=== PATIENT | female | born 1970 | race Caucasian/White ===

== ENCOUNTER → 2017-10-10 10:48 | Outpatient (CLI) | payer OTHER, SELFPAY ==
[2017-10-10 12:21] LABS: Absolute Lymphocyte Count 1.55 X10^3/ul (0.83-4.51); Absolute Neutrophil Count 3.8 X10^3/uL (2.0-7.7); Basophil# 0.02 X10^3/uL; Basophil% 0.3 % (0-1); Eosinophil# 0.16 X10^3/uL; Eosinophils% 2.7 % (0-5); Hematocrit 41.1 % (37-47); Hemoglobin 13.1 g/dl (12.0-15.0); Lymphocyte # 1.55 X10^3/ul (4.0); Lymphocyte % 26.3 % (19-41); Mean Corp Hgb Conc 31.9 g/gl (32-36); Mean Corpuscular Hgb 29.6 pg (27.0-32.0); Mean Platelet Vol. 10.8 fl (6.2-12.0); Monocyte# 0.37 X10^3/uL; Monocyte% 6.3 % (0-10); Neutrophil # 3.78 X10^3/uL (2.7-7.7); Neutrophil % 64.2 % (47-70); Platelet Count 292 K/mm3 (150-450); RBC Distribution Width CV 13.8 % (11.6-14.6); Red Blood Count 4.42 M/mm3 (4.2-5.4); White Blood Count 5.9 K/mm3 (4.4-11.0)
[2017-10-10 12:29] LABS: POSITIVE COUNT NO; POSITIVE DIFFERENTIAL NO; POSITIVE MORPHOLOGY NO
[2017-10-10 12:37] LABS: Erythrocyte Sedimentation Rate 16 mm/hr (0-20)
[2017-10-10 12:53] LABS: Vitamin B12 635 pg/mL (211-911); Vitamin D,25 Hydroxy 34.9 ng/mL (19.95-100.01)
[2017-10-10 13:13] LABS: AST(SGOT) 18 U/L (15-37); Alanine Aminotransfer ALT/SGPT 21 U/L (13-56); Albumin, Serum 3.5 g/dL (3.2-5.0); Alkaline Phosphatase 106 U/L (45-117); Anion Gap 7 (5-15); BUN 19 mg/dL (7-18); BUN/Creat Ratio 34.2 RATIO (10-20); CRP 3.74 mg/L (0.0-3.0); Calcium,Total 8.4 mg/dL (8.5-10.1); Chloride 106 mmol/L (98-107); Creatinine, Serum 0.56 mg/dL (0.55-1.02); EST Glomerular Filtration Rate 125 mL/min (>60); Est Glom Filt Rate - Afr Amer 151 mL/min (>60); Ferritin 47 ng/mL (8-252); Globulin 3.5 g/dL (2.2-4.2); Glucose 89 mg/dL (74-106); Iron 89 ug/dL (50-170); Potassium 4.2 mmol/L (3.5-5.1); Rheumatoid Factor < 10.0 IU/mL (<15); Sodium Level 139 mmol/L (136-145); Thyroid Stim Hormone (TSH) 1.49 uIU/mL (0.358-3.74); Uric Acid 4.9 mg/dL (2.6-6.0)
[2017-10-11 12:37] LABS: ANTINUCLEAR ANTIBODIES DIRECT Negative (Negative)
== END ==
PROVIDERS: Family Provider Family Medicine; PCP Family Medicine; Visit Provider Family Medicine
DX: M79.1 Myalgia (principal)
CPT/HCPCS: 36415; 80053; 81291; 82306; 82607; 82728; 82746; 83540; 84443; 84550; 85025; 85652; 86038; 86140; 86431

== ENCOUNTER → 2017-10-17 07:39 | Outpatient (CLI) | payer OTHER, SELFPAY ==
[2017-10-17 10:13] LABS: Internal QC Validated? YES +Cl - CLEAR BKGD; Pregnancy, Urine Negative Negative
== END ==
PROVIDERS: Family Provider Family Medicine; PCP Family Medicine; Visit Provider Dermatology
DX: L70.0 Acne vulgaris (principal); L23.3 Allergic contact dermatitis due to drugs in contact with skin; Z79.899 Other long term (current) drug therapy
CPT/HCPCS: 81025

== ENCOUNTER → 2017-10-22 07:11 | Outpatient (CLI) | payer OTHER, SELFPAY | PROVIDERS: Family Provider Family Medicine; PCP Family Medicine; Visit Provider Family Medicine | DX: M79.1 Myalgia (principal) | CPT/HCPCS: 36415; 81291 ==

== ENCOUNTER → 2017-10-29 08:08 | Outpatient (CLI) | payer OTHER, SELFPAY ==
[2017-10-29 11:10] LABS: Homocysteine 6.2 umol/L (3.2-10.7)
== END ==
PROVIDERS: Family Provider Family Medicine; PCP Family Medicine; Visit Provider Family Medicine
DX: M79.1 Myalgia (principal); M60.9 Myositis, unspecified
CPT/HCPCS: 36415; 83090

== ENCOUNTER → 2017-11-02 10:36 | Outpatient (CLI) | payer OTHER, SELFPAY ==
--- NOTE | 2017-11-02 10:40 | RAD_ITS ---
STUDY: X-RAY - LUMBAR SPINE REASON FOR EXAM: Female, 47 years old. Chronic back pain. TECHNIQUE: 5 view(s) of the lumbar spine were obtained including oblique views. COMPARISON: None FINDINGS: Normal lumbar lordosis. There is no substantial scoliosis. There is a normal alignment of the vertebrae. There is mild endplate spondylosis of the lumbar vertebrae. Mild disc space narrowing at the L4-L5 and L5-S1 levels. IUD is seen within the pelvis. Radiopaque tablets are seen scattered throughout the bowel. RAD/L/S Spine Min 4 Views IMPRESSION: Degenerative changes of the spine, as detailed above. Electronically Signed: Franky Desai MD at 14:12 EST Tel [phone], Service support ,
== END ==
PROVIDERS: Family Provider Family Medicine; PCP Family Medicine; Visit Provider Family Medicine
DX: M54.5 Low back pain (principal)
CPT/HCPCS: 72110

== ENCOUNTER → 2017-11-20 08:42 | Outpatient (CLI) | payer OTHER, SELFPAY ==
[2017-11-20 10:33] LABS: Internal QC Validated? YES +Cl - CLEAR BKGD; Pregnancy, Urine Negative Negative
== END ==
PROVIDERS: Family Provider Family Medicine; PCP Family Medicine; Visit Provider Dermatology
DX: L70.0 Acne vulgaris (principal); L72.8 Other follicular cysts of the skin and subcutaneous tissue; L23.3 Allergic contact dermatitis due to drugs in contact with skin; Z79.899 Other long term (current) drug therapy
CPT/HCPCS: 81025

== ENCOUNTER → 2017-11-29 11:53 | Outpatient (CLI) | payer OTHER, SELFPAY ==
[2017-11-29 14:27] LABS: Follicle Stimulating Hormone 18.4 mIU/mL; Luteinizing Hormone 9.6 mIU/mL
[2017-12-03 03:06] LABS: Testosterone Free 3.5 pg/mL (0.0-4.2)
[2017-12-03 08:33] LABS: Estrogen, Total, Serum 218 pg/mL (.)
== END ==
PROVIDERS: Family Provider Family Medicine; PCP Family Medicine; Visit Provider Nurse Practitioner Adult Health
DX: N95.9 Unspecified menopausal and perimenopausal disorder (principal)
CPT/HCPCS: 36415; 82672; 83001; 83002; 84402

== ENCOUNTER → 2017-12-24 09:24 | Outpatient (CLI) | payer OTHER, SELFPAY ==
[2017-12-24 11:56] LABS: Internal QC Validated? YES +Cl - CLEAR BKGD; Pregnancy, Urine Negative Negative
== END ==
PROVIDERS: Family Provider Family Medicine; PCP Family Medicine; Visit Provider Dermatology
DX: L70.0 Acne vulgaris (principal); Z79.899 Other long term (current) drug therapy; L72.8 Other follicular cysts of the skin and subcutaneous tissue; L23.3 Allergic contact dermatitis due to drugs in contact with skin
CPT/HCPCS: 81025

== ENCOUNTER → 2018-01-24 09:50 | Outpatient (CLI) | payer OTHER, SELFPAY ==
[2018-01-24 12:41] LABS: Internal QC Validated? YES +Cl - CLEAR BKGD; Pregnancy, Urine Negative Negative
== END ==
PROVIDERS: Family Provider Family Medicine; PCP Family Medicine; Visit Provider Dermatology
DX: Z79.899 Other long term (current) drug therapy (principal); L70.0 Acne vulgaris; L23.3 Allergic contact dermatitis due to drugs in contact with skin
CPT/HCPCS: 81025

== ENCOUNTER → 2018-02-21 08:51 | Outpatient (CLI) | payer OTHER, SELFPAY ==
[2018-02-21 09:59] LABS: Internal QC Validated? YES +Cl - CLEAR BKGD; Pregnancy, Urine Negative Negative
== END ==
PROVIDERS: Family Provider Family Medicine; PCP Family Medicine; Visit Provider Dermatology
DX: L70.0 Acne vulgaris (principal); L23.3 Allergic contact dermatitis due to drugs in contact with skin; Z79.899 Other long term (current) drug therapy
CPT/HCPCS: 81025

== ENCOUNTER → 2018-03-27 13:41 | Outpatient (CLI) | payer OTHER, SELFPAY ==
[2018-03-27 14:33] LABS: Internal QC Validated? YES +Cl - CLEAR BKGD; Pregnancy, Urine Negative Negative
== END ==
PROVIDERS: Family Provider Family Medicine; PCP Family Medicine; Visit Provider Dermatology
DX: L70.0 Acne vulgaris (principal); Z79.899 Other long term (current) drug therapy; L23.3 Allergic contact dermatitis due to drugs in contact with skin
CPT/HCPCS: 81025

== ENCOUNTER → 2018-12-04 07:02 | Outpatient (CLI) | payer OTHER, SELFPAY ==
--- NOTE | 2018-12-04 07:05 | BI_ITS ---
MAMMOGRAPHY - BILATERAL DIAGNOSTIC REASON FOR EXAM: Female, 48 years old. Palpable lump in the upper inner quadrant of the left breast. History of prior bilateral breast reduction surgery. PERTINENT HISTORY: Non-contributory. TECHNIQUE: Digital bilateral breast kerrie (3D mammographic acquisition) in the CC and MLO projections. 2-D mediolateral oblique (MLO) and craniocaudad (CC) views of both breasts were obtained. CAD: Full Field Digital Mammography with Computer Added Detection was performed. COMPARISON: Comparison is made with prior examination dated July 25, 2016 and July 07, 2015. FINDINGS: Breast Composition: There are scattered areas of fibroglandular density. There are no dominant masses or suspicious calcifications. There is a 7.8 mm well-defined nodule in the anterior lateral aspect of the right breast. This most likely represents either a small cyst or lymph node. This has increased slightly in size as compared to prior study. Correlation with ultrasound is recommended. No other significant abnormalities are identified. BI/DIAG MAMM W/CAD, BILAT IMPRESSION: 6.2 mm x 7.8 mm well-defined nodule in the anterior lateral aspect of the right breast as described. Correlation is recommended. Ultrasound correlation with the palpable abnormality in the upper quadrant of the left breast is recommended as well. ASSESSMENT CATEGORY: BIRADS Category 0: Incomplete. Need additional imaging evaluation. A letter regarding these results will be sent to the patient by the facility within 30 days. Approximately 10% of breast cancers are not detected by mammography. A normal mammogram should not delay biopsy of a clinically suspicious abnormality. Electronically Signed: Franky Desai, at 13:20 EDT , Service support ,
== END ==
PROVIDERS: Family Provider Family Medicine; PCP Family Medicine; Referring Provider Obstetrics & Gynecology; Visit Provider Obstetrics & Gynecology
DX: N63.22 Unspecified lump in the left breast, upper inner quadrant (principal)
CPT/HCPCS: 77062; 77063; 77066; G0279

== ENCOUNTER → 2018-12-06 12:28 | Outpatient (CLI) | payer OTHER, SELFPAY ==
--- NOTE | 2018-12-06 12:30 | US_ITS ---
STUDY: ULTRASOUND BREAST - RIGHT REASON FOR EXAM: Female, 48 years old. Abnormal screening mammogram. TECHNIQUE: Axial and longitudinal images of the RIGHT breast were performed with a high resolution ultrasound transducer. COMPARISON: Comparison is made with prior mammogram dated December 04, 2018. FINDINGS: RIGHT Breast: The mammographic abnormality corresponds to a 6 mm x 4 mm x 3 mm well-defined hypoechoic nodule with echogenic hilum suggestive of a lymph node at the 12:00 position of the breast at 1 cm from the nipple. IMPRESSION: The mammographic abnormality corresponds to a 6 mm x 4 mm x 3 mm benign-appearing lymph node at the 12:00 position of the breast at 1 cm from nipple. ASSESSMENT CATEGORY: BIRADS Category 2: Benign. A letter regarding these results will be sent to the patient by the facility within 30 days. Electronically Signed: Franky Desai, at 14:05 EDT , Service support , STUDY: ULTRASOUND BREAST - LEFT REASON FOR EXAM: Female, 48 years old. Palpable lump left breast. TECHNIQUE: Axial and longitudinal images of the LEFT breast were performed with a high resolution ultrasound transducer. COMPARISON: Comparison is made with prior mammogram dated December 04, 2018. FINDINGS: LEFT Breast: The upper inner quadrant of the left breast was examined by ultrasound. No solid or cystic mass lesion is seen. US/Breast Limited Unilateral IMPRESSION: Unremarkable ultrasound of the left breast. ASSESSMENT CATEGORY: BIRADS Category 1: Negative. A letter regarding these results will be sent to the patient by the facility within 30 days. Electronically Signed: Franky Desai, at 14:05 EDT , Service support ,
== END ==
PROVIDERS: Family Provider Family Medicine; PCP Family Medicine; Referring Provider Obstetrics & Gynecology; Visit Provider Obstetrics & Gynecology
DX: R92.8 Other abnormal and inconclusive findings on diagnostic imaging of breast (principal)
CPT/HCPCS: 76641; 76642

== ENCOUNTER 2019-06-13 18:19 | Emergency (ER) | payer OTHER, SELFPAY ==
[2019-06-13 18:20] VITALS: BP 139/91; PULSE 98; RESP 16; TEMP 36.6; O2SAT 98; BMI 28.3
--- NOTE | 2019-06-13 18:56 | ED.VIS.GEN ---
History of Present Illness Chief Complaint: Headache Informant: Patient Onset: Today - Approximately 12 noon Context: Gradual Onset Timing: Continuous Quality: Pain Location: Unilateral mild bilateral Current Severity: Severe Maximum Severity: Severe Worsened by: Light and sound Relieved by: Nothing Associated Symptoms: Nausea Narrative: She is a 49-year-old woman with history of migraine headaches who presents with significant migraine headache. She took her normal home meds without improvement. She presents with bilateral headache presently with photophobia, sonophobia and nausea. She denies fever or chills. She denies neck pain or neck stiffness. She denies blurred vision, loss of vision or double vision. Denies trouble speech or swallowing. Denies paresthesia, anesthesia motor weakness. She has no other complaints. Prior similar symptoms: No Recent Illness/Hospitalization: No - Past Medical History (1) History of migraine headaches Status: Acute Past Medical History - Allergies and Home Meds Allergies/Adverse Reactions: Allergies codeine Allergy (Verified 01/04/17 22:57) Swelling Sulfa (Sulfonamide Antibiotics) Allergy (Verified 01/04/17 22:57) Rash Primary Care Physician: Adilson Ness MD [Primary Care Provider] - As Needed Prior records reviewed: No Surgical History: noncontributory Lives: Spouse/ Significant Other Smoking Status: Never smoker Alcohol: None Drugs: None Review of Systems General: Denies: Chills, Fever, Sweats Eyes: Reports: - - Photophobia. Denies: Visual changes - bilaterally, Blurred Vision - bilaterally, Diplopia ENT: Reports: - - Sonophobia. Denies: Rhinorrhea, Sore throat Cardiovascular: Denies: Chest pain, Palpitations Respiratory: Denies: Dyspnea, Cough, Dyspnea on exertion Gastrointestinal: Reports: Nausea. Denies: Abdominal pain, Vomiting, Diarrhea, Constipation, Melena, Hematochezia, -, - Musculoskeletal: Denies: Myalgias, Arthralgias, Neck pain, Back pain, Extremity Pain Skin: Denies: Rash Neurological: Reports: Headache. Denies: Weakness, Parasthesia Hematologic: Denies: Easy bruising, Easy bleeding Physical Exam Vital Signs/Narrative: Vital Signs Temp Pulse Resp BP Pulse Ox 06/13/19 18:20 97.9 F 98 16 139/91 H 98 Inital Vital Signs reviewed: Yes General: Well nourished, Well developed Head: Normocephalic, Atraumatic Eyes: Perrl, EOMI. Negative for: Pale conjunctiva, Scleral icterus ENT: Moist mucous membranes, No rhinorrhea, TM's clear Neck: Supple, Nontender, No lymphadenopathy, No JVD Cardiovascular: Regular rate, Regular rhythm, No murmurs, Normal S1, Normal S2, S3 Respiratory: No distress, CTA bilaterally, Chest nontender Rectal: Deferred Back: Nontender, Normal Inspection Extremities: Nontender, No edema Skin: Normal color, No rash Neurological: Alert, Oriented x3, Cranial nerves II-XII grossly intact, Normal Strength, Normal Sensation, Normal DTR - There is no clonus or Babinski sign noted, Normal Gait Psychological: Normal affect Diagnostic/Tx/Re-eval - Medical Decision Making With typical migraine headache. History is not suggestive of subarachnoid hemorrhage. There is no history of trauma. Will treat with IV Benadryl, Reglan and Toradol. Will reassess in 30 to 60 minutes. She was reassessed at 1942. She was markedly better. She was asked if she felt comfortable going home. She states she would like to go home. ED Disposition - Plan for ED Patient: Disposition: Home or Assisted Living Diagnosis: Headache, migraine, intractable Instructions: ED, Migraine (Classical) Referrals: Adilson Ness MD [Primary Care Provider] - As Needed
[2019-06-13] MEDS: Ketorolac 30 MG/ML Syringe IV (19:01)
[2019-06-13] MEDS: DiphenhydrAMINE 50 MG/ML Syringe 25 MG IV (19:02)
[2019-06-13] MEDS: Metoclopramide 10 MG/2 ML Vial IV (19:03)
[2019-06-13 19:51] VITALS: BP 123/80; PULSE 81; RESP 18; O2SAT 98
== END 2019-06-13 19:53 | disposition home or self-care (01) ==
PROVIDERS: Emergency Provider Emergency Medicine; Family Provider Family Medicine; PCP Family Medicine
DX: G43.919 Migraine, unspecified, intractable, without status migrainosus (principal); Z88.2 Allergy status to sulfonamides
CPT/HCPCS: 96374; 96375; 99282; A4216

== ENCOUNTER → 2020-01-07 10:30 | Outpatient (CLI) | payer OTHER, SELFPAY ==
[2020-01-07 12:56] LABS: ALB/GLOB Ratio 0.7 RATIO (0.9-2.4); AST(SGOT) 14 U/L (15-37); Alanine Aminotransfer ALT/SGPT 19 U/L (13-56); Alkaline Phosphatase 66 U/L (45-117); Anion Gap 6 (5-15); BUN 13 mg/dL (7-18); BUN/Creat Ratio 17.8 RATIO (10-20); Calcium,Total 8.9 mg/dL (8.5-10.1); Chloride 107 mmol/L (98-107); Creatinine, Serum 0.73 mg/dL (0.55-1.02); EST Glomerular Filtration Rate 90 mL/min (>60); Est Glom Filt Rate - Afr Amer 109 mL/min (>60); Free T3 2.5 pg/mL (2.18-3.98); Globulin 4.5 g/dL (2.2-4.2); Glucose 86 mg/dL (74-106); Potassium 4.3 mmol/L (3.5-5.1); Protein, Total 7.5 g/dL (6.4-8.2); Sodium Level 138 mmol/L (136-145); T4 Free Direct 0.83 ng/dL (0.76-1.46); Thyroid Stim Hormone (TSH) 1.82 uIU/mL (0.358-3.74)
[2020-01-07 13:27] LABS: Vitamin D,25 Hydroxy 38.8 ng/mL
== END ==
PROVIDERS: PCP Family Medicine; Visit Provider Family Medicine
DX: R63.5 Abnormal weight gain (principal)
CPT/HCPCS: 36415; 80053; 82306; 82533; 84439; 84443; 84481

== ENCOUNTER 2020-10-21 10:11 | Outpatient (RCR) | payer OTHER, SELFPAY | END 2020-10-21 23:59 | LOC: IMMUN 10:11 | PROVIDERS: PCP Family Medicine; Visit Provider Family Medicine | DX: Z23 Encounter for immunization (principal) | CPT/HCPCS: 0011A; 0012A ==

== ENCOUNTER → 2021-02-04 12:30 | Outpatient (CLI) | payer OTHER, SELFPAY ==
--- NOTE | 2021-02-04 12:35 | BI_ITS ---
MAMMOGRAPHY - BILATERAL SCREENING REASON FOR EXAM: Female, 51 years old. Routine annual screening examination. PERTINENT HISTORY: Non-contributory. History of prior bilateral breast reduction surgery. TECHNIQUE: Digital bilateral breast tiera (3D mammographic acquisition) in the CC and MLO projections. 2-D mediolateral oblique (MLO) and craniocaudad (CC) views of both breasts were obtained. CAD: Full Field Digital Mammography with Computer Added Detection was performed. COMPARISON: Comparison is made with prior study dated 12/04/2018 and 07/25/2016. FINDINGS: Breast Composition: There are scattered areas of fibroglandular density. Stable 7.8 mm well-defined nodular density in the anterior lateral aspect of the right breast. Stable bilateral axillary lymph nodes. There are no dominant masses or suspicious calcifications. No other significant abnormalities are identified. There has been no significant change since the prior study. BI/SCRN MAMM (CAD)W/TIERA BILAT IMPRESSION: Stable bilateral screening mammogram. Yearly follow-up mammogram recommended. (A) ASSESSMENT CATEGORY: BIRADS Category 2: Benign. A letter regarding these results will be sent to the patient by the facility within 30 days. Approximately 10% of breast cancers are not detected by mammography. A normal mammogram should not delay biopsy of a clinically suspicious abnormality. [id number] Electronically Signed: Franky Desai MD at 13:48 EDT , Service support ,
== END ==
PROVIDERS: PCP Family Medicine; Referring Provider Obstetrics & Gynecology; Visit Provider Obstetrics & Gynecology
DX: Z12.31 Encounter for screening mammogram for malignant neoplasm of breast (principal)
CPT/HCPCS: 77063; 77067

== ENCOUNTER → 2022-03-21 | Outpatient (CLI) | payer OTHER, SELFPAY ==
--- NOTE | 2022-03-21 08:14 | BI_ITS ---
MAMMOGRAPHY - BILATERAL SCREENING REASON FOR EXAM: Female, 52 years old. Routine annual screening examination. PERTINENT HISTORY: Non-contributory. History of prior bilateral breast reduction surgery. TECHNIQUE: Digital bilateral breast tiera (3D mammographic acquisition) in the CC and MLO projections. 2-D mediolateral oblique (MLO) and craniocaudad (CC) views of both breasts were obtained. CAD: Full Field Digital Mammography with Computer Added Detection was performed. COMPARISON: Comparison is made with prior study dated 02/04/2021 and 12/04/2018. FINDINGS: Breast Composition: The breasts are almost entirely fatty. Stable 7.8 mm nodular density in the central portion of the left breast suggestive of a small lymph node. Stable 7 mm well-defined nodule in the upper lateral aspect of the right breast. No other significant abnormalities are identified. There has been no significant change since the prior study. BI/SCRN MAMM (CAD)W/TIERA BILAT IMPRESSION: Stable bilateral screening mammogram. Yearly follow-up mammogram recommended. (A) ASSESSMENT CATEGORY: BIRADS Category 2: Benign. A letter regarding these results will be sent to the patient by the facility within 30 days. Approximately 10% of breast cancers are not detected by mammography. A normal mammogram should not delay biopsy of a clinically suspicious abnormality. [id number] Electronically Signed: Franky Desai MD at 8:15 EDT ,
== END | disposition home or self-care (01) ==
LOC: OPBI 08:12
PROVIDERS: PCP Family Medicine; Referring Provider Obstetrics & Gynecology; Visit Provider Obstetrics & Gynecology
DX: Z12.31 Encounter for screening mammogram for malignant neoplasm of breast (principal)
CPT/HCPCS: 77063; 77067

== ENCOUNTER → 2022-03-28 | Outpatient (CLI) | payer OTHER, SELFPAY | END | disposition home or self-care (01) | LOC: MFPLAB 11:17 | PROVIDERS: PCP Family Medicine; Referring Provider Family Medicine; Visit Provider Family Medicine | DX: D68.2 Hereditary deficiency of other clotting factors (principal); Z83.2 Family history of diseases of the blood and blood-forming organs and certain disorders involving the immune mechanism | CPT/HCPCS: 36415; 81241 ==

== ENCOUNTER → 2023-03-20 | Outpatient (CLI) | payer OTHER, SELFPAY ==
[2023-03-20 12:30] LABS: Erythrocyte Sedimentation Rate 6 mm/hr (0-30)
[2023-03-20 12:34] LABS: Absolute Lymphocyte Count 1.45 X10^3/uL (0.83-4.51); Absolute Neutrophil Count 4.6 X10^3/uL (2.0-7.7); Basophil# 0.04 X10^3/uL; Basophil% 0.6 % (0-1); Eosinophil# 0.13 X10^3/uL; Eosinophils% 1.9 % (0-5); Hematocrit 42.3 % (37-47); Hemoglobin 13.8 g/dL (12.0-15.0); Lymphocyte # 1.45 X10^3/ul (0.83-4.51); Lymphocyte % 21.3 % (19-41); Mean Corp Hgb Conc 32.6 g/dL (32-36); Mean Corpuscular Hgb 29.9 pg (27.0-32.0); Mean Corpuscular Volume 91.8 fL (81-99); Mean Platelet Vol. 10.6 fl (6.2-12.0); Monocyte# 0.52 X10^3/uL; Monocyte% 7.6 % (0-10); NRBC Flagged by Analyzer 0 % (0-5); Neutrophil # 4.64 X10^3/uL (2.7-7.7); Neutrophil % 68.2 % (47-70); Platelet Count 323 K/mm3 (150-450); RBC Distribution Width CV 13.9 % (11.6-14.6); RBC Distribution Width SD 47.2 fl (35.1-43.9); Red Blood Count 4.61 M/mm3 (4.2-5.4); White Blood Count 6.8 K/mm3 (4.4-11.0)
[2023-03-20 12:58] LABS: ALB/GLOB Ratio 0.9 RATIO (0.9-2.4); AST(SGOT) 19 U/L (15-37); Alanine Aminotransfer ALT/SGPT 33 U/L (13-56); Albumin, Serum 3.2 g/dL (3.2-5.0); Alkaline Phosphatase 136 U/L (45-117); Anion Gap 3 (5-15); BUN 14 mg/dL (7-18); BUN/Creat Ratio 19.3 RATIO (10-20); Calcium,Total 8.9 mg/dL (8.5-10.1); Chloride 109 mmol/L (98-107); Creatinine, Serum 0.72 mg/dL (0.55-1.02); EST Glomerular Filtration Rate 90 mL/min (>60); Est Glom Filt Rate - Afr Amer 109 mL/min (>60); Globulin 3.7 g/dL (2.2-4.2); Glucose 87 mg/dL (74-106); Potassium 4.3 mmol/L (3.5-5.1); Protein, Total 6.9 g/dL (6.4-8.2); Sodium Level 140 mmol/L (136-145)
[2023-03-21 13:13] LABS: ANTINUCLEAR ANTIBODIES DIRECT Negative (Negative)
[2023-03-21 15:13] LABS: Alkaline Phosphatase, Serum 138 IU/L (44-121); Bone Fraction 65 % (14-68); Intestinal Fraction 1 % (0-18); Liver Fraction 34 % (18-85)
== END | disposition home or self-care (01) ==
LOC: MFPLAB 10:14
PROVIDERS: PCP Family Medicine; Visit Provider Family Medicine
DX: M25.50 Pain in unspecified joint (principal); R74.8 Abnormal levels of other serum enzymes
CPT/HCPCS: 36415; 80053; 84075; 84080; 85025; 85652; 86038; 86431

== ENCOUNTER → 2023-04-25 | Outpatient (CLI) | payer OTHER, SELFPAY ==
--- NOTE | 2023-04-25 15:32 | BI_ITS ---
MAMMOGRAPHY - BILATERAL SCREENING REASON FOR EXAM: Female, 53 years old. Routine annual screening examination. PERTINENT HISTORY: Non-contributory. History of remote bilateral breast reduction surgery. TECHNIQUE: Digital bilateral breast tiera (3D mammographic acquisition) in the CC and MLO projections. 2-D mediolateral oblique (MLO) and craniocaudad (CC) views of both breasts were obtained. CAD: Full Field Digital Mammography with Computer Added Detection was performed. COMPARISON: Comparison is made with prior study dated March 21, 2022 and February 04, 2021. FINDINGS: Breast Composition: The breasts are almost entirely fatty. Stable 7 mm nodular density in the central portion of the left breast. Correlation with ultrasound is recommended. Stable 6 mm well-defined nodule in the upper lateral aspect of the right breast. No other significant abnormalities are identified. There has been no significant change since the prior study. BI/SCRN MAMM (CAD)W/TIERA BILAT IMPRESSION: Stable bilateral screening mammogram. Correlation with ultrasound of the nodular density in the left breast is recommended for further evaluation. ASSESSMENT CATEGORY: BIRADS Category 0: Incomplete. Need additional imaging evaluation. A letter regarding these results will be sent to the patient by the facility within 30 days. Approximately 10% of breast cancers are not detected by mammography. A normal mammogram should not delay biopsy of a clinically suspicious abnormality. [id number] Electronically Signed: Franky Desai MD at 8:22 EDT ,
== END | disposition home or self-care (01) ==
PROVIDERS: PCP Family Medicine; Referring Provider Obstetrics & Gynecology; Visit Provider Obstetrics & Gynecology
DX: Z12.31 Encounter for screening mammogram for malignant neoplasm of breast (principal)
CPT/HCPCS: 77063; 77067

== ENCOUNTER → 2023-04-27 | Outpatient (CLI) | payer OTHER, SELFPAY ==
--- NOTE | 2023-04-27 09:23 | US_ITS ---
STUDY: ULTRASOUND BREAST - LEFT REASON FOR EXAM: Female, 53 years old. Abnormal screening mammogram. TECHNIQUE: Axial and longitudinal images of the LEFT breast were performed with a high resolution ultrasound transducer. # OF IMAGES: 32 COMPARISON: Comparison is made with prior mammogram dated April 25, 2023. FINDINGS: LEFT Breast: The mammographic abnormality corresponds to a 1.4 cm x 1.5 cm x 0.6 cm focal glandular tissue at the 5:00 position the breast at 5 cm from the nipple. US/Breast Limited Unilateral IMPRESSION: The mammographic abnormality corresponds to a 1.4 cm by 1.5 cm x 0.6 cm focal glandular tissue. ASSESSMENT CATEGORY: BIRADS Category 2: Benign. A letter regarding these results will be sent to the patient by the facility within 30 days. Electronically Signed: Franky Desai MD at 12:42 EDT ,
== END | disposition home or self-care (01) ==
LOC: OPUS 09:19
PROVIDERS: PCP Family Medicine; Referring Provider Obstetrics & Gynecology; Visit Provider Obstetrics & Gynecology
DX: N63.24 Unspecified lump in the left breast, lower inner quadrant (principal)
CPT/HCPCS: 76642

== ENCOUNTER → 2024-04-01 | Outpatient (CLI) | payer OTHER, SELFPAY ==
[2024-04-01 12:55] LABS: Estradiol 38.8 pg/mL
[2024-04-02 08:13] LABS: PROGESTERONE 0.1 ng/mL (.)
[2024-04-08 11:59] LABS: Testosterone, Free 0.48 ng/dL (0.10-0.85); Testosterone, Total 16 ng/dL (4-50)
== END | disposition home or self-care (01) ==
PROVIDERS: PCP Family Medicine; Referring Provider Obstetrics & Gynecology; Visit Provider Obstetrics & Gynecology
DX: Z51.81 Encounter for therapeutic drug level monitoring (principal); Z79.890 Hormone replacement therapy
CPT/HCPCS: 36415; 82533; 82627; 82670; 84144; 84402; 84403; 82626

== ENCOUNTER → 2024-06-10 | Outpatient (CLI) | payer OTHER, SELFPAY ==
--- NOTE | 2024-06-10 15:02 | BI_ITS ---
MAMMOGRAPHY - BILATERAL SCREENING 3-D TOMOSYNTHESIS REASON FOR EXAM: Female, 54 years old. SCREENING PERTINENT HISTORY: No significant family history. TECHNIQUE: 2-D mammograms and 3-D Tomosynthesis of the breast (s) were performed. CAD was performed. COMPARISON: 04/25/2023 FINDINGS: The breast composition is composed of scattered fibroglandular density. Scattered benign calcifications are seen. No dense spiculated masses or suspicious microcalcifications are identified. No architectural distortion is identified. There is no skin thickening or retraction. There has been no significant change since the prior study. BI/SCRN MAMM (CAD)W/TIERA BILAT IMPRESSION: No mammographic signs of malignancy. Routine yearly mammograms recommended. ASSESSMENT CATEGORY: BIRADS Category 1: Negative. A letter regarding these results will be sent to the patient by the facility within 30 days. FOLLOW UP RECOMMENDATION: Yearly follow up mammogram recommended. (A) Approximately 10% of breast cancers are not detected by mammography. A normal mammogram should not delay biopsy of a clinically suspicious abnormality. Electronically Signed: Jayesh Bowen MD at 8:33 EDT ,
== END | disposition home or self-care (01) ==
LOC: OPBI 15:01
PROVIDERS: PCP Family Medicine; Referring Provider Obstetrics & Gynecology; Visit Provider Obstetrics & Gynecology
DX: Z12.31 Encounter for screening mammogram for malignant neoplasm of breast (principal)
CPT/HCPCS: 77063; 77067

== ENCOUNTER → 2024-07-02 | Outpatient (CLI) | payer OTHER, SELFPAY ==
[2024-07-09 12:10] LABS: HPV APTIMA, High Risk Negative (Negative)
== END | disposition home or self-care (01) ==
LOC: LABSPEC 10:29
PROVIDERS: PCP Family Medicine; Referring Provider Nurse Practitioner Women's Health; Visit Provider Nurse Practitioner Women's Health
DX: Z12.4 Encounter for screening for malignant neoplasm of cervix (principal)
CPT/HCPCS: 87624; 88175; G0145

== ENCOUNTER → 2024-07-17 | Outpatient (CLI) | payer OTHER, SELFPAY ==
--- NOTE | 2024-07-17 15:23 | US_ITS ---
STUDY: ULTRASOUND OF THE FEMALE PELVIS - COMPLETE REASON FOR EXAM: Female, 54 years old. AUB LMP: TECHNIQUE: Transabdominal TECHNICAL QUALITY: Limited. Examination limited by bowel gas. COMPARISON: None. FINDINGS: The uterus is anteverted and is in a midline position. The uterus measures 8.0 x 6.3 x 5.7 cm. Normal uterine cervix. The endometrium measures 7 mm in thickness, and is hyperechoic. There is no demonstrated endometrial mass. There is no demonstrated myometrial mass. I.U.D. - The patient does not have an I.U.D. The right ovary is non-visualized. The left ovary is non-visualized. There is no fluid in the cul-de-sac. Normal bladder contour. US/Pelvic (Non ) IMPRESSION: Limited exam-neither ovary seen because of bowel gas. Normal appearance of the uterus and endometrial echoes. Electronically Signed: Adi Reddy MD at 19:47 EST ,
== END | disposition home or self-care (01) ==
LOC: US 15:22
PROVIDERS: PCP Family Medicine; Referring Provider Nurse Practitioner Women's Health; Visit Provider Nurse Practitioner Women's Health
DX: N93.9 Abnormal uterine and vaginal bleeding, unspecified (principal)
CPT/HCPCS: 76856

== ENCOUNTER → 2024-07-30 | Outpatient (CLI) | payer OTHER, SELFPAY ==
--- NOTE | 2024-07-30 | EMB_PTH ---
PATIENT: JEN BALL FIEBIGERACCT #:[id number] LOC: [facility] U#:[id number] AGE/SX: 54/F ROOM: RE07/30/[address]: ALLEGRA Camp : 1970 BED: DIS: 07/30/2024 SPEC #: [id number] RECD: 07/30/24 12:09 STATUS: TERESA BARCLAYHector #: [id number] ROSEANN: 07/30/24 00:[address]: Gini Gorman NP DEPT: SURGICAL PATHOLOGY RECD BY: Trip Rivera ENTERED: 07/30/24 13:47 SP TYPE: ENDOM BX/C ANGELICA DR: Dr. Frederic Ness MD Tissues: Endometrium, NOS Procedures: Surgery Specimen Level IV HEADER OPERATION: Endometrial biopsy PRE-OP DIAGNOSIS: Postmenopausal bleeding TISSUE SUBMITTED: Endometrial tissue MICROSCOPIC DIAGNOSIS Endometrium, biopsy: Transitioned endometrium with minimal disorder. Recent mucosal hemorrhage. AM.mr 07/31/2024 MICROSCOPIC DESCRIPTION Slides are reviewed. GROSS DESCRIPTION Received is one container labeled with the patient's name and not further designated. The specimen consists of multiple minute fragments of page soft tissue that in aggregate measure 1.5 x 1.0 x <0.1 cm. The specimen is totally submitted in one cassette. AM. 07/30/2024 TC:5 CPT:26778
[2024-07-30 12:50] LABS: Estradiol < 11.0 pg/mL; Follicle Stimulating Hormone 5.1 mIU/mL
== END | disposition home or self-care (01) ==
LOC: BWCLAB 11:50
PROVIDERS: PCP Family Medicine; Referring Provider Nurse Practitioner Women's Health; Visit Provider Nurse Practitioner Women's Health
DX: N95.0 Postmenopausal bleeding (principal)
CPT/HCPCS: 36415; 82670; 83001; 88305

== ENCOUNTER → 2024-09-19 | Outpatient (CLI) | payer OTHER, SELFPAY ==
[2024-09-19 08:58] LABS: Hematocrit 43.5 % (37-47); Mean Corp Hgb Conc 32.2 g/dL (32-36); Mean Corpuscular Hgb 29.9 pg (27.0-32.0); Mean Corpuscular Volume 92.9 fL (81-99); Mean Platelet Vol. 10.1 fl (6.2-12.0); Platelet Count 341 K/mm3 (150-450); RBC Distribution Width CV 13.5 % (11.6-14.6); RBC Distribution Width SD 45.8 fl (35.1-43.9); Red Blood Count 4.68 M/mm3 (4.2-5.4); White Blood Count 6.9 K/mm3 (4.4-11.0)
[2024-09-19 09:13] LABS: Vitamin D,25 Hydroxy 39.4 ng/mL
[2024-09-19 09:24] LABS: ALB/GLOB Ratio 0.8 RATIO (0.9-2.4); AST(SGOT) 13 U/L (15-37); Alanine Aminotransfer ALT/SGPT 28 U/L (13-56); Albumin, Serum 3.3 g/dL (3.2-5.0); Alkaline Phosphatase 86 U/L (45-117); Anion Gap 3 (5-15); BUN 18 mg/dL (7-18); BUN/Creat Ratio 23.8 RATIO (10-20); Calcium,Total 9.3 mg/dL (8.5-10.1); Chloride 106 mmol/L (98-107); Cholesterol 184 mg/dL (200); Creatinine, Serum 0.76 mg/dL (0.55-1.02); EST Glomerular Filtration Rate 85 mL/min (>60); Est Glom Filt Rate - Afr Amer 103 mL/min (>60); Glucose 93 mg/dL (74-106); High Density Lipoprotein 55 mg/dL; Potassium 4.6 mmol/L (3.5-5.1); Protein, Total 7.3 g/dL (6.4-8.2); Sodium Level 138 mmol/L (136-145); T4 Free Direct 0.89 ng/dL (0.76-1.46); Triglycerides 151 mg/dL; Very Low Density Lipoprotein 30 mg/dL (5-40)
[2024-09-19 10:20] LABS: Hemoglobin A1c 5.2 % (3.8-5.6)
== END | disposition home or self-care (01) ==
LOC: BWCLAB 08:09
PROVIDERS: Nurse Practitioner Family; PCP Family Medicine; Referring Provider Family Medicine; Visit Provider Family Medicine
DX: Z13.220 Encounter for screening for lipoid disorders (principal); E66.811 Obesity, class 1; Z13.29 Encounter for screening for other suspected endocrine disorder; Z13.1 Encounter for screening for diabetes mellitus
CPT/HCPCS: 36415; 80053; 80061; 82306; 83036; 84439; 84443; 85027

== ENCOUNTER → 2024-09-25 | Outpatient (CLI) | payer OTHER, SELFPAY ==
--- NOTE | 2024-09-25 07:51 | EKG12_ITS ---
Test Reason : PRE MEDICATION Blood Pressure : */* mmHG Vent. Rate : 76 BPM Atrial Rate : 76 BPM P-R Int : 120 ms QRS Dur : 90 ms QT Int : 376 ms P-R-T Axes : 59 31 12 degrees QTcB Int : 423 ms Normal sinus rhythm Normal ECG Confirmed by SAILAJA LINDSEY, KULDIP ([id number]), technical writer and editor KIM COLEMAN ([id number]) on 09/25/2024 1:13:19 PM Referred By: Samantha Lowe Confirmed By: KULDIP MENARD MD
== END | disposition home or self-care (01) ==
LOC: PSN 07:48
PROVIDERS: PCP Family Medicine; Referring Provider Nurse Practitioner Family; Visit Provider Nurse Practitioner Family
DX: E66.811 Obesity, class 1 (principal)
CPT/HCPCS: 93005

== ENCOUNTER → 2024-11-05 | Outpatient (CLI) | payer OTHER, SELFPAY ==
[2024-11-05 07:49] LABS: Mucous, Urine 0 SEEN /hpf (<or=2+); White Blood Cells 0 SEEN /hpf (0-5)
[2024-11-05 10:25] LABS: Color, Urine Yellow (Yellow); Glucose, Dipstick Normal (Normal); Ketone-Dipstick Negative (Negative); Leukocyte Esterase-Dipstick 25 /ul (Negative); Nitrite-Dipstick Negative (Negative); Occult Blood-Urine Negative /ul (Negative); Protein-Dipstick 15 mg/dl (Negative); Specific Gravity, Urine 1.015 (1.002-1.030); Urine Bilirubin Dipstick Negative (Negative); Urine Clarity Clear (Clear); Urine Urobilinogen Normal (Normal)
[2024-11-05 10:33] LABS: Squamous Epithelial Cells - UA 5-10 SEEN /hpf (5-10)
[2024-11-05 10:34] LABS: Bacteria RARE /hpf (None Seen); Red Blood Cells-Urine 0 SEEN /hpf (0-5)
== END | disposition home or self-care (01) ==
LOC: MTLAB 07:46
PROVIDERS: PCP Family Medicine; Referring Provider Family Medicine; Visit Provider Family Medicine
DX: M54.9 Dorsalgia, unspecified (principal)
CPT/HCPCS: 81001

== ENCOUNTER → 2024-12-18 | Outpatient (CLI) | payer OTHER, SELFPAY ==
--- NOTE | 2024-12-18 15:40 | RAD_ITS ---
PROCEDURE: PA and lateral chest radiographs, two views 12/18/2024 REASON FOR EXAM: COUGH, CHEST HEAVINESS, BACK PAIN TECHNIQUE: PA and lateral views of the chest. FINDINGS: The cardiomediastinal silhouette is within normal limits. Thoracic aorta is tortuous. The bones are osteopenic with degenerative changes in the spine. Mild elevation right hemidiaphragm. RAD/Chest PA and Lateral IMPRESSION: No acute cardiopulmonary process is demonstrated. If there are persistent symp toms or clinical concern, further evaluation with CT may be considered. Reading Location: [facility]
[2024-12-18 17:56] LABS: Absolute Lymphocyte Count 1.53 X10^3/uL (0.83-4.51); Absolute Neutrophil Count 8.1 X10^3/uL (2.0-7.7); Basophil# 0.03 X10^3/uL; Basophil% 0.3 % (0-1); Eosinophil# 0.01 X10^3/uL; Eosinophils% 0.1 % (0-5); Hematocrit 45.1 % (37-47); Hemoglobin 15.1 g/dL (12.0-15.0); Lymphocyte # 1.53 X10^3/ul (0.83-4.51); Lymphocyte % 14.9 % (19-41); Mean Corp Hgb Conc 33.5 g/dL (32-36); Mean Corpuscular Hgb 29.8 pg (27.0-32.0); Mean Corpuscular Volume 89.1 fL (81-99); Mean Platelet Vol. 10.4 fl (6.2-12.0); Monocyte# 0.57 X10^3/uL; Monocyte% 5.5 % (0-10); NRBC Flagged by Analyzer 0 % (0-5); Neutrophil # 8.09 X10^3/uL (2.7-7.7); Neutrophil % 78.7 % (47-70); Platelet Count 355 K/mm3 (150-450); RBC Distribution Width CV 13.2 % (11.6-14.6); RBC Distribution Width SD 43.2 fl (35.1-43.9); Red Blood Count 5.06 M/mm3 (4.2-5.4); White Blood Count 10.3 K/mm3 (4.4-11.0)
[2024-12-18 18:31] LABS: ALB/GLOB Ratio 1.4 RATIO (0.9-2.4); AST(SGOT) 15 U/L (<=31); Alanine Aminotransfer ALT/SGPT 17 U/L (<=34); Albumin, Serum 4.2 g/dL (3.5-5.0); Alkaline Phosphatase 100 U/L (35-104); Anion Gap 11 (5-15); BUN 17 mg/dL (4-19); BUN/Creat Ratio 22.4 RATIO (10-20); Calcium,Total 9.8 mg/dL (7.6-11.0); Carbon Dioxide 24.2 mmol/L (21.0-32.0); Chloride 104 mmol/L (98-108); Creatinine, Serum 0.76 mg/dL (0.70-1.20); EST Glomerular Filtration Rate 94 (>60); Globulin 3.1 g/dL (2.2-4.2); Glucose 102 mg/dL (70-99); Potassium 4.1 mmol/L (3.3-5.1); Protein, Total 7.2 g/dL (5.9-8.4); Sodium Level 139 mmol/L (133-145); Thyroid Stim Hormone (TSH) 0.779 uIU/mL (0.300-4.200); Total Bilirubin 0.28 mg/dL (0.00-1.30); Troponin T High Sensitivity < 6 ng/L (<=14)
[2024-12-18 18:52] LABS: D-Dimer Quantitative (DVT/PE) 2.16 FEU/ug/m (0.27-0.49)
== END | disposition home or self-care (01) ==
LOC: MTLAB 15:39
PROVIDERS: PCP Family Medicine; Referring Provider Family Medicine; Visit Provider Family Medicine
DX: R05.9 Cough, unspecified (principal); R06.00 Dyspnea, unspecified; R07.9 Chest pain, unspecified
CPT/HCPCS: 36415; 71046; 80053; 84443; 84484; 85025; 85379

== ENCOUNTER → 2025-02-04 | Outpatient (CLI) | payer OTHER, SELFPAY ==
[2025-02-04 13:54] LABS: Follicle Stimulating Hormone 39.7 mIU/mL; Luteinizing Hormone 26.7 mIU/mL
--- OUTSIDE RECORDS SUMMARY | 2025-02-04 21:16 | XMS RPT_ITS | CCD ---
Author Organization [facility] Care Team Providers Care Dye Penetrant Testing Technician Name Role Phone Dallas Ness MD Primary Care Provider DALLAS NESS Primary Care Unavailabl e DALLAS NESS Primary Care Unavailabl e DALLAS NESS Primary Care Unavailabl e KAMRON SMITH Attending Unavailable JAMIE JJ Referring Unavailab DALLAS Abbasi Primary Care Unavailabl e DALLAS NESS Primary Care Unavailabl e DALLAS NESS Primary Care Unavailabl e DALLAS NESS Primary Care Unavailabl KAMRON Smith Referring Unavailable DALLAS NESS Primary Care UnavailDr. Dallas Valenzuela MD Primary Care Provider Gini Tadeo Attending Provider Gini Tadeo Referring Provider Dr. Dallas Ness MD Referring Provider Samantha Dickerson Attending Provider Dr. Dallas Ness MD Attending Provider Dr. Nancy Booth MD Attending Provider Samantha Dickerson Referring Provider Cyn LINDSEY, Dr. Alfonso Attending Provider Dallas Ness MD Primary Care Provider DALLAS NESS Primary Care Unavailabl JAVIER Miller Attending Unavailable DALLAS NESS Primary Care Unavailabl KEVIN Gamble Attending Unavail able MARLENE SPARKS Referring Unavailable RANNEY, CHRISTOPHER B Primary Care Unavailabl e KRAUZA, KEVIN RANKIN Referring Unavail able RANNUEVO, CHRISTOPHER B Primary Care Unavailabl e KRAUZA, KEVIN RANKIN Referring Unavail able RANNUEVO, CHRISTOPHER B Primary Care Unavailabl e KRAUZA, KEVIN RANKIN Referring Unavail able RANNEY, CHRISTOPHER B Primary Care Unavailabl e KRAUZA, KEVIN RANKIN Referring Unavail able RANNEY, CHRISTOPHER B Primary Care Unavailabl e KRAUZA, KEVIN RANKIN Referring Unavail able RANNUEVO, CHRISTOPHER B Primary Care Unavailabl e KRAUZA, KEVIN RANKIN Referring Unavail able RANNEY, CHRISTOPHER B Primary Care Unavailabl e KRAUZA, KEVIN RANKIN Referring Unavail able RANNUEVO, CHRISTOPHER B Primary Care Unavailabl e KRAUZA, KEVIN RANKIN Referring Unavail able RANNEY, CHRISTOPHER B Primary Care Unavailabl e Ranney, Christopher Primary Care Unavailable Ranney, Christopher Referring Unavailable Samantha Lowe Attending Unavailable Ranney, Christopher Primary Care Unavailable Ranney, Christopher Referring Unavailable Ranney, Christdeonteer Attending Unavailable Ranney, Christopher Primary Care Unavailable Ranney, Christopher Referring Unavailable Samantha Lowe Attending Unavailable Samantha Lowe Attending Unavailable Ranney, Christopher Primary Care Unavailable Ranney, Christopher Referring Unavailable Samantha Lowe Attending Unavailable Ranney, Christopher Primary Care Unavailable Ranney, Christopher Referring Unavailable Ranney, Christopher Primary Care Unavailable Media STRAIGHT TRUCK DRIVER, Gini Attending Unavailable Ranney, Christopher Referring Unavailable Ranney, Christopher Primary Care Unavailable Ranney, Christopher Referring Unavailable Ranney, Sanjayer Attending Unavailable Ranney, Christopher Primary Care Unavailable Sherif STRAIGHT TRUCK DRIVER, Gini Referring Unavailable Sherif STRAIGHT TRUCK DRIVER, Gini Attending Unavailable Ranney, Christopher Primary Care Unavailable Samantha Lowe Referring Unavailable Naty Addison Attending Unavailabl e Ranney, Christopher Primary Care Unavailable Ranney, Christopher Referring Unavailable Ranney, Christopher Attending Unavailable Samantha Lowe Attending Unavailable Ranney, Christopher Primary Care Unavailable Samantha Lowe Referring Unavailable Ranney, Christopher Primary Care Unavailable Sherif STRAIGHT TRUCK DRIVER, Gini Referring Unavailable Sherif STRAIGHT TRUCK DRIVER, Gini Attending Unavailable Ranney, Christopher Primary Care Unavailable Estephania Finch, Summer Referring Unavailable Estephania Finch, Summer Attending [facility] Unavailable Best Pedro, Summer Referring Unavailable Best Pedro, Summer [facility]ending [facility] Unavailable Sherif STRAIGHT TRUCK DRIVER, Gini Attending Unavailable Sherif STRAIGHT TRUCK DRIVER, Gini Referring Unavailable Samantha Lowe Attending Unavailable [place] Unavailable Ranney, Christopher Referring Unavailable [facility] Unavailable Sherif STRAIGHT TRUCK DRIVER, Gini Attending Unavailable Ranney, Christopher Referring Unavailable Ranney, Christopher Referring Unavailable Samantha Lowe Attending Unavailable [facility] Referring Un[facility] Unavailable Nancy Booth Attending Unavailable Grover LINDSEY, Dr. De La Garza Primary Care Provider Dr. Dallas Ness MD Referring Provider Chrissy RAMOS-CSamantha Attending Provider Grover LINDSEY, Dr. De La Garza Attending Provider Allergies Allergy Classification Reported Allergen(s) Allergy Type Date of Onset Reaction(s) Facility (19 sources) Codeine; Translations: [CODEINE] Drug Allergy 12-16-19 09 Swelling [facility] (20 sources) Sulfonamides (Antibiotic); Translations: [SULFA (SULFONAMIDE ANTIBIOTICS)] Allergy to substance 10-29-19 10 Rash [facility] (11 sources) Benadryl Allergy Decongestant; Translations: [BENADRYL ALLERGY DECONGESTANT] Drug Allergy 05-24-20 20 Intolerance, Mental Status Change [facility] (2 sources) diphenhydrAMINE Drug Allergy 10-31-19 25 Other [facility] Comment on above: Extreme agitation (1 source) Codeine Drug Allergy 01-02-20 [facility] (1 source) diphenhydrAMINE Drug Allergy 01-02-20 [facility] Medications Current Medications Medication Drug Class(es) Dates Sig (Normalized) Sig (Original) albuterol 0.83 mg/ml inhalation solution (7 sources) beta2-Adrenergic Agonist Start: 12-19-2024 End: 01-18-2025 take 2.5 mg by inhalation every six hours as needed albuterol (PROVENTIL) 2.5 mg /3 mL (0.083 %) nebulizer solution Use 3 mL via nebulizer every 6 hours as needed for wheezing/shortnes s of breath. Inhale by nebulizer over 5-15 minutes. 90 mL 12/19/2024 01/18/2025 Active Start: 12-12-2024 take 2 puff(s) by in halation every six hours as needed for wheezing albuterol HFA (PROVENTIL HFA, VENTOLIN HFA) 90 mcg/actuation inhaler Inhale 2 puffs as instructed every 6 hours as needed for wheezing/shortness of breath. 1 each 12/12/2024 Active benzoil peroxide (2 sources) Start: 07-02-2024 benzoil peroxide Active TOPICAL July 02, 2024 1:00am benzonatate 100 mg oral capsule (2 sources) Non-narcotic Antitussive Start: 12-19-2024 End: 12-24-2024 take 1 capsule by mouth every eight hours as needed benzonatate (TESSALON PERLE) 100 mg capsule Take 1 capsule by mouth three times a day as needed for cough for up to 5 days. 15 capsule 12/19/2024 12/24/2024 Active BIO Whole Probiotic supplement - (for rian/yeast) probiotic+saccharomyc es+biofilm disruptor (9 sources) Start: 12-09-2020 take 1 capsule by mouth once daily, then take 2 capsules by mouth every two hours BIOHM Whole Probiotic supplement - (for rian/yeast) probiotic+sacchar omyces+biofilm disruptor Take 1 capsule by mouth once daily. Start with 2 jars. No fridge needed. Take at least 2 hrs away from nystatin/candibac tin/diflucan. 0 12/09/2020 Active Comment on above: Take 1 capsule by [facility] once daily. Start with 2 jars. No fridge needed. Take at least 2 hrs away from nystatin/candibactin/diflucan. cholecalciferol 0.025 mg oral capsule (9 sources) Vitamin D Cholecalciferol, Vitamin D3, (VITAMIN D) 1,000 unit ORAL Cap Take by mouth. Active take 1 tablet by mouth once nusrat y Cholecalciferol, Vitamin D3, (VITAMIN D) 1,000 unit ORAL Cap Take one(1) tablet daily. Active Comment on above: Take one(1) tablet d aily. clotrimazole 10 mg/ml topical cream (2 sources) Azole Antifungal Start: 4 Clotrimazole 1 % cream Active 1 NMA TOPICAL TWICE A DAY July 02, 2024 1:00am doxycycline hyclate 100 mg oral tablet (3 sources) Tetracycline-class Drug Start: 5 End: 5 take 1 tablet by mouth twice daily doxycycline (VIBRA-TABS) 100 mg tablet Take 1 tablet by mouth two times a day for 10 days. 20 tablet 12/12/2024 12/22/2024 Active Start: 07-02-2024 take 1 tablet by elizabeth th twice daily Doxycycline Hyclate 20 mg tablet Active 20 mg PO TWICE A DAY July 02, 2024 1:00am iv contrast (will be provided with radiology test) (2 sources) Start: 04-24-2023 End: 04-25-2023 iv contrast (will be provided with radiology test) MRI PANC/GONZALEZ Inject, intravenously, once for 1 dose. No IV access, insert saline lock prior to the beginning of sedation, infusion, injection of imaging exam. Discontinue saline lock post exam. If Pt. has a central line or IVAD, may access for administration according to line specific nursing protocol. Once exam is complete flush line and de-access according to line specific nursing protocol in the MR contrast administration guidelines link. 1 Each 0 04/24/2023 04/25/2023 Active Comment on above: MRI PANC/GONZALEZ Inject, intravenously, once for 1 dose. No IV access, insert saline lock prior to the beginning of sedation, infusion, injection of imaging exam. Discontinue saline lock post exam. If Pt. has a central line or IVAD, may access for administration according to line specific nursing protocol. Once exam is complete flush line and de-access according to line specific nursing protocol in the MR contrast administration guidelines link. Magnesium (11 sources) Start: 07-02-2024 take 1 tablet by mouth once daily Magnesium 250 mg tablet Active 250 mg PO daily July 02, 2024 1:00am Start: 12-09-2020 Magnesium (Cit rate) 150 mg (Pure Encapsulations) Take 4 capsules daily. 12/09/2020 Active Start: 12-09-2020 Magnesium (Cit rate) 150 mg (Pure Encapsulations) Take 4 capsules daily. 0 12/09/2020 Active Comment on above: Take 4 capsules nusrat y. nitrofurantoin, macrocrystals 25 mg / nitrofurantoin, monohydrate 75 mg oral capsule (1 source) Nitrofuran Antibacterial Start: End: take 1 capsule by mouth twice daily at mealtime nitrofurantoin monohydrate and macrocrystal (MACROBID) 100 mg capsule Take 1 capsule by mouth twice daily with meals for 5 days. 10 capsule 0 03/20/2023 03/25/2023 Active Comment on above: Take 1 capsule by [facility] twice daily with meals for 5 days. phentermine hydrochloride 37.5 mg oral tablet (20 sources) Sympathomimetic Amine Anorectic Start: End: take 1 tablet by mouth once daily Phentermine (Adipex-P) 37.5 mg tablet Active 37.5 mg PO daily January 27, 2025 4:46pm BMI 32 Start: 10-03-2024 End: 12-03-2024 Phentermine (Adipex-P) 37.5 mg tablet Discontinued 18.75 mg PO daily October 30, 2024 5:43pm December 03, 2024 2:35pm BMI 32 Start: 07-02-2024 End: 07-02-2024 take 1 tablet by mouth once daily 30 minutes after breakfast Phentermine (Adipex-P) 37.5 mg tablet Discontinued 37.5 mg PO daily July 02, 2024 1:00am July 02, 2024 10:52am must administer 30 minutes before or 1-2 hours after breakfast Start: 03-01-2023 take 1 capsule by mouth once P hentermine HCl 30 mg capsule Take 1 capsule by mouth every afternoon. 03/01/2023 Active Comment on above: Take 1 capsule by [facility] every afternoon. predniSONE 20 mg oral tablet (1 source) Start: End: take 1 tablet by mouth once daily predniSONE (DELTASONE) 20 mg tablet Take 1 tablet by mouth once daily for 10 doses. 10 tablet 12/12/2024 12/22/2024 Active spironolactone 100 mg oral tablet (2 sources) Aldosterone Antagonist Start: take 1 tablet by mouth once daily Spironolactone 100 mg tablet Active 100 mg PO daily July 02, 2024 1:00am topiramate 25 mg oral tablet (7 sources) Start: End: take 1 tablet by mouth twice daily before breakfast Topiramate (Topamax) 25 mg tablet Active 25 mg PO TWICE A DAY 180 90 January 09, 2025 4:15pm take before breakfast and before dinner Start: 07-02-2024 End: 09-10-2024 take 1 tablet by mouth once daily Topiramate 100 mg tablet Discontinued 100 mg PO daily July 02, 2024 10:52am September 10, 2024 3:12pm traZODone hydrochloride 100 mg oral tablet (3 sources) Serotonin Reuptake Inhibitor Start: 09-23-2024 End: 12-24-2024 Trazodone 100 mg tablet Active 50 mg PO AT BEDTIME December 24, 2024 8:37am Completed/Discontinued Medications Medication Drug Class(es) Dates Sig (Normalized) Sig (Original) Alpha Lipoic Acid 600 mg (Pure Encapsulations) (7 sources) Start: 12-09-2020 End: 12-23-2024 Alpha Lipoic Acid 600 mg (Pure Encapsulations) Take 1 capsule daily with meals. 12/09/2020 12/23/2024 Discontinued Start: 12-09-2020 Alpha Lipoic A angelina 600 mg (Pure Encapsulations) Take 1 capsule daily with meals. 12/09/2020 Active Start: 12-09-2020 Alpha Lipoic A angelina 600 mg (Pure Encapsulations) Take 1 capsule daily with meals. 0 12/09/2020 Active Comment on above: Take 1 capsule daily with meals. Amino Acid Complex Powder (Daxibe) (Hieu) (7 sources) Start: 12-09-2020 End: 12-23-2024 Amino Acid Complex Powder (Daxibe) (Hieu) Mix 1 scoop with 8 ounces of water twice daily. 12/09/2020 12/23/2024 Discontinued Start: 12-09-2020 Amino Acid Com plex Powder (Daxibe) (Hieu) Mix 1 scoop with 8 ounces of water twice daily. 12/09/2020 Active Start: 12-09-2020 Amino Acid Com plex Powder (Daxibe) (Hieu) Mix 1 scoop with 8 ounces of water twice daily. 0 12/09/2020 Active Comment on above: Mix 1 scoop with 8 o unces of water twice daily. amitriptyline hydrochloride 25 mg oral tablet (7 sources) Tricyclic Antidepressant Start: End: take 1 tablet by mouth once daily at bedtime amitriptyline (ELAVIL) 25 mg tablet Take 1 tablet by mouth daily at bedtime. 05/24/2020 12/23/2024 Discontinued Comment on above: Take 1 tablet by elizabeth th daily at bedtime. B-Complex Plus (Pure Encapsulations) (7 sources) Start: End: take 1 capsule by mouth once daily at mealtime B-Complex Plus (Pure Encapsulations) Take 1 capsule by mouth daily with food. 12/09/2020 12/23/2024 Discontinued Start: 12-09-2020 take 1 capsule by mo uth once daily at mealtime B-Complex Plus (Pure Encapsulations) Take 1 capsule by mouth daily with food. 12/09/2020 Active Start: 12-09-2020 take 1 capsule by mo uth once daily at mealtime B-Complex Plus (Pure Encapsulations) Take 1 capsule by mouth daily with food. 0 12/09/2020 Active Comment on above: Take 1 capsule by mo uth daily with food. 84 hr estradiol 0.38523 mg/hr transdermal system (20 sources) Estrogen Start: 07-02-2024 End: 07-09-2024 Estradiol 0.05 mg/24 hr patch semiweekly Discontinued 1 NMA TD TWICE A WEEK July 02, 2024 10:54am July 09, 2024 5:12pm apply 1 patch for 3 days alternating with 1 patch for 4 days each week for 3 wks per 4-wk cycle Start: 07-02-2024 End: 07-30-2024 Estradiol 0.01 % (0.1 mg/gra m) cream Discontinued 1 g VAGINAL 3 TIMES A WEEK July 02, 2024 1:00am July 30, 2024 12:33pm Start: 03-19-2023 estradiol 0.05 mg/24 hr 03/19/2023 Active Start: 03-16-2023 estradiol (EST RACE) 0.01 % (0.1 mg/gram) vaginal cream 03/16/2023 Active Ethinyl Estradiol / Norethindrone (7 sources) Estrogen Start: 05-24-2020 End: 12-23-2024 take 1 tablet by mouth once daily, then take 0.05 tablet by mouth once Norethindrone Acet-Ethinyl Est (,) 1-20 mg-mcg per tablet Take 1 tablet by mouth once daily. 05/24/2020 12/23/2024 Discontinued Start: 05-24-2020 take 1 tablet by elizabeth th once daily, then take 0.05 tablet by mouth once Norethindrone Acet-Ethinyl Est (,) 1-20 mg-mcg per tablet Take 1 tablet by mouth once daily. 05/24/2020 Active Start: 05-24-2020 take 1 tablet by elizabeth th once daily, then take 0.05 tablet by mouth once Norethindrone Acet-Ethinyl Est (,) 1-20 mg-mcg per tablet Take 1 tablet by mouth once daily. 0 05/24/2020 Active Comment on above: Take 1 tablet by elizabeth th once daily. MEDICATION, NON-DATABASE (7 sources) End: 12-23-2024 MEDICATION, NON-DATABASE Amatriptyl 20 mg, 1 scoop daily 12/23/2024 Discontinued MEDICATION, NON- DATABASE Amatriptyl 20 mg, 1 scoop daily Active MEDICATION, NON- DATABASE Amatriptyl 20 mg, 1 scoop daily 0 Active Comment on above: Amatriptyl 20 mg, 1 scoop daily norethindrone acetate 5 mg oral tablet (2 sources) Start: 07-09-20 End: 07-30-20 Norethindrone Acetate 5 mg tablet Discontinued 5 mg PO .COMPLEX 45 July 09, 2024 1:00am July 30, 2024 12:38pm 5 mg PO tid until bleeding stops X 24 hr then bid to finish Rx progesterone 200 mg oral capsule (11 sources) Progesterone Start: 07-02-20 End: 07-09-20 24 take 1 capsule by mouth at bedtime Progesterone Micronized 200 mg capsule Discontinued 200 mg PO AT BEDTIME 90 July 02, 2024 10:54am July 09, 2024 5:12pm Start: 03-12-2023 progesterone m icronized (PROMETRIUM) 100 mg capsule 03/12/2023 Active Problems Active Problems Problem Classification Problem Date Documented Date Episodic/Chronic Chronic obstructive pulmonary disease and bronchiectasis (2 sources) Bronchitis; Translations: [Bronchitis, not specified as acute or chronic] Onset: 5 12-12-2024 Episodic Esophageal disorders (3 sources) Gastroesophageal reflux disease without esophagitis; Translations: [Gastro-esophageal reflux disease without esophagitis] Onset: 5 12-23-2024 Chronic Headache; including migraine (8 sources) Refractory migraine; Translations: [Migraine, unspecified, intractable, without status migrainosus] 06-14-2019 Chronic Menopausal disorders (14 sources) Postmenopausal bleeding; Translations: [Postmenopausal bleeding] Onset: 5 07-30-2024 Chronic Comment on above: start trazodone for sleep abnormalities start trazodone for sleep abnormalities--inc to 100mg Menopausal disorders (10 sources) Hormone replacement therapy; Translations: [Drug therapy finding] Onset: 4 09-23-2024 Episodic Comment on above: patch and oral proge sterone in past, stopped. Menstrual disorders (1 source) Amenorrhea, unspecified; Translations: [Amenorrhea, unspecified] Onset: 4 Chronic Other circulatory disease (4 sources) Raynaud's disease; Translations: [Raynaud's syndrome without gangrene] Onset: 5 12-23-2024 Chronic Other circulatory disease (1 source) Raynaud's syndrome without gangrene; Translations: [Raynaud's disease without gangrene] Onset: 5 Chronic Other endocrine disorders (9 sources) Polycystic ovary syndrome; Translations: [Polycystic ovarian syndrome] Onset: 0 05-24-2020 Chronic Other female genital disorders (1 source) Abnormal uterine and vaginal bleeding, unspecified; Translations: [Abnormal uterine and vaginal bleeding, unspecified] Onset: 4 Chronic Other female genital disorders (10 sources) Vaginal dryness; Translations: [Other specified noninflammatory disorders of vagina] 10-30-2024 Episodic Comment on above: vag estrogen cream-r ecently restarted. Other lower respiratory disease (8 sources) Interstitial lung disease; Translations: [Interstitial pulmonary disease, unspecified] 12-23-2024 Chronic Other lower respiratory disease (2 sources) Interstitial pulmonary disease, unspecified; Translations: [Interstitial lung disease (HCC)] Onset: 5 Chronic Other lower respiratory disease (2 sources) Dyspnea on exertion; Translations: [Other forms of dyspnea] 12-23-2024 Episodic Other lower respiratory disease (1 source) Cough; Translations: [Subacute cough] 12-23-2024 Episodic Other lower respiratory disease (1 source) Other forms of dyspnea; Translations: [Dyspnea on exertion] Onset: 5 Episodic Other lower respiratory disease (1 source) Other disorders of lung; Translations: [Small airways disease] Onset: 5 Episodic Other nervous system disorders (16 sources) H/O: migraine; Translations: [Personal history of other diseases of the nervous system and sense organs] 06-13-2019 Episodic Comment on above: stable as of current . Other nutritional; endocrine; and metabolic disorders (9 sources) Metabolic syndrome X; Translations: [Metabolic syndrome] Onset: 9 03-11-2009 Chronic Other nutritional; endocrine; and metabolic disorders (9 sources) Body mass index 30+ - obesity; Translations: [Obesity, unspecified] Onset: 8 07-22-2018 Chronic Other nutritional; endocrine; and metabolic disorders (1 source) Body mass index (BMI) 32.0-32.9, adult; Translations: [Body mass index 32.0-32.9, adult] Onset: 4 Chronic Other nutritional; endocrine; and metabolic disorders (9 sources) Obesity caused by energy imbalance; Translations: [Other obesity due to excess calories] 10-30-2024 Chronic Comment on above: Nutrition plan: Cruz jordan calorie restricted nutritional [id number] depending on exercise, Nutritional STRAIGHT TRUCK DRIVER 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 [employer]compal tracking. Discussed different nutrition modifications that would be appropriate for her. Not interested in intermittent fasting at this time. Was using Noom--hard to use--will explore other food trackers. Worksheet reprinted with goals today. Medication plan: 1/2 tab phentermine (if still stable in 4 weeks increase) and topamax BI. Educational materials given for review. See below for additional med info. control- post menopausal; was recently taken off hormone replacement therapy. Behavior intervention: Discussed Sleep hygiene--still working on it; portion control using plate method; Being mindful of what you are putting into your body--is this fuel for my body vs satisfaction. Stress management--doing well right now. Exercise plan: resistance training 3 times a week. Has a good foundation already in place--recommend to try to be consistent with this. NEAT activity recommended. Did get a tracker--unable to figure out how to use it. Will bring it to next visit if cannot get this working. 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 [employer] tracking. Continue with this. Not interested in intermittent fasting at this time. Was using Noom--hard to useMedication plan: phentermine full tab and increase topamax BID. See below for additional med info. control- post menopausal; was recently taken off hormone replacement therapy. Behavior intervention: Discussed Sleep hygiene--still working on it--okay to increase trazadone-feels effective at 100mg dosing; portion control using plate method; Being mindful of what you are putting into your body--is this fuel for my body vs satisfaction. Stress management--doing well right now. Exercise plan: resistance training 3 times a week. Has a good foundation already in place--recommend to try to be consistent with this. NEAT activity recommended. Using tracker at home. Other nutritional; endocrine; and metabolic disorders (10 sources) Obese class I; Translations: [Class 1 obesity] 10-30-2024 Chronic Comment on above: SW-09/10/2023; 191lb. 192 lbs today. Initial goal- s/p 5% weight reduction within 3 months of nutritional and medication intervention recommendations. Additional 5% goal within the next 3 months. Initial obesity assessment lab panel reviewed, still needs EKG- DONE. started on generic qsymiameds first per Dr Estephania Finch:adipex 37.5 X 6 mo and dc'd. SW-09/10/2023; 191lb. 192 lbs today. MaintainingInitial goal- s/p 5% weight reduction within 3 months of nutritional and medication intervention recommendations. Additional 5% goal within the next 3 months. Initial obesity assessment lab panel reviewed, still needs EKG- DONE. started on generic qsymiameds first per Dr Estephania Finch:adipex 37.5 X 6 mo and dc'd. Other skin disorders (2 sources) Lichen sclerosus et atrophicus; Translations: [Lichen sclerosus et atrophicus] 07-02-2024 Chronic Comment on above: steroid cream/unsure of name Residual codes; unclassified (3 sources) Obstructive sleep apnea syndrome; Translations: [Obstructive sleep apnea (adult) (pediatric)] 12-23-2024 Chronic Residual codes; unclassified (1 source) Obstructive sleep apnea (adult) (pediatric); Translations: [BUSTER (obstructive sleep apnea)] Onset: 5 Chronic Residual codes; unclassified (4 sources) Family history of malignant neoplasm of pancreas; Translations: [Family history of malignant neoplasm of digestive organs] Episodic Residual codes; unclassified (2 sources) Family history of disorder of pancreas; Translations: [Family history of other diseases of the digestive system] 07-02-2024 Episodic Comment on above: Negative genetic eugenie t Spondylosis; intervertebral disc disorders; other back problems (1 source) Dorsalgia, unspecified; Translations: [Dorsalgia, unspecified] Onset: 5 Episodic Unclassified (1 source) Subacute cough; Translations: [Subacute cough] Onset: 5 Unclassified (1 source) Cough, unspecified type; Translations: [Cough, unspecified type] Onset: 5 Unclassified (1 source) Cough, unspecified; Translations: [Cough, unspecified] Onset: 5 Unclassified (1 source) Obesity, class 1; Translations: [Obesity, class 1] Onset: 5 Past or Other Problems Problem Classification Problem Date Documented Date Episodic/Chronic Contraceptive and procreative management (9 sources) Oral contraception; Translations: [Encounter for surveillance of contraceptive pills] Onset: 05-24-2020 05-24-2020 Episodic Other inflammatory condition of skin (9 sources) Seborrheic dermatitis; Translations: [Seborrheic dermatitis, unspecified] Onset: 02-14-2010 02-14-2010 Episodic Other liver diseases (1 source) Abnormal levels of other serum enzymes; Translations: [Acid phosphatase elevated] Onset: 02-20-2023 Episodic Other nutritional; endocrine; and metabolic disorders (1 source) Abnormal weight gain; Translations: [Abnormal weight gain] Onset: 02-20-2023 Episodic Other screening for suspected conditions (not mental disorders or infectious disease) (3 sources) Encounter for screening for lipoid disorders; Translations: [Encounter for screening for malignant neoplasm of cervix] Onset: 07-02-2024 Episodic Other skin disorders (9 sources) Acne; Translations: [Other acne] Onset: 12-29-2008 12-06-2009 Episodic Other skin disorders (9 sources) Sebaceous cyst of skin; Translations: [Sebaceous cyst] Onset: 12-29-2008 12-06-2009 Episodic Other skin disorders (9 sources) Scar conditions and fibrosis of skin; Translations: [Scar conditions and fibrosis of skin] Onset: 12-29-2008 12-06-2009 Episodic Residual codes; unclassified (1 source) Family history of malignant neoplasm of digestive organs; Translations: [Family history of pancreatic cancer] Onset: 05-25-2023 Episodic Results Test Name Value Interpretation Reference Range Facility LUNG DIFFUSION CAPACITY (GRAHAM O)on 01-13-2025 LUNG DIFFUSION CAPACITY (DLCO) [address] [address] Test Date: 2025-01-13 Pat Name: SABINE BALL Department: Room: Gender: Female 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 Start of test and EOFE criteria met. Medications and Allergies were reviewed for possible drug interactions per policy. No contraindications or sensitivities were noted. Meds taken: none before testing. 2 puffs Albuterol (180 mcg) delivered by MDI via holding chamber. HR pre = /min, HR post = /min. Current ATS/ERS acceptability and repeatability standards for lung volumes met. DLCO is hemoglobin corrected. Hemoglobin obtained from [facility] lab on 12/18/2024. Current ATS/ERS acceptability and repeatability standards for DLCO met with 2 acceptable maneuvers.//MD IMPRESSION: Spirometry is normal. Negative bronchodilator response. Lung volumes reveal a reduction in residual volume and RV/TLC. Total lung capacity is normal The diffusion capacity (corrected for hemoglobin) is normal. Electronically Signed On 01-13-2025 15:11:05 EDT by Shahriar Archer, DO ID: [id number] Name: SABINE BALL Race: White Ht: 64.96 in Wt: 189.38 lbs Age: 55 Gender: Female : 1970 Dx: Idiopathic interstitial pulmonary disease_ Smoking Hx: Non-smoker Doctor: KEVIN HUTCHISON Test Date: 01/13/2025 [facility] Tech: Donita Phillips PRE-BRONCH POST-BRONCH Nitin LLN Pred ULN %Pred ZScore Nitin %Pred %Chg ZScore SPIROMETRY FVC 3.16 2.43 3.28 4.16 96 -0.22 3.32 101 4 0.07 FEV1 2.70 1.94 2.65 3.32 101 0.12 2.87 108 6 0.54 FEV1/FVC 0.85 0.69 0.81 0.90 105 0.81 0.87 107 1 1.04 FEFMax 5.64 5.01 6.77 8.53 83 -1.06 6.26 92 11 -0.48 FEF50 4.50 1.98 3.59 5.20 125 0.93 4.82 134 7 1.26 FIF50 3.27 2.73 -16 FEF50/FIF50 1.37 90-100 1.77 28 FIVC 3.01 2.99 0 XZF15-83 3.42 1.45 2.64 4.19 129 0.87 4.23 159 23 1.68 ExpiredTime 6.07 6.47 6 TimeToFEFMax 0.14 0.11 -21 HADLEY 0.11 0.14 27 VolExtrap% 3 4 21 LUNG VOLUMES FRC(Pleth) 1.85 2.06 2.92 3.78 63 -2.05 ERV 0.61 1.09 55 RV(Pleth) 1.24 1.27 1.90 2.52 65 -1.72 SVC 3.25 2.43 3.28 4.16 99 -0.06 IC 2.59 2.19 118 TLC(Pleth) 4.44 4.32 5.20 6.08 85 -1.41 RV/TLC(Pleth) 28 27 36 45 76 -1.56 LUNG DIFFUSION DLCOunc 28.14 16.62 22.79 28.96 123 1.43 DLCOStdPB 27.64 16.62 22.79 28.96 121 1.29 DLCORefHb 27.64 23.59 117 VA 4.37 4.12 5.22 6.32 83 -1.26 Kco 6.32 3.31 4.24 5.30 148 3.08 Hgb 14.60 12-18 Comments: PRE and POST BD: Current ATS/ERS acceptability and repeatability standards for spirometry met. Start of test and EOFE criteria met. Medications and Allergies were reviewed for possible drug interactions per policy. No contraindications or sensitivities were noted. Meds taken: none before testing. 2 puffs Albuterol (180 mcg) delivered by MDI via holding chamber. HR pre = /min, HR post = /min. Current ATS/ERS acceptability and repeatability standards for lung volumes met. DLCO is hemoglobin corrected. Hemoglobin obtained from [facility] lab on 12/18/2024. 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 Start of test and EOFE criteria met. Medications and Allergies were reviewed for possible drug interactions per policy. No contraindications or sensitivities were noted. Meds taken: none before testing. 2 puffs Albuterol (180 mcg) delivered by MDI via holding chamber. HR pre = /min, HR post = /min. Current ATS/ERS acceptability and repeatability standards for lung volumes met. DLCO is hemoglobin corrected. Hemoglobin obtained from [facility] lab on 12/18/2024. Current ATS/ERS acceptability and repeatability standards for DLCO met with 2 acceptable maneuvers.//MD IMPRESSION: Spirometry is normal. Negative bronchodilator response. Lung volumes reveal a reduction in residual volume and RV/TLC. Total lung capacity is normal The diffusion capacity (corrected for hemoglobin) is normal. Electronically Signed On 01-13-2025 15:11:05 EDT by Shahriar Archer, DO ID: [id number] Name: SABINE BALL Race: White Ht: 64.96 in Wt: 189.38 lbs Age: 55 Gender: Female : 1970 Dx: Idiopathic interstitial pulmonary disease_ Smoking Hx: Non-smoker Doctor: KEVIN HUTCHISON Test Date: 01/13/2025 Site: [facility] Tech: Ry Donita PRE-BRONCH POST-BRONCH Nitin LLN Pred ULN %Pred ZScore Nitin %Pred %Chg ZScore SPIROMETRY FVC 3.16 2.43 3.28 4.16 96 -0.22 3.32 101 4 0.07 FEV1 2.70 1.94 2.65 3.32 101 0.12 2.87 108 6 0.54 FEV1/FVC 0.85 0.69 0.81 0.90 105 0.81 0.87 107 1 1.04 FEFMax 5.64 5.01 6.77 8.53 83 -1.06 6.26 92 11 -0.48 FEF50 4.50 1.98 3.59 5.20 125 0.93 4.82 134 7 1.26 FIF50 3.27 2.73 -16 FEF50/FIF50 1.37 90-100 1.77 28 FIVC 3.01 2.99 0 ERJ16-90 3.42 1.45 2.64 4.19 129 0.87 4.23 159 23 1.68 ExpiredTime 6.07 6.47 6 TimeToFEFMax 0.14 0.11 -21 HADLEY 0.11 0.14 27 VolExtrap% 3 4 21 LUNG VOLUMES FRC(Pleth) 1.85 2.06 2.92 3.78 63 -2.05 ERV 0.61 1.09 55 RV(Pleth) 1.24 1.27 1.90 2.52 65 -1.72 SVC 3.25 2.43 3.28 4.16 99 -0.06 IC 2.59 2.19 118 TLC(Pleth) 4.44 4.32 5.20 6.08 85 -1.41 RV/TLC(Pleth) 28 27 36 45 76 -1.56 LUNG DIFFUSION DLCOunc 28.14 16.62 22.79 28.96 123 1.43 DLCOStdPB 27.64 16.62 22.79 28.96 121 1.29 DLCORefHb 27.64 23.59 117 VA 4.37 4.12 5.22 6.32 83 -1.26 Kco 6.32 3.31 4.24 5.30 148 3.08 Hgb 14.60 12-18 Comments: PRE and POST BD: Current ATS/ERS acceptability and repeatability standards for spirometry met. Start of test and EOFE criteria met. Medications and Allergies were reviewed for possible drug interactions per policy. No contraindications or sensitivities were noted. Meds taken: none before testing. 2 puffs Albuterol (180 mcg) delivered by MDI via holding chamber. HR pre = /min, HR post = /min. Current ATS/ERS acceptability and repeatability standards for lung volumes met. DLCO is hemoglobin corrected. Hemoglobin obtained from [facility] lab on 12/18/2024. 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 Start of test and EOFE criteria met. Medications and Allergies were reviewed for possible drug interactions per policy. No contraindications or sensitivities were noted. Meds taken: none before testing. 2 puffs Albuterol (180 mcg) delivered by MDI via holding chamber. HR pre = /min, HR post = /min. Current ATS/ERS acceptability and repeatability standards for lung volumes met. DLCO is hemoglobin corrected. Hemoglobin obtained from [facility] on 12/18/2024. Current ATS/ERS acceptability and repeatability standards for DLCO met with 2 acceptable maneuvers.//MD IMPRESSION: Spirometry is normal. Negative bronchodilator response. Lung volumes reveal a reduction in residual volume and RV/TLC. Total lung capacity is normal The diffusion capacity (corrected for hemoglobin) is normal. Electronically Signed On 01-13-2025 15:11:05 EDT by Shahriar Archer, DO ID: [id number] Name: SABINE BALL Race: White Ht: 64.96 in Wt: 189.38 lbs Age: 55 Gender: Female : 1970 Dx: Idiopathic interstitial pulmonary disease_ Smoking Hx: Non-smoker Doctor: KEVIN HUTCHISON Test Date: 01/13/2025 Site: [facility] Tech: Donita Phillips PRE-BRONCH POST-BRONCH Nitin LLN Pred ULN %Pred ZScore Nitin %Pred %Chg ZScore SPIROMETRY FVC 3.16 2.43 3.28 4.16 96 -0.22 3.32 101 4 0.07 FEV1 2.70 1.94 2.65 3.32 101 0.12 2.87 108 6 0.54 FEV1/FVC 0.85 0.69 0.81 0.90 105 0.81 0.87 107 1 1.04 FEFMax 5.64 5.01 6.77 8.53 83 -1.06 6.26 92 11 -0.48 FEF50 4.50 1.98 3.59 5.20 125 0.93 4.82 134 7 1.26 FIF50 3.27 2.73 -16 FEF50/FIF50 1.37 90-100 1.77 28 FIVC 3.01 2.99 0 NYE16-09 3.42 1.45 2.64 4.19 129 0.87 4.23 159 23 1.68 ExpiredTime 6.07 6.47 6 TimeToFEFMax 0.14 0.11 -21 HADLEY 0.11 0.14 27 VolExtrap% 3 4 21 LUNG VOLUMES FRC(Pleth) 1.85 2.06 2.92 3.78 63 -2.05 ERV 0.61 1.09 55 RV(Pleth) 1.24 1.27 1.90 2.52 65 -1.72 SVC 3.25 2.43 3.28 4.16 99 -0.06 IC 2.59 2.19 118 TLC(Pleth) 4.44 4.32 5.20 6.08 85 -1.41 RV/TLC(Pleth) 28 27 36 45 76 -1.56 LUNG DIFFUSION DLCOunc 28.14 16.62 22.79 28.96 123 1.43 DLCOStdPB 27.64 16.62 22.79 28.96 121 1.29 DLCORefHb 27.64 23.59 117 VA 4.37 4.12 5.22 6.32 83 -1.26 Kco 6.32 3.31 4.24 5.30 148 3.08 Hgb 14.60 12-18 Comments: PRE and POST BD: Current ATS/ERS acceptability and repeatability standards for spirometry met. Start of test and EOFE criteria met. Medications and Allergies were reviewed for possible drug interactions per policy. No contraindications or sensitivities were noted. Meds taken: none before testing. 2 puffs Albuterol (180 mcg) delivered by MDI via holding chamber. HR pre = /min, HR post = /min. Current ATS/ERS acceptability and repeatability standards for lung volumes met. DLCO is hemoglobin corrected. Hemoglobin obtained from [facility] on 12/18/2024. Current ATS/ERS acceptability and repeatability standards for DLCO met with 2 acceptable maneuvers.//MD FVC_PRE (L) : 3.16 L FVC_POST (L) : 3.32 L FVC_PRED (L) : 3.28 L FVC_LLN (L) : 2.43 L FVC_ULN (L) : 4.16 L FEV1_PRE (L) : 2.70 L FEV1_POST (L) : 2.87 L FEV1_PRED (L) : 2.65 L FEV1_LLN (L) : 1.94 L FEV1_ULN (L) : 3.32 L FEV1/FVC_PRE (%) : 85 % FEV1/FVC_POST (%) : 87 % FEV1/FVC_PRED (%) : 81 % FEV1/FVC_LLN (%) : 69 % DWL65_UXY (L/S) : 5.48 L/S NTG47_ANSH (L/S) : 6.17 L/S TTO89_EEJ (L/S) : 1.40 L/S TUY29_IBGQ (L/S) : 2.09 L/S QDA62_IPOY (L/S) : 0.85 L/S UGV49_NRO (L/S) : 0.36 L/S OWX05_DGG (L/S) : 1.84 L/S OWC98-39%_PRE (L/S) : 3.42 L/S GRX92-39%_POST (L/S) : 4.23 L/S UCT77-62%_PRED (L/S) : 2.64 L/S LFO68-41%_LLN (L/S) : 1.45 L/S PEF_PRE (L/S) : 5.64 L/S PEF_POST (L/S) : 6.26 L/S PEFMAX_LLN (L/S) : 5.01 L/S PEFMAX_ULN (L/S) : 8.53 L/S VC BOX (L) : 3.25 L SVC_PRED (L) : 3.28 L/S SVC_LLN (L) : 2.43 L/S SVC_ULN (L/S) : 4.16 L/S IC BOX (L) : 2.59 L IC_PRED (L) : 2.19 L/S ERV BOX (L) : 0.61 L ERV_PREDICTED (L) : 1.09 L/S DLCO (ML/MIN/MMHG) : 28.14 ml/min/mmHg DLCO_PRED (ML/MIN/MMHG) : 22.79 ml/min/mmHg DLCO_LLN(ML/MIN/MMHG) : 16.62 ml/min/mmHg DLCO_ULN (ML/MIN/MMHG) : 28.96 ml/min/mmHg FET_PRE (S) : 6.07 S FET_POST (S) : 6.47 S FRC BOX (L) : 1.85 L RV BOX (L) : 1.24 L RV_PLETH_PRED (L) : 1.90 L TLC BOX (L) : 4.44 L TLC_PLETH_PRED (L) : 5.20 L RV/TLC BOX (%) : 28 % RV_TLC_PLETH_PRED (%) : 36 % VA (L) : 4.37 L VA_PRD (L) : 5.22 L DLCO/VA (ML/MIN/MMHG/L) : 0.06 ml/min/mmHg/L DLCO_VA_PRED (L) : 0.05 ml/min/mmHg/L DLCOCOR (ML/MIN/MMHG) : 27.64 ml/min/mmHg DLCOCOR_PRED (ML/MIN/MMHG) : 23.59 ml/min/mmHg DLCO/VACOR (ML/MIN/MMHG/L) : 0.06 ml/m (more content not included)... [facility] CNOVon 01-07-2025 CNOV Office Visit (SLLAME ) SABINE BALL ([id number]) 1970 F Date Time Provider Department 01/07/25 7:30 PM T [facility] During your visit today, we recorded the following information about you: Referring Provider: KEVIN HUTCHISON [[id number]] Allergies As of Date: 01/07/2025 Noted Allergy Reaction CODEINE 12/15/2008 7 - Swelling Comments: Swelling of throat and body. BENADRYL ALLERGY DECONGESTANT 05/24/2020 5 - Intolerance 1 - Mental Status Change SULFA (SULFONAMIDE ANTIBIOTICS) 10/28/2009 2 - Rash Date Reviewed: 12/23/2024 Reviewed by: Carolyne Zhu MA - Fully Assessed Reason for Visit: Apnea [1159] Primary Visit Diagnosis:BUSTER (obstructive sleep apnea) [G47.33] Prescriptions as of 01/08/2025 - albuterol (PROVENTIL) 2.5 mg /3 mL (0.083 %) nebulizer solution Use 3 mL via nebulizer every 6 hours as needed for wheezing/shortness of breath. Inhale by nebulizer over 5-15 minutes. - albuterol HFA (PROVENTIL HFA, VENTOLIN HFA) 90 mcg/actuation inhaler Inhale 2 puffs as instructed every 6 hours as needed for wheezing/shortness of breath. - estradiol 0.05 mg/24 hr - estradiol (ESTRACE) 0.01 % (0.1 mg/gram) vaginal cream - Phentermine HCl 30 mg capsule Take 1 capsule by mouth every afternoon. - progesterone micronized (PROMETRIUM) 100 mg capsule - SocialSamba Whole Probiotic supplement - (for rian/yeast) probiotic+saccharomyces+bio film disruptor Take 1 capsule by mouth once daily. Start with 2 jars. No fridge needed. Take at least 2 hrs away from nystatin/candibactin/difluc an. - Magnesium (Citrate) 150 mg (Pure Encapsulations) Take 4 capsules daily. - Cholecalciferol, Vitamin D3, (VITAMIN D) 1,000 unit ORAL Cap Take by mouth. Problem List As Of Date 01/07/2025 Noted Resolved ACNE VULGARIS: Grade III to IV Inflammatory an*12/29/2008 COMEDONAL CYSTS///SEBACEOUS CYST [L72.3] 12/29/2008 SCARS: (Acne-related) [L90.5] 12/29/2008 DYSMETABOLIC SYNDROME X [E88.810] 03/11/2009 Seborrhea [L21.9] 02/14/2010 Obesity (BMI 30-39.9) [E66.9] 07/22/2018 PCOS (polycystic ovarian syndrome) [E28.2] 05/24/2020 Uses oral contraceptives [Z30.41] 05/24/2020 Raynaud's disease without gangrene [I73.00] 12/23/2024 Encounter Status:Closed by SUKHDEEP PRESTON on 01/08/25 [facility] POLYSOMNOGRAM (PSG)/HOME SLE EP APNEA TEST (HSAT)on 01-07-2025 POLYSOMNOGRAM (PSG)/HOME SLEEP APNEA TEST (HSAT) [facility] [address] [address] ; Home Sleep Apnea Test (HSAT) Study Report Name: SABINE BALL Date of Study: 01/07/2025 [facility]#: [id number] Age: 55 (: 1970) ESS: 11/17 Neck Circ.: 15.0 Height: 65.0in Weight: 190.0lb BMI: 31.6 Referring Provider: KEVIN HUTCHISON Sleep History: The patient is a 55 year old Female with a history of daytime sleepiness and fatigue. Past medical history: none stated Medications: Albuterol, Estradiol, Phentermine, progesterone, Magnesium citrate, Vitamin D, probiotic Sleep procedure: PSG unattended Type III, minimum of 4 parameters (37651) Procedure: This study was performed using a Type III ambulatory PSG device and was unattended. The patient was instructed on proper use of the device by a registered veterinary technologist. The monitored parameters included heart rate, oxygen saturation, continuous airflow with thermistor and nasal pressure transducer, snoring via nasal pressure transducer, chest and abdominal effort, and body position. ORA definition: Respiratory event index (ORA), calculated as respiratory events x 60 / TRT (total recording time in minutes). Note: the apnea hypopnea index has been replaced by the respiratory event index for home sleep apnea test. Since the home sleep apnea test does not measure sleep, the ORA is most accurate index of respiratory events. The ORA is a surrogate of the AHI per the AASM Manual for Scoring of Sleep and Associated Events version 2.6. Apnea definition: The peak signal excursions drop by >90% of pre-event baseline using an oronasal thermal sensor (diagnostic study), PAP device flow (titration study) or an alternative apnea sensor (diagnostic study). The duration of the >90% drop in signal excursion is >= 10 seconds. Hypopnea definition: The peak signal excursions drop by >= 30% of pre-event baseline using nasal pressure (diagnostic study), PAP device flow (titration study) or an alternative hypopnea sensor (diagnostic study). The duration of the >= 30% drop in signal excursion is >= 10 seconds. Hypopnea is defined as there is a greater than or equal to 4% oxygen desaturation from pre-event baseline. RESPIRATORY DATA: The study started at 22:28:51 and ended at 05:08:19 and the total recording time was 399 minutes. By convention, sleep is assumed for the whole recording. Snoring was noted. There was a total of 71 respiratory events. Of these events, the total number of apneas was 14 (14 obstructive, 0 mixed, and 0 central) and 57 hypopneas. The respiratory event index (ORA) was 10.7 events per hour of study time. The mean oxygen saturation during the study was 95.0%, with a minimum oxygen saturation of 76.0%. The patient spent 4.2 minutes at oxygen saturation measured less than 90% (1.0% of recording time) and 3.1 minutes at oxygen saturation measured at or less than 88% (0.8% of recording time). Time ORA/AHI Supine 278.0 min 12.3 Off-Supine 121.5 min 6.9 Total 399.5 min 10.7 ECG DATA: The average heart rate was 83 bpm with a range of 67 bpm to 105 bpm. IMPRESSION: Obstructive Sleep Apnea Syndrome [G47.33] This study confirms a diagnosis of at least mild sleep apnea with both central and obstructive events. The diagnosis of central sleep apnea is limited on home sleep apnea testing due to lack of sleep staging and arousal detection. RECOMMENDATION: 1. Untreated sleep apnea is associated with a variety of consequences, including, but not limited to hypertension, heart disease, stroke, obesity, and daytime sleepiness that can affect normal daytime functioning. Because of these consequences, treatment of sleep apnea is recommended. 2. Treatment options for sleep apnea, including positive airway pressure (PAP) therapy, surgery, oral appliance and conservative measures (avoidance of alcohol, sedative medications and sleeping in the back position, management of nasal obstruction and weight loss), should be individualized. In many situations, a PAP titration study is the next step. 3. Follow up with referring provider or sleep specialist. INTERPRETING PHYSICIAN: Anthony Velez MD I attest that I have performed epoch by epoch review of the entire raw data. Report Digitally Signed By: Atnhony Velez MD (01/15/2025 2:55:50 PM) [facility] Core Java Software Engineer Office Visit Reporton 01-01-2025 Core Java Software Engineer Office Visit Report [facility] [address] [place] [address], [address] [place] [address] OFFICE VISIT Date of Service: 01/01/25 MR#: [id number] Acct: [id number] Name: SABINE BALL Rep #: [id number] : 1970 Provider: ALLEGRA Archer Age/Sex: 54/F [place] [facility] [place]: Signed Intake Vital Signs 12/03/24 14:12 01/01/25 13:53 Height 5 ft 5 in 5 ft 5 in Weight: 192 lb 6 oz BMI 32.0 BP 134/88 H Pulse 88 Intake Visit Reasons: 1 M MED CHECK Radiology Teacher Required: No Is patient in pain?: No Allergies diphenhydramine (From Benadryl) Allergy (Mild, Verified 01/01/25 15:38) Other codeine Allergy (Verified 01/01/25 15:38) Swelling Sulfa (Sulfonamide Antibiotics) Allergy (Verified 01/01/25 15:38) Rash Medications ???Medication ???Instructions ???Recorded ???Confirmed ???Type benzoil peroxide topical 07/02/24 01/01/25 History clotrimazole 1 % topical cream 1 applic topical BID 07/02/2404/20 History doxycycline hyclate 20 mg tablet 20 mg PO BID 07/02/24 01/01/25 His tory magnesium 250 mg tablet 250 mg PO QDAY 07/02/24 01/01/25 H istory spironolactone 100 mg tablet 100 mg PO QDAY 07/02/24 01/01/25 H istory topiramate 25 mg tablet (Topamax) 25 mg PO BID #60 tabs 10/03/24 Rx trazodone 100 mg tablet 50 mg (1/2 x 100 mg) PO QHS 01/01/25 Rx insomnia #30 tabs phentermine 37.5 mg tablet 37.5 mg PO QDAY #30 tabs 01/01/25 01/01/25 Rx (Adipex-P) Last Menstrual Period: 08/04/24 (post menopausal) PFSH PFSH Medical History Lichen sclerosus Surgical History S/P cholecystectomy H/O bilateral breast reduction surgery Family History Father Cancer Pancreatic Aunt Cancer Pancreatic- Paternal Grandmother Cancer Maternal-Esophageal Social History current occupational status: employed 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 Date Name GA/Weeks Outcome Route Bth Weight Infant Gen Labor Lgth Anesthesia Del Locatn Provider FOB Unknown [place]- Adopted Unknown Eugenia Unknown Will HPI 1 M MED CHECK Details: SABINE BALL is a 54 year old Female presenting for a weight management follow up. She reports she was ill for 6 weeks; she was feeling fatigue; cough; after spring. Then during she started noticed some shortness of breath. She was seen in urgent care; diagnosed with bronchitis. Started on prednisone and doxycycline. She was then given a chest xray; and D-Dimer elevated; went to [facility] was blood clot was ruled out. She was then seen by a energy operations vice president who continues with further work up pending. Female Reproductive History Last Menstrual Period: 08/04/24 (post menopausal) ROS Const Denies chills, Denies fatigue, Denies fever(s), Denies headache(s), Denies increased appetite, Denies malaise and Reports weight gain Eyes Denies blurry vision ENT Denies headache(s) Card Reports dyspnea on exertion (see HPI), Denies irregular heart rhythm, Denies lightheadedness, Denies orthopnea and Denies palpitations Resp Denies cough and Reports dyspnea on exertion (see HPI) GI Denies abdominal pain, Denies bloating and Denies constipation Musc Denies numbness and Denies tingling Skin/Breast Denies lesions Neuro No headache(s), No numbness, No tingling and Yes other (hx raynauds) Psych Denies anxiety and Denies depression Endo Denies fatigue and Denies palpitations Exam Const General: cooperative, healthy appearing, comfortable, no acute distress and well developed Neck Neck: normal visual inspection Resp Effort Inspection: normal respiratory effort, able to speak in complete sentences and symmetric chest movement Auscultation: clear to auscultation bilaterally Cardio Rate: regular rate Rhythm: regular rhythm Heart Sounds: S1 normal and S2 normal GI Palpation: soft and no hepatosplenomegaly Skin General: no rashes or lesions noted Neuro General: patient alert, patient awake, patient oriented x3 and moves all extremities Extrem General: normal to inspection and no pedal edema Psych Appearance: grossly normal Affect: normal affect Thought Process: normal Thought Content: normal (more content not included)... Normal [facility] 12-23 A. alternata IgE Qn (S) <0.35 Normal <0.35 [facility] Comment on above: Order Comment: Lazaro barney Type: BLOOD SPECIMEN Ordering Facility: [facility] Address: [address] [place] [address] Performed By: #### 5 7021-8 #### [facility] CLIA [id number] [address] [place] [address] [place] A. alternata IgE RAST class (S) Class 0 Normal Class 0 [facility] Comment on above: Order Comment: Lazaro barney Type: BLOOD SPECIMEN Ordering Facility: [facility] Address: [address] [place] [address] Performed By: #### 5 7021-8 #### [facility] CLIA [id number] [address] [place] [address] [place] Guyanese house dust mite IgE Qn (S) <0.35 Normal <0.35 [facility] Comment on above: Order Comment: Lazaro barney Type: BLOOD SPECIMEN Ordering Facility: [facility] Address: [address] [place] [address] Performed By: #### 5 7021-8 #### [facility] CLIA [id number] [address] [place] [address] [place] Guyanese house dust mite IgE RAST class (S) Class 0 Normal Class 0 [facility] Comment on above: Order Comment: Speci men Type: BLOOD SPECIMEN Ordering Facility: [facility] Address: [address] [place] [address] Performed By: #### 5 7021-8 #### [facility] CLIA [id number] [address] [place] [address] C. herbarum IgE Qn (S) <0.35 Normal <0.35 [facility] Comment on above: Order Comment: Speci men Type: BLOOD SPECIMEN Ordering Facility: [facility] Address: [address] [place] [address] Performed By: #### 5 7021-8 #### [facility] CLIA [id number] [address] [place] [address] C. herbarum IgE RAST class (S) Class 0 Normal Class 0 [facility] Comment on above: Order Comment: Speci men Type: BLOOD SPECIMEN Ordering Facility: [facility] Address: [address] [place] [address] Performed By: #### 5 7021-8 #### [facility] CLIA [id number] [address] [place] [address] OF [facility] Cat dander IgE Qn (S) <0.35 Normal <0.35 [facility] Comment on above: Order Comment: Speci men Type: BLOOD SPECIMEN Ordering Facility: [facility] Address: [address] [place] [address] Performed By: #### 5 7021-8 #### [facility] CLIA [id number] [address] [place] [address] Cat dander IgE RAST class (S) Class 0 Normal Class 0 [facility] Comment on above: Order Comment: Speci men Type: BLOOD SPECIMEN Ordering Facility: [facility] Address: [address] [place] [address] Performed By: #### 5 7021-8 #### [facility] CLIA [id number] [address] Common Ragweed IgE Qn (S) <0.35 Normal <0.35 [facility] Comment on above: Order Comment: Speci men Type: BLOOD SPECIMEN Ordering Facility: [facility] Address: [address] [place] [address] Performed By: #### 5 7021-8 #### [facility] CLIA [id number] [address] [place] [address] Common Ragweed IgE RAST class (S) Class 0 Normal Class 0 [facility] Comment on above: Order Comment: Speci men Type: BLOOD SPECIMEN Ordering Facility: [facility] Address: [address] [place] [address] Performed By: #### 5 7021-8 #### [facility] CLIA [id number] [address] [place] [address] OF [facility] Dog dander IgE Qn (S) <0.35 Normal <0.35 [facility] Comment on above: Order Comment: Speci men Type: BLOOD SPECIMEN Ordering Facility: [facility] Address: [address] [place] [address] Performed By: #### 5 7021-8 #### [facility] CLIA [id number] [address] [place] [address] Dog dander IgE RAST class (S) Class 0 Normal Class 0 [facility] Comment on above: Order Comment: Speci men Type: BLOOD SPECIMEN Ordering Facility: [facility] Address: [address] [place] [address] Performed By: #### 5 7021-8 #### [facility] CLIA [id number] [address] [place] [address] OF [place] Goosefoot IgE Qn (S) <0.35 Normal <0.35 [facility] Comment on above: Order Comment: Speci men Type: BLOOD SPECIMEN Ordering Facility: [facility] Address: [address] [place] [address] Performed By: #### 5 7021-8 #### [facility] CLIA [id number] [address] [place] [address] Goosefoot IgE RAST class (S) Class 0 Normal Class 0 [facility] Comment on above: Order Comment: Speci men Type: BLOOD SPECIMEN Ordering Facility: [facility] Address: [address] [place] [address] Performed By: #### 5 7021-8 #### [facility] CLIA [id number] [address] [place] [address] IgE Qn (S) <0.35 Normal <0.35 [facility] Comment on above: Order Comment: Speci men Type: BLOOD SPECIMEN Ordering Facility: [facility] Address: [address] [place] [address] Performed By: #### 5 7021-8 #### [facility] CLIA [id number] [address] [place] [address] IgE RAST class (S) Class 0 Normal Class 0 [facility] Comment on above: Order Comment: Speci men Type: BLOOD SPECIMEN Ordering Facility: [facility] Address: [address] [place] [address] Performed By: #### 5 7021-8 #### [facility] CLIA [id number] [address] [place] [address] Josh IgE Qn (S) <0.35 Normal <0.35 [facility] Comment on above: Order Comment: Speci men Type: BLOOD SPECIMEN Ordering Facility: [facility] Address: [address] [place] [address] Performed By: #### 5 7021-8 #### [facility] CLIA [id number] [address] [place] [address] Josh IgE RAST class (S) Class 0 Normal Class 0 [facility] Comment on above: Order Comment: Speci men Type: BLOOD SPECIMEN Ordering Facility: [facility] Address: [address] [place] [address] Performed By: #### 5 7021-8 #### [facility] CLIA [id number] [address] [place] [address] [place] Mantador IgE Qn (S) <0.35 Normal <0.35 [facility] Comment on above: Order Comment: Speci men Type: BLOOD SPECIMEN Ordering Facility: [facility] Address: [address] [place] [address] Performed By: #### 5 7021-8 #### [facility] CLIA [id number] [address] [place] [address] [place] Mantador IgE RAST class (S) Class 0 Normal Class 0 [facility] Comment on above: Order Comment: Lazaro barney Type: BLOOD SPECIMEN Ordering Facility: [facility] Address: [address] [place] [address] Performed By: #### 5 7021-8 #### [facility] CLIA [id number] [address] [place] [address] [place] TIBURCIO BY IFA SCREENon 12-24-19 Nuclear Ab Ql (S) Negative Normal Negative [facility] Comment on above: Order Comment: Speci ector Type: BLOOD SPECIMENOrdering Facility: [facility] Address: [address] [place] [address] Result Comment: Anti -nuclear antibody test is used as an aid in diagnosis of systemic autoimmune diseases. Where positive and clinically warranted, follow-up using disease-specific testing is recommended. Low positive titers are not uncommon with advanced age, certain chronic infections, and malignancies among others. Test methodology: Indirect fluorescence immunoassay (IFA) using HEp-2 cells. Performed By: #### A NAIFS, ANCA ####[facility] [id number] [place] [address] [place] ANTI NEUTRO CYTO ABon 2024 INTERPRETATION (ANCA) Negative for C-ANC A and P-ANCA by indirect immunofluorescence. A negative result cannot reliably rule out ANCA-associated vaculitides especially when in remission. Clinical correlation is required. Normal [facility] Comment on above: Order Comment: Speci men Type: BLOOD SPECIMEN Ordering Facility: [facility] Address: [address] [place] [address] Performed By: #### 5 7021-8 #### [facility] CLIA [id number] [address] [place] [address] Neutrophil cytoplasmic Ab.classic IF Ql (S) Negative Normal Negative [facility] Comment on above: Order Comment: Speci men Type: BLOOD SPECIMEN Ordering Facility: [facility] Address: [address] [place] [address] Performed By: #### 5 7021-8 #### [facility] CLIA [id number] [address] [place] [address] Neutrophil cytoplasmic Ab.perinuclear IF Ql (S) Negative Normal Negative [facility] Comment on above: Order Comment: Speci men Type: BLOOD SPECIMEN Ordering Facility: [facility] Address: [address] [place] [address] Performed By: #### 5 7021-8 #### [facility] CLIA [id number] [address] [place] [address] STAFF REVIEW (ANCA) No review performed. Normal [facility] Comment on above: Order Comment: Speci men Type: BLOOD SPECIMEN Ordering Facility: [facility] Address: [address] [place] [address] Performed By: #### 5 7021-8 #### [facility] CLIA [id number] [address] [place] [address] OF [place] Aldolase SerPl-cCncon 2024 Aldolase [Catalytic activity/Vol] 5.6 mU/mL Normal 1.5-8.1 [facility] Comment on above: Order Comment: Speci men Type: BLOOD SPECIMENOrdering Facility: [facility] Address: [address] [place] [address] Result Comment: This test was developed, and its performance characteristics determined by the [facility] Department of Pathology and Laboratory Medicine. It has not been cleared or approved by the FDA. The [facility] Department of Pathology and Laboratory Medicine is regulated under CLIA as qualified to perform high-complexity testing. This test is used for clinical purposes. It should not be regarded as investigational or for research. Performed By: #### 1 761-6 ####[facility] [id number] [facility][NOTE 3][place] [address] [place] CK SerPl-cCncon 12-23-2024 CK [Catalytic activity/Vol] 69 U/L Normal 28-152 [facility] Comment on above: Order Comment: Speci men Type: BLOOD SPECIMENOrdering Facility: [facility] Address: [address] [place] [address] Performed By: #### 2 157-6 ####[facility] [id number] [address] [place] CNOVon 12-23-2024 CNOV Office Visit ([facility] ) LIZZYSABINE ([id number]) 1970 F Date Time Provider Department 12/23/24 1:00 PM KEVIN HUTCHISON [facility] During your visit today, we recorded the following information about you: Pulse Blood pressure Weight Height 99/minute 122/88 86.2 kg 1.651 m Kevin Hutchison MD 12/23/2024 2:28 PM Signed [facility] Date: December 23, 2024 Patient Name: Sabine Ball Sabine Ball is a 54 year old yr old female, presents to the [facility] for evaluation of abnormal chest imaging identified during ER visit 12/18/2024. Patient was referred by PCP to ER due to elevated D-Dimer and a recent travel history. The patient had been having some lower back aches/pain that was concerning for a possible kidney stone, but this was ruled out. The patient's symptoms did persist, for some time, and are still present. She describes it mostly as a dull ache in her lower back. The patient then traveled to [place], and upon return had dry/non-productive cough and progressive dyspnea symptoms. She was seen by urgent care and diagnosed with a bronchitis, and started on a course of Doxycycline and a course of prednisone. Her symptoms did not improve. Her PCP ordered a D-dimer, which was positive, and prompted a referral to the ER to be evaluated for a pulmonary embolism. In the ER the patient had a CTA done, which showed some abnormalities in her lungs for which she was referred. Patient is a life-long non-smoker. 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 The patient's son is a structural welder, and she will occasionally go to his shop, and has had environmental exposures to welding fumes. Patient will feel an occasional retrosternal tightness with occasional sharpness on deep inspiraitons. It is mild in nature, and not there all the time. She has not had any wheezing. She denies purulent sputum or hemoptysis. The patient is able to walk 100 yd, and 1 flight of stairs without stopping. The patient does feel that she walks slower than others her same age due to her dyspena. Patient denies symptoms of lower extremity edema currently, but will have this occur on rare occasion. Patient denies snoring, Patient does have morning headaches on occasion and suffer from daytine sleepiness. The patient does suffer from GERD. The patient noted that albuterol and prednisone makes her symptoms worse. She is not currently taking any medicaitons for this. Patient has had flushing and shills over the last few weeks, but her temperature has been normal when taken. Patient denies any unplanned weight loss. Patient denies syncope/seizures. Patient is using phentermine for weight loss for roughly the last 6 months, and is using Estradiol due to menopause. Over the last 2 weeks, the patient has been using albuterol inhaler roughly 3 times per day over the last 3 - 4 days, and the patient feels that this has been helpful for her. She has not had any significant side effects from this. PRIMARY CARE PHYSICIAN: Dallas Ness MD REASON FOR CONSULT: No chief complaint on file. REQUESTING PHYSICIAN: aMrlene Sparks PA-C My final recommendations will be communicated to the requesting health care provider by way of the shared medical record for internal providers or letter via the [employer] for external providers. Patient Entered Questionnaires: 04/20/2023 03/03/2021 12/07/2020 PROMIS Global Health - (T-Scores - the mean of general population = 50. Five points is a clinically meaningful difference.) Physical T-Score 44.9 50.8 47.7 Mental T-Score 50.8 53.3 53.3 03/03/2021 11/11/2019 PHQ-9 Score 0 2 5 to 9: mild depression 10 to 14: moderate depression 15 to 19: moderately severe depression >=20: severe depression Combined sensitivity and specificity are maximized at a cut-off score of 10 or above (29 studies, 6725 participants; sensitivity 0.88, 95% confidence interval 0.83 to 0.92; specificity 0.85, 0.82 to 0.88). BMJ 2019;365:l1476. Modified Medical Research [place] Dyspnea Scale (MMRC) On level ground I walk slower than people of the same age because of breathlessness, or have to stop for breath when walking at my own pace 2 Daily cough: No Daily Sputum: No IMMUNIZATIONS: Immunization History Administered Date(s) Administered COVID-19 original vaccine, full dose, monovalent (MODERNA) 10/21/2020 11/18/2020 08/24/2021 REVIEW OF SYSTEMS: GEN: Weight loss no, Night sweats no, Fever no. NEURO: Syncope no, Seizure no. EYES: [place], Cataracts no. NOSE: Nasal congestionno, epistaxis no. (more content not included)... Normal [facility] CREATINE KINASE/CKon 025 CK [Catalytic activity/Vol] 69 U/L 28 - 152 U/L [facility] Centromere Ab IF Ql (S)on Centromere Ab Qn (S) <0.2 Normal <1.0 [facility] Comment on above: Order Comment: Speci men Type: BLOOD SPECIMENOrdering Facility: [facility] Address: [address] [place] [address] Result Comment: Anti -centromere antibody is used as in aid in diagnosis of systemic sclerosis. Clinical correlation is required. Test Methodology: Multiplex flow immunoassay. Performed By: #### 5 1775-5, 42639-0, 83184-2, 04485-9, 50060-9, 40645-5, 13128-6, 19906-2 ####[facility] [id number] [address] STATES OF [facility] CENTROMERE AB QUAL Negative Normal Negative [facility] Comment on above: Order Comment: Speci men Type: BLOOD SPECIMENOrdering Facility: [facility] Address: [address] [place] [address] Performed By: #### 5 1775-5, 40929-1, 70578-4, 44636-5, 21959-5, 94553-4, 21356-7, 39969-5 ####[facility] [id number] [address] [place] Chromatin Ab Qnon 12-23-2024 CHROMATIN AB QUAL Negative Normal Negative [facility] Comment on above: Order Comment: Speci men Type: BLOOD SPECIMENOrdering Facility: [facility] Address: [address] [place] [address] Performed By: #### 5 1775-5, 94970-1, 83790-4, 62339-4, 43294-2, 71273-7, 89654-0, 73094-0 ####[facility] [id number] [address] [place] Chromatin Ab SerPl-aCncon Chromatin Ab Qn <0.2 Normal <1.0 [facility] Comment on above: Order Comment: Speci men Type: BLOOD SPECIMENOrdering Facility: [facility] Address: [address] [place] [address] Result Comment: Test Methodology: Multiplex flow immunoassay. Performed By: #### 5 1775-5, 54505-5, 91101-7, 61162-4, 26858-9, 65209-9, 97643-4, 68735-2 ####[facility] [id number] [place] [address] [place] Cyclic citrullinated peptide IgG Qnon 12-23-2024 CCP ANTIBODY IGG QUALITATIVE Negative Normal Negative [facility] Comment on above: Order Comment: Speci men Type: BLOOD SPECIMENOrdering Facility: [facility] Address: [address] [place] [address] Performed By: #### 3 3935-8 ####[facility] [id number] [place] [address] [place] DNA ANTIBODY DS BLDon 2024 DNA ANTIBODY 16 IU/mL Normal <=200 [facility] Comment on above: Order Comment: Speci men Type: BLOOD SPECIMEN Ordering Facility: [facility] Address: [address] [place] [address] Result Comment: Nega tive: <200 IU/mL Equivocal: 201-300 IU/mL Moderate Positive: 301-800 IU/mL Strong Positive: >801 IU/mL Performed By: #### 5 7021-8 #### [facility] CLIA [id number] [address] [place] [address] [place] DNA ANTIBODY QUALITATIVE INTERPRETATION Negative Normal Negative [facility] Comment on above: Order Comment: Speci men Type: BLOOD SPECIMEN Ordering Facility: [facility] Address: [address] [place] [address] Performed By: #### 5 7021-8 #### [facility] CLIA [id number] [address] [place] [address] [place] FORREST Jo1 Ab Ser-aCncon 2024 Lani-1 extractable nuclear Ab Qn (S) <0.2 Normal <1.0 [facility] Comment on above: Order Comment: Speci men Type: BLOOD SPECIMENOrdering Facility: [facility] Address: [address] [place] [address] Performed By: #### 5 1775-5, 76168-9, 92950-5, 36639-0, 14959-9, 57438-9, 77414-9, 54647-1 ####[facility] [id number] [address] STATES [place] FORREST WAFER LINE WORKER Ab Ser-aCncon 2024 Ribonucleoprotein extractable nuclear Ab Qn (S) <0.2 Normal <1.0 [facility] Comment on above: Order Comment: Speci men Type: BLOOD SPECIMENOrdering Facility: [facility] Address: [address] [place] [address] Performed By: #### 5 5-5, 13341-1, 02754-9, 84999-7, 44148-3, 31303-3, 86284-4, 76676-4 ####[facility]IA [id number] [place] [address] [place] FORREST SM IgG Ser-aCncon 2024 Cali extractable nuclear IgG Qn (S) <0.2 Normal <1.0 [facility] Comment on above: Order Comment: Speci men Type: BLOOD SPECIMENOrdering Facility: [facility] Address: [address] [place] [address] Performed By: #### 5 5-5, 67142-7, 76884-5, 38021-0, 20024-4, 63457-9, 22112-6, 11572-9 ####[facility]IA [id number] [place] [address] [place] FORREST SS-A Ab Ser-aCncon 12-23 Sjogrens syndrome-A extractable nuclear Ab Qn (S) <0.2 Normal <1.0 [facility] Comment on above: Order Comment: Speci men Type: BLOOD SPECIMENOrdering Facility: [facility] Address: [address] [place] [address] Result Comment: Test Methodology: Multiplex flow immunoassay. Performed By: #### 5 1775-5, 39736-8, 29998-1, 25289-2, 14138-4, 15523-8, 94815-6, 94349-5 ####[facility] [id number] [place] [address] [place] FORREST SS-B Ab Ser-aCncon 12-23 Sjogrens syndrome-B extractable nuclear Ab Qn (S) <0.2 Normal <1.0 [facility] Comment on above: Order Comment: Speci men Type: BLOOD SPECIMENOrdering Facility: [facility] Address: [address] [place] [address] Result Comment: Anti -SSB (anti-La) antibody is used as an aid in diagnosis of a variety of systemic autoimmune diseases, especially for Sjogren's syndrome and systemic lupus erythematosus. Clinical correlation is required. Test Methodology: Multiplex flow immunoassay. Performed By: #### 5 1775-5, 37722-4, 91923-5, 65499-4, 54308-7, 01771-7, 31429-1, 94475-5 ####[facility] [id number] [address] STATES [place] HYPERSENSITIVITY PNEUMONITIS EVALUATIONon 12-23-2024 A. FLAVUS AB, PRECIPITIN Not detected Normal None Detected [facility] Comment on above: Order Comment: Parkeri men Type: BLOOD SPECIMEN Ordering Facility: [facility] Address: [address] [place] [address] Performed By: #### 5 7021-8 #### [facility] CLIA [id number] [address] [place] [address] [place] A. FUMIGATUS #6 AB, PRECIPITIN Not detected Normal None Detected [facility] Comment on above: Order Comment: Speci men Type: BLOOD SPECIMEN Ordering Facility: [facility] Address: [address] [place] [address] Performed By: #### 5 7021-8 #### [facility] CLIA [id number] [address] [place] [address] [place] A. FUMIGATUS 2 AB, PRECIPITIN Not detected Normal None Detected [facility] Comment on above: Order Comment: Speci men Type: BLOOD SPECIMEN Ordering Facility: [facility] Address: [address] [place] [address] Performed By: #### 5 7021-8 #### [facility] CLIA [id number] [address] [place] [address] [place] A. FUMIGATUS 3 AB, PRECIPITIN Not detected Normal None Detected [facility] Comment on above: Order Comment: Speci men Type: BLOOD SPECIMEN Ordering Facility: [facility] Address: [address] [place] [address] Performed By: #### 5 7021-8 #### [facility] CLIA [id number] [address] [place] [address] [place] A. PULLULANS, AB PRECIPITIN Not detected Normal None Detected [facility] Comment on above: Order Comment: Speci men Type: BLOOD SPECIMEN Ordering Facility: [facility] Address: [address] [place] [address] Performed By: #### 5 7021-8 #### [facility] CLIA [id number] [address] [place] [address] [place] ALLERGEN, ANIMAL, FEATHER MIX IGE Negative Normal Negative [facility] Comment on above: Order Comment: Speci men Type: BLOOD SPECIMEN Ordering Facility: [facility] Address: [address] [place] [address] Performed By: #### 5 7021-8 #### [facility] CLIA [id number] [address] [place] [address] [place] ALLERGEN, FUNGI/MOLD, PHOMA BETAE IGE <0.10 Normal <=0.34 [facility] Comment on above: Order Comment: Speci men Type: BLOOD SPECIMEN Ordering Facility: [facility] Address: [address] [place] [address] Performed By: #### 5 7021-8 #### [facility] CLIA [id number] [address] [place] [address] [place] ALLERGEN, INTERP, IMMUNOCAP SCORE IGE See Note Normal [facility] Comment on above: Order Comment: Speci men Type: BLOOD SPECIMEN Ordering Facility: [facility] Address: [address] [place] [address] Result Comment: REFE RENCE INTERVAL: Allergen, Interpretation Less than 0.10 kU/L......Class 0.....No significant level detected 0.10-0.34 kU/L...........Class 0/1...Clinical relevance undetermined 0.35-0.70 kU/L...........Class 1.....Low 0.71-3.50 kU/L...........Class 2.....Moderate 3.51-17.50 kU/L..........Class 3.....High 17.51-50.00 kU/L.........Class 4.....Very High 50.01-100.00 kU/L........Class 5.....Very High Greater than 100.00kU/L..Class 6.....Very High Allergen results of 0.10-0.34 kU/L are intended for specialist use as the clinical relevance is undetermined. Even though increasing ranges are reflective of increasing concentrations of allergen-specific IgE, these concentrations may not correlate with the degree of clinical response or skin testing results when challenged with a specific allergen. The correlation of allergy laboratory results with clinical history and in vivo reactivity to specific allergens is essential. A negative test may not rule out clinical allergy or even anaphylaxis. Performed By: [facility] [address] [place] [address] Operations Recruiter: Tiago Gaytan MD, PhD CLIA Number: [id number] Performed By: #### 5 7021-8 #### [facility] CLIA [id number] [address] [place], [place] [address] [place] FUMIGATUS #1 AB, PRECIPITIN Not detected Normal None Detected [facility] Comment on above: Order Comment: Specphu barney Type: BLOOD SPECIMEN Ordering Facility: [facility] Address: [address] [place] [address] Performed By: #### 5 7021-8 #### [facility] CLIA [id number] [address] [place] [address] [place] M. FAENI AB, PRECIPITIN Not detected Normal None Detected [facility] Comment on above: Order Comment: Speci men Type: BLOOD SPECIMEN Ordering Facility: [facility] Address: [address] [place] [address] Performed By: #### 5 7021-8 #### [facility] CLIA [id number] [address] [place] [address] [place] PIGEON SERUM AB Not detected Normal None Detected [facility] Comment on above: Order Comment: Speci men Type: BLOOD SPECIMEN Ordering Facility: [facility] Address: [address] [place] [address] Performed By: #### 5 7021-8 #### [facility] CLIA [id number] [address] [place] [address] [place] S. VIRIDIS AB, PRECIPITIN Not detected Normal None Detected [facility] Comment on above: Order Comment: Speci men Type: BLOOD SPECIMEN Ordering Facility: [facility] Address: [address] [place] [address] Performed By: #### 5 7021-8 #### [facility] CLIA [id number] [address] [place] [address] [place] T. CANDIDUS AB, PRECIPITIN Not detected Normal None Detected [facility] Comment on above: Order Comment: Speci men Type: BLOOD SPECIMEN Ordering Facility: [facility] Address: [address] [place] [address] Result Comment: Test ing includes antibodies directed at Aureobasidium pullulans, Aspergillus flavus, Aspergillus fumigatus #1, Aspergillus fumigatus #2, Aspergillus fumigatus #3, Aspergillus fumigatus #6, Micropolyspora faeni, [place] Serum, Saccharomonospora viridis, and Thermoactinomyces candidus. Performed By: #### 5 7021-8 #### [facility] CLIA [id number] [address] [place] [address] [place] IgE SerPl-aCncon 12-23-2024 IgE Qn 5.5 kU/l Normal <114.0 [facility] Comment on above: Order Comment: Lazaro barney Type: BLOOD SPECIMENOrdering Facility: [facility] Address: [address] [place] [address] Performed By: #### 1 9113-0 ####[facility] [id number] [place] [address] [place] Lani-1 extractable nuclear Ab Qn (S)on 12-23-2024 LANI 1 ANTIBODY QUAL Negative Normal Negative [facility] Comment on above: Order Comment: Lazaro barney Type: BLOOD SPECIMENOrdering Facility: [facility] Address: [address] [place] [address] Result Comment: Anti -LANI-1 antibody is used as an aid in diagnosis of polymyositis and dermatomyositis especially with pulmonary involvement. A negative result cannot rule out polymyositis or dermatomyositis. Clinical correlation is required. Test Methodology: Multiplex flow immunoassay. Performed By: #### 5 1775-5, 77704-4, 66448-8, 71235-3, 82243-6, 73636-1, 02421-6, 98732-0 ####[facility] LAB[facility] [id number] [place] [address] [place] No Panel Informationon 12-23 Interpretation and review of laboratory results Normal [facility] POLYMYOSITIS AND DERMATOMYOS ITIS PANELon 12-23-2024 TIBURCIO INTERP COMMENT See Note Normal [facility] Comment on above: Order Comment: Lazaro barney Type: BLOOD SPECIMEN Ordering Facility: [facility] Address: [address] [place] [address] Result Comment: Anti nuclear antibodies by IFA negative for homogeneous, speckled, nucleolar, centromere, and nuclear dots patterns. Cytoplasmic antibodies by IFA negative for reticular/AMA, discrete/GW body-like, polar/golgi-like, rods and rings, and cytoplasmic speckled patterns. INTERPRETIVE INFORMATION: TIBURCIO Interpretive Comment Presence of antinuclear antibodies (TIBURCIO) is a hallmark feature of systemic autoimmune rheumatic diseases (SARD). However, TIBURCIO lacks diagnostic specificity and is associated with a variety of diseases (cancers, autoimmune, infectious, and inflammatory conditions) and may also occur in healthy individuals in varying prevalence. The lack of diagnostic specificity requires confirmation of positive TIBURCIO by more specific serologic tests. TIBURCIO (nuclear reactivity) positive patterns reported include centromere, homogeneous, nuclear dots, nucleolar, or speckled. TIBURCIO (cytoplasmic reactivity) positive patterns reported include reticular/AMA, discrete/GW body-like, polar/golgi-like, cytoplasmic speckled or rods and rings. All positive patterns are reported to endpoint titers (1:2560). Reported patterns may help guide differential diagnosis, although they may not be specific for individual antibodies or diseases. Mitotic staining patterns not reported. Negative results do not necessarily rule out SARD. Performed By: #### 5 7021-8 #### [facility] CLIA [id number] [address] [place] [address] [place] ANTINUCLEAR ANTIBODY (TIBURCIO) HEP-2, IGG <1:80 Normal <1:80 [facility] Comment on above: Order Comment: Speci ector Type: BLOOD SPECIMEN Ordering Facility: [facility] Address: [address] [place] [address] Performed By: #### 5 7021-8 #### [facility] CLIA [id number] [address] [place] [address] [place] EJ (GLYCYL-TRNA SYNTHETASE) ANTIBODY Negative Normal Negative [facility] Comment on above: Order Comment: Lazaro barney Type: BLOOD SPECIMEN Ordering Facility: [facility] Address: [address] [place] [address] Performed By: #### 5 7021-8 #### [facility] CLIA [id number] [address] [place] [address] [place] BURNETT (TYROSYL-TRNA SYNTHETASE) AB Negative Normal Negative [facility] Comment on above: Order Comment: Parkeri ector Type: BLOOD SPECIMEN Ordering Facility: [facility] Address: [address] [place] [address] Result Comment: Burnett a ntibody negative by line immunoassay. No band corresponding to 65 kDa observed by immunoprecipitation. Performed By: #### 5 7021-8 #### [facility] CLIA [id number] [address] [place] [address] [place] LANI-1 (HISTIDYL-TRNA SYNTHETASE) AB, IGG 1 AU/mL Normal 0-40 [facility] Comment on above: Order Comment: Lazaro barney Type: BLOOD SPECIMEN Ordering Facility: [facility] Address: [address] [place] [address] Result Comment: INTE RPRETIVE INFORMATION: Lani-1 Antibody, IgG 29 AU/mL or less.........Negative 30-40 AU/mL..............Equivocal 41 AU/mL or greater......Positive Presence of Lani-1 (antihistidyl transfer RNA [t-RNA] synthetase) antibody is associated with polymyositis and may also be seen in patients with dermatomyositis. Lani-1 antibody is associated with pulmonary involvement (interstitial lung disease), Raynaud phenomenon, arthritis, and auto motor mechanic's hands (implicated in antisynthetase syndrome). Performed By: #### 5 7021-8 #### [facility] CLIA [id number] [address] [place] [address] [place] KS (ASPARAGINYL-TRNA SYNTHETASE) AB Negative Normal Negative [facility] Comment on above: Order Comment: Lazaro barney Type: BLOOD SPECIMEN Ordering Facility: [facility] Address: [address] [place] [address] Result Comment: Ks a ntibody negative by line immunoassay. No band corresponding to 65 kDa observed by immunoprecipitation. Performed By: #### 5 7021-8 #### [facility] CLIA [id number] [address] [place] [address] [place] MDA5 (CADM-140) AB Negative Normal Negative [facility] Comment on above: Order Comment: Lazaro barney Type: BLOOD SPECIMEN Ordering Facility: [facility] Address: [address] [place] [address] Performed By: #### 5 7021-8 #### [facility] CLIA [id number] [address] [place] [address] [place] CO-2 (NUCLEAR HELICASE PROTEIN) ANTIBODY Negative Normal Negative [facility] Comment on above: Order Comment: Speci ector Type: BLOOD SPECIMEN Ordering Facility: [facility] Address: [address] [place] [address] Performed By: #### 5 7021-8 #### [facility] CLIA [id number] [address] [place] [address] [place] MYOSITIS INTERPRETIVE INFORMATION See Note Normal [facility] Comment on above: Order Comment: Speci men Type: BLOOD SPECIMEN Ordering Facility: [facility] Address: [address] [place] [address] Result Comment: INTE RPRETIVE INFORMATION: Dermatomyositis and Polymyositis Panel 2 If present, myositis-specific antibodies (MSAs) are specific for myositis, and may be useful in establishing diagnosis as well as prognosis. MSAs are generally regarded as mutually exclusive with rare exceptions; the occurrence of two or more MSAs should be carefully evaluated in the context of patient's clinical presentation. Myositis-associated antibodies (Ben) may be found in patients with CTD, including overlap syndromes, and are generally not specific for myositis. The following table will help in identifying the association of any antibodies found as either MSAs or Ben. Antibody Specificity . . . . . . . . . . . . MSAs . . . . Ben Lani-1 (histidyl-tRNA synthetase) Ab, IgG . . X PL-12 (alanyl-tRNA synthetase) Antibody . . X PL-7 (threonyl-tRNA synthetase) Antibody . . X EJ (glycyl-tRNA synthetase) Antibody . . . . X OJ (isoleucyl-tRNA synthetase) Antibody . . X SRP (Signal Recognition Particle) Ab . . . . X Mi-2 (nuclear helicase protein) Antibody . . X P155/140 Antibody . . . . . . . . . . . . . X TIF-1 gamma (155 kDA) Ab . . . . . . . . . X SAE1 (SUMO activating enzyme) Ab . . . . . . X MDA5 (CADM-140) Ab . . . . . . . . . . . . . X NXP2 (Nuclear matrix protein-2) Ab . . . . . X Burnett (tyrosyl-tRNA synthetase) Ab. . . . . . . X Ks (asparaginyl-tRNA synthetase) Ab . . . . X Zo (phenylalanyl-tRNA synthetase) Ab . . . . X This test was developed and its performance characteristics determined by [facility]. It has not been cleared or approved by the [place] Food and Drug Administration. This test was performed in a CLIA certified laboratory and is intended for clinical purposes. Performed By: #### 5 7021-8 #### [facility] CLIA [id number] [address] [place] [address] [place] NXP2 (NUCLEAR MATRIX PROTEIN-2) AB Negative Normal Negative [facility] Comment on above: Order Comment: Speci men Type: BLOOD SPECIMEN Ordering Facility: [facility] Address: [address] [place] [address] Performed By: #### 5 7021-8 #### [facility] CLIA [id number] [address] [place] [address] [place] OJ (ISOLEUCYL-TRNA SYNTHETASE) ANTIBODY Negative Normal Negative [facility] Comment on above: Order Comment: Speci men Type: BLOOD SPECIMEN Ordering Facility: [facility] Address: [address] [place] [address] Performed By: #### 5 7021-8 #### [facility] CLIA [id number] [address] [place] [address] [place] P155/140 ANTIBODY Negative Normal Negative [facility] Comment on above: Order Comment: Speci men Type: BLOOD SPECIMEN Ordering Facility: [facility] Address: [address] [place] [address] Performed By: #### 5 7021-8 #### [facility] CLIA [id number] [address] [place] [address] [place] PL-12 (ALANYL-TRNA SYNTHETASE) ANTIBODY Negative Normal Negative [facility] Comment on above: Order Comment: Speci men Type: BLOOD SPECIMEN Ordering Facility: [facility] Address: [address] [place] [address] Performed By: #### 5 7021-8 #### [facility] CLIA [id number] [address] [place] [address] [place] [address]-7 (THREONYL-TRNA SYNTHETASE) ANTIBODY Negative Normal Negative [facility] Comment on above: Order Comment: Speci men Type: BLOOD SPECIMEN Ordering Facility: [facility] Address: [address] [place] [address] Performed By: #### 5 7021-8 #### [facility] CLIA [id number] [address] [place] [address] [place] SAE1 (SUMO ACTIVATING ENZYME) AB Negative Normal Negative [facility] Comment on above: Order Comment: Speci men Type: BLOOD SPECIMEN Ordering Facility: [facility] Address: [address] [place] [address] Performed By: #### 5 7021-8 #### [facility] IA [id number] [address] [place] [address] [place] SRP (SIGNAL RECOGNITION PARTICLE) AB Negative Normal Negative [facility] Comment on above: Order Comment: Speci men Type: BLOOD SPECIMEN Ordering Facility: [facility] Address: [address] [place] [address] Performed By: #### 5 7021-8 #### [facility] IA [id number] [address] [place] [address] [place] TIF-1 GAMMA (155 KDA) AB Negative Normal Negative [facility] Comment on above: Order Comment: Speci men Type: BLOOD SPECIMEN Ordering Facility: [facility] Address: [address] [place] [address] Performed By: #### 5 7021-8 #### [facility] IA [id number] [address] [place] [address] [place] ZO (PHENYLALANYL-TRNA SYNTHETASE) AB Negative Normal Negative [facility] Comment on above: Order Comment: Speci men Type: BLOOD SPECIMEN Ordering Facility: [facility] Address: [address] [place] [address] Result Comment: Zo a ntibody negative by line immunoassay. No bands corresponding to 68 and 58 kDa observed by immunoprecipitation. Performed By: [facility] [address] [place] [address] Operations Recruiter: Tiago Gaytan MD, PhD CLIA Number: [id number] Performed By: #### 5 7021-8 #### [facility] CLIA [id number] [address] [place] [address] [place] RHEUMATOID FACTORon 12-24-19 25 Rheumatoid factor Qn 15 [IU]/mL [facility] RNA POLYMERASE III ABon 11-26 RNA POLYMERASE III AB 5 Units Normal 0-19 [facility] Comment on above: Order Comment: Speci men Type: BLOOD SPECIMEN Ordering Facility: [facility] Address: [facility] [place] [address] Result Comment: INTE RPRETIVE INFORMATION: RNA Polymerase III Antibody, IgG 19 Units or less ......Negative 20 - 39 Units .........Weak Positive 40 - 80 Units .........Moderate Positive 81 Units or greater ...Strong Positive The presence of RNA polymerase III IgG antibody, when considered in conjunction with other laboratory and clinical findings, is an aid in the diagnosis of systemic sclerosis (SSc) with increased incidence of skin involvement and renal crisis with the diffuse cutaneous form of SSc. RNA polymerase III IgG antibody occur in about 11-23 percent of SSc patients, and typically in the absence of anti-centromere and anti-Scl-70 antibodies. A negative result indicates no detectable IgG antibodies to the dominant antigen of RNA polymerase III and does not rule out the possibility of SSc. False-positive results may also occur due to non-specific binding of immune complexes. Strong clinical correlation is recommended. If clinical suspicion remains, consider additional testing for other antibodies associated with SSc, including centromere, Scl-70, U3-WAFER LINE WORKER, PM/Scl, or Th/To. Performed By: [facility] [address] [place] [address] Operations Recruiter: Tiago Gaytan MD, PhD CLIA Number: [id number] Performed By: #### 5 7021-8 #### [facility] CLIA [id number] [address] [place], [place] [address] [place] Rheumatoid fact SerPl-aCncon 12-23-2024 Rheumatoid factor Qn 15 [IU]/mL Normal 0-15 [facility] Comment on above: Order Comment: Speci men Type: BLOOD SPECIMENOrdering Facility: [facility] Address: [address] [place] [address] Performed By: #### 1 1572-5 ####[facility] [id number] [place] [address] [place] Ribonucleoprotein extractabl e nuclear Ab Qn (S)on 12-23-2024 ANTI-WAFER LINE WORKER QUAL Negative Normal Negative [facility] Comment on above: Order Comment: Speci men Type: BLOOD SPECIMENOrdering Facility: [facility] Address: [address] [place] [address] Performed By: #### 5 1775-5, 08518-1, 66512-9, 27156-9, 60520-5, 40490-7, 37022-2, 64520-4 ####[facility] [id number] [place] [address] [place] RIBOSOMAL WAFER LINE WORKER QUAL Negative Normal Negative [facility] Comment on above: Order Comment: Speci men Type: BLOOD SPECIMENOrdering Facility: [facility] Address: [address] [place] [address] Result Comment: Anti -Ribosomal RNA (Ribosomal P) antibody is used as an aid in diagnosis of systemic autoimmune diseases especially systemic lupus erythematosus and mixed connective tissue disease. Cross-reactivity with Anti-cali antibody is not uncommon. Clinical correlation is required. Test Methodology: Multiplex flow immunoassay. Performed By: #### 5 1775-5, 96065-3, 38130-3, 47845-8, 87808-8, 51176-4, 29245-3, 94506-9 ####[facility] [id number] [place] [id number] [place] SCL-70 extractable nuclear I gG IA Qn (S)on 12-23-2024 SCLERODERMA AB QUAL Negative Normal Negative [facility] Comment on above: Order Comment: Speci men Type: BLOOD SPECIMENOrdering Facility: [facility] Address: [address] [place] [address] Performed By: #### 5 1775-5, 93265-7, 67042-0, 82828-8, 51039-3, 39812-6, 75644-2, 97657-4 ####[facility] [id number] [place] [address] [place] SCLERODERMA IGG AB <0.2 Normal <1.0 [facility] Comment on above: Order Comment: Speci men Type: BLOOD SPECIMENOrdering Facility: [facility] Address: [address] [place] [address] Result Comment: Scl- 70/Scleroderma antibody test is used as an aid in diagnosis of systemic sclerosis especially the diffuse cutaneous form. A negative result cannot rule out systemic sclerosis. The final interpretation should consider clinical picture and other test results such as anti-centromere antibody. Test Methodology: Multiplex flow immunoassay. Performed By: #### 5 1775-5, 70093-1, 06136-2, 16562-7, 23160-0, 42038-7, 25514-4, 75576-0 ####[facility] [id number] [place] [id number] [place] Sjogrens syndrome-A extracta ble nuclear Ab Qn (S)on 12-23-2024 SSA ANTIBODY QUAL Negative Normal Negative [facility] Comment on above: Order Comment: Speci men Type: BLOOD SPECIMENOrdering Facility: [facility] Address: [address] [place] [address] Performed By: #### 5 1775-5, 45245-6, 81034-5, 77501-9, 71789-2, 99705-9, 05359-0, 29373-3 ####[facility] [id number] [place] [address] [place] Sjogrens syndrome-B extracta ble nuclear Ab Qn (S)on 12-23-2024 SSB ANTIBODY QUAL Negative Normal Negative [facility] Comment on above: Order Comment: Speci men Type: BLOOD SPECIMENOrdering Facility: [facility] Address: [address] [place] [address] Performed By: #### 5 1775-5, 72301-3, 21183-2, 21954-2, 41195-4, 13401-6, 43765-7, 83191-5 ####[facility] [id number] [address] [address] [place] Cali extractable nuclear Ig G Qn (S)on 12-23-2024 SM ANTIBODY QUAL Negative Normal Negative [facility] Comment on above: Order Comment: Speci men Type: BLOOD SPECIMENOrdering Facility: [facility] Address: [address] [place] [address] Result Comment: Anti -Sm (Cali) antibody is used as an aid in diagnosis of systemic lupus erythematosus and its presence is associated with renal disease. A negative result cannot rule out systemic lupus erythematosus. Clinical correlation is required. Test Methodology: Multiplex flow immunoassay. Performed By: #### 5 1775-5, 01327-8, 49085-4, 49748-8, 10176-2, 18364-8, 88383-2, 38138-5 ####[facility] [id number] [place] [id number] [place] TH/TO ANTIBODYon 12-23-2024 Th-To Ab Line blot Ql (S) Negative Normal Negative [facility] Comment on above: Order Comment: Lazaro barney Type: BLOOD SPECIMEN Ordering Facility: [facility] Address: [address] [place] [address] Performed By: #### 5 7021-8 #### [facility] CLIA [id number] [address] [place] [address] [place] cCP IgG SerPl-aCncon 025 Cyclic citrullinated peptide IgG Qn <15 Normal <20 [facility] Comment on above: Order Comment: Lazaro barney Type: BLOOD SPECIMENOrdering Facility: [facility] Address: [address] [place] [address] Performed By: #### 3 3935-8 ####[facility]ERT [id number] [address] [place] [id number] [place] ED NOTEon 12-19-2024 ED NOTE HNO ID: [id number] Author: MAKI HARMON, RN Service: ? Author Type: Registered Nurse Type: ED Notes Filed: 12/19/2024 04:07 Note Text: Pt verbalizes understanding of dc paperwork, scripts and f/u. All questions/issues addressed. Pt ambulatory to lobby with SO; steady gait noted. Normal [facility] ED PROV NOTEon 12-19-2024 ED PROV NOTE HNO ID: [id number] Author: MARLENE SPARKS PA-C Service: Emergency Medicine Author Type: Physician Tankage Grinder Operator Type: ED Provider Notes Filed: 12/19/2024 03:11 Note Text: ED Provider Note Patient Name: Sabine Ball : 1970 SERVICE DATE: 12/18/24 History Patient presents with: Shortness of Breath: Pt reports SOB x4 weeks, back pain. Went to urgent care on Sunday and diagnosed with bronchitis. States PCP believes she has a pulmonary embolism after having bloodwork done. HPI Sabine Ball is a 54 year old female with past medical history significant for PCOS who presents to the ED for lingering dry cough over the past month, shortness of breath. Was seen at urgent care on Sunday and was diagnosed with bronchitis. She was seen by her PCP and was concerned she may have a PE as she had traveled from [place] and had an elevated D-dimer. She reports a deep cough within her chest. Occasionally has some chest pain with coughing. Was placed on prednisone and doxycycline but did not feel much better after that. Patient sent for further evaluation with concern for PE. She denies any prior cardiac history. No prior lung disease. Denies smoking history or tobacco use. See further HPI in ED course or MDM if applicable. ROS Review of Systems Positive findings noted in HPI, MDM or ED course. PAST MEDICAL HISTORY Diagnosis Date Essential tremor Other acne PMH - PAST MEDICAL HISTORY OF Polycystic Ovarian Syndrome PAST SURGICAL HISTORY Procedure Laterality Date CHOLECYSTECTOMY PAST SURGICAL HISTORY OF Breast reduction FAMILY HISTORY Problem Relation Age of Onset other (Other) Father blood clots Pancreatic Cancer Father Cancer Maternal Grandmother esophageal cancer Diabetes Maternal Grandmother Heart Maternal Grandfather massive heart attack Stroke Paternal Grandmother aneurysm Social History Tobacco Use Smoking status: Never Passive exposure: Never Smokeless tobacco: Never Substance and Sexual Activity Alcohol use: Yes Comment: rare Drug use: No Sexual activity: Not on file ALLERGIES Allergen Reactions Codeine Swelling Swelling of throat and body. Benadryl Allergy De* Intolerance, Mental Status Change Sulfa (Sulfonamide * Rash Records on file/review of medical records: Nursing/triage notes and assessments as well as vitals were reviewed and incorporated. Physical Exam Vitals [12/18/242014] BP Pulse Temp Temp src Resp SpO2 Weight Height 139/88 (!) 95 36.9 ?C (98.5 ?F) Oral 24 (!) 94 % 85.3 kg (188 lb) 1.651 m (5' 5) Physical Exam GENERAL APPEARANCE: AxOx4, generally well-appearing 54-year-old female, no acute distress. HEAD: NC, AT EYES: EOMi, clear conjunctiva ENT: MMM, oropharynx clear. NECK: Supple without lymphadenopathy. No stiffness or restricted ROM. HEART: Normal rate and regular rhythm LUNGS: CTAB. No wheezing, crackles, or rhonchi BACK: No CVAT, no obvious deformity. EXTREMITIES: Without cyanosis, clubbing or edema. NEUROLOGICAL: Grossly nonfocal. Alert and oriented, moving all 4 extremities. CN not formally tested but appear grossly intact. Skin: Exposed skin warm and dry without any rash. Diagnostic Testing ED Labs Ordered and Reviewed COMPLETE BLOOD COUNT AND DIFFERENTIAL - Abnormal; Notable for the following components: Result Value Ref Range WBC 13.04 (*) 3.70 - 11.00 k/uL Abs Neut 8.40 (*) 1.45 - 7.50 k/uL Abs [place] 1.10 (*) <0.87 k/uL All other components within normal limits COMPREHENSIVE METABOLIC PANEL - Abnormal; Notable for the following components: Anion Gap 3 (*) 5 - 16 mmol/L All other components within normal limits HIGH SENSITIVITY TROPONIN I - Normal COVID AND INFLUENZA A/B AND RSV PCR, EXPEDITED - Normal Narrative: Reference Range (the expected result in uninfected individuals): Not detected Radiology/images: CTA CHEST (NONGATED) W IVCON PE Final Result IMPRESSION: 1. No CT evidence of pulmonary embolism. 2. Mild mosaic attenuation in the lower lobes could be related to air trapping, small vessel or small airways disease. 3. No focal consolidation or pneumothorax. 4. Details above. Phlebotomy Services Technician: PSCB Transcribe Date/Time: Dec 19 2024 2:08A Dictated by : LARISSA WALKER MD This examination was interpreted and the report reviewed and electronically signed by: LARISSA WALKER MD on Dec 19 2024 2:15AM EST I reviewed images as well as radiologist interpretation(s) Procedures: Procedures ED Course / Clinical Impression Clinical Impressions as of 12/19/24 0248 Small airways disease Cough, unspecified type COVID-19 test performed per [facility] [place] policy for suspected COVID community exposure. Medications received in ED Medications iv contrast (radiology procedure) (has no administration in time range) benzonatate 100 mg cap(s) (TESSALON PERLE) (has no administration in time range) (more content not included)... [facility] HEALTHon 12-18-2024 [place] HNO ID: [id number] Author: ROLANDO ALONSO Tech Service: Radiology Author Type: Last Remodeler Repairer Type: [email or web address] Filed: 12/18/2024 23:14 Note Text: Summary: ct Radiology Service Progress Note DATE OF SERVICE: December 18, 2024 TIME: 11:13 PM PATIENT IDENTITY VERIFICATION COMPLETED USING TWO (2) STANDARD IDENTIFIERS: Name and Date of confirmed by patient verbally and Name and Date of confirmed by identification band. FALL SCREENING: Has the patient had 2 falls in the last year or 1 fall with injury or currently using an Ambulatory Assistive Device (Walker, Cane, Wheelchair, Crutches, etc.)? Emergency Room Patient: Screened in ED PATIENT GENDER DATA: Assigned female at . status: : No status: N/A PATIENT RELEVANT IMPLANT DATA REVIEWED: Not Applicable PATIENT PRESENTS WITH AN IMPLANTABLE OR ATTACHED TECHNICIAN SUPPORT ASSOCIATION: No ALLERGIES: Reviewed and unchanged CONTRAST ALLERGY: NO. EXAM: CT -CONTRAST INDUCED NEPHROPATHY RISK FACTORS: Not applicable CREATININE: Creatinine Date Value Ref Range Status 12/18/2024 0.80 0.51 - 0.95 mg/dL Final Comment: Patients receiving either N-Acetylcysteine (NAC) or Metamizole prior to venipuncture, may have falsely depressed results. 11/24/2022 0.66 0.58 - 0.96 mg/dL Final 05/24/2020 0.71 0.58 - 0.96 mg/dL Final Estimated Glomerular Filtration Rate Date Value Ref Range Status 12/18/2024 89 >=60 mL/min/1.73m? Final Comment: Estimated Glomerular Filtration Rate (eGFR) is calculated using the 2020 CKD-EPI creatinine equation. This equation utilizes serum creatinine, sex, and age as parameters. The creatinine assay has traceable calibration to isotope dilution-mass spectrometry. Refer to KDIGO guidelines for clinical interpretation. In patients with unstable renal function, e.g. those with acute kidney injury, the eGFR may not accurately reflect actual GFR. eGFR- Date Value Ref Range Status 05/24/2020 >60 Final P.O.C.T. RESULTS: POC done: Yes, See Lab Tab December 18, 2024 TREATMENT: N/A PERIPHERAL IV DATA: Inpatient - refer to LDA documentation RADIOLOGY DEPARTMENT: CT; Exam(s) Completed: PE Study SIGNATURE: Addy Whittaker PATIENT NAME: Sabine Ball DATE: December 18, 2024 TIME: 11:13 PM [facility] Absolute lymphocyte countOrd ered By: Dallas Ness on 12-18-2024 Lymphocytes Auto (Unsp spec) [#/Vol] 1.53 10*3/uL 0.83-4.51 [facility] Absolute neutrophil countOrd ered By: Dallas Ness on 12-18-2024 Neutrophils (Bld) [#/Vol] 8.1 10*3/uL High 2.0-7.7 [facility] Anion gap in Serum or Plasma Ordered By: Dallas Ness on 12-18-2024 Anion gap [Moles/Vol] 11 mmol/L 5-15 [facility] Automated lymphocyte count a s percentage of total leukocytesOrdered By: Dalals Ness on 12-18-2024 Lymphocytes/100 WBC Auto (Unsp spec) 14.9 % Low 19-41 [facility] BUN/creatinine ratioOrdered By: Dallas Ness on 12-18-2024 Urea nitrogen/Creatinine [Mass ratio] 22.4 mg/mg High 10-20 [facility] Basophil percentageOrdered B y: Dallas Ness on 12-18-2024 Basophils/100 WBC (Bld) 0.3 % 0-1 [facility] Bilirubin, totalOrdered By: Dallas Ness on 12-18-2024 Bilirubin [Mass/Vol] 0.28 mg/dL 0.00-1.30 [facility] CBC W Auto Differential pane l (Bld)on 12-18-2024 Basophils (Bld) [#/Vol] 0.04 10*3/uL Normal <0.11 [facility] Comment on above: Order Comment: Speci men Type: BLOOD SPECIMEN Ordering Facility: [facility] Address: [address] [place] [address] Performed By: #### 5 7021-8 #### [facility] CLIA [id number] [address] [place] [address] [place] Basophils/100 WBC (Bld) 0.3 % Normal [facility] Comment on above: Order Comment: Speci men Type: BLOOD SPECIMEN Ordering Facility: [facility] Address: [address] [place] [address] Performed By: #### 5 7021-8 #### [facility] CLIA [id number] [address] [place] [address] [place] Differential cell count method Nom (Bld) Auto Normal [facility] Comment on above: Order Comment: Speci men Type: BLOOD SPECIMEN Ordering Facility: [facility] Address: [address] [place] [address] Performed By: #### 5 7021-8 #### [facility] CLIA [id number] [address] [place] [address] [place] Eosinophils (Bld) [#/Vol] 0.06 10*3/uL Normal <0.46 [facility] Comment on above: Order Comment: Speci men Type: BLOOD SPECIMEN Ordering Facility: [facility] Address: [address] [place] [address] Performed By: #### 5 7021-8 #### [facility] CLIA [id number] [address] [place] [address] [place] Eosinophils/100 WBC (Bld) 0.5 % Normal [facility] Comment on above: Order Comment: Speci men Type: BLOOD SPECIMEN Ordering Facility: [facility] Address: [address] [place] [address] Performed By: #### 5 7021-8 #### [facility] CLIA [id number] [address] [place] [address] [place] Erythrocyte distribution width (RBC) [Ratio] 13.2 % Normal 11.5-15.0 [facility] Comment on above: Order Comment: Speci men Type: BLOOD SPECIMEN Ordering Facility: [facility] Address: [address] [place] [address] Performed By: #### 5 7021-8 #### [facility] CLIA [id number] [address] [place] [address] [place] Hematocrit (Bld) [Volume fraction] 43.6 % Normal 36.0-46.0 [facility] Comment on above: Order Comment: Speci men Type: BLOOD SPECIMEN Ordering Facility: [facility] Address: [address] [place] [address] Performed By: #### 5 7021-8 #### [facility] CLIA [id number] [address] [place] [address] [place] Hemoglobin (Bld) [Mass/Vol] 14.6 g/dL Normal 11.5-15.5 [facility] Comment on above: Order Comment: Speci men Type: BLOOD SPECIMEN Ordering Facility: [facility] Address: [address] [place] [address] Performed By: #### 5 7021-8 #### [facility] CLIA [id number] [address] [place] [address] [place] Immature granulocytes (Bld) [#/Vol] 0.07 10*3/uL Normal <0.10 [facility] Comment on above: Order Comment: Speci men Type: BLOOD SPECIMEN Ordering Facility: [facility] Address: [address] [place] [address] Performed By: #### 5 7021-8 #### [facility] CLIA [id number] [address] [place] [address] [place] Immature granulocytes/100 WBC (Bld) 0.5 % Normal [facility] Comment on above: Order Comment: Speci men Type: BLOOD SPECIMEN Ordering Facility: [facility] Address: [address] [place] [address] Performed By: #### 5 7021-8 #### [facility] CLIA [id number] [address] [place] [address] [place] Lymphocytes (Bld) [#/Vol] 3.37 10*3/uL Normal 1.00-4.00 [facility] Comment on above: Order Comment: Speci men Type: BLOOD SPECIMEN Ordering Facility: [facility] Address: [address] [place] [address] Performed By: #### 5 7021-8 #### [facility] CLIA [id number] [address] [place] [address] [place] Lymphocytes/100 WBC (Bld) 25.8 % Normal [facility] Comment on above: Order Comment: Speci men Type: BLOOD SPECIMEN Ordering Facility: [facility] Address: [address] [place] [address] Performed By: #### 5 7021-8 #### [facility] CLIA [id number] [address] [place] [address] [place] MCH (RBC) [Entitic mass] 30.3 pg Normal 26.0-34.0 [facility] Comment on above: Order Comment: Speci men Type: BLOOD SPECIMEN Ordering Facility: [facility] Address: [address] [place] [address] Performed By: #### 5 7021-8 #### [facility] CLIA [id number] [address] [place] [address] [place] MCHC (RBC) [Mass/Vol] 33.5 g/dL Normal 30.5-36.0 [facility] Comment on above: Order Comment: Speci men Type: BLOOD SPECIMEN Ordering Facility: [facility] Address: [address] [place] [address] Performed By: #### 5 7021-8 #### [facility] CLIA [id number] [address] [place] [address] [place] MCV (RBC) [Entitic vol] 90.5 fL Normal 80.0-100.0 [facility] Comment on above: Order Comment: Speci men Type: BLOOD SPECIMEN Ordering Facility: [facility] Address: [address] [place] [address] Performed By: #### 5 7021-8 #### [facility] CLIA [id number] [address] [place] [address] [place] Monocytes (Bld) [#/Vol] 1.10 10*3/uL High <0.87 [facility] Comment on above: Order Comment: Speci men Type: BLOOD SPECIMEN Ordering Facility: [facility] Address: [address] [place] [address] Performed By: #### 5 7021-8 #### [facility] CLIA [id number] [address] [place] [address] [place] [facility] [place] Monocytes/100 WBC (Bld) 8.4 % Normal [facility] Comment on above: Order Comment: Speci men Type: BLOOD SPECIMEN Ordering Facility: [facility] Address: [address] [place] [address] Performed By: #### 5 7021-8 #### [facility] CLIA [id number] [address] [place] [address] [place] Neutrophils (Bld) [#/Vol] 8.40 10*3/uL High 1.45-7.50 [facility] Comment on above: Order Comment: Speci men Type: BLOOD SPECIMEN Ordering Facility: [facility] Address: [address] [place] [address] Performed By: #### 5 7021-8 #### [facility] CLIA [id number] [address] [place] [address] [place] Neutrophils/100 WBC (Bld) 64.5 % Normal [facility] Comment on above: Order Comment: Speci men Type: BLOOD SPECIMEN Ordering Facility: [facility] Address: [address] [place] [address] Performed By: #### 5 7021-8 #### [facility] CLIA [id number] [address] [place] [address] [place] Nucleated RBC (Bld) [#/Vol] 10*3/uL Normal <0.01 [facility] Comment on above: Order Comment: Speci men Type: BLOOD SPECIMEN Ordering Facility: [facility] Address: [address] [place] [address] Performed By: #### 5 7021-8 #### [facility] CLIA [id number] [address] [place] [address] [place] Nucleated RBC/100 WBC (Bld) [Ratio] 0.0 /100 WBC Normal [facility] Comment on above: Order Comment: Speci men Type: BLOOD SPECIMEN Ordering Facility: [facility] Address: [address] [place] [address] Performed By: #### 5 7021-8 #### [facility] CLIA [id number] [address] [place] [address] [place] Platelet mean volume (Bld) [Entitic vol] 9.7 fL Normal 9.0-12.7 [facility] Comment on above: Order Comment: Speci men Type: BLOOD SPECIMEN Ordering Facility: [facility] Address: [address] [place] [address] Performed By: #### 5 7021-8 #### [facility] CLIA [id number] [address] [place], [place] [address] [facility] [place] Platelets (Bld) [#/Vol] 337 10*3/uL Normal 150-400 [facility] Comment on above: Order Comment: Speci men Type: BLOOD SPECIMEN Ordering Facility: [facility] Address: [address] [place], [place] [address] Performed By: #### 5 7021-8 #### [facility] CLIA [id number] [address] [place], [place] [address] [place] RBC (Bld) [#/Vol] 4.82 10*6/uL Normal 3.90-5.20 [facility] Comment on above: Order Comment: Speci men Type: BLOOD SPECIMEN Ordering Facility: [facility] Address: [address] [place] [address] Performed By: #### 5 7021-8 #### [facility] CLIA [id number] [address] [place], [place] [address] [place] WBC (Bld) [#/Vol] 13.04 10*3/uL High 3.70-11.00 [facility] Comment on above: Order Comment: Speci men Type: BLOOD SPECIMEN Ordering Facility: [facility] Address: [address] [place], [place] [address] Performed By: #### 5 7021-8 #### [facility] CLIA [id number] [address] [place], [place] [address] [facility] [place] CBC W/Diff, Automatedon 11-26 Absolute Lymph 1.53 X10 3/uL Normal 0.83-4.51 [facility] Comment on above: Order Comment: Order Date: 12/18/24 Order Info: 0184-1 - CBCD Comments: stat Performed By: #### L 100.0100, L501.9520, L500.4050, L300.8000 #### [facility] [address] [place], [address] Absolute Neut 8.1 X10 3/uL High 2.0-7.7 [facility] Comment on above: Order Comment: Order Date: 12/18/24 Order Info: 0184-1 - CBCD Comments: stat Performed By: #### L 100.0100, L501.9520, L500.4050, L300.8000 #### [facility] [address] [place], [address] Basophils/100 WBC (Bld) 0.3 % Normal 0-1 [facility] Comment on above: Order Comment: Order Date: 12/18/24 Order Info: 0184-1 - CBCD Comments: stat Performed By: #### L 100.0100, L501.9520, L500.4050, L300.8000 #### [facility] [address] [place], [address] Eosinophils/100 WBC (Bld) 0.1 % Normal 0-5 [facility] Comment on above: Order Comment: Order Date: 12/18/24 Order Info: 0184-1 - CBCD Comments: stat Performed By: #### L 100.0100, L501.9520, L500.4050, L300.8000 #### [facility] [address] [place], [address] Erythrocyte distribution width (RBC) [Ratio] 13.2 % Normal 11.6-14.6 [facility] Comment on above: Order Comment: Order Date: 12/18/24 Order Info: 0184-1 - CBCD Comments: stat Performed By: #### L 100.0100, L501.9520, L500.4050, L300.8000 #### [facility] [address] [place], [address] Hematocrit (Bld) [Volume fraction] 45.1 % Normal 37-47 [facility] Comment on above: Order Comment: Order Date: 12/18/24 Order Info: 0184-1 - CBCD Comments: stat Performed By: #### L 100.0100, L501.9520, L500.4050, L300.8000 #### [facility] [address] [place], [address] Hemoglobin (Bld) [Mass/Vol] 15.1 g/dL High 12.0-15.0 [facility] Comment on above: Order Comment: Order Date: 12/18/24 Order Info: 0184-1 - CBCD Comments: stat Performed By: #### L 100.0100, L501.9520, L500.4050, L300.8000 #### [facility] [address] [place], [address] IG% 0.500 Normal 0.0-0.9 [facility] Comment on above: Order Comment: Order Date: 12/18/24 Order Info: 0184- - CBCD Comments: stat Result Comment: IG% - Immature Granulocytes (promyelocytes, myelocytes and metamyelocytes) > 1% indicates that a LEFT SHIFT is Present. Performed By: #### L 100.0100, L501.9520, L500.4050, L300.8000 #### [facility] [address] [place], [address] Lymphocytes/100 WBC (Bld) 14.9 % Low 19-41 [facility] Comment on above: Order Comment: Order Date: 12/18/24 Order Info: 0184-1 - CBCD Comments: stat Performed By: #### L 100.0100, L501.9520, L500.4050, L300.8000 #### [facility] [address] [place], [address] MCH (RBC) [Entitic mass] 29.8 pg Normal 27.0-32.0 [facility] Comment on above: Order Comment: Order Date: 12/18/24 Order Info: 0184-1 - CBCD Comments: stat Performed By: #### L 100.0100, L501.9520, L500.4050, L300.8000 #### [facility] [address] [place], [address] MCHC (RBC) [Mass/Vol] 33.5 g/dL Normal 32-36 [facility] Comment on above: Order Comment: Order Date: 12/18/24 Order Info: 0184-1 - CBCD Comments: stat Performed By: #### L 100.0100, L501.9520, L500.4050, L300.8000 #### [facility] [address] [place], [address] MCV (RBC) [Entitic vol] 89.1 fL Normal 81-99 [facility] Comment on above: Order Comment: Order Date: 12/18/24 Order Info: 0184-1 - CBCD Comments: stat Performed By: #### L 100.0100, L501.9520, L500.4050, L300.8000 #### [facility] [address] [place], [address] Monocytes/100 WBC (Bld) 5.5 % Normal 0-10 [facility] Comment on above: Order Comment: Order Date: 12/18/24 Order Info: 0184-1 - CBCD Comments: stat Performed By: #### L 100.0100, L501.9520, L500.4050, L300.8000 #### [facility] [address] [place], [address] Neutrophils/100 WBC (Bld) 78.7 % High 47-70 [facility] Comment on above: Order Comment: Order Date: 12/18/24 Order Info: 0184-1 - CBCD Comments: stat Performed By: #### L 100.0100, L501.9520, L500.4050, L300.8000 #### [facility] [address] [place], [address] Nucleated RBC (Bld) [#/Vol] 0 10*3/uL Normal 0-5 [facility] Comment on above: Order Comment: Order Date: 12/18/24 Order Info: 0184-1 - CBCD Comments: stat Performed By: #### L 100.0100, L501.9520, L500.4050, L300.8000 #### [facility] [address] [place], [address] Platelet mean volume (Bld) [Entitic vol] 10.4 fL Normal 6.2-12.0 [facility] Comment on above: Order Comment: Order Date: 12/18/24 Order Info: 0184-1 - CBCD Comments: stat Performed By: #### L 100.0100, L501.9520, L500.4050, L300.8000 #### [facility] [address] [place], [address] Platelets (Bld) [#/Vol] 355 10*3/uL Normal 150-450 [facility] Comment on above: Order Comment: Order Date: 12/18/24 Order Info: 0184-1 - CBCD Comments: stat Performed By: #### L 100.0100, L501.9520, L500.4050, L300.8000 #### [facility] [address] [place], [address] RBC (Bld) [#/Vol] 5.06 10*6/uL Normal 4.2-5.4 [facility] Comment on above: Order Comment: Order Date: 12/18/24 Order Info: 0184-1 - CBCD Comments: stat Performed By: #### L 100.0100, L501.9520, L500.4050, L300.8000 #### [facility] [address] [place], [address] RDW SD 43.2 fl Normal 35.1-43.9 [facility] Comment on above: Order Comment: Order Date: 12/18/24 Order Info: 0184-1 - CBCD Comments: stat Performed By: #### L 100.0100, L501.9520, L500.4050, L300.8000 #### [facility] [address] [place], [address] WBC (Bld) [#/Vol] 10.3 10*3/uL Normal 4.4-11.0 [facility] Comment on above: Order Comment: Order Date: 12/18/24 Order Info: 0184-1 - CBCD Comments: stat Performed By: #### L 100.0100, L501.9520, L500.4050, L300.8000 #### [facility] [address] [place], [address] CTA CHEST (NON GATED) W IVCO N PEon 12-18-2024 CTA CHEST (NON GATED) W IVCON PE * * *Final Report* * * DATE OF EXAM: Dec 18 2024 11:16PM [facility] 0564 - CTA CHEST (NON GATED) W IVCON PE / PROCEDURE REASON: Pulmonary embolism (PE) suspected, high prob * * * * Physician Interpretation * * * * EXAMINATION: CHEST CTA (NON GATED) WITH CONTRAST (PULMONARY EMBOLISM PROTOCOL) Clinical History: PATIENT/TECHNOLOGIST PROVIDED HISTORY: sob, chest pain, pt was diagnosed with bronchitis CLINICAL INFORMATION ( PROVIDED BY ORDERING CLINICIAN) : Pulmonary embolism (PE) suspected, high prob Technique: Spiral CT acquisition of the chest from the thoracic inlet to the upper abdomen following IV contrast. Axial 1.25 and 3 mm thick slices plus coronal and sagittal reformatted images. MQ: CTCP_5 Contrast: 65 mL Omnipaque [address] Radiation dose: Integrated Dose-length product (DLP) for this visit = 356.01 mGy*cm CT Dose Reduction Employed: Automated exposure control(AEC) and iterative recon CTA: Post-processed images (Maximum intensity Projection (MIP), Volume-rendered (VR), or Surface shaded display images (SSD) were created, reviewed and archived. Comparison: No relevant prior studies available. RESULT: Limitations: None. Evaluation for thromboembolic disease: - Right heart chambers: No thromboembolic disease. - Main pulmonary arteries: No thromboembolic disease. - Lobar pulmonary arteries: No thromboembolic disease. - Segmental pulmonary arteries: No thromboembolic disease. - Subsegmental pulmonary arteries: No thromboembolic disease identified. - Additional pulmonary artery findings: The main pulmonary artery is normal in caliber. Lines, tubes, and devices: None. Lung parenchyma and airways: Mild mosaic attenuation in the lower lobes could be related to air trapping, small vessel or small airways disease. No focal consolidation. No suspicious pulmonary nodule identified. The central airways are patent. Pleural space: No pleural effusion. No pneumothorax. Lower neck, lymph nodes, and mediastinum: The imaged thyroid gland is unremarkable. No lymphadenopathy in the axillary, mediastinal, or hilar regions. Small hiatal hernia. Heart, pericardium, and thoracic vessels: The thoracic aorta is normal in caliber. The cardiac chambers are normal in size. No coronary artery atherosclerotic calcifications are noted, although the study is not optimized for coronary assessment. No pericardial effusion or thickening. Bones: Mild degenerative changes in the spine. No destructive bone lesion identified. Upper abdomen: No acute abnormality identified in the imaged upper abdomen. Localizer images: No additional findings. IMPRESSION: 1. No CT evidence of pulmonary embolism. 2. Mild mosaic attenuation in the lower lobes could be related to air trapping, small vessel or small airways disease. 3. No focal consolidation or pneumothorax. 4. Details above. Phlebotomy Services Technician: PSCTeresita Transcribe Date/Time: Dec 19 2024 2:08A Dictated by : LARISSA WALKER MD This examination was interpreted and the report reviewed and electronically signed by: LARISSA WALKER MD on Dec 19 2024 2:15AM EST [id number] Normal [facility] Carbon dioxide, total [Moles /volume] in Central venous bloodOrdered By: Dallas Ness on 12-18-2024 CO2 [Moles/Vol] 24.2 mmol/L 21.0-32.0 [facility] Chest PA and Lateralon 12-18 Chest PA and Lateral [facility] Imaging Services [address] [place] [address] Chest PA and Lateral MR#: [id number] Acct: [id number] Name: SABINE BALL Rep #: [id number] : 1970 F 54 From: Dwaine Schmid i DO PCP: Dr. Dallas Ness MD Status: REG CLI Study: Chest PA and Lateral Date of Exam: 12/18/24 Exam# [id number] Ordering Dr: Dallas Ness PROCEDURE: PA and lateral chest radiographs, two views 12/18/2024 REASON FOR EXAM: COUGH, CHEST HEAVINESS, BACK PAIN TECHNIQUE: PA and lateral views of the chest. FINDINGS: The cardiomediastinal silhouette is within normal limits. Thoracic aorta is tortuous. The bones are osteopenic with degenerative changes in the spine. Mild elevation right hemidiaphragm. RAD/Chest PA and Lateral IMPRESSION: No acute cardiopulmonary process is demonstrated. If there are persistent symptoms or clinical concern, further evaluation with CT may be considered. Reading [facility]: Dr. Dallas Ness MD Phlebotomy Services Technician: Signed Normal [facility] Chloride assayOrdered By: Michael Ness on 12-18-2024 Chloride [Moles/Vol] 104 mmol/L 98-108 [facility] Comprehensive Metabolic Prof ilon 12-18-2024 Albumin [Mass/Vol] 4.2 g/dL Normal 3.5-5.0 [facility] Comment on above: Order Comment: Order Date: 12/18/24Order Info: [id number] - CMPOrder Info: 3016-3 - TSHstat Performed By: #### L 100.0100, L501.9520, L500.4050, L300.8000 ####[facility] [address] [place], [address] Albumin/Globulin [Mass ratio] 1.4 {ratio} Normal 0.9-2.4 [facility] Comment on above: Order Comment: Order Date: 12/18/24Order Info: [id number] - CMPOrder Info: 3016-3 - TSHstat Performed By: #### L 100.0100, L501.9520, L500.4050, L300.8000 ####[facility] [address] [place], [address] ALK PHOS 100 U/L Normal 35-104 [facility] Comment on above: Order Comment: Order Date: 12/18/24Order Info: [id number] - CMPOrder Info: 301-3 - TSHstat Performed By: #### L 100.0100, L501.9520, L500.4050, L300.8000 ####[facility] [address] [place], [address] ALT [Catalytic activity/Vol] 17 U/L Normal <=34 [facility] Comment on above: Order Comment: Order Date: 12/18/24Order Info: [id number] - CMPOrder Info: 3015-3 - TSHstat Performed By: #### L 100.0100, L501.9520, L500.4050, L300.8000 ####[facility] [address] [place], [address] AST [Catalytic activity/Vol] 15 U/L Normal <=31 [facility] Comment on above: Order Comment: Order Date: 12/18/24Order Info: 0786- - CMPOrder Info: 3 - TSHstat Performed By: #### L 100.0100, L501.9520, L500.4050, L300.8000 ####[facility] [address] [place], [address] Bilirubin [Mass/Vol] 0.28 mg/dL Normal 0.00-1.30 [facility] Comment on above: Order Comment: Order Date: 12/18/24Order Info: 0786- - CMPOrder Info: 3 - TSHstat Performed By: #### L 100.0100, L501.9520, L500.4050, L300.8000 ####[facility] [address] [place], [address] BUN/CRE 22.4 RATIO High 10-20 [facility] Comment on above: Order Comment: Order Date: 12/18/24Order Info: 0786-1 - CMPOrder Info: 3015-3 - TSHstat Performed By: #### L 100.0100, L501.9520, L500.4050, L300.8000 ####[facility] [address] [place], [address] Calcium [Mass/Vol] 9.8 mg/dL Normal 7.6-11.0 [facility] Comment on above: Order Comment: Order Date: 12/18/24Order Info: [id number] - CMPOrder Info: 3 - TSHstat Performed By: #### L 100.0100, L501.9520, L500.4050, L300.8000 ####[facility] [address] [place], [address] Chloride [Moles/Vol] 104 mmol/L Normal 98-108 [facility] Comment on above: Order Comment: Order Date: 12/18/24Order Info: [id number] - CMPOrder Info: 3 - TSHstat Performed By: #### L 100.0100, L501.9520, L500.4050, L300.8000 ####[facility] [address] [place], [address] CO2 [Moles/Vol] 24.2 mmol/L Normal 21.0-32.0 [facility] Comment on above: Order Comment: Order Date: 12/18/24Order Info: 07 - CMPOrder Info: 3 - TSHstat Performed By: #### L 100.0100, L501.9520, L500.4050, L300.8000 ####[facility] [address] [place], [address] Creatinine [Mass/Vol] 0.76 mg/dL Normal 0.70-1.20 [facility] Comment on above: Order Comment: Order Date: 12/18/24Order Info: 07 - CMPOrder Info: 3 - TSHstat Performed By: #### L 100.0100, L501.9520, L500.4050, L300.8000 ####[facility] [address] [place], [address] GAP 11 Normal 5-15 [facility] Comment on above: Order Comment: Order Date: 12/18/24Order Info: 0786-1 - CMPOrder Info: 3 - TSHstat Performed By: #### L 100.0100, L501.9520, L500.4050, L300.8000 ####[facility] [address] [place], [address] GFR/1.73 sq M.predicted among non-blacks MDRD (S/P/Bld) [Vol rate/Area] 94 mL/min/{1.73_m2} Normal >60 [facility] Comment on above: Order Comment: Order Date: 12/18/24Order Info: 0786- - CMPOrder Info: 3 - TSHstat Result Comment: mL/m in/1.73m2 CKD-EPI Creatinine Equation (2020) Performed By: #### L 100.0100, L501.9520, L500.4050, L300.8000 ####[facility] [address] [place], [address] Globulin (S) [Mass/Vol] 3.1 g/dL Normal 2.2-4.2 [facility] Comment on above: Order Comment: Order Date: 12/18/24Order Info: 0786-1 - CMPOrder Info: 3 - TSHstat Performed By: #### L 100.0100, L501.9520, L500.4050, L300.8000 ####[facility] [address] [place], [address] Glucose [Mass/Vol] 102 mg/dL High 70-99 [facility] Comment on above: Order Comment: Order Date: 12/18/24Order Info: 0786-1 - CMPOrder Info: 6-3 - TSHstat Performed By: #### L 100.0100, L501.9520, L500.4050, L300.8000 ####[facility] [address] [place], [address] Potassium [Moles/Vol] 4.1 mmol/L Normal 3.3-5.1 [facility] Comment on above: Order Comment: Order Date: 12/18/24Order Info: 0786-1 - CMPOrder Info: 3016-3 - TSHstat Performed By: #### L 100.0100, L501.9520, L500.4050, L300.8000 ####[facility] [address] [place], [address] Sodium [Moles/Vol] 139 mmol/L Normal 133-145 [facility] Comment on above: Order Comment: Order Date: 12/18/24Order Info: 0786- - CMPOrder Info: 3015-3 - TSHstat Performed By: #### L 100.0100, L501.9520, L500.4050, L300.8000 ####[facility] [address] [place], [address] T PROT 7.2 g/dL Normal 5.9-8.4 [facility] Comment on above: Order Comment: Order Date: 12/18/24Order Info: 0786- - CMPOrder Info: 3015-3 - TSHstat Performed By: #### L 100.0100, L501.9520, L500.4050, L300.8000 ####[facility] [address] [place], [address] Urea nitrogen [Mass/Vol] 17 mg/dL Normal 4-19 [facility] Comment on above: Order Comment: Order Date: 12/18/24Order Info: 0786-1 - CMPOrder Info: 3015-3 - TSHstat Performed By: #### L 100.0100, L501.9520, L500.4050, L300.8000 ####[facility] [address] [place], [address] Comprehensive metabolic 2000 panelon 12-18-2024 Albumin [Mass/Vol] 3.6 g/dL Normal 3.2-5.0 [facility] Comment on above: Order Comment: Speci men Type: BLOOD SPECIMEN Ordering Facility: [facility] Address: [address] [place] [address] Performed By: #### 2 4323-8, HSTROP #### [facility] CLIA [id number] [address] [place] [address] [place] ALP [Catalytic activity/Vol] 100 U/L Normal 45-117 [facility] Comment on above: Order Comment: Speci men Type: BLOOD SPECIMEN Ordering Facility: [facility] Address: [address] [place] [address] Performed By: #### 2 4323-8, HSTROP #### [facility] CLIA [id number] [address] [place] [address] [place] ALT [Catalytic activity/Vol] 17 U/L Normal 13-61 [facility] Comment on above: Order Comment: Speci men Type: BLOOD SPECIMEN Ordering Facility: [facility] Address: [address] [place] [address] Result Comment: Resu lts may be falsely depressed after the administration of Sulfasalazine and/or Sulfapyridine. Performed By: #### 2 4323-8, HSTROP #### [facility] CLIA [id number] [address] [place] [address] STATES OF [facility] Anion gap [Moles/Vol] 3 mmol/L Low 5-16 [facility] Comment on above: Order Comment: Speci men Type: BLOOD SPECIMEN Ordering Facility: [facility] Address: [address] [place] [address] Performed By: #### 2 4323-8, HSTROP #### [facility] CLIA [id number] [address] [place] [address] [place] AST [Catalytic activity/Vol] 14 U/L Normal 8-34 [facility] Comment on above: Order Comment: Speci men Type: BLOOD SPECIMEN Ordering Facility: [facility] Address: [address] [place] [address] Result Comment: Resu lts may be falsely depressed after the administration of Sulfasalazine and/or Sulfapyridine. Performed By: #### 2 4323-8, HSTROP #### [facility] CLIA [id number] [address] [place] [address] [place] Bilirubin [Mass/Vol] 0.3 mg/dL Normal 0.2-1.0 [facility] Comment on above: Order Comment: Speci men Type: BLOOD SPECIMEN Ordering Facility: [facility] Address: [address] [place] [address] Performed By: #### 2 4323-8, HSTROP #### [facility] CLIA [id number] [address] [place] [address] [place] Calcium [Mass/Vol] 10.2 mg/dL Normal 8.5-10.5 [facility] Comment on above: Order Comment: Speci men Type: BLOOD SPECIMEN Ordering Facility: [facility] Address: [address] [place] [address] Performed By: #### 2 4323-8, HSTROP #### [facility] CLIA [id number] [address] [place] [address] [place] Chloride [Moles/Vol] 104 mmol/L Normal 98-107 [facility] Comment on above: Order Comment: Speci men Type: BLOOD SPECIMEN Ordering Facility: [facility] Address: [address] [place] [address] Performed By: #### 2 4323-8, HSTROP #### [facility] CLIA [id number] [address] [place] [address] [place] CO2 [Moles/Vol] 31 mmol/L Normal 21-32 [facility] Comment on above: Order Comment: Speci men Type: BLOOD SPECIMEN Ordering Facility: [facility] Address: [address] [place] [address] Performed By: #### 2 4323-8, HSTROP #### [facility] CLIA [id number] [address] [place] [address] [place] Creatinine [Mass/Vol] 0.80 mg/dL Normal 0.51-0.95 [facility] Comment on above: Order Comment: Lazaro barney Type: BLOOD SPECIMEN Ordering Facility: [facility] Address: [address] [id number] Result Comment: Mellissa ents receiving either N-Acetylcysteine (NAC) or Metamizole prior to venipuncture, may have falsely depressed results. Performed By: #### 2 4323-8, HSTROP #### [facility] CLIA [id number] [address] [place] [address] [place] Creatinine and Glomerular filtration rate.predicted panel (S/P/Bld) 89 mL/min/1.73m??? Normal >=60 [facility] Comment on above: Order Comment: Lazaro barney Type: BLOOD SPECIMEN Ordering Facility: [facility] Address: [address] [place] [address] Result Comment: Ria mated Glomerular Filtration Rate (eGFR) is calculated using the 2020 CKD-EPI creatinine equation. This equation utilizes serum creatinine, sex, and age as parameters. The creatinine assay has traceable calibration to isotope dilution-mass spectrometry. Refer to KDIGO guidelines for clinical interpretation. In patients with unstable renal function, e.g. those with acute kidney injury, the eGFR may not accurately reflect actual GFR. Performed By: #### 2 4323-8, HSTROP #### [facility] CLIA [id number] [address] [place] [address] [place] Glucose [Mass/Vol] 88 mg/dL Normal 70-100 [facility] Comment on above: Order Comment: Lazaro barney Type: BLOOD SPECIMEN Ordering Facility: [facility] Address: [address] [id number] Result Comment: The [place] [employer] (ADA) provides guidance for cutoff values for fasting glucose and random glucose. The ADA defines fasting as no caloric intake for at least 8 hours. Fasting plasma glucose results between 100 to 125 mg/dL indicate increased risk for diabetes (prediabetes). Fasting plasma glucose results greater than or equal to 126 mg/dL meet the criteria for diagnosis of diabetes. In the absence of unequivocal hyperglycemia, results should be confirmed by repeat testing. In a patient with classic symptoms of hyperglycemia or hyperglycemic crisis, random plasma glucose results greater than or equal to 200 mg/dL meet the criteria for diagnosis of diabetes. Reference: Standards of Medical Care in Diabetes 2016, [place] [employer]. Diabetes Care. 2016.39(Suppl 1). Results may be falsely elevated after the administration of Sulfapyridine. Results may be falsely depressed after the administration of Sulfasalazine. Performed By: #### 2 4323-8, HSTROP #### [facility] CLIA [id number] [address] [place] [address] [place] Potassium [Moles/Vol] 3.5 mmol/L Normal 3.5-5.1 [facility] Comment on above: Order Comment: Lazaro barney Type: BLOOD SPECIMEN Ordering Facility: [facility] Address: [address] [place] [address] Performed By: #### 2 4323-8, HSTROP #### [facility] CLIA [id number] [address] [place] [address] [place] Protein [Mass/Vol] 6.9 g/dL Normal 6.0-8.5 [facility] Comment on above: Order Comment: Parkeri ector Type: BLOOD SPECIMEN Ordering Facility: [facility] Address: [address] [place] [address] Performed By: #### 2 4323-8, HSTROP #### [facility] CLIA [id number] [address] [place] [address] [place] Sodium [Moles/Vol] 138 mmol/L Normal 136-145 [facility] Comment on above: Order Comment: Parkeri ector Type: BLOOD SPECIMEN Ordering Facility: [facility] Address: [address] [place] [address] Performed By: #### 2 4323-8, HSTROP #### [facility] CLIA [id number] [address] [place] [address] [place] Urea nitrogen [Mass/Vol] 16 mg/dL Normal 7-26 [facility] Comment on above: Order Comment: Parkeri men Type: BLOOD SPECIMEN Ordering Facility: [facility] Address: [address], [place] [address] Performed By: #### 2 4323-8, HSTROP #### [facility] CLIA [id number] [address] [place] [address] [place] D-Dimer Quantitative (DVT/PE )on 12-18-2024 D-DIMER QUANT 2.16 FEU/ug/m Invalid Interpretation Code 0.27-0.49 [facility] Comment on above: Order Comment: Order Date: 12/18/24Order Info: [id number] - DDIMQ Result Comment: CRIT ICAL VALUE CALLED TO DR. DALLAS NESS 12/18/24 1844 Gris Laura. RESULTS READ BACK BY SAME. D-Dimer ELEVATED (>0.49): Additional studies and clinical assessments are indicated to conclude diagnosis of: Deep Vein Thrombosis (DVT) or Pulmonary Embolism (PE) Performed By: #### L 100.0100, L501.9520, L500.4050, L300.8000 ####[facility] [address] [place], [address] ECG COMPLETEon 12-18-2024 ECG COMPLETE Ventricular Rate : 8 3 BPM Atrial Rate : 83 BPM P-R Interval : 128 ms QRS Duration : 98 ms Q-T Interval : 358 ms QTC Calculation(Bazett) : 420 ms Calculated P [place] : 50 degrees Calculated R [place] : 5 degrees Calculated T [place] : 1 degrees Normal sinus rhythm Non-specific ST and T wave changes Abnormal ECG No previous ECGs available Confirmed by SABINE PEDROZA MD ([id number]) on 12/20/2024 9:32:01 AM NAME : SABINE BALL PID : [id number] : 1970 Gender : Female Race : ORD : [id number] Procedure Date : Dec 18 2024 20:25:56 Edit Date : Dec 20 2024 09:32:02 Diagnosis: Normal sinus rhythm Non-specific ST and T wave changes Abnormal ECG No previous ECGs available Confirmed by SABINE PEDROZA MD ([id number]) on 12/20/2024 9:32:01 AM Test Reason : HCS Location : 0 : ED EDFTA Overread By : SABINE PEDROZA MD Edited By : SABINE PEDROZA MD Referred By : , Acquired by : System,System [facility] ED Triage Noteon 12-18-2024 ED Triage Note HNO ID: [id number] Author: DELORIS CAPONE PA-C Service: ? Author Type: Physician Tankage Grinder Operator Type: ED Triage Notes Filed: 12/18/2024 20:20 Note Text: ED TRIAGE PROVIDER NOTE Patient Name: Sabine Ball Service Date: 12/18/24 BRIEF HPI: This is a 54 year old female who presents to the ED with: shortness of breath. Over the last month has had cough congestion shortness of breath. Was seen at [facility] several days ago and diagnosed with bronchitis. Was started on prednisone and doxycycline. Did not feel any better so went to PCP today. Had blood work done including D-dimer which was elevated. Sent here for further evaluation for concern for PE. States she has been having some intermittent pain to her right upper back. Traveled by car to [facility] about 1 month ago BRIEF EXAM: NAD Awake and Alert Non labored breathing INITIAL WORKUP AND DECISION MAKING: Orders Placed This Encounter CTA CHEST (NONGATED) W IVCON PE CBC + AUTO DIFF COMPREHENSIVE METABOLIC PANEL (BMP+LFT) SINGLE HIGH SENSITIVITY TROPONIN I COVID AND Influenza A/B AND RSV PCR, Expedited DISCONTD: iv contrast (radiology procedure) iv contrast (radiology procedure) ECG COMPLETE SIGNATURE: Deloris Capone PA-C [facility] Eosinophil percentageOrdered By: Dallas Ness on 12-18-2024 Eosinophils/100 WBC (Bld) 0.1 % 0-5 [facility] Erythrocyte distribution wid th ratioOrdered By: Dallas Ness on 12-18-2024 Erythrocyte distribution width (RBC) [Ratio] 13.2 % 11.6-14.6 [facility] Erythrocyte distribution wid th standard deviationOrdered By: Dallas Ness on 12-18-2024 Erythrocyte distribution width (RBC) [Ratio] 43.2 fl 35.1-43.9 [facility] Glomerular filtration rate ( GFR) estimation/1.73 sq m using serum, plasma, or whole bOrdered By: Dallas Ness on 12-18-2024 GFR/1.73 sq M.predicted among non-blacks MDRD (S/P/Bld) [Vol rate/Area] 94 mL/min/{1.73_m2} >60 [facility] Comment on above: mL/min/1.73m2 CKD-EP I Creatinine Equation (2020) HIGH SENSITIVITY TROPONIN Io n 12-18-2024 Tropinin I.cardiac panel High sensitivity method <2.5 Normal 0.0-34.0 [facility] Comment on above: Order Comment: Speci men Type: BLOOD SPECIMEN Ordering Facility: [facility] Address: [address] [place] [address] Performed By: #### 2 4323-8, HSTROP #### [facility] CLIA [id number] [address] [place] [address] [place] Hematocrit Auto (Bld) [Volum e fraction]Ordered By: Dallas Ness on 12-18-2024 Hematocrit (Bld) [Volume fraction] 45.1 % 37-47 [facility] Hemoglobin measurementOrdere d By: Dallas Ness on 12-18-2024 Hemoglobin (Bld) [Mass/Vol] 15.1 g/dL High 12.0-15.0 [facility] Immature granulocytes/100 WB C Auto (Bld)Ordered By: Dallas Ness on 12-18-2024 Immature granulocytes/100 WBC (Bld) 0.500 % 0.0-0.9 [facility] Comment on above: IG% - Immature Granu locytes (promyelocytes, myelocytes and metamyelocytes) > 1% indicates that a LEFT SHIFT is Present. L501.4021on 12-18-2024 Trop T High Sen < 6 Normal <=14 [facility] Comment on above: Order Comment: Order Date: 12/18/24 Order Info: 0786-1 - CMP Order Info: 3016-3 - TSH Performed By: #### L 501.4021 #### [facility] [address] [place], [address] Laboratory - Chemistry and C hemistry - challengeOrdered By: Dallas Ness on 12-18-2024 AST [Catalytic activity/Vol] 15 U/L <32 [facility] MCV (mean corpuscular volume ) determinationOrdered By: Dallas Ness on 12-18-2024 MCV (RBC) [Entitic vol] 89.1 fL 81-99 [facility] Mean corpuscular hemoglobin (MCH) determinationOrdered By: Dallas Ness on 12-18-2024 MCH (RBC) [Entitic mass] 29.8 pg 27.0-32.0 [facility] Mean corpuscular hemoglobin concentration (MCHC) determinationOrdered By: Dallas Ness on 12-18-2024 MCHC (RBC) [Mass/Vol] 33.5 g/dL 32-36 [facility] Mean platelet volume determi nationOrdered By: Dallas Ness on 12-18-2024 Platelet mean volume (Bld) [Entitic vol] 10.4 fL 6.2-12.0 [facility] Monocyte percentageOrdered B y: Dallas Ness on 12-18-2024 Monocytes/100 WBC (Bld) 5.5 % 0-10 [facility] Neutrophil percentageOrdered By: Dallas Ness on 12-18-2024 Neutrophils/100 WBC (Bld) 78.7 % High 47-70 [facility] Nucleated red blood cell per centageOrdered By: Dallas Ness on 12-18-2024 Nucleated RBC/100 WBC (Bld) [Ratio] 0 % 0-5 [facility] Platelet countOrdered By: Michael Ness on 12-18-2024 Platelets (Bld) [#/Vol] 355 10*3/uL 150-450 [facility] Potassium measurement (mass/ volume)Ordered By: Dallas Ness on 12-18-2024 Potassium (Unsp spec) [Mass/Vol] 4.1 mmol/L 3.3-5.1 [facility] RBC Auto (Bld) [#/Vol]Ordere d By: Dallas Ness on 12-18-2024 RBC (Bld) [#/Vol] 5.06 10*6/uL 4.2-5.4 [facility] Serum creatinine measurement (mass/volume)Ordered By: Dallas Ness on 12-18-2024 Creatinine [Mass/Vol] 0.76 mg/dL 0.70-1.20 [facility] Serum globulin measurementOr dered By: Dallas Ness on 12-18-2024 Globulin (S) [Mass/Vol] 3.1 g/dL 2.2-4.2 [facility] Serum glucose measurement (m ass/volume)Ordered By: Dallas Ness on 12-18-2024 Glucose [Mass/Vol] 102 mg/dL High 70-99 [facility] Serum or plasma alanine payton otransferase (ALT) measurementOrdered By: Dallas Ness on 12-18-2024 ALT [Catalytic activity/Vol] 17 U/L <35 [facility] Serum or plasma albumin nitin urement (mass/volume)Ordered By: Dallas Ness on 12-18-2024 Albumin [Mass/Vol] 4.2 g/dL 3.5-5.0 [facility] Serum or plasma albumin/glob ulin mass ratioOrdered By: Dallas Ness on 12-18-2024 Albumin/Globulin [Mass ratio] 1.4 {ratio} 0.9-2.4 [facility] Serum or plasma alkaline carmen sphatase measurementOrdered By: Dallas Ness on 12-18-2024 ALP [Catalytic activity/Vol] 100 U/L 35-104 [facility] Serum or plasma calcium nitin urement (mass/volume)Ordered By: Dallas Ness on 12-18-2024 Calcium [Mass/Vol] 9.8 mg/dL 7.6-11.0 [facility] Serum or plasma urea nitroge n measurement (mass/volume)Ordered By: Dallas Ness on 12-18-2024 Urea nitrogen [Mass/Vol] 17 mg/dL 4-19 [facility] Sodium levelOrdered By: Malachi Ness on 12-18-2024 Sodium [Moles/Vol] 139 mmol/L 133-145 [facility] TSH DL <= 0.005 mIU/L QnOrde red By: Dallas Ness on 12-18-2024 TSH Qn 0.779 uIU/mL 0.300-4.20 0 [facility] Thyroid Stim Hormone (TSH)on 12-18-2024 TSH 0.779 uIU/mL Normal 0.300-4.20 0 [facility] Comment on above: Order Comment: Order Date: 12/18/24Order Info: [id number] - CMPOrder Info: [id number] - TSH Performed By: #### L 100.0100, L501.9520, L500.4050, L300.8000 ####[facility] [id number] [place], [address] Total proteinOrdered By: Frannie Ness on 12-18-2024 Protein [Mass/Vol] 7.2 g/dL 5.9-8.4 [facility] Troponin T.cardiac [Mass/vol ume] in Serum or Plasma by High sensitivity methodOrdered By: Dallas Ness on 12-18-2024 Troponin T.cardiac High sensitivity method [Mass/Vol] < 6 ng/L <14 [facility] White blood cell (WBC) count Ordered By: Dallas Ness on 12-18-2024 WBC (Bld) [#/Vol] 10.3 10*3/uL 4.4-11.0 [facility] CNOVon 12-12-2024 [facility] SABINE BALL ([id number]) 1970 F Date Time Provider Department 12/12/24 5:05 PM JAVIER DIAZ [facility] During your visit today, we recorded the following information about you: Temperature Pulse Respiration Blood pressure 98.9 degrees 90/minute 18/minute 117/77 Weight 85.3 kg Javier Diaz PA-C 12/12/2024 5:45 PM Signed HPI: Sabine Ball is a 54 year old female who presents with Cough (X3 weeks pt states she feels she has pneumonia as the cough is so deep and now has sob and fatigue x5days). 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 progesterone micronized (PROMETRIUM) 100 mg capsule Magnesium (Citrate) 150 mg (Pure Encapsulations) Take 4 capsules daily. predniSONE (DELTASONE) 20 mg tablet Take 1 tablet by mouth once daily for 10 doses. 10 tablet 0 doxycycline (VIBRA-TABS) 100 mg tablet Take 1 tablet by mouth two times a day for 10 days. 20 tablet 0 albuterol HFA (PROVENTIL HFA, VENTOLIN HFA) 90 mcg/actuation inhaler Inhale 2 puffs as instructed every 6 hours as needed for wheezing/shortness of breath. 1 each 0 estradiol 0.05 mg/24 hr (Patient not taking: Reported on 12/12/2024) MEDICATION, NON-DATABASE Amatriptyl 20 mg, 1 scoop daily Amino Acid Complex Powder (Daxibe) (Hieu) Mix 1 scoop with 8 ounces of water twice daily. (Patient not taking: Reported on 12/12/2024) B-Complex Plus (Pure Encapsulations) Take 1 capsule by mouth daily with food. (Patient not taking: Reported on 12/12/2024) Alpha Lipoic Acid 600 mg (Pure Encapsulations) Take 1 capsule daily with meals. (Patient not taking: Reported on 12/12/2024) SocialSamba Whole Probiotic supplement - (for rian/yeast) probiotic+saccharomyces+bio film disruptor Take 1 capsule by mouth once daily. Start with 2 jars. No fridge needed. Take at least 2 hrs away from nystatin/candibactin/difluc an. (Patient not taking: Reported on 12/12/2024) 0 Norethindrone Acet-Ethinyl Est (JUNE,) 1-20 mg-mcg per tablet Take 1 tablet by mouth once daily. amitriptyline (ELAVIL) 25 mg tablet Take 1 tablet by mouth daily at bedtime. Cholecalciferol, Vitamin D3, (VITAMIN D) 1,000 unit ORAL Cap Take one(1) tablet daily. (Patient not taking: Reported on 12/12/2024) No current facility-administered medications for this visit. Social History Tobacco Use Smoking status: Never Passive exposure: Never Smokeless tobacco: Never Substance Use Topics Alcohol use: Yes Comment: rare Drug use: No Alcohol Use: Yes (rare) Tobacco Use: Never FAMILY HISTORY Problem Relation Age of Onset other (Other) Father blood clots Pancreatic Cancer Father Cancer Maternal Grandmother esophageal cancer Diabetes Maternal Grandmother Heart Maternal Grandfather massive heart attack Stroke Paternal Grandmother aneurysm Review of Systems HENT: Positive for congestion. Negative for sore throat. Eyes: Negative. Respiratory: Positive for cough. Negative for shortness of breath and wheezing. Cardiovascular: Negative for chest pain. Gastrointestinal: Negative for diarrhea, nausea and vomiting. Genitourinary: Negative. Musculoskeletal: Negative. Skin: Negative. Neurological: Negative. Endo/Heme/Allergies: Negative. Psychiatric/Behavioral: Negative. All other systems reviewed and are negative. BP 117/77 Pulse 90 Temp 98.9 Resp 18 Wt 188 lb (85.3kg) SpO2 97% Physical Exam Vitals and nursing note reviewed. Constitutional: General: She is not in acute distress. Appearance: Normal appearance. She is normal weight. She is not ill-appearing or toxic-appearing. HENT: Head: Normocephalic and atraumatic. Right Ear: Tympanic membrane, ear canal and external ear normal. Left Ear: Tympanic membrane, ear canal and external ear normal. Nose: Nose normal. No congestion or rhinorrhea. Mouth/Throat: Mouth: Mucous membranes are moist. Pharynx: Oropharynx is clear. No oropharyngeal exudate or posterior oropharyngeal erythema. Eyes: Extraocular Movements: Extraocular movements intact. Conjunctiva/sclera: Conjunctivae normal. Pupils: Pupils are equal, round, and reactive to light. Cardiovascular: Rate and Rhythm: Normal rate and regular rhythm. Pulses: Normal pulses. Heart sounds: Normal heart sounds. Pulmonary: Effort: Pulmonary effort is normal. Breat (more content not included)... Normal [facility] Core Java Software Engineer Office Visit Reporton 12-03-2024 Core Java Software Engineer Office Visit Report [facility] [address] [place] [address], [address] [place] [address] OFFICE VISIT Date of Service: 12/03/24 MR#: [id number] Acct: [id number] Name: SABINE BALL Rep #: [id number] : 1970 Provider: ALLEGRA Archer Age/Sex: 54/F [place] [facility] [place] Status: Signed Intake Vital Signs 10/30/24 14:22 12/03/24 14:10 12/03/24 14:12 Height 5 ft 5 in 5 ft 5 in 5 ft 5 in Weight: 192 lb 6 oz 192 lb 8 oz BMI 32.0 32.0 BP 120/82 H 122/85 H Pulse 96 99 Intake Visit Reasons: 1 M FU Radiology Teacher Required: No Is patient in pain?: No Allergies diphenhydramine (From Benadryl) Allergy (Mild, Verified 12/03/24 14:07) Other codeine Allergy (Verified 12/03/24 14:07) Swelling Sulfa (Sulfonamide Antibiotics) Allergy (Verified 12/03/24 14:07) Rash Medications ???Medication ???Instructions ???Recorded ???Confirmed ???Type benzoil peroxide topical 07/02/24 12/03/24 History clotrimazole 1 % topical cream 1 applic topical BID 07/02/2405/21 History doxycycline hyclate 20 mg tablet 20 mg PO BID 07/02/24 12/03/24 His tory magnesium 250 mg tablet 250 mg PO QDAY 07/02/24 12/03/24 H istory spironolactone 100 mg tablet 100 mg PO QDAY 07/02/24 12/03/24 H istory trazodone 100 mg tablet 50 mg (1/2 x 100 mg) PO QHS 12/03/24 Rx insomnia #30 tabs topiramate 25 mg tablet (Topamax) 25 mg PO BID #60 tabs 10/03/24 Rx phentermine 37.5 mg tablet 37.5 mg PO QDAY #30 tabs 12/03/24 12/03/24 Rx (Adipex-P) Last Menstrual Period: 08/04/24 (post menopausal) PFSH PFSH Medical History Lichen sclerosus Surgical History S/P cholecystectomy H/O bilateral breast reduction surgery Family History Father Cancer Pancreatic Aunt Cancer Pancreatic- Paternal Grandmother Cancer Maternal-Esophageal Social History current occupational status: employed 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 Date Name GA/Weeks Outcome Route Bth Weight Infant Gen Labor Lgth Anesthesia Del Locatn Provider FOB Unknown [place]- Adopted Unknown Eugenia Unknown Will HPI 1 M FU Details: SABINE BALL is a 54 year old Female presenting for a weight management consultation. She is doing well overall with medications; taking compliantly with no side effects however not seeing the scale move and interested in increasing to full tab phentermine. This was beneficial in the past for her. She is also starting to notice hot flashes returning. So far tolerable but bothersome. Female Reproductive History Last Menstrual Period: 08/04/24 (post menopausal) ROS Const Denies chills, Denies fatigue, Denies fever(s), Denies headache(s), Denies increased appetite, Denies malaise and Reports weight gain Eyes Denies blurry vision ENT Denies headache(s) Card Denies dyspnea on exertion, Denies irregular heart rhythm, Denies lightheadedness, Denies orthopnea and Denies palpitations Resp Denies cough and Denies dyspnea on exertion GI Denies abdominal pain, Denies bloating and Denies constipation Musc Denies numbness and Denies tingling Skin/Breast Denies lesions Neuro No headache(s), No numbness, No tingling and Yes other (hx raynauds) Psych Denies anxiety and Denies depression Endo Denies fatigue and Denies palpitations Exam Const General: cooperative, healthy appearing, comfortable, no acute distress and well developed Neck Neck: normal visual inspection Resp Effort Inspection: normal respiratory effort, able to speak in complete sentences and symmetric chest movement Auscultation: clear to auscultation bilaterally Cardio Rate: regular rate Rhythm: regular rhythm Heart Sounds: S1 normal and S2 normal GI Palpation: soft and no hepatosplenomegaly Skin General: no rashes or lesions noted Neuro General: patient alert, patient awake, patient oriented x3 and moves all extremities Extrem General: normal to inspection and no pedal edema Psych Appearance: grossly normal Affect: normal affect Thought Process: normal Thought Content: normal Assessment and Plan Assessment and Plan (1) Climacteric: Status: Acute Comment: start trazodone for (more content not included)... Normal [facility] Bacteria LM.HPF (Urine sed) [#/Area]Ordered By: Dallas Ness on 11-05-2024 Urine Bacteria RARE /hpf None Seen [facility] Bilirubin Test strip Ql (U)O rdered By: Dallas Ness on 11-05-2024 Bilirubin Ql (U) Negative Negative [facility] Epithelial cells.squamous LM Ql (Urine sed)Ordered By: Dallas Ness on 11-05-2024 Epithelial cells.squamous LM.HPF (Urine sed) [#/Area] 5 /[HPF] 5-10 [facility] Glucose Ql (U)Ordered By: Michael Ness on 11-05-2024 Urine Glucose (UA) Normal mg/dl Normal [facility] Ketones Test strip Ql (U)Ord ered By: Dallas Ness on 11-05-2024 Ketones Ql (U) Negative Negative [facility] Microscopic analysis of urin e for red blood cells (RBC)Ordered By: Dallas Ness on 11-05-2024 Microscopic analysis of urine for red blood cells (RBC) 0 SEEN /hpf 0-5 [facility] Urine RBC 0 SEEN /hpf 0-5 [facility] Mucus LM Ql (Urine sed)Order ed By: Dallas Ness on 11-05-2024 Mucus Ql (Urine sed) 0 SEEN /hpf [facility] Nitrite Test strip Ql (U)Ord ered By: Dallas Ness on 11-05-2024 Nitrite Ql (U) Negative Negative [facility] Protein Test strip Ql (U)Ord ered By: Dallas Ness on 11-05-2024 Protein Ql (U) 15 mg/dl High Negative [facility] Squamous epithelial cells de tection in urine sediment by light microscopyOrdered By: Dallas Ness on 11-05-2024 Epithelial cells.squamous LM Ql (Urine sed) 5-10 SEEN /hpf 5-10 [facility] Urinalysis, Completeon 11-05 BACTERIA RARE Normal None Seen [facility] Comment on above: Order Comment: Order Date: 11/04/24Order Info: [id number] - UACCOLLECTOR TO SPECIFY Performed By: #### L 400.0001 ####[facility] [address] [place], [address] RBC 0 SEEN Normal 0-5 [facility] Comment on above: Order Comment: Order Date: 11/04/24Order Info: [id number] - UACCOLLECTOR TO SPECIFY Performed By: #### L 400.0001 ####[facility] [address] [place], [address] EPI,SQUAMOUS 5-10 SEEN Normal 5-10 [facility] Comment on above: Order Comment: Order Date: 11/04/24Order Info: [id number] - UACCOLLECTOR TO SPECIFY Performed By: #### L 400.0001 ####[facility] [address] [place], [address] Mucus Ql (Urine sed) 0 SEEN Normal [facility] Comment on above: Order Comment: Order Date: 11/04/24Order Info: [id number] - UACCOLLECTOR TO SPECIFY Performed By: #### L 400.0001 ####[facility] [address] [place], [address] WBC 0 SEEN Normal 0-5 [facility] Comment on above: Order Comment: Order Date: 11/04/24Order Info: [id number] - UACCOLLECTOR TO SPECIFY Performed By: #### L 400.0001 ####[facility] [address] [place], [address] Urine blood detectionOrdered By: Dallas Ness on 11-05-2024 Urine Occult Blood Negative Negative [facility] Urine clarityOrdered By: Frannie Ness on 11-05-2024 Clarity (U) Clear Clear [facility] Urine color determinationOrd ered By: Dallas Ness on 11-05-2024 Color (U) Yellow Yellow [facility] Urine glucose detectionOrder ed By: Dallas Ness on 11-05-2024 Glucose Ql (U) Normal mg/dl Normal [facility] Urine leukocyte esterase det ection by dipstickOrdered By: Dallas Ness on 11-05-2024 Leukocyte esterase Test strip Ql (U) 25 /ul High Negative [facility] Urine pHOrdered By: Nino Ness on 11-05-2024 pH (U) 7.0 [pH] 5.0 - 8.0 [facility] Urine sediment bacteria coun t by microscopy (number/high power field)Ordered By: Dallas Ness on 11-05-2024 Bacteria LM.HPF (Urine sed) [#/Area] RARE /hpf None Seen [facility] Urine specific gravity measu rementOrdered By: Dallas Ness on 11-05-2024 Specific gravity (U) [Rel density] 1.015 1.002-1.03 0 [facility] Urine urobilinogen measureme ntOrdered By: Dallas Ness on 11-05-2024 Urobilinogen Ql (U) Normal mg/dl Normal [facility] Urobilinogen Ql (U)Ordered B y: Dallas Ness on 11-05-2024 Urine Urobilinogen Normal mg/dl Normal [facility] White blood cell countOrdere d By: Dallas Ness on 11-05-2024 Urine WBC 0 SEEN /hpf 0-5 [facility] White blood cell count 0 SEEN /hpf 0-5 [facility] Core Java Software Engineer Office Visit Reporton 10-30-2024 Core Java Software Engineer Office Visit Report [facility], [address] [place] [address] OFFICE VISIT Date of Service: 10/30/24 MR#: [id number] Acct: [id number] Name: SABINE BALL Rep #: [id number] : 1970 Provider: ALLEGRA Archer Age/Sex: 54/F [place] [facility] [place] Status: Signed Intake Vital Signs 09/23/24 11:05 10/30/24 14:22 Height 5 ft 5 in 5 ft 5 in Weight: 192 lb 6 oz BMI 32.0 BP 120/82 H Pulse 96 Intake Visit Reasons: 1 month f/u Radiology Teacher Required: No Is patient in pain?: No Allergies diphenhydramine (From Benadryl) Allergy (Mild, Verified 10/30/24 14:19) Other codeine Allergy (Verified 10/30/24 14:19) Swelling Sulfa (Sulfonamide Antibiotics) Allergy (Verified 10/30/24 14:19) Rash Medications ???Medication ???Instructions ???Recorded ???Confirmed ???Type benzoil peroxide topical 07/02/24 10/30/24 History clotrimazole 1 % topical cream 1 applic topical BID 07/02/2402/18 History doxycycline hyclate 20 mg tablet 20 mg PO BID 07/02/24 10/30/24 His tory magnesium 250 mg tablet 250 mg PO QDAY 07/02/24 10/30/24 H istory spironolactone 100 mg tablet 100 mg PO QDAY 07/02/24 10/30/24 H istory trazodone 100 mg tablet 50 mg (1/2 x 100 mg) PO QHS 10/30/24 Rx insomnia #30 tabs topiramate 25 mg tablet (Topamax) 25 mg PO BID #60 tabs 10/03/24 Rx phentermine 37.5 mg tablet 18.75 mg (1/2 x 37.5 mg) PO QDAY 0 10/30/24 10/30/24 Rx (Adipex-P) #15 tabs Last Menstrual Period: 08/04/24 (post menopausal) PFSH PFSH Medical History Lichen sclerosus Surgical History S/P cholecystectomy H/O bilateral breast reduction surgery Family History Father Cancer Pancreatic Aunt Cancer Pancreatic- Paternal Grandmother Cancer Maternal-Esophageal Social History current occupational status: employed 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 Date Name GA/Weeks Outcome Route Bth Weight Infant Gen Labor Lgth Anesthesia Del Locatn Provider FOB Unknown [place]- Adopted Unknown Eugenia Unknown Will HPI 1 month f/u Details: SABINE BALL is a 54 year old Female presenting for a weight management follow up. She has started generic phentermine and topiramate. Is feeling well on these. Taking compliantly. Notes no side effects. She would like to continue. Has tried using [employer] tracking. Not familiar and having a hard time with this. Did get a fit bit- unsure how to set this up. Female Reproductive History Last Menstrual Period: 08/04/24 (post menopausal) ROS Const Denies chills, Denies fatigue, Denies fever(s), Denies headache(s), Denies increased appetite, Denies malaise and Reports weight gain Eyes Denies blurry vision ENT Denies headache(s) Card Denies dyspnea on exertion, Denies irregular heart rhythm, Denies lightheadedness, Denies orthopnea and Denies palpitations Resp Denies cough and Denies dyspnea on exertion GI Denies abdominal pain, Denies bloating and Denies constipation Musc Denies numbness and Denies tingling Skin/Breast Denies lesions Neuro No headache(s), No numbness, No tingling and Yes other (hx raynauds) Psych Denies anxiety and Denies depression Endo Denies fatigue and Denies palpitations Exam Const General: cooperative, healthy appearing, comfortable, no acute distress and well developed Neck Neck: normal visual inspection Resp Effort Inspection: normal respiratory effort, able to speak in complete sentences and symmetric chest movement Auscultation: clear to auscultation bilaterally Cardio Rate: regular rate Rhythm: regular rhythm Heart Sounds: S1 normal and S2 normal GI Palpation: soft and no hepatosplenomegaly Skin General: no rashes or lesions noted Neuro General: patient alert, patient awake, patient oriented x3 and moves all extremities Extrem General: normal to inspection and no pedal edema Psych Appearance: grossly normal Affect: normal affect Thought Process: normal Thought Content: normal Assessment and Plan Assessment and Plan (1) Climacteric: Status: Acute Comment: start trazodone for sleep abnormalities Plan: Stable for now; interested in (more content not included)... Normal [facility] 12 Lead EKGon 09-25-2024 12 Lead EKG [facility] [address] [place] [address] 12 Lead EKG 09/25/24 0753 MR#: [id number] Acct: [id number] Name: SABINE BALL Rep #: [id number] : 1970 54 From: Naty Addison MD Attending Dr: Samantha Lowe, RICHARD-C Status: REG CLI Ordering Dr: Samantha Lowe Date: 09/25/24 Location: [facility] Sex: F C Admitted: Test Reason : PRE MEDICATION Blood Pressure : */* mmHG Vent. Rate : 76 BPM Atrial Rate : 76 BPM P-R Int : 120 ms QRS Dur : 90 ms QT Int : 376 ms P-R-T Axes : 59 31 12 degrees QTcB Int : 423 ms Normal sinus rhythm Normal ECG Confirmed by CYN LINDSEY, KULDIP ([id number]), avid editor KIM COLEMAN ([id number]) on 09/25/2024 1:13:19 PM Referred By: Samantha Lowe Confirmed By: KULDIP ADDISON MD 09/25/24 1313 Date Naty Addison MD CC: ALLEGRA Lowe; Dr. Dallas Ness MD Signed Normal [facility] Core Java Software Engineer Office Visit Reporton 09-23-2024 Core Java Software Engineer Office Visit Report [facility] [address], [address] [place] [address] OFFICE VISIT Date of Service: 09/23/24 MR#: [id number] Acct: [id number] Name: SABINE BALL Rep #: [id number] : 1970 Provider: Dr. Nancy danielle MD Age/Sex: 54/F [place] [facility] [place] Status: Signed Intake Vital Signs 07/31/24 14:05 09/10/24 12:23 09/23/24 11:04 09/23/24 11:05 Height 5 ft 5 in 5 ft 5 in 5 ft 5 in 5 ft 5 in Weight: 192 lb 8 oz BMI 32.0 BP 125/80 H Pulse 93 Intake Visit Reasons: 2 WK F/U FROM [facility] Radiology Teacher Required: No Is patient in pain?: No Allergies diphenhydramine (From Benadryl) Allergy (Mild, Verified 09/10/24 14:04) Other codeine Allergy (Verified 09/10/24 14:04) Swelling Sulfa (Sulfonamide Antibiotics) Allergy (Verified 09/10/24 14:04) Rash Medications ???Medication ???Instructions ???Recorded ???Confirmed ???Type benzoil peroxide topical 07/02/24 09/23/24 History clotrimazole 1 % topical cream 1 applic topical BID 07/02/2408/28 History doxycycline hyclate 20 mg tablet 20 mg PO BID 07/02/24 09/23/24 His tory magnesium 250 mg tablet 250 mg PO QDAY 07/02/24 09/23/24 H istory spironolactone 100 mg tablet 100 mg PO QDAY 07/02/24 09/23/24 H istory trazodone 100 mg tablet 50 mg (1/2 x 100 mg) PO QHS 09/23/24 Rx insomnia #30 tabs Last Menstrual Period: 08/04/24 (post menopausal) Zika: Zika virus screening: Negative : No Have you fallen in the past year?: No PFSH PFSH Medical History Lichen sclerosus Surgical History S/P cholecystectomy H/O bilateral breast reduction surgery Family History Father Cancer Pancreatic Aunt Cancer Pancreatic- Paternal Grandmother Cancer Maternal-Esophageal Social History current occupational status: employed 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 Date Name GA/Weeks Outcome Route Bth Weight Gen Labor Lgth Anesthesia Del Locatn Provider FOB Unknown [place]- Adopted Unknown Eug[place] Unknown Will HPI 2 WK F/U FROM [facility] Details: SABINE BALL is a 54 year old Female presenting for a weight management and climacteric follow up. she is being more mindful of eating but hasn't started tracking yet, interested in activity tracking and calorie counting balanced nutirtional plan. she is open to any meidciation, goal to get BMIto 27 or 25, depneding on how she feels. see questionnaire info for additional hpi details Female Reproductive History Last Menstrual Period: 08/04/24 (post menopausal) ROS Const Denies chills, Denies fatigue, Denies fever(s), Denies headache(s), Denies increased appetite, Denies malaise and Reports weight gain Eyes Denies blurry vision ENT Denies headache(s) Card Denies dyspnea on exertion, Denies irregular heart rhythm, Denies lightheadedness, Denies orthopnea and Denies palpitations Resp Denies cough and Denies dyspnea on exertion GI Denies abdominal pain, Denies bloating and Denies constipation Musc Denies numbness and Denies tingling Skin/Breast Denies lesions Neuro No headache(s), No numbness, No tingling and Yes other (hx raynauds) Psych Denies anxiety and Denies depression Endo Denies fatigue and Denies palpitations Exam Const General: cooperative, healthy appearing, comfortable, no acute distress and well developed GI Palpation: soft and no hepatosplenomegaly Skin General: no rashes or lesions noted Neuro General: patient alert, patient awake, patient oriented x3 and moves all extremities Extrem General: normal to inspection and no pedal edema Psych Appearance: grossly normal Affect: normal affect Thought Process: normal Thought Content: normal Assessment and Plan Assessment and Plan (1) Climacteric: Status: Acute Comment: start trazodone for sleep abnormalities Plan: Stable for now; interested in treatment if appropriate--recently worked up for PMB--will address in upcoming visits. (2) Hormone replacement therapy: Status: Acute Comment: patch and oral progesterone in past, stopped. (3) Vaginal dryness: Status: Acute Comment: vag estrogen cream-recently discontinu (more content not included)... Normal [facility] 37-JV-Wigfdxc DOrdered By: Mariely Lowe on 09-19-2024 Vitamin D 25-Hydroxy 39.4 ng/mL [facility] Comment on above: Vitamin D 25(OH) Sta tus Range Deficiency <20 ng/mL (50nmol/L) Insufficiency 20 - 30 ng/mL (50 - 75 nmol/L) Sufficiency 30 - 100 ng/mL (75 - 250 nmol/L) Toxicity >100 ng/mL (>250 nmol/L) Albumin to globulin ratioOrd ered By: Dallas Ness on 09-19-2024 Albumin/Globulin [Mass ratio] 0.8 {ratio} Low 0.9-2.4 [facility] Bilirubin, totalOrdered By: Dallas Ness on 09-19-2024 Bilirubin [Mass/Vol] 0.50 mg/dL 0.20-1.00 [facility] Comment on above: For patients on eltr ombopag therapy, use of Dimension [place] TBIL is not recommended. Blood urea nitrogen (BUN)/cr eatinine ratioOrdered By: Dallas Ness on 09-19-2024 Urea nitrogen/Creatinine [Mass ratio] 23.8 mg/mg High 10-20 [facility] CBC-Complete Blood Cnt No Di ffon 09-19-2024 Erythrocyte distribution width (RBC) [Ratio] 13.5 % Normal 11.6-14.6 [facility] Comment on above: Order Comment: Order Date: 09/02/24Order Info: [id number] - CBC Performed By: #### L 100.0500 ####[facility] [address] [place], [address] Hematocrit (Bld) [Volume fraction] 43.5 % Normal 37-47 [facility] Comment on above: Order Comment: Order Date: 09/02/24Order Info: [id number] - CBC Performed By: #### L 100.0500 ####[facility] [address] [place], [address] Hemoglobin (Bld) [Mass/Vol] 14.0 g/dL Normal 12.0-15.0 [facility] Comment on above: Order Comment: Order Date: 09/02/24Order Info: [id number] - CBC Performed By: #### L 100.0500 ####[facility] [address] [place], [address] MCH (RBC) [Entitic mass] 29.9 pg Normal 27.0-32.0 [facility] Comment on above: Order Comment: Order Date: 09/02/24Order Info: [id number] - CBC Performed By: #### L 100.0500 ####[facility] [address] [place], [address] MCHC (RBC) [Mass/Vol] 32.2 g/dL Normal 32-36 [facility] Comment on above: Order Comment: Order Date: 09/02/24Order Info: [id number] - CBC Performed By: #### L 100.0500 ####[facility] [address] [place], [address] MCV (RBC) [Entitic vol] 92.9 fL Normal 81-99 [facility] Comment on above: Order Comment: Order Date: 09/02/24Order Info: [id number] - CBC Performed By: #### L 100.0500 ####[facility] [address] [place], [address] Platelet mean volume (Bld) [Entitic vol] 10.1 fL Normal 6.2-12.0 [facility] Comment on above: Order Comment: Order Date: 09/02/24Order Info: [id number] - CBC Performed By: #### L 100.0500 ####[facility] [address] [place], [address] Platelets (Bld) [#/Vol] 341 10*3/uL Normal 150-450 [facility] Comment on above: Order Comment: Order Date: 09/02/24Order Info: [id number] - CBC Performed By: #### L 100.0500 ####[facility] [address] [place], [address] RBC (Bld) [#/Vol] 4.68 10*6/uL Normal 4.2-5.4 [facility] Comment on above: Order Comment: Order Date: 09/02/24Order Info: [id number] - CBC Performed By: #### L 100.0500 ####[facility] [address] [place], [address] RDW SD 45.8 fl High 35.1-43.9 [facility] Comment on above: Order Comment: Order Date: 09/02/24Order Info: [id number] - CBC Performed By: #### L 100.0500 ####[facility] [address] [place], [address] WBC (Bld) [#/Vol] 6.9 10*3/uL Normal 4.4-11.0 [facility] Comment on above: Order Comment: Order Date: 09/02/24Order Info: [id number] - CBC Performed By: #### L 100.0500 ####[facility] [address] [place], [address] Carbon dioxide measurementOr dered By: Dallas Ness on 09-19-2024 CO2 [Moles/Vol] 30.0 mmol/L 21.0-32.0 [facility] Chloride measurementOrdered By: Dallas Ness on 09-19-2024 Chloride [Moles/Vol] 106 mmol/L 98-107 [facility] Comprehensive Metabolic Prof ilon 09-19-2024 Albumin [Mass/Vol] 3.3 g/dL Normal 3.2-5.0 [facility] Comment on above: Order Comment: Order Date: 09/02/24Order Info: [id number] - CMPOrder Info: [id number] - LIPIDOrder Info: [id number] - TSH Performed By: #### L 500.4100, L500.4050, L501.9520 ####[facility] [address] [place], [address] Albumin/Globulin [Mass ratio] 0.8 {ratio} Low 0.9-2.4 [facility] Comment on above: Order Comment: Order Date: 09/02/24Order Info: [id number] - CMPOrder Info: [id number] - LIPIDOrder Info: [id number] - TSH Performed By: #### L 500.4100, L500.4050, [id number] ####[facility] [address] [place], [address] ALK P 86 U/L Normal 45-117 [facility] Comment on above: Order Comment: Order Date: 09/02/24Order Info: [id number] - CMPOrder Info: [id number] - LIPIDOrder Info: [id number] - TSH Performed By: #### L 500.4100, L500.4050, [id number] ####[facility] [address] [place], [address] ALT [Catalytic activity/Vol] 28 U/L Normal 13-56 [facility] Comment on above: Order Comment: Order Date: 09/02/24Order Info: [id number] - CMPOrder Info: [id number] - LIPIDOrder Info: 6-3 - TSH Performed By: #### L 500.4100, L500.4050, L501.9520 ####[facility] [address] [place], [address] AST [Catalytic activity/Vol] 13 U/L Low 15-37 [facility] Comment on above: Order Comment: Order Date: 09/02/24Order Info: [id number] - CMPOrder Info: [id number] - LIPIDOrder Info: 6-3 - TSH Performed By: #### L 500.4100, L500.4050, L501.9520 ####[facility] [address] [place], [address] Bilirubin [Mass/Vol] 0.50 mg/dL Normal 0.20-1.00 [facility] Comment on above: Order Comment: Order Date: 09/02/24Order Info: [id number] - CMPOrder Info: [id number] - LIPIDOrder Info: [id number] - TSH Result Comment: For patients on eltrombopag therapy, use of Dimension [place] TBIL is not recommended. Performed By: #### L 500.4100, L500.4050, L501.9520 ####[facility] [address] [place], [address] BUN/CRE 23.8 RATIO High 10-20 [facility] Comment on above: Order Comment: Order Date: 09/02/24Order Info: [id number] - CMPOrder Info: [id number] - LIPIDOrder Info: 6-3 - TSH Performed By: #### L 500.4100, L500.4050, [id number] ####[facility] [address] [place], [address] CA,Total 9.3 mg/dL Normal 8.5-10.1 [facility] Comment on above: Order Comment: Order Date: 09/02/24Order Info: [id number] - CMPOrder Info: [id number] - LIPIDOrder Info: 3 - TSH Performed By: #### L 500.4100, L500.4050, [id number] ####[facility] [address] [place], [address] Chloride [Moles/Vol] 106 mmol/L Normal 98-107 [facility] Comment on above: Order Comment: Order Date: 09/02/24Order Info: [id number] - CMPOrder Info: [id number] - LIPIDOrder Info: 3 - TSH Performed By: #### L 500.4100, L500.4050, [id number] ####[facility] [address] [place], [address] CO2 [Moles/Vol] 30.0 mmol/L Normal 21.0-32.0 [facility] Comment on above: Order Comment: Order Date: 09/02/24Order Info: [id number] - CMPOrder Info: [id number] - LIPIDOrder Info: [id number] - TSH Performed By: #### L 500.4100, L500.4050, [id number] ####[facility] [address] [place], [address] Creatinine [Mass/Vol] 0.76 mg/dL Normal 0.55-1.02 [facility] Comment on above: Order Comment: Order Date: 09/02/24Order Info: [id number] - CMPOrder Info: [id number] - LIPIDOrder Info: [id number] - TSH Result Comment: The validity of the calculated GFR GFRAA in patients over 70 years has not been determined. Clinical correlation is essential. Performed By: #### L 500.4100, L500.4050, L501.9520 ####[facility] [address] [place], [address] EST GFR - AA 103 mL/min Normal >60 [facility] Comment on above: Order Comment: Order Date: 09/02/24Order Info: [id number] - CMPOrder Info: [id number] - LIPIDOrder Info: [id number] - TSH Result Comment: Afri can Guyanese GFR Calc Performed By: #### L 500.4100, L500.4050, L501.9520 ####[facility] [address] [place], [address] GAP 3 Low 5-15 [facility] Comment on above: Order Comment: Order Date: 09/02/24Order Info: [id number] - CMPOrder Info: [id number] - LIPIDOrder Info: [id number] - TSH Performed By: #### L 500.4100, L500.4050, L501.9520 ####[facility] [address] [place], [address] GFR/1.73 sq M.predicted among non-blacks MDRD (S/P/Bld) [Vol rate/Area] 85 mL/min/{1.73_m2} Normal >60 [facility] Comment on above: Order Comment: Order Date: 09/02/24Order Info: [id number] - CMPOrder Info: [id number] - LIPIDOrder Info: 3 - TSH Result Comment: Non- GFR Calc Performed By: #### L 500.4100, L500.4050, L501.9520 ####[facility] [address] [place], [address] Globulin (S) [Mass/Vol] 4.0 g/dL Normal 2.2-4.2 [facility] Comment on above: Order Comment: Order Date: 09/02/24Order Info: [id number] - CMPOrder Info: [id number] - LIPIDOrder Info: 3 - TSH Performed By: #### L 500.4100, L500.4050, [id number] ####[facility] [address] [place], [address] Glucose [Mass/Vol] 93 mg/dL Normal 74-106 [facility] Comment on above: Order Comment: Order Date: 09/02/24Order Info: [id number] - CMPOrder Info: [id number] - LIPIDOrder Info: [id number] - TSH Performed By: #### L 500.4100, L500.4050, [id number] ####[facility] [address] [place], [address] Potassium [Moles/Vol] 4.6 mmol/L Normal 3.5-5.1 [facility] Comment on above: Order Comment: Order Date: 09/02/24Order Info: [id number] - CMPOrder Info: [id number] - LIPIDOrder Info: 3 - TSH Performed By: #### L 500.4100, L500.4050, [id number] ####[facility] [address] [place], [address] Sodium [Moles/Vol] 138 mmol/L Normal 136-145 [facility] Comment on above: Order Comment: Order Date: 09/02/24Order Info: [id number] - CMPOrder Info: - LIPIDOrder Info: [id number] - TSH Performed By: #### L 500.4100, L500.4050, [id number] ####[facility] [address] [place], [address] T PROT 7.3 g/dL Normal 6.4-8.2 [facility] Comment on above: Order Comment: Order Date: 09/02/24Order Info: [id number] - CMPOrder Info: - LIPIDOrder Info: 3 - TSH Performed By: #### L 500.4100, L500.4050, [id number] ####[facility] [address] [place], [address] Urea nitrogen [Mass/Vol] 18 mg/dL Normal 7-18 [facility] Comment on above: Order Comment: Order Date: 09/02/24Order Info: [id number] - CMPOrder Info: - LIPIDOrder Info: 3 - TSH Performed By: #### L 500.4100, L500.4050, [id number] ####[facility] [address] [place], [address] Direct serum free thyroxine (FT4) measurementOrdered By: Samantha Lowe on 09-19-2024 Free T4 [Mass/Vol] 0.89 ng/dL 0.76-1.46 [facility] Erythrocyte distribution wid th ratioOrdered By: Dallas Ness on 09-19-2024 Erythrocyte distribution width (RBC) [Ratio] 13.5 % 11.6-14.6 [facility] Erythrocyte distribution wid th standard deviationOrdered By: Dallas Ness on 09-19-2024 Erythrocyte distribution width (RBC) [Entitic vol] 45.8 fL High 35.1-43.9 [facility] Estimated glomerular filtrat ion rate (GFR) AmericanOrdered By: Dallas Ness on 09-19-2024 Estimated GFR (MDRD) Amer 103 mL/min >60 [facility] Comment on above: GFR Calc Glomerular filtration rate ( GFR) estimationOrdered By: Dallas Ness on 09-19-2024 Estimated GFR (MDRD) Non-Af Amer 85 mL/min >60 [facility] Comment on above: Non- GFR Calc Glucose measurementOrdered B y: Dallas Ness on 09-19-2024 Glucose [Mass/Vol] 93 mg/dL 74-106 [facility] Hematocrit Auto (Bld) [Volum e fraction]Ordered By: Dallas Ness on 09-19-2024 Hematocrit (Bld) [Volume fraction] 43.5 % 37-47 [facility] Hemoglobin A1con 09-19-2024 HbA1c (Bld) [Mass fraction] 5.2 % Normal 3.8-5.6 [facility] Comment on above: Result Comment: Norm al < 5.7 % Prediabetic 5.7 - 6.4 % Diabetic >or= 6.5 % Please note range changes. Performed By: #### L 7400.0280 #### [facility] [address] [place], [place], [address] Hemoglobin A1c percentageOrd ered By: Samantha Lowe on 09-19-2024 HbA1c (Bld) [Mass fraction] 5.2 % 3.8-5.6 [facility] Comment on above: Normal < 5.7 % Predi abetic 5.7 - 6.4 % Diabetic >or= 6.5 % Please note range changes. Hemoglobin measurementOrdere d By: Dallas Ness on 09-19-2024 Hemoglobin (Bld) [Mass/Vol] 14.0 g/dL 12.0-15.0 [facility] High density lipoprotein (HD L) measurementOrdered By: Dallas Ness on 09-19-2024 Cholesterol in HDL [Mass/Vol] 55 mg/dL >40 [facility] Comment on above: The drugs N-Acetylcy steine and Metamizole may falsely depress this assay. Reference Range HDL <40 mg/dL Low HDL Cholesterol HDL >or= 60 mg/dL High HDL Cholesterol Laboratory - Chemistry and C hemistry - challengeOrdered By: Dallas Ness on 09-19-2024 AST [Catalytic activity/Vol] 13 U/L Low 15-37 [facility] Lipid Profileon 09-19-2024 Cholesterol [Mass/Vol] 184 mg/dL Normal 200 [facility] Comment on above: Order Comment: Order Date: 09/02/24Order Info: [id number] - CMPOrder Info: [id number] - LIPIDOrder Info: [id number] - TSH Result Comment: <200 mg/dL Desirable 200-240 mg/dL Borderline >240 mg/dL High Risk Performed By: #### L 500.4100, L500.4050, L501.9520 ####[facility] [address] [place], [address] Cholesterol in HDL [Mass/Vol] 55 mg/dL Normal [facility] Comment on above: Order Comment: Order Date: 09/02/24Order Info: [id number] - CMPOrder Info: [id number] - LIPIDOrder Info: [id number] - TSH Result Comment: The drugs N-Acetylcysteine and Metamizole may falsely depress this assay. Reference Range HDL <40 mg/dL Low HDL Cholesterol HDL >or= 60 mg/dL High HDL Cholesterol Performed By: #### L 500.4100, L500.4050, L501.9520 ####[facility] [address] [place], [address] Cholesterol in LDL [Mass/Vol] 99 mg/dL Normal 0-130 [facility] Comment on above: Order Comment: Order Date: 09/02/24Order Info: [id number] - CMPOrder Info: [id number] - LIPIDOrder Info: [id number] - TSH Performed By: #### L 500.4100, L500.4050, L501.9520 ####[facility] [address] [place], [address] Cholesterol in VLDL [Mass/Vol] 30 mg/dL Normal 5-40 [facility] Comment on above: Order Comment: Order Date: 09/02/24Order Info: [id number] - CMPOrder Info: [id number] - LIPIDOrder Info: [id number] - TSH Performed By: #### L 500.4100, L500.4050, L501.9520 ####[facility] [address] [place], [address] Triglyceride [Mass/Vol] 151 mg/dL Normal [facility] Comment on above: Order Comment: Order Date: 09/02/24Order Info: [id number] - CMPOrder Info: [id number] - LIPIDOrder Info: [id number] - TSH Result Comment: The drugs N-Acetylcysteine and Metamizole may falsely depress this assay. Serum Triglycerides Reference Interval Normal <150 mg/dL Borderline high 150 - 199 mg/dL High 200 - 499 mg/dL Very High > or = 500 mg/dL Performed By: #### L 500.4100, L500.4050, L501.9520 ####[facility] [address] [place], [address] Low density lipoprotein (LDL ) cholesterol measurementOrdered By: Dallas Ness on 09-19-2024 Cholesterol in LDL [Mass/Vol] 99 mg/dL 0-130 [facility] MCV (mean corpuscular volume ) determinationOrdered By: Dallas Ness on 09-19-2024 MCV (RBC) [Entitic vol] 92.9 fL 81-99 [facility] Mean corpuscular hemoglobin (MCH) determinationOrdered By: Dallas Ness on 09-19-2024 MCH (RBC) [Entitic mass] 29.9 pg 27.0-32.0 [facility] Mean corpuscular hemoglobin concentration (MCHC) determinationOrdered By: Dallas Ness on 09-19-2024 MCHC (RBC) [Mass/Vol] 32.2 g/dL 32-36 [facility] Mean platelet volume determi nationOrdered By: Dallas Ness on 09-19-2024 Platelet mean volume (Bld) [Entitic vol] 10.1 fL 6.2-12.0 [facility] Platelet countOrdered By: Michael Ness on 09-19-2024 Platelets (Bld) [#/Vol] 341 10*3/uL 150-450 [facility] Potassium measurementOrdered By: Dallas Ness on 09-19-2024 Potassium [Moles/Vol] 4.6 mmol/L 3.5-5.1 [facility] RBC Auto (Bld) [#/Vol]Ordere d By: Dallas Ness on 09-19-2024 RBC (Bld) [#/Vol] 4.68 10*6/uL 4.2-5.4 [facility] Serum anion gap measurementO rdered By: Dallas Ness on 09-19-2024 Anion gap [Moles/Vol] 3 mmol/L Low 5-15 [facility] Serum globulin measurementOr dered By: Dallas Ness on 09-19-2024 Globulin (S) [Mass/Vol] 4.0 g/dL 2.2-4.2 [facility] Serum or plasma alanine payton otransferase (ALT) measurementOrdered By: Dallas eNss on 09-19-2024 ALT [Catalytic activity/Vol] 28 U/L 13-56 [facility] Serum or plasma albumin nitin urement (mass/volume)Ordered By: Dallas Ness on 09-19-2024 Albumin [Mass/Vol] 3.3 g/dL 3.2-5.0 [facility] Serum or plasma alkaline carmen sphatase measurementOrdered By: Dallas Ness on 09-19-2024 ALP [Catalytic activity/Vol] 86 U/L 45-117 [facility] Serum or plasma calcium nitin urement (mass/volume)Ordered By: Dallas Ness on 09-19-2024 Calcium [Mass/Vol] 9.3 mg/dL 8.5-10.1 [facility] Serum or plasma cholesterol measurement (mass/volume)Ordered By: Dallas Ness on 09-19-2024 Cholesterol [Mass/Vol] 184 mg/dL <200 [facility] Comment on above: <200 mg/dL Desirable 200-240 mg/dL Borderline >240 mg/dL High Risk Serum or plasma creatinine m easurement (mass/volume)Ordered By: Dallas Ness on 09-19-2024 Creatinine [Mass/Vol] 0.76 mg/dL 0.55-1.02 [facility] Comment on above: The validity of the calculated GFR & GFRAA in patients over 70 years has not been determined. Clinical correlation is essential. Serum or plasma urea nitroge n measurement (mass/volume)Ordered By: Dallas Ness on 09-19-2024 Urea nitrogen [Mass/Vol] 18 mg/dL 7-18 [facility] Sodium levelOrdered By: Malachi Ness on 09-19-2024 Sodium [Moles/Vol] 138 mmol/L 136-145 [facility] T4 Free Directon 09-19-2024 T4 FREE DIRECT 0.89 ng/dL Normal 0.76-1.46 [facility] Comment on above: Performed By: #### L 7400.0280 #### [facility] [place], [address] TSH QnOrdered By: Adilson Ness on 09-19-2024 Thyroid Stimulating Hormone (TSH) 1.940 uIU/mL 0.358-3.74 0 [facility] Thyroid Stim Hormone (TSH)on 09-19-2024 TSH 1.940 uIU/mL Normal 0.358-3.74 0 [facility] Comment on above: Order Comment: Order Date: 09/02/24Order Info: [id number] - CMPOrder Info: [id number] - LIPIDOrder Info: [id number] - TSH Performed By: #### L 500.4100, L500.4050, L501.9520 ####[facility] [address] [place], [place], [address] Total proteinOrdered By: Frannie Ness on 09-19-2024 Protein [Mass/Vol] 7.3 g/dL 6.4-8.2 [facility] Triglycerides measurementOrd ered By: Dallas Ness on 09-19-2024 Triglyceride [Mass/Vol] 151 mg/dL <199 [facility] Comment on above: The drugs N-Acetylcy steine and Metamizole may falsely depress this assay.Serum Triglycerides Reference Interval Normal <150 mg/dL Borderline high 150 - 199 mg/dL High 200 - 499 mg/dL Very High > or = 500 mg/dL Very low density lipoprotein (VLDL) cholesterol measurementOrdered By: Dallas Ness on 09-19-2024 VLDL Cholesterol 30 mg/dL 5-40 [facility] Vitamin D,25 Hydroxyon 09-19 Vitamin D 25-OH 39.4 ng/mL Normal [facility] Comment on above: Result Comment: Anali min D 25(OH) Status Range Deficiency <20 ng/mL (50nmol/L) Insufficiency 20 - 30 ng/mL (50 - 75 nmol/L) Sufficiency 30 - 100 ng/mL (75 - 250 nmol/L) Toxicity >100 ng/mL (>250 nmol/L) Performed By: #### L 7400.0280 #### [facility] [address] [place], [place], [id number] White blood cell (WBC) count Ordered By: Dallas Ness on 09-19-2024 WBC (Bld) [#/Vol] 6.9 10*3/uL 4.4-11.0 [facility] Core Java Software Engineer Office Visit Reporton 09-10-2024 Core Java Software Engineer Office Visit Report [facility] [address] [place] [address], [address] [place] [address] OFFICE VISIT Date of Service: 09/10/24 MR#: [id number] Acct: [id number] Name: SABINE BALL Rep #: [id number] : 1970 Provider: ALLEGRA Archer Age/Sex: 54/F [place] [facility] [place]: Signed with Addenda ADDENDUM by ALLEGRA Lowe on 09/15/24 at 1346 Assessment and Plan Assessment and Plan (1) Other obesity due to excess calories: Status: Acute (2) Obesity (BMI 30.0-34.9): Status: Acute Comment: meds first per Dr Estephania Finch:adipex 37.5 X 6 mo and dc'd. (3) Vaginal dryness: Status: Acute Comment: vag estrogen cream-recently discontinued. (4) History of migraine headaches: Status: Acute Comment: stable as of current. (5) Climacteric: Status: Acute Orders: Orders Hemoglobin A1c 09/10/24 E66.811 - Obesity, class 1 Vitamin D,25 Hydroxy 09/10/24 E66.811 - Obesity, class 1 T4 Free Direct 09/10/24 E66.811 - Obesity, class 1 12 Lead EKG 09/10/24 E66.811 - Obesity, class 1 09/15/24 1346 Date Samantha Lowe cc: Dr. Nancy Booth MD * Signed Intake Vital Signs 07/31/24 14:05 09/10/24 12:23 Height 5 ft 5 in 5 ft 5 in Weight: 188 lb 191 lb 2 oz BMI 31.2 31.8 BP 132/85 H 114/75 Pulse 82 89 Intake Visit Reasons: NEW WEIGHT MANAGEMENT Radiology Teacher Required: No Is patient in pain?: No Allergies diphenhydramine (From Benadryl) Allergy (Mild, Verified 09/10/24 14:04) Other codeine Allergy (Verified 09/10/24 14:04) Swelling Sulfa (Sulfonamide Antibiotics) Allergy (Verified 09/10/24 14:04) Rash Medications ???Medication ???Instructions ???Recorded ???Confirmed ???Type benzoil peroxide topical 07/02/24 09/10/24 History clotrimazole 1 % topical cream 1 applic topical BID 07/02/24 09/10/24 History doxycycline hyclate 20 mg tablet 20 mg PO BID 07/02/24 09/10/24 History magnesium 250 mg tablet 250 mg PO QDAY 07/02/24 09/10/24 History spironolactone 100 mg tablet 100 mg PO QDAY 07/02/24 09/10/24 History Last Menstrual Period: 08/04/24 (post menopausal) PFSH PFSH Medical History Lichen sclerosus Surgical History S/P cholecystectomy H/O bilateral breast reduction surgery Family History Father Cancer Pancreatic Aunt Cancer Pancreatic- Paternal Grandmother Cancer Maternal-Esophageal Social History current occupational status: employed 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 Date Name GA/Weeks Outcome Route Bth Weight Gen Labor Lgth Anesthesia Del Locatn Provider FOB Unknown [place]- Adopted Unknown Eugenia Unknown Will HPI NEW WEIGHT MANAGEMENT Details: SABINE BALL is a 54 year old Female presenting for a weight management consultation. She is here to reduce her weight because the diet and exercise she is currently doing does not seem to be working on their own. She would like to take control of her health now in order to prevent future health issues. Her journey started about a year ago when she discussed starting obesity medications with Dr. Jamie Finch; at this point she was around 200lbs. She was started on Phentermine (full tab) at that time and took this for about a year. She lost 20 pounds on this and then plateaued. She was seen here in this office and was told by provider to stop phentermine. She has since stopped phent and topiramate. She has taken contrave in the past as well but did not feel well on this. She has not tried Ozempic or Wegovy. She is ready to develop a plan that fits her current health state as well as committed to becoming the healthiest version of herself at this stage of life. Female Reproductive History Last Menstrual Period: 08/04/24 (post menopausal) ROS Const Denies chills, Denies fatigue, Denies fever(s), Denies headache(s), Denies increased appetite, Denies malaise and Reports weight gain Eyes Denies blurry vision ENT Denies headache(s) Card Denies dyspnea on exertion, Denies irregular heart rhythm, Denies lightheadedness, Denies orthopnea and Denies palpitations Resp Denies cough and Denies dyspnea on (more content not included)... Normal [facility] Core Java Software Engineer Office Visit Reporton 07-31-2024 Core Java Software Engineer Office Visit Report [facility] [address], [address] [place] [address] OFFICE VISIT Date of Service: 07/31/24 MR#: [id number] Acct: [id number] Name: SABINE BALL Rep #: [id number] : 1970 Provider: ALLEGRA Archer Age/Sex: 54/F [place] [facility] [place] Status: Signed Intake Vital Signs 07/02/24 10:02 07/30/24 11:24 07/31/24 14:05 Height 5 ft 5 in 5 ft 5 in 5 ft 5 in Weight: 188 lb BMI 31.2 BP 132/85 H Pulse 82 Intake Visit Reasons: 4 WK WM Chief Complaint: wm visit Radiology Teacher Required: No Is patient in pain?: No Allergies diphenhydramine (From Benadryl) Allergy (Mild, Verified 07/31/24 14:05) Other codeine Allergy (Verified 07/31/24 14:05) Swelling Sulfa (Sulfonamide Antibiotics) Allergy (Verified 07/31/24 14:05) Rash Medications ???Medication ???Instructions ???Recorded ???Confirmed ???Type benzoil peroxide topical 07/02/24 07/31/24 History clotrimazole 1 % topical cream 1 applic topical BID 07/02/24 07/31/24 History doxycycline hyclate 20 mg tablet 20 mg PO BID 07/02/24 07/31/24 History magnesium 250 mg tablet 250 mg PO QDAY 07/02/24 07/31/24 History spironolactone 100 mg tablet 100 mg PO QDAY 07/02/24 07/31/24 History topiramate 100 mg tablet 100 mg PO QDAY #30 tabs 07/02/24 07/31/24 Rx Last Menstrual Period: 08/04/24 (post menopausal) : No Have you fallen in the past year?: No PFSH PFSH Medical History Lichen sclerosus Surgical History S/P cholecystectomy H/O bilateral breast reduction surgery Family History Father Cancer Pancreatic Aunt Cancer Pancreatic- Paternal Grandmother Cancer Maternal-Esophageal Social History current occupational status: employed 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 Date Name GA/Weeks Outcome Route Bth Weight Gen Labor Lgth Anesthesia Del Locatn Provider FOB Unknown [place]- Adopted Unknown Eugenia Unknown Will HPI 4 WK WM Details: SABINE BALL is a 54 year old Female presenting for a weight management consultation discussion. She is new to this program; was previously on Phentermine 37.5mg and Topiramate 100mg tab once a day. She has been on this for greater than 6 months. She was a concern from for being on this for so long and advised to stop. She then stopped her topiramate as well at that time (about 1 month ago). She is interested in weight management program. Has had a tough time with postmenopause symptoms. Female Reproductive History Last Menstrual Period: 08/04/24 (post menopausal) Questions: metorrhagia: No, sexually active: Yes, dyspareunia: No and PCB: No ROS Const Denies chills, Denies fatigue, Denies fever(s), Denies headache(s), Denies increased appetite, Denies malaise and Reports weight gain Eyes Denies blurry vision ENT Denies headache(s) Card Denies dyspnea on exertion, Denies irregular heart rhythm, Denies lightheadedness, Denies orthopnea and Denies palpitations Resp Denies cough and Denies dyspnea on exertion GI Denies abdominal pain, Denies bloating and Denies constipation Musc Denies numbness and Denies tingling Skin/Breast Denies lesions Neuro No headache(s), No numbness and No tingling Psych Denies anxiety and Denies depression Endo Denies fatigue and Denies palpitations Exam Const General: cooperative, healthy appearing, comfortable, no acute distress and well developed Neck Neck: normal visual inspection and no lymphadenopathy Thyroid: thyroid normal Resp Effort Inspection: normal respiratory effort, able to speak in complete sentences and symmetric chest movement Auscultation: clear to auscultation bilaterally Cardio Rate: regular rate Rhythm: regular rhythm Heart Sounds: S1 normal and S2 normal GI Palpation: soft and no hepatosplenomegaly Skin General: no rashes or lesions noted Neuro General: patient alert, patient awake, patient oriented x3 and moves all extremities Extrem General: normal to inspection and no pedal edema Psych Appearance: grossly normal Affect: normal affect Thought Process: normal Thought Content: normal Assessment and Plan Assessment and Plan (1) Obesity (more content not included)... Normal [facility] Estradiolon 07-30-2024 ESTRADIOL < 11.0 Normal [facility] Comment on above: Result Comment: NORM AL REFERENCE RANGES FEMALE FOLLICULAR 21.4 - 164.8 pg/mL MID-CYCLE PEAK 49.9 - 367.2 pg/mL LUTEAL 40.2 - 259.0 pg/mL POST-MENOPAUSAL ON MHT <11.0 - 462.1 pg/mL NOT ON MHT <11.0 - 58.3 pg/mL MALE <11.0 - 52.5 pg/mL NOTE: [facility] HAS CONFIRMED THE DRUG FULVETRANT (FASLODEX) MAY CAUSE FALSELY ELEVATED ESTRADIOL RESULTS WHEN USING THIS TEST METHOD. IF PATIENT IS TAKING FULVESTRANT AN ALTERNATIVE METHOD SHOULD BE USED TO DETERMINE ESTRADIOL CONCENTRATION. Performed By: #### L 3300.1750, L3100.5125 ####[facility] [address] [place], [place], [id number] Estradiol measurementOrdered By: Gini Gorman on 07-30-2024 Estradiol (E2) Level < 11.0 pg/mL [facility] Comment on above: NORMAL REFERENCE RAN GES FEMALE FOLLICULAR 21.4 - 164.8 pg/mL MID-CYCLE PEAK 49.9 - 367.2 pg/mL LUTEAL 40.2 - 259.0 pg/mL POST-MENOPAUSAL ON MHT <11.0 - 462.1 pg/mL NOT ON MHT <11.0 - 58.3 pg/mL MALE <11.0 - 52.5 pg/mL NOTE:[employer] HAS CONFIRMED THE DRUG FULVETRANT (FASLODEX) MAY CAUSE FALSELY ELEVATED ESTRADIOL RESULTS WHEN USING THIS TEST METHOD. IF PATIENT IS TAKING FULVESTRANT AN ALTERNATIVE METHOD SHOULD BE USED TO DETERMINE ESTRADIOL CONCENTRATION. Follicle Stimulating Hormone on 07-30-2024 FSH 5.1 mIU/mL Normal [facility] Comment on above: Result Comment: NORMAL REFERENCE RANGES FEMALE FOLLICULAR 2.3 - 12.6 mIU/mL MID-CYCLE PEAK 5.2 - 17.5 mIU/mL LUTEAL 1.7 - 12.9 mIU/mL POST-MENOPAUSAL ON MHT 5.9 - 72.8 mIU/mL NOT ON MHT 12.7 - 132.2 mlU/mL MALE 0.7 - 10.8 mIU/mL Performed By: #### L 3300.1750, L3100.5125 ####[facility] [address] [place], [place], [id number] Follicle stimulating hormone (FSH) levelOrdered By: Gini Gorman on 07-30-2024 Follicle Stimulating Hormone 5.1 mIU/mL [facility] Comment on above: NORMAL REFERENCE RAN GES FEMALE FOLLICULAR 2.3 - 12.6 mIU/mL MID-CYCLE PEAK 5.2 - 17.5 mIU/mL LUTEAL 1.7 - 12.9 mIU/mL POST-MENOPAUSAL ON MHT 5.9 - 72.8 mIU/mL NOT ON MHT 12.7 - 132.2 mlU/mL MALE 0.7 - 10.8 mIU/mL Laboratory - Chemistry and C hemistry - challengeon 07-30-2024 HCG ( test) Ql (U) Negative [facility] Core Java Software Engineer Office Visit Reporton 07-30-2024 Core Java Software Engineer Office Visit Report [facility]'s [address], [address] [place] [address] OFFICE VISIT Date of Service: 07/30/24 MR#: [id number] Acct: [id number] Name: SABINE BALL Rep #: [id number] : 1970 Provider: ALLEGRA vazquez Age/Sex: 54/F [place] [facility] [place]: Signed Intake Vital Signs 07/02/24 10:02 07/30/24 11:13 07/30/24 11:24 Height 5 ft 5 in 5 ft 5 in 5 ft 5 in Weight: 184 lb 187 lb 4 oz BMI 30.6 31.1 BP 118/76 130/72 H Intake Visit Reasons: EMB Chief Complaint: EMB Radiology Teacher Required: No Is patient in pain?: No Allergies diphenhydramine (From Benadryl) Allergy (Mild, Verified 07/30/24 11:13) Other codeine Allergy (Verified 07/30/24 11:13) Swelling Sulfa (Sulfonamide Antibiotics) Allergy (Verified 07/30/24 11:13) Rash Medications ???Medication ???Instructions ???Recorded ???Confirmed ???Type benzoil peroxide topical 07/02/24 07/30/24 History clotrimazole 1 % topical cream 1 applic topical BID 07/02/24 07/30/24 History doxycycline hyclate 20 mg tablet 20 mg PO BID 07/02/24 07/30/24 History magnesium 250 mg tablet 250 mg PO QDAY 07/02/24 07/30/24 History spironolactone 100 mg tablet 100 mg PO QDAY 07/02/24 07/30/24 History topiramate 100 mg tablet 100 mg PO QDAY #30 tabs 07/02/24 07/30/24 Rx Is last menstrual period known: No Post menopausal: Yes Patient : No : No PFSH PFSH Medical History Lichen sclerosus Surgical History S/P cholecystectomy H/O bilateral breast reduction surgery Family History Father Cancer Pancreatic Aunt Cancer Pancreatic- Paternal Grandmother Cancer Maternal-Esophageal Social History current occupational status: employed 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 Date Name GA/Weeks Outcome Route Bth Weight Gen Labor Lgth Anesthesia Del Locatn Provider FOB Unknown [place]- Adopted Unknown Eugenia Unknown Will HPI EMB Details: SABINE BALL is a 54 year old who presents for EMB. She has had irregular bleeding over the last 2 months with HRT. She stopped that HRT, has been taking aygestin over the last 3 weeks. Has had a couple of days of spotting but very minimal. She has ultrasound that indicates 7mm lining but otherwise normal pelvic US ROS Const Constitutional: Reports system reviewed and no additional complaints, except as documented Eyes Eyes: Reports system reviewed and no additional complaints, except as documented GI GI: Denies abdominal pain or change in bowel habits : Reports as per HPI Exam Const General: cooperative and no acute distress Orientation: oriented x3 General: bladder normal to palpation External Female Exam: normal external appearance and normal appearance of the urethra Urethra: normal appearance of the urethra Speculum Exam - Vagina: normal appearance of the vagina, normal vaginal discharge, no lesions and nontender Speculum Exam - Cervix: normal appearance of the cervix Bimanual Exam- Vagina Uterus: normal bimanual exam, uterine size normal, bladder normal to palpation, uterine shape normal, uterine mobility normal and non-tender Bimanual Exam- Adnexa, other: normal adnexae, no masses and non-tender Office Procedures Endometrial Biopsy Endometrial Biopsy Test: Yes Negative Consent Signed: Yes Time out checklist: patient, procedure, site marked/identified, positioning of patient, supplies available, allergies confirmed and team agrees on procedure Time out time: 11:35 tenaculum used: No dilator used: No Details: Cervix prepped with betadine and syringe pipelle inserted 8cm into uterus without complication. Specimen obtained and sent to lab for analysis. All instruments removed from vagina without complications. Excellent hemostasis noted. Results POC Urine Office , Urine Negative Last Edit by Cheryl Salvador on 07/30/24 11:30 Coding Level of Care Code Attention Marlon Diagnoses Postmenopausal bleeding N95.0 CPT Codes Endometrial Biopsy (86762) Assessment and Plan Assessment and Plan (1) Postmenopausal bleeding: Status: Acute Or (more content not included)... Normal [facility] Surgery Specimen Level Elver 07-30-2024 Surgery Specimen Level IV Patient Age/Sex Location Account Attending Physician SABINE BALL 54/F [facility] [id number] ALLEGRA Camp Specimen: [id number] Received: 07/30/24 Status: TERESA Peterson Num: [id number] Spec Type: ENDOM BX/C Subm Dr: Gini Gorman, ALLEGRA HEADER OPERATION: Endometrial biopsy PRE-OP DIAGNOSIS: Postmenopausal bleeding TISSUE SUBMITTED: Endometrial tissue MICROSCOPIC DIAGNOSIS Endometrium, biopsy: Transitioned endometrium with minimal disorder. Recent mucosal hemorrhage. AM. 07/31/2024 MICROSCOPIC DESCRIPTION Slides are reviewed. GROSS DESCRIPTION Received is one container labeled with the patient's name and not further designated. The specimen consists of multiple minute fragments of page soft tissue that in aggregate measure 1.5 x 1.0 x <0.1 cm. The specimen is totally submitted in one cassette. AM. 07/30/2024 TC:5 CPT:48348 Patient Age/Sex Location Account Attending Physician SABINE BALL[facility] [id number] ALLEGRA Camp Signed (signature on file) Dr. Porfirio Lawson, 07/31/24 1450 Normal [facility] Comment on above: Performed By: #### L 7400.0280 #### [facility] [address] [place] [address]. [place], [address] Pelvic (Non )on 06-28 Pelvic (Non ) [facility] [address] [place], [place] [id number] Pelvic (Non ) MR#: [id number] Acct: [id number] Name: SABINE BALL Rep #: [id number] : 1970 F 54 From: Adi carrasco MD PCP: Dr. Dallas Ness MD Status: REG CLI Study: Pelvic (Non ) Date of Exam: 07/17/24 Exam# [id number] Ordering Dr: Gini Gorman NP, NPC [id number] STUDY: ULTRASOUND OF THE FEMALE PELVIS - COMPLETE REASON FOR EXAM: Female, 54 years old. AUB LMP: TECHNIQUE: Transabdominal TECHNICAL QUALITY: Limited. Examination limited by bowel gas. COMPARISON: None. FINDINGS: The uterus is anteverted and is in a midline position. The uterus measures 8.0 x 6.3 x 5.7 cm. Normal uterine cervix. The endometrium measures 7 mm in thickness, and is hyperechoic. There is no demonstrated endometrial mass. There is no demonstrated myometrial mass. I.U.D. - The patient does not have an I.U.D. The right ovary is non-visualized. The left ovary is non-visualized. There is no fluid in the cul-de-sac. Normal bladder contour. US/Pelvic (Non ) IMPRESSION: Limited exam-neither ovary seen because of bowel gas. Normal appearance of the uterus and endometrial echoes. Electronically Signed: Adi Reddy MD at 19:47 EST , CC: ALLEGRA Gorman; Dr. Dallas Ness MD Phlebotomy Services Technician: Signed Normal [facility] PAP IG HPV APTIMA 16/18,45on 07-09-2024 ADEQ Comment Normal . [facility] Comment on above: Order Comment: Speci men Comment: [id number] Specimen Comment: Source.............Cervix Specimen Comment: Other..............Post Menopausal Specimen Comment: No. of containers..01 ThinPrep Vial Result Comment: Sati sfactory for evaluation. Endocervical and/or squamous metaplastic cells (endocervical component) are present. Performed By: #### L 7400.0280 #### [facility] [address] [place], [place], [id number] COMM . Normal . [facility] Comment on above: Order Comment: Speci men Comment: [id number] Specimen Comment: Source.............Cervix Specimen Comment: Other..............Post Menopausal Specimen Comment: No. of containers..01 ThinPrep Vial Performed By: #### L 7400.0280 #### [facility] [address] [place], [place], [id number] COMMENT Comment Normal . [facility] Comment on above: Order Comment: Speci men Comment: [id number] Specimen Comment: Source.............Cervix Specimen Comment: Other..............Post Menopausal Specimen Comment: No. of containers..01 ThinPrep Vial Result Comment: This liquid based ThinPrep(R) pap test was screened with the use of an image guided system. Performed By: #### L 7400.0280 #### [facility] [address] [place], [place], [id number] DIAG Comment Normal . [facility] Comment on above: Order Comment: Speci men Comment: [id number] Specimen Comment: Source.............Cervix Specimen Comment: Other..............Post Menopausal Specimen Comment: No. of containers..01 ThinPrep Vial Result Comment: NEGA TIVE FOR INTRAEPITHELIAL LESION OR MALIGNANCY. Performed By: #### L 7400.0280 #### [facility] [address] [place], [place], [id number] HPV APTIMA, HR Negative Normal Negative [facility] Comment on above: Order Comment: Speci men Comment: [id number] Specimen Comment: Source.............Cervix Specimen Comment: Other..............Post Menopausal Specimen Comment: No. of containers..01 ThinPrep Vial Result Comment: This nucleic acid amplification test detects fourteen high- risk HPV types (16,18,31,33,35,39,45,51,52,56,58,59,66,68) without differentiation. Performed By: #### L 7400.0280 #### [facility] [address] [place], [place], [id number] HPV Shirin Rfx Comment Normal . [facility] Comment on above: Order Comment: Speci men Comment: [id number] Specimen Comment: Source.............Cervix Specimen Comment: Other..............Post Menopausal Specimen Comment: No. of containers..01 ThinPrep Vial Result Comment: Crit eria not met, HPV Genotype not performed. Performed at: - [address] [id number] Coating Engineer: Laury Dawkins MD, Phone: [phone] Performed at: = - [facility] [id number] Coating Engineer: Laury Dawkins MD, Phone: [phone] Performed By: #### L 7400.0280 #### [facility] [address] [place], [place], [id number] PAPSMR Comment Normal . [facility] Comment on above: Order Comment: Speci men Comment: [id number] Specimen Comment: Source.............Cervix Specimen Comment: Other..............Post Menopausal Specimen Comment: No. of containers..01 ThinPrep Vial Result Comment: The Pap smear is a screening test designed to aid in the detection of premalignant and malignant conditions of the uterine cervix. It is not a diagnostic procedure and should not be used as the sole means of detecting cervical cancer. Both false-positive and false-negative reports do occur. Performed By: #### L 7400.0280 #### [facility] [address] [place], [place], [address] PERFORM Comment Normal . [facility] Comment on above: Order Comment: Speci men Comment: [id number] Specimen Comment: Source.............Cervix Specimen Comment: Other..............Post Menopausal Specimen Comment: No. of containers..01 ThinPrep Vial Result Comment: Esperanza Isbell, Branding Machine Operator (ASCP) Performed By: #### L 7400.0280 #### [facility] [address] [place], [place], [address] Core Java Software Engineer Office Visit Reporton 07-02-2024 Core Java Software Engineer Office Visit Report [facility]'s [address], [address] [place] [address] OFFICE VISIT Date of Service: 07/02/24 MR#: [id number] Acct: [id number] Name: SABINE BALL Rep #: [id number] : 1970 Provider: ALLEGRA vazquez Age/Sex: 54/F [place] [facility] [place]: Signed Intake Vital Signs 06/13/19 18:20 07/02/24 10:02 Height 5 ft 5 in 5 ft 5 in Weight: 184 lb BMI 30.6 BP 118/76 Intake Visit Reasons: HRT (DOXOLOGY) Allergies diphenhydramine (From Benadryl) Allergy (Mild, Verified 07/02/24 09:29) Other codeine Allergy (Verified 01/04/17 22:57) Swelling Sulfa (Sulfonamide Antibiotics) Allergy (Verified 01/04/17 22:57) Rash Medications ???Medication ???Instructions ???Recorded ???Confirmed ???Type benzoil peroxide topical 07/02/24 History clotrimazole 1 % topical cream 1 applic topical BID 07/02/24 07/02/24 History doxycycline hyclate 20 mg tablet 20 mg PO BID 07/02/24 07/02/24 History estradiol 0.01% (0.1 mg/gram) 1 g vaginal 3XW 07/02/24 07/02/24 History vaginal cream estradiol 0.05 mg/24 hr semiweekly 1 patch transdermal 2XW #24 ea 07/02/24 07/02/24 Rx transdermal patch magnesium 250 mg tablet 250 mg PO QDAY 07/02/24 07/02/24 History progesterone micronized 200 mg 200 mg PO QHS #90 caps 07/02/24 07/02/24 Rx capsule spironolactone 100 mg tablet 100 mg PO QDAY 07/02/24 07/02/24 History topiramate 100 mg tablet 100 mg PO QDAY #30 tabs 07/02/24 07/02/24 Rx PFSH Medical History (Updated 07/02/24 @ 10:35 by Gini Gorman STRAIGHT TRUCK DRIVER, STRAIGHT TRUCK DRIVER-C) Lichen sclerosus Surgical History (Updated 07/02/24 @ 09:38 by Cheryl Salvador) S/P cholecystectomy H/O bilateral breast reduction surgery Family History (Updated 07/02/24 @ 09:39 by Cheryl Salvador) Father Cancer Pancreatic Aunt Cancer Pancreatic- Paternal Grandmother Cancer Maternal-Esophageal Social History (Updated 07/02/24 @ 09:40 by Cheryl Salvador) current occupational status: employed 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 Date Name GA/Weeks Outcome Route Bth Weight Gen Labor Lgth Anesthesia Del Locatn Provider FOB Unknown [place]- Adopted Unknown [place] Unknown Will HPI HRT (DOXOLOGY) Details: SABINE BALL is a 54 year old who presents for new patient annual exam. Previous exams Dr Estephania Finch. She is using estrogen patch, oral prometrium, vaginal estrogen cream, adipex and topomax per Dr Estephania Finch. She is needing refills on all but the cream. She states that the adipex seems to no longer working. She has been off prometrium about 1 month as she has had no RX. She did have spotting a couple of weeks ago and that was first occurrence. She has a steroid cream, unsure of name, that she uses prn for lichen sclerosis with symptoms. Denies history of HTN, DVT. Nonsmoker Last PAP: 2014(?) History of abnormal PAP: no Last mammogram: 05/2024 History of abnormal mammogram: no Colon cancer screenin and does Q5yr Other preventative health care screenings: [place] Female Reproductive History Questions: metorrhagia: No, sexually active: Yes, dyspareunia: No and PCB: No Menopausal Treatment: Yes HRT and Yes Vaginal Estrogen ROS Const Constitutional: Denies fatigue, weight gain or weight loss Cardio Card: Denies chest pain Resp Resp: Denies cough or dyspnea on exertion GI GI: Denies abdominal pain, bloating, change in stool character, constipation or vomiting : Reports as per HPI; Denies difficulty voiding, pelvic pain, urinary frequency, urinary incontinence, urinary urgency, vaginal discharge or vaginal pruritus Exam Const General: cooperative, healthy appearing, no acute distress and well developed Orientation: alert, oriented to person and oriented to place HENMT Head: normal to inspection Neck Neck: normal visual inspection Thyroid: thyroid normal Lymphatic: no lymphadenopathy noted Chest Breast inspection: normal inspection of the breasts and normal inspection of the axillae Breast palpation: normal palpation of the breasts, normal palpation of the axillae and no axillary lymphadenopathy Resp Effort Inspection: normal respiratory effort GI Palpation: soft, no masses and nontender Rectal Exam: deferred External Female Exam: normal external appearance and normal appearance of the urethra Urethra: normal appear (more content not included)... Normal [facility] SCRN MAMM (CAD)W/TIERA BILATo n 06-10-2024 SCRN MAMM (CAD)W/TIERA BILAT [facility] Services [address] [place], [place] [address] SCRN MAMM (CAD)W/TIERA BILAT MR#: [id number] Acct: [id number] Name: SABINE BALL Rep #: [id number] : 1970 F 54 From: Jayesh Bowen MD PCP: Dr. Dallas Ness MD Status: REG CLI Study: SCRN MAMM (CAD)W/TIERA BILAT Date of Exam: 05/27 01/17 Exam# [id number] Ordering Dr: Jamie Jj MD [id number] MAMMOGRAPHY - BILATERAL SCREENING 3-D TOMOSYNTHESIS REASON FOR EXAM: Female, 54 years old. SCREENING PERTINENT HISTORY: No significant family history. TECHNIQUE: 2-D mammograms and 3-D Tomosynthesis of the breast (s) were performed. CAD was performed. COMPARISON: 04/25/2023 FINDINGS: The breast composition is composed of scattered fibroglandular density. Scattered benign calcifications are seen. No dense spiculated masses or suspicious microcalcifications are identified. No architectural distortion is identified. There is no skin thickening or retraction. There has been no significant change since the prior study. BI/SCRN MAMM (CAD)W/TIERA BILAT IMPRESSION: No mammographic signs of malignancy. Routine yearly mammograms recommended. ASSESSMENT CATEGORY: BIRADS Category 1: Negative. A letter regarding these results will be sent to the patient by the facility within 30 days. FOLLOW UP RECOMMENDATION: Yearly follow up mammogram recommended. (A) Approximately 10% of breast cancers are not detected by mammography. A normal mammogram should not delay biopsy of a clinically suspicious abnormality. Electronically Signed: Jayesh Bowen MD at 8:33 EDT , CC: Dr. Dallas Ness MD; Dr. Jamie Finch MD Phlebotomy Services Technician: Signed Normal [facility] DHEA Sulfateon 04-08-2024 DHEA SULFATE 195.0 ug/dL Normal 41.2-243.7 [facility] Comment on above: Order Comment: N N Result Comment: Perf ormed at: [facility] Lab[address] [id number] Coating Engineer: Bony Chirinos PhD, Phone: [phone] Performed at: [facility] Lab[address] [id number] Coating Engineer: Kevan Connors MD, Phone: [phone] Performed By: #### L 3300.0660, L3100.5310, L3300.1750, L509.6000, L801.2600 #### [facility] Laboratory [address] [place], [address] Testosterone, Total / Freeon 04-08-2024 TESTOSTER,FREE 0.48 ng/dL Normal 0.10-0.85 [facility] Comment on above: Order Comment: N N Performed By: #### L 3300.1500, L3100.5310, L3300.1750, L509.6000, L801.2600 #### [facility] [address] [place], [address] TESTOSTERONE, T 16 ng/dL Normal 4-50 [facility] Comment on above: Order Comment: N N Performed By: #### L 3300.1500, L3100.5310, L3300.1750, L509.6000, L801.2600 #### [facility] [address] [place], [address] TESTOSTERONE,%F 3.00 High 0.50-2.80 [facility] Comment on above: Order Comment: N N Performed By: #### L 3300.1500, L3100.5310, L3300.1750, L509.6000, L801.2600 #### [facility] [address] [place], [address] PROGESTERONE 4317on 04-02-20 24 PROGESTERONE 0.1 ng/mL Normal . [facility] Comment on above: Order Comment: N Result Comment: Foll icular phase 0.1 - 0.9 Luteal phase 1.8 - 23.9 Ovulation phase 0.1 - 12.0 First trimester 11.0 - 44.3 Second trimester 25.4 - 83.3 Third trimester 58.7 - 214.0 Postmenopausal 0.0 - 0.1 Performed at: [address] [id number] Coating Engineer: Bony Chirinos PhD, Phone: [phone] Performed By: #### L 3300.1500, L3100.5310, L3300.1750, L509.6000, L801.2600 #### [facility] [address] [place], [address] CORTISOL SERUMon 04-01-2024 CORTISOL 15.60 ug/dL Normal 3.44-22.45 [facility] Comment on above: Result Comment: Adul t (AM) 5.27 - 22.45 ug/dL Adult (PM) 3.44 - 16.76 ug/dL Please note revised CORTISOL reference range effective 2019. Performed By: #### L 3300.1500, L3100.5310, L3300.1750, L509.6000, L801.2600 #### [facility] [address] [place], [address] Estradiolon 04-01-2024 ESTRADIOL 38.8 pg/mL Normal [facility] Comment on above: Result Comment: NORM AL REFERENCE RANGES FEMALE FOLLICULAR 21.4 - 164.8 pg/mL MID-CYCLE PEAK 49.9 - 367.2 pg/mL LUTEAL 40.2 - 259.0 pg/mL POST-MENOPAUSAL ON MHT <11.0 - 462.1 pg/mL NOT ON MHT <11.0 - 58.3 pg/mL MALE <11.0 - 52.5 pg/mL NOTE: [facility] HAS CONFIRMED THE DRUG FULVETRANT (FASLODEX) MAY CAUSE FALSELY ELEVATED ESTRADIOL RESULTS WHEN USING THIS TEST METHOD. IF PATIENT IS TAKING FULVESTRANT AN ALTERNATIVE METHOD SHOULD BE USED TO DETERMINE ESTRADIOL CONCENTRATION. Performed By: #### L 3300.1500, L3100.5310, L3300.1750, L509.6000, L801.2600 #### [facility] [address] [place], [place], [address] BD DXA - AXIAL SKELETONon BD DXA - AXIAL SKELETON * * *Final Report* * * DATE OF EXAM: Feb 01 2024 9:19AM WRB 0804 - BD DXA - AXIAL SKELETON - LEFT / PROCEDURE REASON: Z79.890 M89.8X9 N95.1 * * * * Physician Interpretation * * * * EXAMINATION: DXA BONE DENSITOMETRY BD DXA - AXIAL SKELETON PATIENT DEMOGRAPHICS: Age: 54 years, Gender: Female SCANNER INFORMATION: DXA Model: BloomThat - Xanga C [id number] Date Scanned: 02/01/2024 9:19 AM CLINICAL HISTORY: SCREENING Z79.890 M89.8X9 N95.1. RISK FACTORS FOR OSTEOPOROSIS AND ASSOCIATED FRACTURES REPORTED BY THIS PATIENT: Please refer to Bone Health Questionnaire in the EMR CURRENT THERAPY: Please refer to Bone Health Questionnaire in the EMR TECHNICAL LIMITATIONS: RESULTS: Lumbar spine (L1, L2, L3, L4): 1.075 g/cm2, T-score 0.3 , Z-score 1.1 Left Femoral Neck: 0.763 g/cm2, T-score -0.8 , Z-score 0.1 Left Total Hip: 1.025 g/cm2, T-score 0.7 , Z-score 1.2 No comparison data - the patient has not had a previous bone density in the [facility] or the previous bone density was performed on a different DXA machine (new, updated model or different location) within the [facility]. VERTEBRAL FRACTURE ASSESSMENT Not performed. TRABECULAR BONE ASSESSMENT TBS not performed: IMPRESSION: THE LOWEST T-SCORE IS -0.8 IN THE LEFT HIP 1) DIAGNOSIS (based on BMD alone): NORMAL BONE DENSITY Caution: Medical conditions other than osteoporosis may cause low bone density, such as osteomalacia or renal osteodystrophy. Clinical correlation is necessary. 2) FRACTURE RISK (based on FRAX): 10-year absolute fracture risk: - major osteoporotic fracture = 4.3 % - hip fracture = 0.2 % - A diagnosis of Osteoporosis, a 10 year probability of hip fracture greater than or equal to 3% or a 10 year probability of any major osteoporosis-related fracture greater than or equal to 20% should be considered for treatment. - DXA scanner generated FRAX calculations may slightly differ from online FRAX calculations due to differences in software versions. - All recommendations and calculations are to be considered as guidelines and should not replace sound clinical judgement - Caution: Fracture risk may be increased independent of BMD in patients with corticosteroid use, age greater than 65 years, or a history of prior fragility fracture. RECOMMENDATIONS: Follow-up in 2 years or as clinically indicated. Patients that are taking corticosteroids, are transplant recipients or have hyperparathyroidism should have annual follow-up. Follow-up scans should always be done on the same machine for accurate comparison. FOR MORE INFORMATION ABOUT DIAGNOSIS AND TREATMENT: [facility] Center for Osteoporosis and Metabolic Bone Disease:? www.ccf.org/arthritis/osteo National Osteoporosis Foundation:? www.nof.org International Society of Clinical Densitometry www.iscd.org Phlebotomy Services Technician: WAI Transcribe Date/Time: Feb 01 2024 2:48P Dictated by : NICK BLOOM MD This examination was interpreted and the report reviewed and electronically signed by: NICK BLOOM MD on Feb 01 2024 2:49PM EST [id number] -0.8 Normal [facility] DHEA BLOODon 11-07-2023 DHEA 2.779 ng/mL Normal 0.630-4.70 0 [facility] Comment on above: Order Comment: Speci men Type: BLOOD SPECIMEN Ordering Facility: [facility] Address: [address] [place] [address] Result Comment: INTERPRETIVE INFORMATION: Dehydroepiandrosterone, Females 18 years and older: Postmenopausal: 0.60-5.73 ng/mL REFERENCE INTERVAL: Dehydroepiandrosterone by TMS Access complete set of age- and/or gender-specific reference intervals for this test in the [facility] Test Directory ([employer]aaj). This test was developed and its performance characteristics determined by [facility]. It has not been cleared or approved by the US Food and Drug Administration. This test was performed in a CLIA certified laboratory and is intended for clinical purposes. Performed By: [facility] [address] [place] [address] Operations Recruiter: Tiago Gaytan MD, PhD CLIA Number: [id number] Performed By: #### E ST, DHEA #### [facility] CLIA [id number] [address] [place] [address] ESTRONE BLDon 11-07-2023 ESTRONE 26.2 pg/mL Normal [facility] Comment on above: Order Comment: Speci men Type: BLOOD SPECIMEN Ordering Facility: [facility] Address: [address] [place] [address] Result Comment: REFE RENCE INTERVAL: Estrone by Panel Raiser Operator Pre-menopausal: Early follicular <150.0 pg/mL Pre-menopausal: Late follicular 100.0-250.0 pg/mL Pre-menopausal: Luteal <200.0 pg/mL Post-menopausal 3.0-32.0 pg/mL INTERPRETIVE INFORMATION: Estrone by Panel Raiser Operator For a complete set of all established reference intervals, refer to [employer]Collaaj/Tests/Pub/[id number]. This test was developed and its performance characteristics determined by [facility]. It has not been cleared or approved by the US Food and Drug Administration. This test was performed in a CLIA certified laboratory and is intended for clinical purposes. Performed By: [facility] [address] [place] [address] Operations Recruiter: Tiago Gaytan MD, PhD CLIA Number: [id number] Performed By: #### E ST, DHEA #### [facility] CLIA [id number] [address] [place] [address] Estradiol [facility]-ncon 11-06 E2 [Mass/Vol] pg/mL Normal [facility] Comment on above: Order Comment: Speci men Type: BLOOD SPECIMEN Ordering Facility: External Submitter Address: , , Result Comment: This test is not suitable for patients receiving treatment with the drug Fulvestrant (Faslodex). The drug causes an interference leading to falsely elevated estradiol results. Menstrual cycle Estradiol reference ranges: Follicular : < 234 pg/mL Ovulation : 41 to 398 pg/mL Luteal : < 342 pg/mL Estradiol reference ranges vary by gestational period: First trimester : 154 to 3243 pg/mL Second trimester : 1561 to 63876 pg/mL Third trimester : 8285 to >95349 pg/mL Post-menopausal Estradiol reference range: < 41 pg/mL Reference: 1. Estradiol - E2 (Estradiol III) [package insert V 3.0 Peruvian]. [facility], [place], [place], January 2016. Performed By: #### 6 768-6, 2324-2 #### [facility] CLIA [id number] [address] [place] [address] [place] Glucose p fast SerPl-mCncon 11-07-2023 Glucose post fast [Mass/Vol] 92 mg/dL Normal 74-99 [facility] Comment on above: Order Comment: Parkeri ector Type: BLOOD SPECIMEN Ordering Facility: [facility] Address: [address] [place] [address] Result Comment: Amer ican Diabetes Association guidelines state that a diabetes mellitus diagnosis is preliminarily made when the fasting plasma glucose meets or exceeds 126 mg/dL. In the absence of unequivocal hyperglycemia, results should be confirmed with repeat testing. Patients are at increased risk for diabetes mellitus (prediabetes) when the fasting glucose is 100 to 125 mg/dL. Performed By: #### 1 558-6 #### [facility] CLIA [id number] [address] [place] [address] [place] INSULIN ANTIBODY BLDon 11-06 Insulin Ab Qn (S) <0.4 Normal <0.4 [facility] Comment on above: Order Comment: Lazaro etcor Type: BLOOD SPECIMEN Ordering Facility: [facility] Address: [address] [place] [address] Result Comment: Anti -insulin antibody test is used as an aid in diagnosis and prognosis of autoimmune diabetes mellitus in combination with other tests such as anti-GAD65 and anti-IA-2 antibody. A single negative result cannot rule out autoimmune diabetes mellitus. The test is not reliable in patients who had previously received exogenous insulin. Clinical correlation is required. Performed By: #### I NSLAB #### [facility] CLIA [id number] [address] [place] [address] [place] INSULIN ANTIBODY, QUALITATIVE Negative Normal Negative [facility] Comment on above: Order Comment: Parkeri ector Type: BLOOD SPECIMEN Ordering Facility: [facility] Address: [address] [place] [address] Performed By: #### I NSLAB #### [facility] CLIA [id number] [address] [place] [address] [place] Progest SerPl-mCncon 024 Progesterone [Mass/Vol] 1.8 ng/mL Normal See comment [facility] Comment on above: Order Comment: Speci men Type: BLOOD SPECIMEN Ordering Facility: External Submitter Address: , , Result Comment: Mens trual Cycle Progesterone Reference Ranges: Follicular: <1.0 ng/mL Ovulation: <12.1 ng/mL Luteal: 1.8 to 23.9 ng/mL. Progesterone Reference Ranges vary by gestational period: First Trimester: 11.0 to 44.3 ng/mL Second Trimester: 25.4 to 83.3 ng/mL Third Trimester: 58.7 to 214 ng/mL Post menopausal Progesterone: <0.5 ng/mL Reference: 1. Progesterone (Progesterone III) [package insert V 1.0 Peruvian]. [employer], [place], [place]. May 2015. Performed By: #### 6 768-6, 2324-2 #### [facility] CLIA [id number] [address] [place] [address] [place] SHBG SerPl-sCncon 11-07-2023 Sex hormone binding globulin [Moles/Vol] 24 nmol/L Normal 17-125 [facility] Comment on above: Order Comment: Speci men Type: BLOOD SPECIMEN Ordering Facility: External Submitter Address: , , Performed By: #### 6 768-6, 2324-2 #### [facility] IA [id number] [address] [place] [address] [place] Testost SerPl-mCncon 024 Testosterone [Mass/Vol] 21 ng/dL Normal <40 [facility] Comment on above: Order Comment: Speci men Type: BLOOD SPECIMEN Ordering Facility: External Submitter Address: , , Performed By: #### 6 768-6, 2324-2 #### [facility] CLIA [id number] [address] [place] [address] [place] MRI 3D POST PROCESSINGon MRI 3D POST PROCESSING * * *Final Report * * * DATE OF EXAM: May 25 2023 11:17AM GERRY 0280 - MRI 3D POST PROCESSING / PROCEDURE REASON: Family history of pancreatic cancer * * * * Physician Interpretation * * * * MRI ABDOMEN / PANCREAS-BILIARY WITHOUT AND WITH IV CONTRAST HISTORY: Increased genetic risk for pancreatic cancer based on first-degree relative with pancreatic cancer. Screening examination. TECHNIQUE: Magnet: 1.5T scanner. Multiplanar MRI with multiple sequences before and after contrast. 3-D images were generated on the scanner. Contrast: IV: 17 ml of Dotarem COMPARISON: None. RESULT: Liver: Normal morphology. No hepatic steatosis. No mass. Biliary: No bile duct dilation. Gallbladder is absent. Spleen: No mass. No splenomegaly. Pancreas: No mass or duct dilation. Adrenals: No mass. Kidneys: No solid or cystic mass. Left-sided renal sinus cysts. No hydronephrosis. GI tract: No dilation or wall thickening. Lymph nodes: No abdominal lymphadenopathy. Mesentery / Peritoneum: No ascites or mass. Vasculature: - Abdominal aorta: No aneurysm. - Celiac and SMA: Patent without stenosis. - Portal venous system (SMV, splenic vein, portal vein and branches): Patent. - Hepatic veins: Patent. Bones/Soft Tissues: Degenerative changes. Localizer images: No additional findings. IMPRESSION: Normal MR appearance of the pancreas with no mass or duct dilation. Phlebotomy Services Technician: WAI Transcribe Date/Time: May 25 2023 12:03P Dictated by : VALERIE TEAGUE MD This examination was interpreted and the report reviewed and electronically signed by: KENNY LORENZANA MD on May 25 2023 1:07PM EST [id number] Normal [facility] MRI PANC/GONZALEZ WO/W IVCONon MRI PANC/GONZALEZ WO/W IVCON * * *Final Report* * * DATE OF EXAM: May 25 2023 11:17AM [facility] 0730 - MRI PANC/GONZALEZ WO/W IVCON / PROCEDURE REASON: Family history of pancreatic cancer * * * * Physician Interpretation * * * * MRI ABDOMEN / PANCREAS-BILIARY WITHOUT AND WITH IV CONTRAST HISTORY: Increased genetic risk for pancreatic cancer based on first-degree relative with pancreatic cancer. Screening examination. TECHNIQUE: Magnet: 1.5T scanner. Multiplanar MRI with multiple sequences before and after contrast. 3-D images were generated on the scanner. Contrast: IV: 17 ml of Dotarem COMPARISON: None. RESULT: Liver: Normal morphology. No hepatic steatosis. No mass. Biliary: No bile duct dilation. Gallbladder is absent. Spleen: No mass. No splenomegaly. Pancreas: No mass or duct dilation. Adrenals: No mass. Kidneys: No solid or cystic mass. Left-sided renal sinus cysts. No hydronephrosis. GI tract: No dilation or wall thickening. Lymph nodes: No abdominal lymphadenopathy. Mesentery / Peritoneum: No ascites or mass. Vasculature: - Abdominal aorta: No aneurysm. - Celiac and SMA: Patent without stenosis. - Portal venous system (SMV, splenic vein, portal vein and branches): Patent. - Hepatic veins: Patent. Bones/Soft Tissues: Degenerative changes. Localizer images: No additional findings. IMPRESSION: Normal MR appearance of the pancreas with no mass or duct dilation. Phlebotomy Services Technician: PSCB Transcribe Date/Time: May 25 2023 12:03P Dictated by : VALERIE TEAGUE MD This examination was interpreted and the report reviewed and electronically signed by: KENNY LORENZANA MD on May 25 2023 1:07PM EST [id number] Normal [facility] 03-22-2023 [facility] ([facility]) SABINE BALL ([id number]) 1970 F Date Time Provider Department 03/22/23 TANJA ROMERO [facility] During your visit today, we recorded the following information about you: Tanja Romero APRN.[facility] 03/22/2023 7:11 AM Signed Patient's urine culture did not grow significant amount of bacteria. Patient should continue antibiotics and if symptoms are getting worse not better she needs to follow-up with primary care. Brisa Zuñiga LPN 03/22/2023 8:08 AM Signed Phone call placed patient advised (see prior provider encounter) Patient verbalized understanding, agreed with plan of care. Brisa Zuñiga LPN Allergies As of Date: 03/22/2023 Noted Allergy Reaction CODEINE 12/15/2008 7 - Swelling Comments: Swelling of throat and body. BENADRYL ALLERGY DECONGESTANT 05/24/2020 5 - Intolerance 1 - Mental Status Change SULFA (SULFONAMIDE ANTIBIOTICS) 10/28/2009 2 - Rash Date Reviewed: 03/20/2023 Reviewed by: Diandra Bello - Fully Assessed Reason for Visit: Results [95] Prescriptions as of 03/22/2023 - estradiol 0.05 mg/24 hr - estradiol (ESTRACE) 0.01 % (0.1 mg/gram) vaginal cream - Phentermine HCl 30 mg capsule Take 1 capsule by mouth every afternoon. - progesterone micronized (PROMETRIUM) 100 mg capsule - nitrofurantoin monohydrate and macrocrystal (MACROBID) 100 mg capsule Take 1 capsule by mouth twice daily with meals for 5 days. - MEDICATION, NON-DATABASE Amatriptyl 20 mg, 1 scoop daily - Amino Acid Complex Powder (Daxibe) (Hieu) Mix 1 scoop with 8 ounces of water twice daily. - B-Complex Plus (Pure Encapsulations) Take 1 capsule by mouth daily with food. - Alpha Lipoic Acid 600 mg (Pure Encapsulations) Take 1 capsule daily with meals. - SocialSamba Whole Probiotic supplement - (for rian/yeast) probiotic+saccharomyces+bio film disruptor Take 1 capsule by mouth once daily. Start with 2 jars. No fridge needed. Take at least 2 hrs away from nystatin/candibactin/difluc an. - Magnesium (Citrate) 150 mg (Pure Encapsulations) Take 4 capsules daily. - Norethindrone Acet-Ethinyl Est (JUNE,) 1-20 mg-mcg per tablet Take 1 tablet by mouth once daily. - amitriptyline (ELAVIL) 25 mg tablet Take 1 tablet by mouth daily at bedtime. - Cholecalciferol, Vitamin D3, (VITAMIN D) 1,000 unit ORAL Cap Take one(1) tablet daily. Problem List As Of Date 03/22/2023 Noted Resolved ACNE VULGARIS: Grade III to IV Inflammatory an*12/29/2008 COMEDONAL CYSTS///SEBACEOUS CYST [L72.3] 12/29/2008 SCARS: (Acne-related) [L90.5] 12/29/2008 DYSMETABOLIC SYNDROME X [E88.81] 03/11/2009 Seborrhea [L21.9] 02/14/2010 Obesity (BMI 30-39.9) [E66.9] 07/22/2018 PCOS (polycystic ovarian syndrome) [E28.2] 05/24/2020 Uses oral contraceptives [Z30.41] 05/24/2020 Encounter Status:Closed by BRISA ZUÑIGA LPN on 03/22/23 Normal [facility] Absolute lymphocyte countOrd ered By: Adilson Marsbety on 03-20-2023 Lymphocytes Auto (Unsp spec) [#/Vol] 1.45 10*3/uL 0.83-4.51 [facility] Bacteria Ur Culton 3 Bacteria identified Cx Nom (U) ORGANISM ID: 1 10,000 -<50,000 CFU/ml Mixed microbiota No further workup. Mixed microbiota can be due to???urine???contamination with skin bacteria at time of collection or presence of a long-term urinary catheter. If a new culture is needed, please consider re-education of the patient on proper midstream co llection technique or straight catheterization for???urine???collection. Normal [facility] Comment on above: Performed By: #### 6 768-6, 2324-2 #### [facility] CLIA [id number] [address] [place] [address] [place] Basophil percentageOrdered B y: Adilson Ness on 03-20-2023 Basophils/100 WBC (Bld) 0.6 % 0-1 [facility] Bilirubin [Mass/Vol] 0.20 mg/dL 0.20-1.00 [facility] Comment on above: For patients on eltr ombopag therapy, use of Dimension [place] TBIL is not recommended. Chloride [Moles/Vol] 109 mmol/L 98-107 [facility] Eosinophils/100 WBC (Bld) 1.9 % 0-5 [facility] Glucose [Mass/Vol] 87 mg/dL 74-106 [facility] Neutrophils (Bld) [#/Vol] 4.6 10*3/uL 2.0-7.7 [facility] Neutrophils/100 WBC (Bld) 68.2 % 47-70 [facility] Potassium [Moles/Vol] 4.3 mmol/L 3.5-5.1 [facility] Protein [Mass/Vol] 6.9 g/dL 6.4-8.2 [facility] Sodium [Moles/Vol] 140 mmol/L 136-145 [facility] WBC (Bld) [#/Vol] 6.8 10*3/uL 4.4-11.0 [facility] Blood erythrocytes count (nu mber/volume)Ordered By: Adilson Ness on 03-20-2023 RBC (Bld) [#/Vol] 4.61 10*6/uL 4.2-5.4 [facility] Blood hemoglobin measurement (mass/volume)Ordered By: Adilson Ness on 03-20-2023 Hemoglobin (Bld) [Mass/Vol] 13.8 g/dL 12.0-15.0 [facility] Blood lymphocytes/100 leukoc ytesOrdered By: Adilson Ness on 03-20-2023 Lymphocytes/100 WBC (Bld) 21.3 % 19-41 [facility] Blood monocytes/100 leukocyt esOrdered By: Adilson Ness on 03-20-2023 Monocytes/100 WBC (Bld) 7.6 % 0-10 [facility] Blood platelet mean volumeOr dered By: Adilson Ness on 03-20-2023 Platelet mean volume (Bld) [Entitic vol] 10.6 fL 6.2-12.0 [facility] CNOVon 03-20-2023 CNOV Office Visit (UCWSTR ) SABINE BALL ([id number]) 1970 F Date Time Provider Department 03/20/23 7:45 PM AARON CONCEPCION [facility] During your visit today, we recorded the following information about you: Temperature Pulse Respiration Blood pressure 98.3 degrees 78/minute 16/minute 110/72 Weight 87.5 kg Aaron Concepcion PA-C 03/20/2023 8:20 PM Signed This note was created using Glowblriter. Subjective Sabine Ball is a 53 year old female. HPI Patient presents with urinary frequency and urgency over the past 2 days. No blood in urine. No back pain or abdominal pain. Some discomfort with urination. Does not have menstrual cycle. She denies vaginal itching or discharge. Review of Systems Constitutional: Negative. HENT: Negative. Respiratory: Negative. Cardiovascular: Negative. Gastrointestinal: Negative. Genitourinary: Positive for dysuria, frequency and urgency. Negative for hematuria and pelvic pain. Musculoskeletal: Negative for back pain. All other systems reviewed and are negative. PAST MEDICAL HISTORY Diagnosis Date Essential tremor Other acne PMH - PAST MEDICAL HISTORY OF Polycystic Ovarian Syndrome Current Outpatient Medications Medication Sig Dispense Refill Amino Acid Complex Powder (Daxibe) (Medical Simulation) Mix 1 scoop with 8 ounces of water twice daily. B-Complex Plus (Pure Encapsulations) Take 1 capsule by mouth daily with food. Alpha Lipoic Acid 600 mg (Pure Encapsulations) Take 1 capsule daily with meals. BIOHM Whole Probiotic supplement - (for rian/yeast) probiotic+saccharomyces+bio film disruptor Take 1 capsule by mouth once daily. Start with 2 jars. No fridge needed. Take at least 2 hrs away from nystatin/candibactin/difluc an. 0 Magnesium (Citrate) 150 mg (Pure Encapsulations) Take 4 capsules daily. Norethindrone Acet-Ethinyl Est (JUNE,) 1-20 mg-mcg per tablet Take 1 tablet by mouth once daily. amitriptyline (ELAVIL) 25 mg tablet Take 1 tablet by mouth daily at bedtime. Cholecalciferol, Vitamin D3, (VITAMIN D) 1,000 unit ORAL Cap Take one(1) tablet daily. estradiol 0.05 mg/24 hr estradiol (ESTRACE) 0.01 % (0.1 mg/gram) vaginal cream Phentermine HCl 30 mg capsule Take 1 capsule by mouth every afternoon. progesterone micronized (PROMETRIUM) 100 mg capsule nitrofurantoin monohydrate and macrocrystal (MACROBID) 100 mg capsule Take 1 capsule by mouth twice daily with meals for 5 days. 10 capsule 0 MEDICATION, NON-DATABASE Amatriptyl 20 mg, 1 scoop daily No current facility-administered medications for this visit. PAST SURGICAL HISTORY Procedure Laterality Date CHOLECYSTECTOMY PAST SURGICAL HISTORY OF Breast reduction FAMILY HISTORY Problem Relation Age of Onset other (Other) Father blood clots Pancreatic Cancer Father Cancer Maternal Grandmother esophageal cancer Diabetes Maternal Grandmother Heart Maternal Grandfather massive heart attack Stroke Paternal Grandmother aneurysm Social History Tobacco Use Smoking status: Never Smokeless tobacco: Never Substance Use Topics Alcohol use: Yes Comment: rare Drug use: No Objective BP 110/72 Pulse 78 Temp 36.8 ?C (98.3 ?F) Resp 16 Wt 87.5 kg (193 lb) LMP (LMP Unknown) SpO2 98% BMI 32.32 kg/m? Physical Exam Vitals reviewed. Constitutional: Appearance: Normal appearance. HENT: Head: Normocephalic and atraumatic. Cardiovascular: Rate and Rhythm: Normal rate and regular rhythm. Heart sounds: Normal heart sounds. Pulmonary: Effort: Pulmonary effort is normal. Breath sounds: Normal breath sounds. Abdominal: General: Abdomen is flat. Palpations: Abdomen is soft. Tenderness: There is no abdominal tenderness. There is no right CVA tenderness, left CVA tenderness or guarding. Skin: General: Skin is warm and dry. Findings: No rash. Neurological: General: No focal deficit present. Mental Status: She is alert. Assessment and Plan ASSESSMENT/PLAN: 1. Urinary frequency - ICD9: 788.41, ICD10: R35.0 acute - UA positive for pascual esterase, hematuria, and proteinuria - Send urine for culture - Begin treatment with Macrobid 100 mg BID for 5 days - UA DIP, URINE (POC) - URINE CULTURE Aaron Concepcion PA-C Allergies As of Date: 03/20/2023 Noted Allergy Reaction CODEINE 12/15/2008 7 - Swelling Comments: Swelling of throat and body. BENADRYL ALLERGY DECONGESTANT 05/24/2020 5 - Intolerance 1 - Mental Status Change SULFA (SULFONAMIDE ANTIBIOTICS) 10/28/2009 2 - Rash Date Reviewed: 03/20/2023 Reviewed by: Diandra Bello - Fully Assessed Reason for Visit: Urinary Frequency [1086] Cmt: urgency x 2 days Primary Visit Diagnosis:Urinary frequency [R35.0] Order(s):UA DIP, URINE (POC) [5402140] Order #: [id number]. #:[id number] -LAB URINE CULTURE [SQURCUL] Order #: [id number]. #:[id number] (more content not included)... Normal [facility] Determination of erythrocyte mean corpuscular volume (MCV)Ordered By: Adilson Ness on 03-20-2023 MCV (RBC) [Entitic vol] 91.8 fL 81-99 [facility] Erythrocyte sedimentation ra teOrdered By: Adilson Ness on 03-20-2023 ESR (Bld) [Velocity] 6 mm/h 0-30 [facility] Hematocrit Auto (Bld) [Volum e fraction]Ordered By: Adilson Ness on 03-20-2023 Hematocrit (Bld) [Volume fraction] 42.3 % 37-47 [facility] Laboratory - Chemistry and C hemistry - challengeOrdered By: Adilson Ness on 03-20-2023 ALP [Catalytic activity/Vol] 136 U/L 45-117 [facility] ALT [Catalytic activity/Vol] 33 U/L 13-56 [facility] CO2 [Moles/Vol] 28.0 mmol/L 21.0-32.0 [facility] Globulin (S) [Mass/Vol] 3.7 g/dL 2.2-4.2 [facility] Urea nitrogen/Creatinine [Mass ratio] 19.3 mg/mg 10-20 [facility] Laboratory - Hematology and Cell countsOrdered By: Adilson Ness on 03-20-2023 Erythrocyte distribution width (RBC) [Entitic vol] 47.2 fL 35.1-43.9 [facility] Erythrocyte distribution width (RBC) [Ratio] 13.9 % 11.6-14.6 [facility] Immature granulocytes/100 WBC (Bld) 0.400 % 0.0-0.9 [facility] Comment on above: IG% - Immature Granu locytes (promyelocytes, myelocytes and metamyelocytes) > 1% indicates that a LEFT SHIFT is Present. MCH (RBC) [Entitic mass] 29.9 pg 27.0-32.0 [facility] Nucleated RBC/100 WBC (Bld) [Ratio] 0 % 0-5 [facility] Auto (RBC) [Mass/Vol]Or dered By: Adilson Ness on 03-20-2023 MCHC (RBC) [Mass/Vol] 32.6 g/dL 32-36 [facility] No Panel InformationOrdered By: Adilson Ness on 03-20-2023 Anti-Nuclear Antibody Screen Negative Negative [facility] Comment on above: Performed at: [employer] [address] [id number] Director: Bony Chirinos PhD, Phone: [phone] Estimated GFR (MDRD) Amer 109 mL/min >60 [facility] Comment on above: GFR Calc Estimated GFR (MDRD) Non-Af Amer 90 mL/min >60 [facility] Comment on above: Non- GFR Calc Platelets bldOrdered By: Frannie Ness on 03-20-2023 Platelets (Bld) [#/Vol] 323 10*3/uL 150-450 [facility] Serum or plasma albumin nitin urement (mass/volume)Ordered By: Adilson Ness on 03-20-2023 Albumin [Mass/Vol] 3.2 g/dL 3.2-5.0 [facility] Serum or plasma albumin/glob ulin mass ratioOrdered By: Adilson Ness on 03-20-2023 Albumin/Globulin [Mass ratio] 0.9 {ratio} 0.9-2.4 [facility] Serum or plasma bone alkalin e phosphatase/total alkaline phosphatase ratio (catalyticOrdered By: Adilson Ness on 03-20-2023 ALP Bone [Catalytic fraction] 65 % 14-68 [facility] Serum or plasma calcium nitin urement (mass/volume)Ordered By: Adilson Ness on 03-20-2023 Calcium [Mass/Vol] 8.9 mg/dL 8.5-10.1 [facility] Serum or plasma creatinine m easurement (mass/volume)Ordered By: Adilson Ness on 03-20-2023 Creatinine [Mass/Vol] 0.72 mg/dL 0.55-1.02 [facility] Comment on above: The validity of the calculated GFR & GFRAA in patients over 70 years has not been determined. Clinical correlation is essential. Serum or plasma intestinal a lkaline phosphatase/total alkaline phosphatase ratio (catOrdered By: Adilson Ness on 03-20-2023 ALP Intest [Catalytic fraction] 1 % 0-18 [facility] Comment on above: Performed at: [address] [id number] Director: Bony Chirinos PhD, Phone: [phone] Serum or plasma liver alkali ne phosphatase/total alkaline phosphatase ratio (catalytiOrdered By: Adilson Ness on 03-20-2023 ALP Liver [Catalytic fraction] 34 % 18-85 [facility] Serum or plasma urea nitroge n measurement (mass/volume)Ordered By: Adilson Ness on 03-20-2023 Urea nitrogen [Mass/Vol] 14 mg/dL 7-18 [facility] Serum rheumatoid factor dete ctionOrdered By: Adilson Ness on 03-20-2023 Rheumatoid factor Ql (S) 10.0 IU/mL <15 [facility] Thin prep Papanicolaou smear with manual screeningOrdered By: Adilson Ness on 03-20-2023 Thin prep Papanicolaou smear with manual screening 19 U/L 15-37 [facility] Thin prep Papanicolaou smear with manual screening 3 5-15 [facility] Thin prep Papanicolaou smear with manual screening 138 IU/L 44-121 [facility] ALKALINE PHOSPHATASE ISOENZY MES (P)on 03-19-2023 ALK PHOS BONE % 64.5 % Normal 10.7-68.3 [facility] Comment on above: Order Comment: Specphu barney Type: BLOOD SPECIMEN Ordering Facility: External Submitter Address: , , Performed By: #### A LKISOP #### [facility] CLIA [id number] [address] [place] [address] [place] ALK PHOS LIVER % 35.5 % Normal 26.0-86.2 [facility] Comment on above: Order Comment: Specphu barney Type: BLOOD SPECIMEN Ordering Facility: External Submitter Address: , , Performed By: #### A JUNEP #### [facility] [place] [id number] [address] [place] [address] [place] BONE FRACTION 90.3 U/L High 12.9-52.6 [facility] Comment on above: Order Comment: Speci men Type: BLOOD SPECIMEN Ordering Facility: External Submitter Address: , , Performed By: #### A JUNEP #### [facility] [place] [id number] [address] [place] [address] [place] INTESTINE FRACTION 0.0 U/L Normal 0.0-16.3 [facility] Comment on above: Order Comment: Speci men Type: BLOOD SPECIMEN Ordering Facility: External Submitter Address: , , Performed By: #### A JUNEP #### [facility] [place] [id number] [address] [place] [address] [place] LIVER FRACTION 49.7 U/L Normal 16.0-69.3 [facility] Comment on above: Order Comment: Speci men Type: BLOOD SPECIMEN Ordering Facility: External Submitter Address: , , Performed By: #### A JUNEP #### [facility] [place] [id number] [address] [place] [address] [place] Neutrophils/100 WBC (Bld) 0.0 % Normal 0.0-24.2 [facility] Comment on above: Order Comment: Speci men Type: BLOOD SPECIMEN Ordering Facility: External Submitter Address: , , Performed By: #### A LKISOP #### [facility] [place] [id number] [address] [place] [address] [place] ALP SerPl-cCncon 03-19-2023 ALP [Catalytic activity/Vol] 140 U/L High 34-123 [facility] Comment on above: Order Comment: Speci men Type: BLOOD SPECIMEN Ordering Facility: External Submitter Address: , , Performed By: #### 6 768-6, 4684-2 #### [facility] CLIA [id number] [address] [place] [address] [place] GGT SerPl-cCncon 03-19-2023 Gamma glutamyl transferase [Catalytic activity/Vol] 18 U/L Normal 6-46 [facility] Comment on above: Order Comment: Speci men Type: BLOOD SPECIMEN Ordering Facility: External Submitter Address: , , Performed By: #### 6 768-6, 2324-2 #### [facility] CLIA [id number] [address] [place] [address] [place] ALP SerPl-cCncon 02-20-2023 ALP [Catalytic activity/Vol] 137 U/L High 34-123 [facility] Comment on above: Order Comment: Speci men Type: BLOOD SPECIMEN Ordering Facility: External Submitter Address: , , Performed By: #### 6 768-6, 2323-09 #### [facility] CLIA [id number] [address] [place] [address] [place] DHEA-S BLDon 02-20-2023 DHEA-S [Mass/Vol] 255.3 ug/dL Normal 35.4-256.0 [facility] Comment on above: Order Comment: Speci men Type: BLOOD SPECIMEN Ordering Facility: External Submitter Address: , , Result Comment: Refe rence ranges are age and gender specific. For additional information, reference range tables can be found in the laboratory test directory. The normal values are based on the following source: Dehydroepiandrosterone sulfate (DHEA S) [package insert V 17.0 Peruvian]. [facility], [place], [place]: March 2013. Performed By: #### D MIKE, 2243-4, 3051-0, 2839-9 #### [facility] CLIA [id number] [address] [place] [address] [place] Estradiol SerPl-mCncon 02-20 E2 [Mass/Vol] 27 pg/mL Normal [facility] Comment on above: Order Comment: Speci men Type: BLOOD SPECIMEN Ordering Facility: External Submitter Address: , , Result Comment: This test is not suitable for patients receiving treatment with the drug Fulvestrant (Faslodex). The drug causes an interference leading to falsely elevated estradiol results. Menstrual cycle Estradiol reference ranges: Follicular : < 234 pg/mL Ovulation : 41 to 398 pg/mL Luteal : < 342 pg/mL Estradiol reference ranges vary by gestational period: First trimester : 154 to 3243 pg/mL Second trimester : 1561 to 80564 pg/mL Third trimester : 8285 to >80794 pg/mL Post-menopausal Estradiol reference range: < 41 pg/mL Reference: 1. Estradiol - E2 (Estradiol III) [package insert V 3.0 Peruvian]. [facility] [employer] [facility], [place], [place], January 2016. Performed By: #### D MIKE, 2243-4, 3051-0, 2839-9 #### [facility] CLIA [id number] [address] [place] [address] [place] Progest SerPl-mCncon 023 Progesterone [Mass/Vol] 2.2 ng/mL Normal See comment [facility] Comment on above: Order Comment: Lazaro barney Type: BLOOD SPECIMEN Ordering Facility: [facility] Address: [address] [place] [address] Result Comment: Mens trual Cycle Progesterone Reference Ranges: Follicular: <1.0 ng/mL Ovulation: <12.1 ng/mL Luteal: 1.8 to 23.9 ng/mL. Progesterone Reference Ranges vary by gestational period: First Trimester: 11.0 to 44.3 ng/mL Second Trimester: 25.4 to 83.3 ng/mL Third Trimester: 58.7 to 214 ng/mL Post menopausal Progesterone: <0.5 ng/mL Reference: 1. Progesterone (Progesterone III) [package insert V 1.0 Peruvian]. [facility] [employer] [facility], [place], [place]. May 2015. Performed By: #### Ron OLSEN, DHEA #### [facility] CLIA [id number] [address] [place] [address] T3Free SerPl-mCncon 02-21-20 23 Free T3 [Mass/Vol] 3.0 pg/mL Normal 2.3-4.1 [facility] Comment on above: Order Comment: Speci men Type: BLOOD SPECIMEN Ordering Facility: External Submitter Address: , , Performed By: #### D MIKE, 2243-4, 3051-0, 2839-9 #### [facility] CLIA [id number] [address] [place] [address] [place] T4 Free SerPl-mCncon 023 Free T4 [Mass/Vol] 1.2 ng/dL Normal 0.9-1.7 [facility] Comment on above: Order Comment: Spec men Type: BLOOD SPECIMEN Ordering Facility: External Submitter Address: , , Performed By: #### 6 768-6, 2324-2 #### [facility] CLIA [id number] [address] [place] [address] [place] TESTOSTERONE, FREE AND TOTAL on 02-20-2023 TESTOSTERONE, FREE, S 0.74 ng/dL Normal <0.13-0.92 [facility] Comment on above: Order Comment: Speci men Type: BLOOD SPECIMEN Ordering Facility: External Submitter Address: , , Result Comment: ADDITIONAL INFORMATION This test was developed and its performance characteristics determined by [facility] in a manner consistent with CLIA requirements. This test has not been cleared or approved by the U.S. Food and Drug Administration. Performed By: #### 6 768-6, 2324-2 #### [facility] CLIA [id number] [address] [place] [address] [place] TESTOSTERONE, TOTAL, S 23 ng/dL Normal 8-60 [facility] Comment on above: Order Comment: Speci men Type: BLOOD SPECIMEN Ordering Facility: External Submitter Address: , , Result Comment: ADDITIONAL INFORMATION Testing performed by Liquid Chromatography-Tandem Mass Spectrometry (LC-MS/MS). This test was developed and its performance characteristics determined by [facility] in a manner consistent with CLIA requirements. This test has not been cleared or approved by the U.S. Food and Drug Administration. Test Performed by: [facility] [address] [place] [address] Coating Engineer: Aden Solomon M.D. Ph.D.; CLIA# [id number] Performed By: #### 6 768-6, 2324-2 #### [facility] CLIA [id number] [address] [place] [address] [place] TSH SerPl-aCncon 02-20-2023 TSH Qn 2.470 m[IU]/L Normal 0.270-4.20 0 [facility] Comment on above: Order Comment: Speci men Type: BLOOD SPECIMEN Ordering Facility: External Submitter Address: , , Performed By: #### 6 768-6, 2324-2 #### [facility] CLIA [id number] [address] [place] [address] [place] No Panel Informationon 03-28 Factor V Leiden Mutation Comment . [facility] Work Phone: Comment on above: Result: c.1601G>A (p .[id number]) - Not DetectedThis result is not associated with an increased risk for venousthromboembolism. See Additional Clinical Information andComments.Additional Clinical Information:Venous thromboembolism is a multifactorial diseaseinfluenced by genetic, environmental, and circumstantialrisk factors. The c.1601G>A (p. Vgd602Hsm) variant in theF5 gene, commonly referred to as Factor V Leiden, is agenetic risk factor for venous thromboembolism.Heterozygous carriers of this variant have a 6- to 8-foldincreased risk for venous thromboembolism. Individualshomozygous for this variant (ie, with a copy of the varianton each chromosome) have an approximately 80-fold increasedrisk for venous thromboembolism. Individuals who carry carol c.*97G>A variant in the F2 gene and Factor V Leiden havean approximately 20-fold increased risk for venousthromboembolism. Risks are likely to be even higher in morecomplex genotype combinations involving the F2 c.*97G>Avariant and Factor V Leiden (PMID: [id number]). Additionalrisk factors include but are not limited to: deficiency ofprotein C, protein S, or antithrombin III, age, male sex,personal or family history of deep vein thromboembolism,smoking, surgery, prolonged immobilization, malignantneoplasm, tamoxifen treatment, raloxifene treatment, oralcontraceptive use, hormone replacement therapy, andpregnancy. Management of thrombotic risk and thromboticevents should follow established guidelines and fit theclinical circumstance. This result cannot predict theoccurrence or recurrence of a thrombotic event.Comment:Genetic counseling is recommended to discuss thepotential clinical implications of positive results, aswell as recommendations for testing family members.Genetic Coordinators are available for health careproviders to discuss results at [phone]).Test Details:Variant Analyzed: c.1601G>A (p. [id number]), referred toas Factor V LeidenMethods/Limitations:DNA analysis of the F5 gene (NM_000130.5) was performedby PCR amplification followed by restriction enzymeanalysis. The diagnostic sensitivity is >99%. Results mustbe combined with clinical information for the most accurateinterpretation. Molecular-based testing is highly accurate,but as in any laboratory test, diagnostic errors may occur.False positive or false negative results may occur forreasons that include genetic variants, blood transfusions,bone marrow transplantation, somatic or tissue-specificmosaicism, mislabeled samples, or erroneous representationof family relationships.This test was developed and its performance characteristicsdetermined by [employer]. It has not been cleared orapproved by the Food and Drug Administration.References:Jose S, Marla AK, Santos R, Emre WW, Luis JH; ACMGProfessional Practice and Guidelines Committee. Addendum:[employer] consensus statement onfactor V Leiden mutation testing. Mary Med. 2020Oct 29.doi: 10.1038/[id number]. PMID: 14012600.Bird TEE. Factor V Leiden Thrombophilia. 1998January 07[Updated 2018 Aug 30]. In: Tony MP, [place] [facility], Pavan RA,et al., editors. Leta([place]) [Internet]. [place] ([place]):[facility]; 0277-3921. Availablefrom: https://www.ncbi.nlm.nih.gov/books/UCQ3092/Hemant S, Marla AK, Nur X, Tam B, Jerson EB, Josefa P,Mayela CS; [facility] Laboratory Stick Welder Committee.Venous thromboembolism laboratory testing (factor V Leidenand factor II c.*97G>A), 2018 update: a technical standardof the [employer](ACMG). Mary Med. 2018 Jul;20(12):9748-2474. doi:10.1038/[id number]-t. Epub 2017May 31. PMID: 34286206.Diandra Amezquita, PhD, Myesha Pinon, PhDToni Lombardi, PhD, Shania Rivera, PhD, Pradeep Roberts, PhD, FACVENESSA Dixon, PhD, Mario Knutson, PhD, Navneet Salgado, PhD, FACMGPerformed at: TG - [facility] [id number] [place], [place] [id number] Director: Danya Zhu [facility], Phone: [phone] Vital Signs Date Time Vital Sign Value Performing Clinician Kym hill 02-04-2025 11:25-0400 Body height 165.[address] Dallas Ness MD Work Phone: [facility] 02-04-2025 11:25-0400 Body mass index (BMI) [Ratio] 30.9 kg/m2 Dr. Dallas Ness MD Work Phone: [facility] 02-04-2025 11:25-0400 Body weight 84.[address] Dallas Ness MD Work Phone: [facility] 02-04-2025 11:25-0400 Diastolic blood pressure 81 mm[Hg] Dr. Dallas Ness MD Work Phone: [facility] 02-04-2025 11:25-0400 Heart rate 84 /min Dr. Dallas Ness MD Work Phone: [facility] 02-04-2025 11:25-0400 Systolic blood pressure 113 mm[Hg] Dr. Dallas Ness MD Work Phone: [facility] 01-01-2025 13:53-0400 Body mass index (BMI) [Ratio] 32 kg/m2 Dr. Dallas Ness MD Work Phone: [facility] 01-01-2025 13:53-0400 Body weight 87.[address] Dallas Ness MD Work Phone: [facility] 01-01-2025 13:53-0400 Diastolic blood pressure 88 mm[Hg] Dr. Dallas Ness MD Work Phone: [facility] 01-01-2025 13:53-0400 Heart rate 88 /min Dr. Dallas Ness MD Work Phone: [facility] 01-01-2025 13:53-0400 Systolic blood pressure 134 mm[Hg] Dr. Dallas Ness MD Work Phone: [facility] 12-23-2024 13:02-0400 Body height 165.1 cm Kevin Hutchison MD Work Phone: [facility] 12-23-2024 13:02-0400 Body mass index (BMI) [Ratio] 31.62 kg/m2 Kevin Hutchison MD Work Phone: [facility] 12-23-2024 13:02-0400 Body weight 86.18 kg Kevin Hutchison MD Work Phone: [facility] 12-23-2024 13:02-0400 Diastolic blood pressure 88 mm[Hg] Kevin Hutchison MD Work Phone: [facility] 12-23-2024 13:02-0400 Heart rate 99 /min Kevin Hutchison MD Work Phone: [facility] 12-23-2024 13:02-0400 SaO2% (BldA) [Mass fraction] 98 % Kevin Hutchison MD Work Phone: [facility] 12-23-2024 13:02-0400 Systolic blood pressure 122 mm[Hg] Kevin Hutchison MD Work Phone: [facility] 12-12-2024 17:09-0400 Body mass index (BMI) [Ratio] 31.28 kg/m2 Javier Dyko PA-C Work Phone: [facility] 12-12-2024 17:09-0400 Body temperature 98.91 [degF] Javier Dyko PA-C Work Phone: [facility] 12-12-2024 17:09-0400 Body weight 85.28 kg Javier Dyko PA-C Work Phone: [facility] 12-12-2024 17:09-0400 Diastolic blood pressure 77 mm[Hg] Javier Dyko PA-C Work Phone: [facility] 12-12-2024 17:09-0400 Heart rate 90 /min Javier Dyko PA-C Work Phone: [facility] 12-12-2024 17:09-0400 Respiratory rate 18 /min Javier Dyko PA-C Work Phone: [facility] 12-12-2024 17:09-0400 SaO2% (BldA) [Mass fraction] 97 % Javier Dyko PA-C Work Phone: [facility] 12-12-2024 17:09-0400 Systolic blood pressure 117 mm[Hg] Javier Dyko PA-C Work Phone: [facility] 12-03-2024 14:10-0400 Body mass index (BMI) [Ratio] 32 kg/m2 Dr. Dallas Ness MD Work Phone: [facility] 12-03-2024 14:10-0400 Body weight 87.[address] Dallas Ness MD Work Phone: [facility] 12-03-2024 14:10-0400 Diastolic blood pressure 85 mm[Hg] Dr. Dallas Ness MD Work Phone: [facility] 12-03-2024 14:10-0400 Heart rate 99 /min Dr. Dallas Ness MD Work Phone: 4(508)572-500387 [place] [address] 12-03-2024 14:10-0400 Systolic blood pressure 122 mm[Hg] Dr. Dallas Ness MD Work Phone: 8(011)556-419095 [place] [address] 10-30-2024 14:22-0500 Body height 165.[address] Dallas Ness MD Work Phone: 6(015)327-449195 [place] [address] 10-30-2024 14:22-0500 Body mass index (BMI) [Ratio] 32 kg/m2 Dr. Dallas Ness MD Work Phone: 3(754)978-625895 [place] [address] 10-30-2024 14:22-0500 Body weight 87.[address] Dallas Ness MD Work Phone: 5(336)836-170495 [place] [address] 10-30-2024 14:22-0500 Diastolic blood pressure 82 mm[Hg] Dr. Dallas Ness MD Work Phone: 4(357)484-156487 [place] [address] 10-30-2024 14:22-0500 Heart rate 96 /min Dr. Dallas Ness MD Work Phone: 5(290)275-578887 [place] [address] 10-30-2024 14:22-0500 Systolic blood pressure 120 mm[Hg] Dr. Dallas Ness MD Work Phone: 9(575)242-206395 [place] [address] 09-23-2024 11:04-0500 Body mass index (BMI) [Ratio] 32 kg/m2 Dr. Dallas Ness MD Work Phone: 8(545)762-550695 [place] [address] 09-23-2024 11:04-0500 Body weight 87.[address] Dallas Ness MD Work Phone: 5(005)024-842895 [place] [address] 09-23-2024 11:04-0500 Diastolic blood pressure 80 mm[Hg] Dr. Dallas Ness MD Work Phone: [facility] 09-23-2024 11:04-0500 Heart rate 93 /min Dr. Dallas Ness MD Work Phone: [facility] 09-23-2024 11:04-0500 Systolic blood pressure 125 mm[Hg] Dr. Dallas Ness MD Work Phone: [facility] 09-10-2024 12:23-0500 Body mass index (BMI) [Ratio] 31.8 kg/m2 Dr. Dallas Ness MD Work Phone: 6(059)914-206887 [place] [address] 09-10-2024 12:23-0500 Body weight 86.[address] Dallas Ness MD Work Phone: [facility] 09-10-2024 12:23-0500 Diastolic blood pressure 75 mm[Hg] Dr. Dallas Ness MD Work Phone: [facility] 09-10-2024 12:23-0500 Heart rate 89 /min Dr. Dallas Ness MD Work Phone: [facility] 09-10-2024 12:23-0500 Systolic blood pressure 114 mm[Hg] Dr. Dallas Ness MD Work Phone: [facility] 07-31-2024 14:05-0500 Body mass index (BMI) [Ratio] 31.2 kg/m2 Dr. Dallsa Ness MD Work Phone: [facility] 07-31-2024 14:05-0500 Body weight 85.[address] Dallas Ness MD Work Phone: [facility] 07-31-2024 14:05-0500 Diastolic blood pressure 85 mm[Hg] Dr. Dallas Ness MD Work Phone: [facility] 07-31-2024 14:05-0500 Heart rate 82 /min Dr. Dallas Ness MD Work Phone: [facility] 07-31-2024 14:05-0500 Systolic blood pressure 132 mm[Hg] Dr. Dallas Ness MD Work Phone: [facility] 07-30-2024 11:13-0500 Body mass index (BMI) [Ratio] 31.1 kg/m2 Dr. Dallas Ness MD Work Phone: [facility] 07-30-2024 11:13-0500 Body weight 84.[address] Dallas Ness MD Work Phone: [facility] 07-30-2024 11:13-0500 Diastolic blood pressure 72 mm[Hg] Dr. Dallas Ness MD Work Phone: [facility] 07-30-2024 11:13-0500 Systolic blood pressure 130 mm[Hg] Dr. Dallas Ness MD Work Phone: [facility] 04-24-2023 15:05-0400 Body height 165.1 cm Kamron Smith MD Work Phone: [facility] 04-24-2023 15:05-0400 Body weight 83.92 kg Kamron Smith MD Work Phone: [facility] 04-24-2023 15:05-0400 Diastolic blood pressure 77 mm[Hg] Kamron Smith MD Work Phone: [facility] 04-24-2023 15:05-0400 Heart rate 71 /min Kamron Smith MD Work Phone: [facility] 04-24-2023 15:05-0400 SaO2% (BldA) [Mass fraction] 99 % Kamron Smith MD Work Phone: [facility] 04-24-2023 15:05-0400 Systolic blood pressure 128 mm[Hg] Kamron Smith MD Work Phone: [facility] Encounters Encounter Date Encounter Type Care Provider Facility Start: 02-04-2025 End: 02-04-2025 [facility] Facility:[facility] Start: 02-04-2025 End: 02-04-2025 Patient encounter procedure Samantha BIRMINGHAMC -[facility] Work Phone: Start: 01-13-2025 End: 01-13-2025 ambulatory KEVIN HUTCHISON Facility:[id number] Start: 01-07-2025 End: 01-07-2025 ambulatory KEVIN HUTCHISON Facility:[id number] Start: 01-07-2025 End: 01-07-2025 Patient encounter procedure Hst [facility] Work Phone: [facility] Comment on above: BUSTER (obstructive sle ep apnea) (Primary Dx) Start: 01-02-2025 End: 01-02-2025 ambulatory KEVIN HUTCHISON Facility:[id number] Start: 01-01-2025 End: 01-01-2025 Patient encounter procedure Samantha DINH -[facility] Work Phone: Start: 01-01-2025 End: 01-01-2025 ambulatory Samantha Lowe Facility:[facility] Start: 12-24-2024 End: 12-24-2024 Chart abstracting Sharee You [facility] Comment on above: Sleep Apnea Start: 12-23-2024 End: 12-23-2024 ambulatory KEVIN HUTCHISON Facility:[id number] Start: 12-23-2024 End: 12-23-2024 Office consultation new/estab patient 80 min Kevin Hutchison MD Work Phone: [facility] Comment on above: Interstitial lung di sease (HCC) (Primary Dx); Dyspnea on exertion; BUSTER (obstructive sleep apnea); Interstitial pulmonary disease (HCC); Raynaud's disease without gangrene; Gastroesophageal reflux disease without esophagitis; Subacute cough Start: 12-23-2024 End: 12-23-2024 ambulatory KEVIN HUTCHISON Facility:[id number] Start: 12-18-2024 End: 12-19-2024 Emergency department patient visit DALLAS NESS Facility:[id number] Start: 12-18-2024 End: 12-18-[address] Dallas Ness MD -[facility] [place] Work Phone: Start: 12-18-2024 End: 12-18-2024 ambulatory Dallas Ness Facility:[facility] Start: 12-12-2024 End: 12-12-2024 Patient encounter procedure Javier Diaz PA-C Work Phone: [facility] Comment on above: Bronchitis (Primary Dx) Start: 12-12-2024 End: 12-12-2024 ambulatory DALLAS Lo [facility] Facility:[id number] Start: 12-03-2024 End: 12-03-2024 Patient encounter procedure Samantha DINH -[facility] Work Phone: Start: 12-03-2024 End: 12-03-2024 ambulatory Dallas Ness Facility:[facility] Start: 11-05-2024 End: 11-05-[address] Dallas Ness MD Work Phone: [facility] Work Phone: Start: 11-05-2024 End: 11-05-[address] [facility] Start: 11-05-2024 End: 11-05-2024 ambulatory Dallas Ness Facility:[facility] Start: 10-30-2024 End: 10-30-2024 Patient encounter procedure Samantha DINH -[facility] Work Phone: Start: 10-30-2024 End: 10-30-2024 ambulatory Dallas Ness Facility:[facility] Start: 09-25-2024 End: 09-25-2024 ambulatory Dallas Ness Facility:[facility] Start: 09-25-2024 End: 09-25-2024 Non-patient / Non-visit Dr. Naty Addison MD -[facility] Work Phone: Start: 09-25-2024 End: 09-25-2024 Patient encounter procedure Samantha DINH -Pulmonary Services/Neurology Work Phone: Start: 09-25-2024 End: 09-25-2024 ambulatory Samantha Lowe Facility:[facility] Start: 09-23-2024 End: 09-23-[address] Nancy Booth MD -[facility] Work Phone: Start: 09-23-2024 End: 09-23-2024 ambulatory [facility] Facility:[facility] Start: 09-19-2024 End: 09-19-[address] Dallas Ness MD -Lab, [facility] Start: 09-19-2024 End: 09-19-2024 ambulatory [facility] Facility:[facility] Start: 09-10-2024 End: 09-10-2024 Patient encounter procedure Samantha Lowe [employer]IVER-C -[facility] Work Phone: Start: 09-10-2024 End: 09-10-2024 [facility] Start: 07-31-2024 End: 07-31-2024 Patient encounter procedure Samantha Lowe [employer] DRIVER-C -[facility] Work Phone: Start: 07-31-2024 End: 07-31-2024 ambulatory Samantha Lowe Facility:[facility] Start: 07-30-2024 End: 07-30-2024 Patient encounter procedure Gini Gorman [employer] DRIVER-C -[facility] Work Phone: Start: 07-30-2024 End: 07-30-2024 ambulatory [facility] [place] Facility:[facility] Start: 07-30-2024 End: 07-30-2024 ambulatory [facility] Facility:[facility] Start: 07-17-2024 End: 07-17-2024 Patient encounter procedure Gini Gorman STRAIGHT TRUCK DRIVER-C -[facility] Work Phone: Start: 07-17-2024 End: 07-17-2024 ambulatory [facility] Facility:[facility] Start: 07-02-2024 End: 07-02-2024 ambulatory [facility] Facility:[facility] Start: 07-02-2024 End: 07-02-2024 ambulatory Dallas Ness Facility:[facility] Start: 06-10-2024 End: 06-10-2024 ambulatory Dallas Ness Facility:[facility] Start: 04-01-2024 End: 04-01-2024 ambulatory Dallas Ness Facility:[facility] Start: 02-01-2024 End: 02-01-2024 ambulatory DALLAS NESS Facility:[facility] Start: 01-31-2024 ambulatory DALLAS NESS Fa cility:[facility] Start: 11-07-2023 End: 11-07-2023 ambulatory DALLAS NESS Facility:[facility] Start: 05-25-2023 End: 05-25-2023 ambulatory DALLAS NESS Facility:[facility] Start: 04-27-2023 End: 04-27-2023 ambulatory [facility] Work Phone: Start: 04-27-2023 End: 04-27-2023 Patient encounter procedure [facility] Work Phone: Start: 04-25-2023 End: 04-25-2023 ambulatory [facility] Work Phone: Start: 04-25-2023 End: 04-25-2023 Patient encounter procedure [facility] Work Phone: Start: 04-24-2023 End: 04-25-2023 ambulatory DALLAS NESS Facility:[facility] Start: 04-24-2023 End: 04-24-2023 Patient encounter procedure Kamron Smith MD Work Phone: Gastroenterology Comment on above: Family history of pa ncreatic cancer (Primary Dx) Start: 03-22-2023 Telephone encounter Tanja Romero APRN.CNP Work Phone: [facility] Comment on above: Results Start: 03-20-2023 End: 03-20-2023 ambulatory DALLAS NESS Facility:[facility] Start: 03-20-2023 End: 03-20-2023 ambulatory [facility] Work Phone: Start: 03-20-2023 End: 03-20-[address] [facility] Start: 03-19-2023 End: 03-19-2023 ambulatory ADLLAS NESS Facility:[facility] Start: 02-20-2023 End: 02-20-2023 ambulatory JAMIE Daysi FINCH Facility:[facility] Start: 07-24-2022 Telephone encounter Cheryl mcgovern [facility] Work Phone: [facility] Comment on above: Results Start: 06-30-2022 End: 06-30-2022 ambulatory Cheryl Iglesias [facility] Work Phone: [facility] Comment on above: Family history of pa ncreatic cancer (Primary Dx) Start: 06-30-2022 End: 06-30-2022 Telemedicine consultation with patient Cheryl Iglesias [facility] Work Phone: [facility] Start: 03-28-2022 End: 03-28-[address] [facility] Start: 03-21-2022 End: 03-21-2022 Patient encounter procedure [facility] Procedures Date Procedure Procedure Detail Performing Clinician Start: 12-18-2024 D-dimer assay, quantitative Dr. Dallas Ness MD Work Phone: Comment on above: CRITICAL VALUE ALMANZA D TO DR. DALLAS NESS12/18/24 1844 Gris Laura.RESULTS READ BACK BY SAME. D-Dimer ELEVATED (>0.49): Additional studies and clinicalassessments are indicated to conclude diagnosis of:Deep Vein Thrombosis (DVT) or Pulmonary Embolism (PE) Start: 12-18-2024 X-ray of chest, PA a nd lateral views Dr. Dallas Ness MD Work Phone: Start: 11-05-2024 Urnls dip stick/tabl et reagent auto microscopy Dr. Dallas Ness MD Work Phone: Start: 07-17-[address] Mariely Ness MD Work Phone: Start: 04-27-2023 Ultrasonography of breast Start: 04-25-2023 Screening mammography Start: 11-24-2022 Lipid 1996 panel - S lesia or Plasma Javier Diaz PA-C Work Phone: Start: 03-21-2022 Screening mammography Plan of Treatment Date Care Activity Detail Author Start: 01-06-2030 Urine microalbumin profile DTaP,Tdap,Td Vaccine (2 - Td or Tdap) [facility] Start: 12-19-2027 Diabetes Screening Diabetes Screening [facility] Start: 11-25-2027 Lipid panel Lipid Screening [facility] Start: 11-25-2027 LIPID SCREEN LIPID SCREEN [facility] Start: 11-06-2026 Diabetes Screening Diabetes Screening [facility] Start: 11-24-2025 DIABETES SCREEN DIABETES SCREEN [facility] Start: 02-25-2025 End: 02-25-2025 Patient encounter procedure 02/25/2025 1:40 PM EDT Office Visit Cm Melendez [address] [id number] Kevin Hutchison MD [address] [place] [address] [place] [address] 2 month Follow Up / PFT, CT, HSAT Cm Melendez Comment on above: 2 month Follow Up / PFT, CT, HSAT Start: 02-23-2025 End: 02-23-2025 Patient encounter procedure 02/23/2025 9:30 AM EDT Appointment Radiology CT Scan [address] [place] [place] [address] CT CHEST WO IVCON Radiology CT Scan Comment on above: CT CHEST WO IVCON Start: 02-22-2025 End: 01-22-2026 CT Chest WO contrast CT CHEST WO IVCON Radiology Routine Interstitial pulmonary disease (HCC) Expected: 02/22/2025, Expires: 01/22/2026 [facility] Comment on above: Expected: 02/22/2025, Expires: Start: 02-19-2025 End: 02-19-2025 Patient encounter procedure 02/19/2025 11:00 AM EDT Appointment [facility] [address] [place] [address] SANDERS,ECHO,OFFICE CALLING,ORDER IN EPIC [facility] Comment on above: SANDERS,ECHO,OFFICE CALLING,ORDER IN THE MEDICAL CENTER Start: 01-13-2025 End: 01-13-2025 ambulatory [facility] Comment on above: PFT Start: 01-02-2025 End: 01-02-2025 Patient encounter procedure 01/02/2025 8:00 AM EDT Office Visit [facility] [place] [address] [place] [address] [place] [address] HSAT [facility] Comment on above: HSAT Start: 12-30-2024 End: 12-23-2025 HOME SLEEP APNEA TEST (HSAT) HOME SLEEP APNEA TEST (HSAT) Procedures Routine BUSTER (obstructive sleep apnea) Expected: 12/30/2024, Expires: 12/23/2025 [facility] Comment on above: Expected: 12/30/2024, Expires: Start: 12-23-2024 End: 03-24-2025 Aldolase [Enzymatic activity/volume] in Serum or Plasma [facility] Comment on above: Expected: 12/23/2024, Expires: Start: 12-23-2024 End: 03-24-2025 [facility] Comment on above: Expected: 12/23/2024, Expires: Start: 12-23-2024 End: 03-24-2025 TIBURCIO BY IFA SCREEN [facility] Comment on above: Expected: 12/23/2024, Expires: Start: 12-23-2024 End: 03-24-2025 ANTI NEUTRO CYTO AB [facility] Comment on above: Expected: 12/23/2024, Expires: Start: 12-23-2024 End: 03-24-2025 Cyclic citrullinated peptide IgG Ab [Units/volume] in Serum or Plasma [facility] Comment on above: Expected: 12/23/2024, Expires: Start: 12-23-2024 End: 03-24-2025 DNA ANTIBODY DS BLD [facility] Comment on above: Expected: 12/23/2024, Expires: Start: 12-23-2024 End: 03-24-2025 Extractable nuclear Ab panel - Serum [facility] Comment on above: Expected: 12/23/2024, Expires: Start: 12-23-2024 End: 03-24-2025 HYPERSEN PNEUMON AB [facility] Comment on above: Expected: 12/23/2024, Expires: Start: 12-23-2024 End: 03-24-2025 HYPERSENSITIVITY PNEUMONITIS EVALUATION [facility] Comment on above: Expected: 12/23/2024, Expires: Start: 12-23-2024 End: 03-24-2025 IgE [Units/volume] in Serum or Plasma [facility] Comment on above: Expected: 12/23/2024, Expires: Start: 12-23-2024 End: 03-24-2025 POLYMYOSITIS AND DERMATOMYOSITIS PANEL [facility] Comment on above: Expected: 12/23/2024, Expires: Start: 12-23-2024 End: 03-24-2025 RNA POLYMERASE III AB [facility] Comment on above: Expected: 12/23/2024, Expires: Start: 12-23-2024 End: 03-24-2025 TH/TO ANTIBODY [facility] Comment on above: Expected: 12/23/2024, Expires: Start: 04-27-2024 Covid-19 Vaccine ( season) Covid-19 Vaccine ( season) [facility] Start: 05-24-2023 DIABETES SCREEN DIABETES SCREEN [facility] Start: 04-27-2023 Influenza vaccination INFLUENZA (#1) [facility] Start: 08-27-2022 DEPRESSION ASSESSMENT DEPRESSION ASSESSMENT [facility] Start: 04-27-2022 Influenza vaccination INFLUENZA (#1) [facility] Start: 01-03-2022 Pneumococcal Vaccine: 50+ (1 of 1 - PCV) Pneumococcal Vaccine: 50+ (1 of 1 - PCV) [facility] Start: 01-03-2022 SHINGRIX VACCINE (1 of 2) SHINGRIX VACCINE (1 of 2) [facility] Start: 10-19-2021 COVID-19 VACCINE (4 - Booster for Moderna series) COVID-19 VACCINE (4 - Booster for Moderna series) [facility] Start: 10-19-2021 COVID-19 VACCINE (4 - Moderna series) COVID-19 VACCINE (4 - Moderna series) [facility] Start: 08-27-2021 DEPRESSION ASSESSMENT DEPRESSION ASSESSMENT [facility] Start: 01-03-2017 COLOGUARD (FIT-DNA) COLOGUARD (FIT-DNA) [facility] Start: 01-03-2017 Colonoscopy COLONOSCOPY [facility] Start: 01-03-2017 COLORECTAL CANCER SCREENING COLORECTAL CANCER SCREENING [facility] Start: 01-03-[address] COLONOGRAPHY [facility] Start: 01-03-2017 FECAL OCCULT BLOOD FECAL OCCULT BLOOD [facility] Start: 01-03-2017 LIPID SCREEN LIPID SCREEN [facility] Start: 01-03-2017 Screening for malignant neoplasm of colon [facility] Start: 01-03-2017 SIGMOIDOSCOPY SIGMOIDOSCOPY [facility] Start: 2012 Mammography MAMMOGRAM [facility] Start: 2012 Screening for malignant neoplasm of breast Mammogram Screening [facility] Start: 01-03-2002 HPV TESTING HPV TESTING [facility] Start: 01-03-1993 PAP TESTING PAP TESTING [facility] Start: 01-03-1993 Screening for malignant neoplasm of cervix Cervical Cancer Screening [facility] Start: 01-03-1991 Hepatitis B Vaccine (1 of 3 - 19+ 3-dose series) Hepatitis B Vaccine (1 of 3 - 19+ 3-dose series) [facility] Start: 01-03-1991 Urine microalbumin profile DTAP,TDAP,TD (1 - Tdap) [facility] Start: 01-03-1990 Anxiety Screening Anxiety Screening [facility] Start: 01-03-1990 Depression Screening Depression Screening [facility] Start: 01-03-1990 HEPATITIS C SCREENING HEPATITIS C SCREENING [facility] Start: 01-03-1990 Hepatitis C screening Hepatitis C Screening [facility] Start: 01-03-1990 HIV SCREENING HIV SCREENING [facility] Start: 01-03-1990 HIV screening HIV Screening [facility] Start: 1970 HEPATITIS B (1 of 3 - 3-dose series) HEPATITIS B (1 of 3 - 3-dose series) [facility] End: 12-23-2025 Echocardiography ECHO Cardiology Routine Dyspnea on exertion 1 Occurrences starting 12/23/2024 until 12/23/2025 [facility] Comment on above: 1 Occurrences starting 12/23/2024 until 12/23/2025 Estradiol (E2) [Mass/volume] in Serum or Plasma [facility] Follitropin and Lutr opin panel [Units/volume] - Serum or Plasma [facility] End: 01-22-2026 LUNG DIFFUSION CAPACITY (DLCO) LUNG DIFFUSION CAPACITY (DLCO) PFT Routine Interstitial lung disease (HCC) 1 Occurrences starting 12/23/2024 until 01/22/2026 [facility] Comment on above: 1 Occurrences starting 12/23/2024 until 01/22/2026 End: 01-22-2026 LUNG VOLUMES LUNG VOLUMES PFT Routine Interstitial lung disease (HCC) 1 Occurrences starting 12/23/2024 until 01/22/2026 [facility] Comment on above: 1 Occurrences starting 12/23/2024 until 01/22/2026 End: 05-23-2024 MRI 3D POST PROCESSING MRI 3D POST PROCESSING Radiology Routine Family history of pancreatic cancer 1 Occurrences starting 04/24/2023 until 05/23/[address] [facility] Work Phone: Comment on above: 1 Occurrences starting 04/24/2023 until 05/23/2024 End: 05-23-2024 Mri abdomen w/o & w/contrast material MRI PANC/GONZALEZ WO/W IVCON Radiology Routine Family history of pancreatic cancer 1 Occurrences starting 04/24/2023 until 05/23/[address] [facility] Work Phone: Comment on above: 1 Occurrences starting 04/24/2023 until 05/23/2024 End: 01-22-2026 NITRIC OXIDE, EXHALED NITRIC OXIDE, EXHALED PFT Routine Interstitial lung disease (HCC) 1 Occurrences starting 12/23/2024 until 01/22/2026 [facility] Comment on above: 1 Occurrences starting 12/23/2024 until 01/22/2026 End: 01-22-2026 RF Esophagus Views W contrast PO XR ESOPHAGRAM W DOUBLE CONTRAST Radiology Routine Gastroesophageal reflux disease without esophagitis 1 Occurrences starting 12/23/2024 until 01/22/2026 [facility] Comment on above: 1 Occurrences starting 12/23/2024 until 01/22/2026 End: 01-22-2026 SIX MINUTE WALK SIX MINUTE WALK PFT Routine Interstitial lung disease (HCC) 1 Occurrences starting 12/23/2024 until 01/22/2026 [facility] Comment on above: 1 Occurrences starting 12/23/2024 until 01/22/2026 End: 01-22-2026 SPIROMETRY - BASELINE AND POST DILATOR SPIROMETRY - BASELINE AND POST DILATOR PFT Routine Interstitial lung disease (HCC) 1 Occurrences starting 12/23/2024 until 01/22/[address] [facility] Work Phone: Comment on above: 1 Occurrences starting 12/23/2024 until 01/22/2026 [facility] Immunizations Immunization Date Immunization Notes Care Provider [facility] 11-18-2020 [place] [facility] 10-21-2020 [facility] [facility] Payers Date Payer Category Payer Self-pay [id number] 2022 Private Health Insurance [id number] 2022 Unknown [id number] 2022 Unknown [id number] 3 Unknown [facility] [id number] Unknown [id number] Unknown [id number] Unknown [id number] [id number]2 Unknown [id number] [id number]2 Unknown [id number] 2.16.840.1.316912.3.579.2.462 Unknown [id number] 2.16.840.1.741991.3.579.2.462 Unknown [id number] 2.16.840.1.151092.3.579.2.462 Unknown [id number] 2.16.840.1.873948.3.579.2.462 Unknown [id number] 2.16.840.1.046857.3.579.2.462 Unknown [id number] [id number] Unknown [id number] 2.840.1.642888.3.579.2.462 Unknown [id number] 2.840.1.714139.3.579.2.462 Unknown [id number] 2.16.840.1.198209.3.579.2.462 Unknown [id number] 2.16.840.1.355049.3.579.2.462 Unknown [id number] 2.16840.1.211751.3.579.2.462 Unknown [id number] 2.840.1.432641.3.579.2.462 Unknown [id number] 2.840.1.243345.3.579.2.462 Unknown [id number] 2.840.1.756775.3.579.2.462 Unknown [id number] Social History Date Type Detail Facility Tobacco smoking status MOIS Unknown if ever smoked [facility] Work Phone: Start: 1970 Sex Assigned At Female [facility] Start: 06-13-2019 Tobacco smoking status NHIS Unknown if ever smoked [facility] Start: 06-13-2019 None [facility] Start: 06-13-2019 Spouse/ Signif icant Other [facility] Start: 08-19-2017 End: 02-04-2025 Tobacco smoking status NHIS Never smoked tobacco [facility] Start: 08-19-2017 End: 12-12-2024 Tobacco use and exposure Smokeless tobacco non-user [facility] Start: 05-20-2018 End: 12-23-2024 Alcohol intake Current drinker of alcohol (finding) [facility] Start: 03-11-2009 [facility] Comment [facility] Start: 1970 Sex Assigned At Not on file [facility] Start: 07-03-2022 End: 12-19-2024 History of Social function [facility] Start: 07-03-2022 End: 12-19-2024 Tobacco use panel [facility] National Score (1-100), lower number is lower risk 66 [facility] Start: 11-14-2024 Sex Female (finding) [facility] NEGATED: Highlighted rowStart: NINF History of tobacco use Passive smoker [facility] Clinical Notes 06-30-2022 to 01-13-2025 Sharee You PCNA - 12/24/2024 12:28 PM Kevin Skaggs MD - 12/23/2024 1:15 PM Javier Rodriguez PA-C - 12/12/2024 5:44 PM EDT Note Date & Type Note Facility 01-13-2025 Note HNO ID: [id number] Author: DONITA PHILLIPS, STAN Service: ? Author Type: Registered Resp Therapist Type: Procedures Filed: 01/13/2025 15:10 Note Text: Oral Exhaled Nitric Oxide measurement (Previous Encounters) Test Date Oral Exhaled Nitric Oxide (ppb) 01/13/2025 27.0 Normal: Adult 5-20 ppb, pediatric (<12 years) 5-15 ppb High Normal / Increased: Adult 20-35 ppb, pediatric (<12 years) 15-25 ppb Moderately raised exhaled Nitric Oxide may indicate underlying inflammation, but note that: Cold and influenza can raise exhaled Nitric Oxide and some patients have higher baseline exhaled Nitric Oxide levels than others. High: Adult >35 ppb, pediatric (<12 years) >25 ppb Indicative of ongoing eosinophilic inflammation. Symptomatic patient likely to respond to steroids. Possible causes (if already on steroids): Poor compliance, recent allergen exposure, steroid dose inadequate, and steroid resistance. Note that not all patients with high exhaled nitric oxide levels display symptoms. [facility] 01-13-2025 Note HNO ID: [id number] Author: SHAHRIAR ARCHER DO Service: ? Author Type: Registered Resp Therapist Type: Procedures Filed: 01/13/2025 16:50 Note Text: Attestation signed by Shahriar Archer DO at 01/13/2025 4:50 PM The patient completed the six minute walk test with No stops. . The patient required Room Air to complete the test. 6-minute walk test was performed on room air. Patient ambulated 1505 feet in 6 minutes or 89.6% of predicted. Minimum oxygen saturation 100%. No evidence of oxygen desaturation noted with ambulation. Maximum heart rate 133 bpm. The distance the patient walked in six minutes is within the predicted normal range. This is the first time patient takes the six minute walk test. The patient perceived their dyspnea during the six minute walk test to be 4-Somewhat severe on the modified Lei scale. The patient perceived their fatigue during the six minute walk test to be 2-Slight on the modified Lei scale. I have reviewed the findings and made appropriate revisions as needed. SIGNATURE: Shahriar Archer DO PATIENT NAME: Sabine Ball DATE: January 13, 2025 TIME: 4:49 PM RESPIRATORY THERAPY SIX MINUTE WALK TEST OXIMETRY REPORT Six Minute Walk Test for This Encounter Oxygen Device Liters FIO2 SpO2% HR Activity Feet Speed (MPH) R/A 100 105 Resting R/A 100 133 Six Minute Walk 1505 2.9 R/A 100 99 Recovery General Information Height Weight Pulse Oximetry Site Pre Blood Pressure Post Recovery Blood Pressure 165 cm (5' 4.96) 85.9 kg (189 lb 6 oz) Forehead 119/84 127/85 _ Distance Walked (meters) Distance Walked (feet) Female Predicted Walk Distance (feet) Female Lower Limit of Normal (feet) Female % Predicted Total Duration Of The Stops (seconds) 458.72 1505 1680.12 1224.12 89.6 -- _ Lowest SpO2 During 6 Minute Walk Pre-Lei Dyspnea Rating Pre-Lei Fatigue Rating Post Lei Dyspnea Rating Post Lei Fatigue Rating Walking Assistance/O2 Supply Carrier 99 % 2 0 4 2 None Six Minute Walk Trend (Previous Encounters) None SIGNATURE: Donita Phillips TIPPING MACHINE OPERATOR AUTOMATIC PATIENT NAME: Sabine Ball DATE: January 13, 2025 TIME: 3:08 PM [facility] 12-24-2024 Note HNO ID: [id number] Author: SHAREE YOU PCNA Service: ? Author Type: Patient Care Sales Training Manager Type: Progress Notes Filed: 12/24/2024 12:29 Note Text: December 24, 2024 An order has been received for Home Sleep Apnea Test (HSAT) from [facility] Staff/Entertainment Reporter Staff Orders. Visit prep complete - Please refer to the sleep study order (under procedures tab) for protocol details and special instructions. The sleep study is scheduled for 01/02/2025. Insurance: Payor: MMO / Plan: MMO SUPERMED PPO / Product Type: PPO / Payer/Plan Subscr Sex Relation Sub. Ins. ID Effective Group Num 1. MMO - MMO SUP* ESTER BALLHENRY Do 1970 Female Self [id number] 07/[birth year]/22 [id number] [address] [place] [facility] 12-24-2024 History of Presen t illness Narrative December 24, 2024 An order has been received for Home Sleep Apnea Test (HSAT) from [facility] Staff/Entertainment Reporter Staff Orders. Visit prep complete - Please refer to the sleep study order (under procedures tab) for protocol details and special instructions. The sleep study is scheduled for 01/02/2025. Insurance: Payor: MMO / Plan: MMO SUPERMED PPO / Product Type: PPO / Payer/Plan Subscr Sex Relation Sub. Ins. ID Effective Group Num 1. MMO - MMO SUP* SABINE BALL 1970 Female Self [id number] [birth year] [id number] [address] [place] documented in this encounter [facility] 12-23-2024 Note HNO ID: [id number] Author: KEVIN HUTCHSION MD Service: ? Author Type: Physician Type: Progress Notes Filed: 12/23/2024 14:28 Note Text: [facility] Date: December 23, 2024 Patient Name: Sabine Ball Sabine Ball is a 54 year old yr old female, presents to the [facility] for evaluation of abnormal chest imaging identified during ER visit 12/18/2024. Patient was referred by PCP to ER due to elevated D-Dimer and a recent travel history. The patient had been having some lower back aches/pain that was concerning for a possible kidney stone, but this was ruled out. The patient's symptoms did persist, for some time, and are still present. She describes it mostly as a dull ache in her lower back. The patient then traveled to [place], and upon return had dry/non-productive cough and progressive dyspnea symptoms. She was seen by urgent care and diagnosed with a bronchitis, and started on a course of Doxycycline and a course of prednisone. Her symptoms did not improve. Her PCP ordered a D-dimer, which was positive, and prompted a referral to the ER to be evaluated for a pulmonary embolism. In the ER the patient had a CTA done, which showed some abnormalities in her lungs for which she was referred. Patient is a life-long non-smoker. 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 The patient's son is a structural welder, and she will occasionally go to his shop, and has had environmental exposures to welding fumes. Patient will feel an occasional retrosternal tightness with occasional sharpness on deep inspiraitons. It is mild in nature, and not there all the time. She has not had any wheezing. She denies purulent sputum or hemoptysis. The patient is able to walk 100 yd, and 1 flight of stairs without stopping. The patient does feel that she walks slower than others her same age due to her dyspena. Patient denies symptoms of lower extremity edema currently, but will have this occur on rare occasion. Patient denies snoring, Patient does have morning headaches on occasion and suffer from daytine sleepiness. The patient does suffer from GERD. The patient noted that albuterol and prednisone makes her symptoms worse. She is not currently taking any medicaitons for this. Patient has had flushing and shills over the last few weeks, but her temperature has been normal when taken. Patient denies any unplanned weight loss. Patient denies syncope/seizures. Patient is using phentermine for weight loss for roughly the last 6 months, and is using Estradiol due to menopause. Over the last 2 weeks, the patient has been using albuterol inhaler roughly 3 times per day over the last 3 - 4 days, and the patient feels that this has been helpful for her. She has not had any significant side effects from this. PRIMARY CARE PHYSICIAN: Dallas Ness MD REASON FOR CONSULT: No chief complaint on file. REQUESTING PHYSICIAN: Marlene Sparks PA-C My final recommendations will be communicated to the requesting health care provider by way of the shared medical record for internal providers or letter via the [employer] for external providers. Patient Entered Questionnaires: 04/20/2023 03/03/2021 12/07/2020 PROMIS Global Health - (T-Scores - the mean of general population = 50. Five points is a clinically meaningful difference.) Physical T-Score 44.9 50.8 47.7 Mental T-Score 50.8 53.3 53.3 03/03/2021 11/11/2019 PHQ-9 Score 0 2 5 to 9: mild depression 10 to 14: moderate depression 15 to 19: moderately severe depression >=20: severe depression Combined sensitivity and specificity are maximized at a cut-off score of 10 or above (29 studies, 6725 participants; sensitivity 0.88, 95% confidence interval 0.83 to 0.92; specificity 0.85, 0.82 to 0.88). BMJ 2019;365:l1476. Modified Medical Research [place] Dyspnea Scale (MMRC) On level ground I walk slower than people of the same age because of breathlessness, or have to stop for breath when walking at my own pace 2 Daily cough: No Daily Sputum: No IMMUNIZATIONS: Immunization History Administered Date(s) Administered COVID-19 original vaccine, full dose, monovalent (MODERNA) 10/21/2020 11/18/2020 08/24/2021 REVIEW OF SYSTEMS: GEN: Weight loss no, Night sweats no, Fever no. NEURO: Syncope no, Seizure no. EYES: [place], Cataracts no. NOSE: Nasal congestionno, epistaxis no. GI: Constipation Occasional, Heartburn yes, malnutrition (<80% of predicted body weight) not present. ENDO: Polyuria no, heat/cold intolerance no. CARD: Chest pain as per HPI : Urinary retention no. DERM: Skin rash or lesionsno. MSK: Joint swelling no. XAVIER: Easy b (more content not included)... [facility] 12-23-2024 History of Presen t illness Narrative Images from the original note were not included. [facility] Date: December 23, 2024 Patient Name: Sabine Ball Sabine Ball is a 54 year old yr old female, presents to the [facility] for evaluation of abnormal chest imaging identified during ER visit 12/18/2024. Patient was referred by PCP to ER due to elevated D-Dimer and a recent travel history. The patient had been having some lower back aches/pain that was concerning for a possible kidney stone, but this was ruled out. The patient's symptoms did persist, for some time, and are still present. She describes it mostly as a dull ache in her lower back. The patient then traveled to [place], and upon return had dry/non-productive cough and progressive dyspnea symptoms. She was seen by urgent care and diagnosed with a bronchitis, and started on a course of Doxycycline and a course of prednisone. Her symptoms did not improve. Her PCP ordered a D-dimer, which was positive, and prompted a referral to the ER to be evaluated for a pulmonary embolism. In the ER the patient had a CTA done, which showed some abnormalities in her lungs for which she was referred. Patient is a life-long non-smoker. 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 The patient's son is a structural welder, and she will occasionally go to his shop, and has had environmental exposures to welding fumes. Patient will feel an occasional retrosternal tightness with occasional sharpness on deep inspiraitons. It is mild in nature, and not there all the time. She has not had any wheezing. She denies purulent sputum or hemoptysis. The patient is able to walk 100 yd, and 1 flight of stairs without stopping. The patient does feel that she walks slower than others her same age due to her dyspena. Patient denies symptoms of lower extremity edema currently, but will have this occur on rare occasion. Patient denies snoring, Patient does have morning headaches on occasion and suffer from daytine sleepiness. The patient does suffer from GERD. The patient noted that albuterol and prednisone makes her symptoms worse. She is not currently taking any medicaitons for this. Patient has had flushing and shills over the last few weeks, but her temperature has been normal when taken. Patient denies any unplanned weight loss. Patient denies syncope/seizures. Patient is using phentermine for weight loss for roughly the last 6 months, and is using Estradiol due to menopause. Over the last 2 weeks, the patient has been using albuterol inhaler roughly 3 times per day over the last 3 - 4 days, and the patient feels that this has been helpful for her. She has not had any significant side effects from this. PRIMARY CARE PHYSICIAN: Dallas Ness MD REASON FOR CONSULT: No chief complaint on file. REQUESTING PHYSICIAN: Marlene Sparks PA-C My final recommendations will be communicated to the requesting health care provider by way of the shared medical record for internal providers or letter via the [employer] for external providers. Patient Entered Questionnaires: 04/20/2023 03/03/2021 12/07/2020 PROMIS Global Health - (T-Scores - the mean of general population = 50. Five points is a clinically meaningful difference.) Physical T-Score 44.9 50.8 47.7 Mental T-Score 50.8 53.3 53.3 03/03/2021 11/11/2019 PHQ-9 Score 0 2 5 to 9: mild depression 10 to 14: moderate depression 15 to 19: moderately severe depression >=20: severe depression Combined sensitivity and specificity are maximized at a cut-off score of 10 or above (29 studies, 6725 participants; sensitivity 0.88, 95% confidence interval 0.83 to 0.92; specificity 0.85, 0.82 to 0.88). BMJ 2019;365:l1476. Modified Medical Research [place] Dyspnea Scale (MMRC) On level ground I walk slower than people of the same age because of breathlessness, or have to stop for breath when walking at my own pace 2 Daily cough: No Daily Sputum: No IMMUNIZATIONS: Immunization History Administered Date(s) Administered COVID-19 original vaccine, full dose, monovalent (MODERNA) 10/21/2020 11/18/2020 08/24/2021 REVIEW OF SYSTEMS: GEN: Weight loss no, Night sweats no, Fever no. NEURO: Syncope no, Seizure no. EYES: [place], Cataracts no. NOSE: Nasal congestionno, epistaxis no. GI: Constipation Occasional, Heartburn yes, malnutrition (<80% of predicted body weight) not present. ENDO: Polyuria no, heat/cold intolerance no. CARD: Chest pain as per HPI : Urinary retention no. DERM: Skin rash or lesionsno. MSK: Joint swelling no. XAVIER: Easy bruising no. SANJU INDEX: NA PAST MEDICAL HISTORY Diagnosis Date Essential tremor Other acne PMH - PAST MEDICAL HISTORY OF Polycystic Ovarian Syndrome PAST SURGICAL HISTORY Procedure Laterality Date CHOLECYSTECTOMY PAST SURGICAL HISTORY OF Breast reduction Social History Tobacco Use Smoking status: Never Passive exposure: Never Smokeless tobacco: Never Substance Use Topics Alcohol use: Yes Comment: rare Drug use: No FAMILY HISTORY Problem Relation Age of Onset other (Other) Father blood clots Pancreatic Cancer Father Cancer Maternal Grandmother esophageal cancer Diabetes Maternal Grandmother Heart Maternal Grandfather massive heart attack Stroke Paternal Grandmother aneurysm PHYSICAL EXAMINATION: VITALS:BP 122/88 Pulse 99 Ht 5' 5 (1.65m) Wt 190 lb (86.2kg) SpO2 98% BMI 31.62 kg/(m^2). http://www.calculator.net/ideal-zach ght-calculator.html GEN: Breathingnonlabored, Cachexia not present . HEENT: Oropharynx clear and Nares patent CHEST: Breath sounds normal, Crackles not present, Wheezing not present. HEART: Rhythm regular,Heart sounds normal, Added sounds not present, Murmur not present . ABD: Soft and Bowel Sounds: not present EXT: Clubbing no, edema no . SKIN: Rashes no, lesions no. NEURO: Global strength normal, gait normal . Laboratory and Imaging: Last Spirometry No resulted procedures found. Arterial blood gas: No results found for: PH, PCO2, PO2, HCO3, BE, LACT CT scan of the chest: Independently reviewed, interpreted, summarized and shown to patient with computer imaging system CT Chest other findings: Last CT Chest - Impression Only No resulted procedures found. Last XR Chest - Impression Only No resulted procedures found. No results found for this or any previous visit (from the past 4464 hours). Pulmonary hypertension on echocardiogram: unknown. Other data: available data reviewed, summarized and discussed with the patient ASSESSMENT and PLAN: 1. Interstitial lung disease (HCC) - ICD9: 515, ICD10: J84.9 (primary diagnosis) Interstitial infiltrates noted on CTA chest done for elevated D-dimer ands suspected PE Patient does have complaints of dyspnea on exertion, and occasional retrosternal chest heaviness, along with a non-productive cough. Patient also with history of Raynaud's disease wich raises concerns over underlying AutoImmune disease. Patient also with recent viral bronchitis, which may be contibutor to both symptoms and radiodraphic findings. > CT images reviewed with the patient > Images do not impress from a traditional mosiac attenuation standpoint, and may represent contrast dependent blood pooling, with component of poor inspiratory effort. However ILD will need to be excluded > Will arrange for diagnostic evaluation of this, and plan on a follow up CT in 2 months without contrast to track resolution of findings. If findings persist additional recommendations will be made - SPIROMETRY - BASELINE AND POST DILATOR - NITRIC OXIDE, EXHALED - LUNG VOLUMES - LUNG DIFFUSION CAPACITY (DLCO) - SIX MINUTE WALK 2. Dyspnea on exertion - ICD9: 786.09, ICD10: R06.09 Etiology uncertain, may be associated with recent viral illness Given persistence of symptoms patient will be referred for Echocardiogram and complete PFT. Recent blood testing was negative for anemia. Will arrange for Asthmatic Eval as part of PFT. I recommend that patient try decreasing amount of albuterol that she is using, as her symptoms do not seem to be responsive to the albuterol at this time. - ECHO - PERFLUTREN LIPID MICROSPHERES 1.1 MG/ML INJECTION IN NS 10 ML - SODIUM CHLORIDE 0.9 % (FLUSH) INJECTION SYRINGE 3. BUSTER (obstructive sleep apnea) - ICD9: 327.23, ICD10: G47.33 Patient with mutliple risk factors for BUSTER Patient with history of PCOS Exam shows a MPIV airway, with prominent lateral scalloping of the tongue. Patient does not snore, but does have morning headaches on occasion, and suffers from daytime fatigue Given concerns over ILD, and dyspnea on exertion, diagnostic evaluation for BUSTER. If BUSTER confirmed on testing, will update patient and discuss options prior to next visit - HOME SLEEP APNEA TEST (HSAT) 4. Sub-Acute Cough May be related to resolving viral bronchitis Patient denies post nasal drip/congestion Potential contribution from GERD Recommend against aggressive cough suppressants at this time Since cough duration is relatively short, would like to pursue natural history off aggressive medications Will arrange IGE and RAST to evaluate for potential allergy component to cough symptoms Will arrange Barium upper GI series to evaluate for potential componenet of occult GERD or esophageal dysmotility contributing. OTC cough lozenges recommended on as needed basis for now. Patient instructed to notify office if cough or dyspnea symptoms worsen Additional recommendations will be made based on patient progress and pending test results Follow up approximately 2 months Total encounter 70 min, with over 50 % dedicated to patient counseling Kevin Hutchison MD documented in this encounter [facility] 12-18-2024 Note SARS-COV-2 (AGENT OF COVID-19) RNA: Not detected INFLUENZA A RNA: Not detected INFLUENZA B RNA: Not detected RESPIRATORY SYNCYTIAL VIRUS (RSV) RNA: Not detected [facility] Comment on above: Performed By: #### 9 [id number] #### [facility] CLIA [id number] [address] [place] [address] [place] 12-12-2024 Note HNO ID: [id number] Author: JAVIER DIAZ PA-C Service: ? Author Type: Physician Tankage Grinder Operator Type: Progress Notes Filed: 12/12/2024 17:45 Note Text: HPI: Sabine Ball is a 54 year old female who presents with Cough (X3 weeks pt states she feels she has pneumonia as the cough is so deep and now has sob and fatigue x5days). 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 progesterone micronized (PROMETRIUM) 100 mg capsule Magnesium (Citrate) 150 mg (Pure Encapsulations) Take 4 capsules daily. predniSONE (DELTASONE) 20 mg tablet Take 1 tablet by mouth once daily for 10 doses. 10 tablet 0 doxycycline (VIBRA-TABS) 100 mg tablet Take 1 tablet by mouth two times a day for 10 days. 20 tablet 0 albuterol HFA (PROVENTIL HFA, VENTOLIN HFA) 90 mcg/actuation inhaler Inhale 2 puffs as instructed every 6 hours as needed for wheezing/shortness of breath. 1 each 0 estradiol 0.05 mg/24 hr (Patient not taking: Reported on 12/12/2024) MEDICATION, NON-DATABASE Amatriptyl 20 mg, 1 scoop daily Amino Acid Complex Powder (Daxibe) (Hieu) Mix 1 scoop with 8 ounces of water twice daily. (Patient not taking: Reported on 12/12/2024) B-Complex Plus (Pure Encapsulations) Take 1 capsule by mouth daily with food. (Patient not taking: Reported on 12/12/2024) Alpha Lipoic Acid 600 mg (Pure Encapsulations) Take 1 capsule daily with meals. (Patient not taking: Reported on 12/12/2024) SocialSamba Whole Probiotic supplement - (for rian/yeast) probiotic+saccharomyces+biofilm disruptor Take 1 capsule by mouth once daily. Start with 2 jars. No fridge needed. Take at least 2 hrs away from nystatin/candibactin/diflucan. (Patient not taking: Reported on 12/12/2024) 0 Norethindrone Acet-Ethinyl Est (JUNEL ,) 1-20 mg-mcg per tablet Take 1 tablet by mouth once daily. amitriptyline (ELAVIL) 25 mg tablet Take 1 tablet by mouth daily at bedtime. Cholecalciferol, Vitamin D3, (VITAMIN D) 1,000 unit ORAL Cap Take one(1) tablet daily. (Patient not taking: Reported on 12/12/2024) No current facility-administered medications for this visit. Social History Tobacco Use Smoking status: Never Passive exposure: Never Smokeless tobacco: Never Substance Use Topics Alcohol use: Yes Comment: rare Drug use: No Alcohol Use: Yes (rare) Tobacco Use: Never FAMILY HISTORY Problem Relation Age of Onset other (Other) Father blood clots Pancreatic Cancer Father Cancer Maternal Grandmother esophageal cancer Diabetes Maternal Grandmother Heart Maternal Grandfather massive heart attack Stroke Paternal Grandmother aneurysm Review of Systems HENT: Positive for congestion. Negative for sore throat. Eyes: Negative. Respiratory: Positive for cough. Negative for shortness of breath and wheezing. Cardiovascular: Negative for chest pain. Gastrointestinal: Negative for diarrhea, nausea and vomiting. Genitourinary: Negative. Musculoskeletal: Negative. Skin: Negative. Neurological: Negative. Endo/Heme/Allergies: Negative. Psychiatric/Behavioral: Negative. All other systems reviewed and are negative. BP 117/77 Pulse 90 Temp 98.9 Resp 18 Wt 188 lb (85.3kg) SpO2 97% Physical Exam Vitals and nursing note reviewed. Constitutional: General: She is not in acute distress. Appearance: Normal appearance. She is normal weight. She is not ill-appearing or toxic-appearing. HENT: Head: Normocephalic and atraumatic. Right Ear: Tympanic membrane, ear canal and external ear normal. Left Ear: Tympanic membrane, ear canal and external ear normal. Nose: Nose normal. No congestion or rhinorrhea. Mouth/Throat: Mouth: Mucous membranes are moist. Pharynx: Oropharynx is clear. No oropharyngeal exudate or posterior oropharyngeal erythema. Eyes: Extraocular Movements: Extraocular movements intact. Conjunctiva/sclera: Conjunctivae normal. Pupils: Pupils are equal, round, and reactive to light. Cardiovascular: Rate and Rhythm: Normal rate and regular rhythm. Pulses: Normal pulses. Heart sounds: Normal heart sounds. Pulmonary: Effort: Pulmonary effort is normal. Breath sounds: Wheezing (Dry) present. Abdominal: General: Abdomen is flat. Bowel sounds are normal. Palpations: Abdomen is soft. Musculoskeletal: General: Normal range of motion. Cervical back: Normal range of motion and neck supple. No tenderness. Lymphadenopathy: Cervical: No cer (more content not included)... [facility] 12-12-2024 History of Presen t illness Narrative HPI: Sabine Ball is a 54 year old female who presents with Cough (X3 weeks pt states she feels she has pneumonia as the cough is so deep and now has sob and fatigue x5days). 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 progesterone micronized (PROMETRIUM) 100 mg capsule Magnesium (Citrate) 150 mg (Pure Encapsulations) Take 4 capsules daily. predniSONE (DELTASONE) 20 mg tablet Take 1 tablet by mouth once daily for 10 doses. 10 tablet 0 doxycycline (VIBRA-TABS) 100 mg tablet Take 1 tablet by mouth two times a day for 10 days. 20 tablet 0 albuterol HFA (PROVENTIL HFA, VENTOLIN HFA) 90 mcg/actuation inhaler Inhale 2 puffs as instructed every 6 hours as needed for wheezing/shortness of breath. 1 each 0 estradiol 0.05 mg/24 hr (Patient not taking: Reported on 12/12/2024) MEDICATION, NON-DATABASE Amatriptyl 20 mg, 1 scoop daily Amino Acid Complex Powder (Daxibe) (Hieu) Mix 1 scoop with 8 ounces of water twice daily. (Patient not taking: Reported on 12/12/2024) B-Complex Plus (Pure Encapsulations) Take 1 capsule by mouth daily with food. (Patient not taking: Reported on 12/12/2024) Alpha Lipoic Acid 600 mg (Pure Encapsulations) Take 1 capsule daily with meals. (Patient not taking: Reported on 12/12/2024) SocialSamba Whole Probiotic supplement - (for rian/yeast) probiotic+saccharomyces+biofilm disruptor Take 1 capsule by mouth once daily. Start with 2 jars. No fridge needed. Take at least 2 hrs away from nystatin/candibactin/diflucan. (Patient not taking: Reported on 12/12/2024) 0 Norethindrone Acet-Ethinyl Est (JUNEL ,) 1-20 mg-mcg per tablet Take 1 tablet by mouth once daily. amitriptyline (ELAVIL) 25 mg tablet Take 1 tablet by mouth daily at bedtime. Cholecalciferol, Vitamin D3, (VITAMIN D) 1,000 unit ORAL Cap Take one(1) tablet daily. (Patient not taking: Reported on 12/12/2024) No current facility-administered medications for this visit. Social History Tobacco Use Smoking status: Never Passive exposure: Never Smokeless tobacco: Never Substance Use Topics Alcohol use: Yes Comment: rare Drug use: No Alcohol Use: Yes (rare) Tobacco Use: Never FAMILY HISTORY Problem Relation Age of Onset other (Other) Father blood clots Pancreatic Cancer Father Cancer Maternal Grandmother esophageal cancer Diabetes Maternal Grandmother Heart Maternal Grandfather massive heart attack Stroke Paternal Grandmother aneurysm Review of Systems HENT: Positive for congestion. Negative for sore throat. Eyes: Negative. Respiratory: Positive for cough. Negative for shortness of breath and wheezing. Cardiovascular: Negative for chest pain. Gastrointestinal: Negative for diarrhea, nausea and vomiting. Genitourinary: Negative. Musculoskeletal: Negative. Skin: Negative. Neurological: Negative. Endo/Heme/Allergies: Negative. Psychiatric/Behavioral: Negative. All other systems reviewed and are negative. BP 117/77 Pulse 90 Temp 98.9 Resp 18 Wt 188 lb (85.3kg) SpO2 97% Physical Exam Vitals and nursing note reviewed. Constitutional: General: She is not in acute distress. Appearance: Normal appearance. She is normal weight. She is not ill-appearing or toxic-appearing. HENT: Head: Normocephalic and atraumatic. Right Ear: Tympanic membrane, ear canal and external ear normal. Left Ear: Tympanic membrane, ear canal and external ear normal. Nose: Nose normal. No congestion or rhinorrhea. Mouth/Throat: Mouth: Mucous membranes are moist. Pharynx: Oropharynx is clear. No oropharyngeal exudate or posterior oropharyngeal erythema. Eyes: Extraocular Movements: Extraocular movements intact. Conjunctiva/sclera: Conjunctivae normal. Pupils: Pupils are equal, round, and reactive to light. Cardiovascular: Rate and Rhythm: Normal rate and regular rhythm. Pulses: Normal pulses. Heart sounds: Normal heart sounds. Pulmonary: Effort: Pulmonary effort is normal. Breath sounds: Wheezing (Dry) present. Abdominal: General: Abdomen is flat. Bowel sounds are normal. Palpations: Abdomen is soft. Musculoskeletal: General: Normal range of motion. Cervical back: Normal range of motion and neck supple. No tenderness. Lymphadenopathy: Cervical: No cervical adenopathy. Skin: General: Skin is warm and dry. Capillary Refill: Capillary refill takes less than 2 seconds. Neurological: General: No focal deficit present. Mental Status: She is alert and oriented to person, place, and time. Psychiatric: Mood and Affect: Mood normal. Behavior: Behavior normal. Clinical Impression ICD-10-CM 1. Bronchitis J40 Bronchitis (primary encounter diagnosis) PLAN: Mild subjective fever, nothing documented, no acute respiratory distress. No leg pain. No chest pain distal pleuritic left-sided chest discomfort with respiration. Slight dry wheeze on exam no acute respiratory distress vital signs are stable. Treat as bronchitis, antibiotic coverage, inhaler, steroid Javier Diaz PA-C This note was generated with voice recognition software and may contain errors, including spelling, grammar, syntax and misrecognition of what was dictated, that are not fully corrected. documented in this encounter [facility] 10-30-2024 Evaluation note Diagnosis Onset Date Resolution Climacteric acute October 30 2:02pm History of migraine headaches acute October 30, 2024 2:02pm Hormone replacement therapy acute October 30, 2024 2:02pm Obesity (BMI 30.0-34.9) acute M arch 2024 2:02pm Other obesity due to excess calories acute October 30, 2024 2:02pm Vaginal dryness acute October 2:02pm Climacteric acute December 03 2:06pm History of migraine headaches acute December 03, 2024 2:06pm Hormone replacement therapy acute December 03, 2024 2:06pm Obesity (BMI 30.0-34.9) acute A pril 2024 2:06pm Other obesity due to excess calories acute December 03, 2024 2:06pm Vaginal dryness acute November 2:06pm Climacteric acute January 01, 2025 3:33pm History of migraine headaches acute January 01, 2025 3: 33pm Hormone replacement therapy acute January 01, 2025 3: 33pm Obesity (BMI 30.0-34.9) acute M ay 2024 3:33pm Other obesity due to excess calories acute January 01, 2025 3: 33pm Vaginal dryness acute January 01, 2025 3:33pm Climacteric acute February 04 10:51am History of migraine headaches acute February 04, 2025 10:51am Hormone replacement therapy acute February 04, 2025 10:51am Obesity (BMI 30.0-34.9) acute J 2024 10:51am Other obesity due to excess calories acute February 04, 2025 10:51am Vaginal dryness acute January 10:51am [facility] Work Phone: 1(724) 970-402512-04-2024 Evaluation note* Diagnosis Onset Date Resolution Status Admit Date Postmenopausal bleeding acute D ec2023 11:01am History of migraine headaches acute July 31, 2024 2:01pm Obesity (BMI 30.0-34.9) acute D ec2023 2:01pm Postmenopausal bleeding acute D ec2023 2:01pm Vaginal dryness acute July 31, 2024 2:01pm Climacteric acute September 10, 2024 2:03pm History of migraine headaches acute September 10, 2024 2:03pm Obesity (BMI 30.0-34.9) acute J anuary 2024 2:03pm Other obesity due to excess calories acute September 10 2:03pm Vaginal dryness acute August 272024 2:03pm Climacteric acute September 23, 2024 10:54am History of migraine headaches acute September 23, 2024 10:54am Hormone replacement therapy acute September 23, 2024 10:54am Obesity (BMI 30.0-34.9) acute J anuary 2024 10:54am Other obesity due to excess calories acute September 23 10:54am Vaginal dryness acute August 282024 10:54am Climacteric acute October 30 2:02pm History of migraine headaches acute October 30, 2024 2:02pm Hormone replacement therapy acute October 30, 2024 2:02pm Obesity (BMI 30.0-34.9) acute 2024 2:02pm Other obesity due to excess calories acute October 30, 2024 2:02pm Vaginal dryness acute October 2:02pm [facility] Work Phone: 1(291) 270-902806-07-2024 NoteHNO ID: [id number] Author: JOHN CONNELL RT(R) Service: ? Author Type: Technologist Type: Progress Notes Filed: 02/01/2024 10:30 Note Text: Radiology Service Progress Note PATIENT NAME: Sabine Ball DATE OF SERVICE: February 01, 2024 TIME: 10:29 AM PATIENT IDENTITY VERIFICATION COMPLETED USING TWO (2) IDENTIFIERS: Name and Date of confirmed by patient verbally. FALL SCREENING: Has the patient had 2 falls in the last year or 1 fall with injury or currently using an Ambulatory Assistive Device (Walker, Cane, Wheelchair, Crutches, etc.)? No PATIENT GENDER DATA: Female. status: : No status: NO. PATIENT RELEVANT IMPLANT DATA REVIEWED: Not Applicable PATIENT PRESENTS WITH AN IMPLANTABLE OR ATTACHED TECHNICIAN SUPPORT ASSOCIATION: No RADIOLOGY DEPARTMENT: Bone Density PERIPHERAL IV DATA: Not applicable SIGNED BY: JUSTIN Dan) February 01, 2024 10:29 [facility]09-29-2023 NoteHNO ID: [id number] Author: Radha Johnson RT(R) Service: ? Author Type: Technologist Type: Progress Notes Filed: 05/25/2023 10:51 AM Note Text: Radiology Service Progress Note DATE OF SERVICE: May 25, 2023 TIME: 10:50 AM PATIENT IDENTITY VERIFICATION COMPLETED USING TWO (2) STANDARD IDENTIFIERS: Name and Date of confirmed by patient verbally. FALL SCREENING: Has the patient had 2 falls in the last year or 1 fall with injury or currently using an Ambulatory Assistive Device (Walker, Cane, Wheelchair, Crutches, etc.)? No PATIENT GENDER DATA: Female. status: : No status: NO. PATIENT RELEVANT IMPLANT DATA REVIEWED: Yes ALLERGIES: Reviewed and unchanged CONTRAST ALLERGY: NO. EXAM: MRI - CONTRAST TYPE: GROUP II PERIPHERAL IV DATA: Ambulatory: A peripheral IV was started in the Left antecubital site with a Angio cath: 22 gauge. RADIOLOGY DEPARTMENT: MR; Exam(s) Completed: Body: Pancreas/Biliary SIGNATURE: RT Nathaniel(R) PATIENT NAME: Sabine Ball DATE: May 25, 2023 TIME: 10:50 [facility]08-29-2023 History of Present illness Narrative* Kamron Smith MD - 04/24/2023 3:30 PM EDT New Patient/Consult REASON FOR VISIT Sabine Ball is a 53 year old female who is scheduled for a consult at the request of . CHIEF COMPLAINT Family history of pancreatic cancer My final recommendations will be communicated back to the requesting physician by the way of the shared medical record, fax, or via US Mail. HISTORY OF PRESENT ILLNESS She has a significant family history of pancreatic cancer. Father at age 72 of pancreatic cancer (non smoker, non diabetic, overweight). Paternal aunt (60's, non smoker) Paternal great aunt (70's non smoker). Paternal cousin (50's) The patient had the [employer] panel which was negative. She feels overall well. No major GI symptoms. Sometimes reflux during exercise. Also has intermittent constipation, takes a stool softener. No diarrhea. Appetite is good. Significant weight gain, butnow 13 pounds weight loss which is intentional. Alkaline phosphatase mildly elevated, but of bone fraction (?) Note from [facility] Visit 06/30/2022, Cheryl Iglesias [facility] Dr. Dallas Tello requested a consultation for genetic counseling and risk assessment for Sabine Ball, a 52 year old female, for discussion of her family history of pancreatic cancer. Shepresents to clinic today to discuss the possibility of a genetic predisposition to cancer, and to further clarify her risks, as well as her family members' risks for cancer. FAMILY HISTORY Problem Relation Age of Onset other (Other) Father blood clots Pancreatic Cancer Father Cancer Maternal Grandmother esophageal cancer Diabetes Maternal Grandmother Heart Maternal Grandfather massive heart attack Stroke Paternal Grandmother aneurysm PERTINENT PRIOR DIAGNOSTIC TESTING Labs: Latest Reference Range & Units 03/19/23 10:23 Alkaline Phosphatase 34 - 123 U/L 140 (H) Latest Reference Range & Units 11/24/22 07:38 Bilirubin, Total 0.2 - 1.3 mg/dL 0.3 Alkaline Phosphatase 34 - 123 U/L 135 (H) ALT 7 - 38 U/L 25 MEDICATIONS Current Outpatient Medications Medication Sig Dispense Refill estradiol 0.05 mg/24 hr estradiol (ESTRACE) 0.01 % (0.1 mg/gram) vaginal cream Phentermine HCl 30 mg capsule Take 1 capsule by mouth every afternoon. progesterone micronized (PROMETRIUM) 100 mg capsule Amino Acid Complex Powder (Daxibe) (Hieu) Mix 1 scoop with 8 ounces of water twice daily. B-Complex Plus (Pure Encapsulations) Take 1 capsule by mouth daily with food. Alpha Lipoic Acid 600 mg (Pure Encapsulations) Take 1 capsule daily with meals. [facility] Whole Probiotic supplement - (for rian/yeast) probiotic+saccharomyces+biofilm disruptor Take 1 capsule by mouth once daily. Start with 2 jars. No fridge needed. Take at least 2 hrs away from nystatin/candibactin/diflucan. 0 Magnesium (Citrate) 150 mg (Pure Encapsulations) Take 4 capsules daily. Norethindrone Acet-Ethinyl Est (JUNE,) 1-20 mg-mcg per tablet Take 1 tablet by mouth oncedaily. Cholecalciferol, Vitamin D3, (VITAMIN D) 1,000 unit ORAL Cap Take one(1) tablet daily. MEDICATION, NON-DATABASE Amatriptyl 20 mg, 1 scoop daily amitriptyline (ELAVIL) 25 mg tablet Take 1 tablet by mouth daily at bedtime. No current facility-administered medications for this visit. ALLERGIES ALLERGIES Allergen Reactions Codeine Swelling Swelling of throat and body. Benadryl Allergy De* Intolerance, Mental Status Change Sulfa (Sulfonamide * Rash PAST MEDICAL HISTORY PAST MEDICAL HISTORY Diagnosis Date Essential tremor Other acne PMH - PAST MEDICAL HISTORY OF Polycystic Ovarian Syndrome PAST SURGICAL HISTORY PAST SURGICAL HISTORY Procedure Laterality Date CHOLECYSTECTOMY PAST SURGICAL HISTORY OF Breast reduction SOCIAL HISTORY Social History Tobacco Use Smoking status: Never Smokeless tobacco: Never Substance Use Topics Alcohol use: Yes Comment: rare Drug use: No FAMILY HISTORY FAMILY HISTORY Problem Relation Age of Onset other (Other) Father blood clots Pancreatic Cancer Father Cancer Maternal Grandmother esophageal cancer Diabetes Maternal Grandmother Heart Maternal Grandfather massive heart attack Stroke Paternal Grandmother aneurysm GASTROINTESTINAL REVIEW OF SYSTEMS Difficulty swallowing / foods sticking in throat: No Heartburn: Yes Chest Pain: No Filling up quickly at meals: Yes Loss of appetite: No Nausea: No Vomiting: No Abdominal pain: No Bloody or black, bowel movements: No Constipation: Yes Diarrhea: No Vomiting blood: No Recent change in weight: Yes PHYSICAL EXAMINATION BP 128/77 Pulse 71 Ht 5' 5 (1.65m) Wt 185 lb (83.9kg) SpO2 99% BMI 30.79 kg/(m^2). General appearance: cooperative, in no acute distress, overweight Neurological: alert and oriented x3 Eyes: conjunctivae/corneas clear Oropharynx: Lips, tongue and oral mucosa normal Lungs: Lungs clear to auscultation. No wheezing or ronchi. Heart: S1, S2 Normal Abdomen: Abdomen soft, non-tender, Bowel sounds normal, No masses, No organomegaly, and no tenderness on palpation or percussion. Extremities: Extremities normal. No deformities, edema, or skin discoloration Skin:no rashes, lesions, or jaundice Lymph:No abnormal adenopathy Assessment IMPRESSION AND PLAN Pleasant 53 year old year-old patient with increased genetic risk for pancreatic cancer based on having a first degree relative with pancreatic cancer (father) and a second degree relative directly related to her father (paternal aunt). The patient warrants yearly imaging screening (MRI/MRCP alternating with EUS) as per the CAPS guidelines (Ammon M, et al, Gut 2020). I reviewed the rationale, process, shortcomings, and endpoints of [facility] surveillance with the patient. The patient is in agreement with pancreatic cancer screening. Will start with MRI/MRCP this year. I spent a total of 30 minutes on the date of the service which included preparing to see the patient, [id number] patient care, completing clinical documentation, obtaining and/or reviewing separately obtained history, performing a medically appropriate examination, counseling and educating the pat ient/family/caregiver, and ordering medications, tests, or procedures. Kamron mSith MD April 24, 2023 5:40 PM [facility] NoteHNO ID: [id number] Author: Kamron Smith MD Service: ? Author Type: Physician Type: Progress Notes Filed: 04/24/2023 3:55 PM Note Text: New Patient/Consult REASON FOR VISIT Sabine Ball is a 53 year old female who is scheduled for a consult at the request of . CHIEF COMPLAINT Family history of pancreatic cancer My final recommendations will be communicated back to the requesting physician by the way of the shared medical record, fax, or via US Mail. HISTORY OF PRESENT ILLNESS She has a significant family history of pancreatic cancer. Father at age 72 of pancreatic cancer (non smoker, non diabetic, overweight). Paternal aunt (60's, non smoker) Paternal great aunt (70's non smoker). Paternal cousin (50's) The patient had the [employer] panel which was negative. She feels overall well. No major GI symptoms. Sometimes reflux during exercise. Also has intermittent constipation, takes a stool softener. No diarrhea. Appetite is good. Significant weight gain, but now 13 pounds weight loss which is intentional. Alkaline phosphatase mildly elevated, but of bone fraction (?) Note from [facility] Visit 06/30/2022, Cheryl Iglesias [facility] Dr. Dallas Tello requested a consultation for genetic counseling and risk assessment for Sabine Ball, a 52 year old female, for discussion of her family history of pancreatic cancer. She presents to clinic today to discuss the possibility of a genetic predisposition to cancer, and to further clarify her risks, as well as her family members' risks for cancer. FAMILY HISTORY Problem Relation Age of Onset other (Other) Father blood clots Pancreatic Cancer Father Cancer Maternal Grandmother esophageal cancer Diabetes Maternal Grandmother Heart Maternal Grandfather massive heart attack Stroke Paternal Grandmother aneurysm PERTINENT PRIOR DIAGNOSTIC TESTING Labs: Latest Reference Range AND Units 03/19/23 10:23 Alkaline Phosphatase 34 - 123 U/L 140 (H) Latest Reference Range AND Units 11/24/22 07:38 Bilirubin, Total 0.2 - 1.3 mg/dL 0.3 Alkaline Phosphatase 34 - 123 U/L 135 (H) ALT 7 - 38 U/L 25 MEDICATIONS Current Outpatient Medications Medication Sig Dispense Refill estradiol 0.05 mg/24 hr estradiol (ESTRACE) 0.01 % (0.1 mg/gram) vaginal cream Phentermine HCl 30 mg capsule Take 1 capsule by mouth every afternoon. progesterone micronized (PROMETRIUM) 100 mg capsule Amino Acid Complex Powder (Daxibe) (Hieu) Mix 1 scoop with 8 ounces of water twice daily. B-Complex Plus (Pure Encapsulations) Take 1 capsule by mouth daily with food. Alpha Lipoic Acid 600 mg (Pure Encapsulations) Take 1 capsule daily with meals. [facility] Whole Probiotic supplement - (for rian/yeast) probiotic+saccharomyces+biofilm disruptor Take 1 capsule by mouth once daily. Start with 2 jars. No fridge needed. Take at least 2 hrs away from nystatin/candibactin/diflucan. 0 Magnesium (Citrate) 150 mg (Pure Encapsulations) Take 4 capsules daily. Norethindrone Acet-Ethinyl Est (,) 1-20 mg-mcg per tablet Take 1 tablet by mouth once daily. Cholecalciferol, Vitamin D3, (VITAMIN D) 1,000 unit ORAL Cap Take one(1) tablet daily. MEDICATION, NON-DATABASE Amatriptyl 20 mg, 1 scoop daily amitriptyline (ELAVIL) 25 mg tablet Take 1 tablet by mouth daily at bedtime. No current facility-administered medications for this visit. ALLERGIES ALLERGIES Allergen Reactions Codeine Swelling Swelling of throat and body. Benadryl Allergy De* Intolerance, Mental Status Change Sulfa (Sulfonamide * Rash PAST MEDICAL HISTORY PAST MEDICAL HISTORY Diagnosis Date Essential tremor Other acne PMH - PAST MEDICAL HISTORY OF Polycystic Ovarian Syndrome PAST SURGICAL HISTORY PAST SURGICAL HISTORY Procedure Laterality Date CHOLECYSTECTOMY PAST SURGICAL HISTORY OF Breast reduction SOCIAL HISTORY Social History Tobacco Use Smoking status: Never Smokeless tobacco: Never Substance Use Topics Alcohol use: Yes Comment: rare Drug use: No FAMILY HISTORY FAMILY HISTORY Problem Relation Age of Onset other (Other) Father blood clots Pancreatic Cancer Father Cancer Maternal Grandmother esophageal cancer Diabetes Maternal Grandmother Heart Maternal Grandfather massive heart attack Stroke Paternal Grandmother aneurysm GASTROINTESTINAL REVIEW OF SYSTEMS Difficulty swallowing / foods sticking in throat: No Heartburn: Yes Chest Pain: No Filling up quickly at meals: Yes Loss of appetite: No Nausea: No Vomiting: No Abdominal pain: No Bloody or black, bowel movements: No Constipation: Yes Diarrhea: No Vomiting blood: No Recent change in weight: Yes PHYSICAL EXAMINATION BP 128/77 Pulse 71 Ht 5' 5 (1.65m) Wt 185 lb (83.9kg) SpO2 99% BMI 30.79 kg/(m2). General appearance: cooperative, in no acute distress, overweight (more content not included)...[facility]07-27-2023 Miscellaneous Notes* Telephone Encounter - Brisa Zuñiga LPN - 03/22/2023 8:07 AM EDT Phone call placed patient advised (see prior provider encounter) Patient verbalized understanding, agreed with plan of care. Brisa Zuñiga LPN * Telephone Encounter - Tanja Romero APRN.CNP - 03/22/2023 7:08 AM EDT Patient's urine culture did not grow significant amount of bacteria. Patient should continue antibiotics and if symptoms are getting worse not better she needs to follow-up with primary care. documented [facility] NoteHNO ID: [id number] Author: Aaron Concepcion PA-C Service: ? Author Type: Physician Tankage Grinder Operator Type: Progress Notes Filed: 03/20/2023 8:20 PM Note Text: This note was created using Glow[employer]. Subjective Sabine Ball is a 53 year old female. HPI Patient presents with urinary frequency and urgency over the past 2 days. No blood in urine. No back pain or abdominal pain. Some discomfort with urination. Does not have menstrual cycle. She denies vaginal itching or discharge. Review of Systems Constitutional: Negative. HENT: Negative. Respiratory: Negative. Cardiovascular: Negative. Gastrointestinal: Negative. Genitourinary: Positive for dysuria, frequency and urgency. Negative for hematuria and pelvic pain. Musculoskeletal: Negative for back pain. All other systems reviewed and are negative. PAST MEDICAL HISTORY Diagnosis Date Essential tremor Other acne PMH - PAST MEDICAL HISTORY OF Polycystic Ovarian Syndrome Current Outpatient Medications Medication Sig Dispense Refill Amino Acid Complex Powder (Daxibe) (Medical Simulation) Mix 1 scoop with 8 ounces of water twice daily. B-Complex Plus (Pure Encapsulations) Take 1 capsule by mouth daily with food. Alpha Lipoic Acid 600 mg (Pure Encapsulations) Take 1 capsule daily with meals. [employer] Whole Probiotic supplement - (for rian/yeast) probiotic+saccharomyces+biofilm disruptor Take 1 capsule by mouth once daily. Start with 2 jars. No fridge needed. Take at least 2 hrs away from nystatin/candibactin/diflucan. 0 Magnesium (Citrate) 150 mg (Pure Encapsulations) Take 4 capsules daily. Norethindrone Acet-Ethinyl Est (JUNEL ,) 1-20 mg-mcg per tablet Take 1 tablet by mouth once daily. amitriptyline (ELAVIL) 25 mg tablet Take 1 tablet by mouth daily at bedtime. Cholecalciferol, Vitamin D3, (VITAMIN D) 1,000 unit ORAL Cap Take one(1) tablet daily. estradiol 0.05 mg/24 hr estradiol (ESTRACE) 0.01 % (0.1 mg/gram) vaginal cream Phentermine HCl 30 mg capsule Take 1 capsule by mouth every afternoon. progesterone micronized (PROMETRIUM) 100 mg capsule nitrofurantoin monohydrate and macrocrystal (MACROBID) 100 mg capsule Take 1 capsule by mouth twice daily with meals for 5 days. 10 capsule 0 MEDICATION, NON-DATABASE Amatriptyl 20 mg, 1 scoop daily No current facility-administered medications for this visit. PAST SURGICAL HISTORY Procedure Laterality Date CHOLECYSTECTOMY PAST SURGICAL HISTORY OF Breast reduction FAMILY HISTORY Problem Relation Age of Onset other (Other) Father blood clots Pancreatic Cancer Father Cancer Maternal Grandmother esophageal cancer Diabetes Maternal Grandmother Heart Maternal Grandfather massive heart attack Stroke Paternal Grandmother aneurysm Social History Tobacco Use Smoking status: Never Smokeless tobacco: Never Substance Use Topics Alcohol use: Yes Comment: rare Drug use: No Objective BP 110/72 Pulse 78 Temp 36.8 ?C (98.3 ?F) Resp 16 Wt 87.5 kg (193 lb) LMP (LMP Unknown) SpO2 98% BMI 32.32 kg/m? Physical Exam Vitals reviewed. Constitutional: Appearance: Normal appearance. HENT: Head: Normocephalic and atraumatic. Cardiovascular: Rate and Rhythm: Normal rate and regular rhythm. Heart sounds: Normal heart sounds. Pulmonary: Effort: Pulmonary effort is normal. Breath sounds: Normal breath sounds. Abdominal: General: Abdomen is flat. Palpations: Abdomen is soft. Tenderness: There is no abdominal tenderness. There is no right CVA tenderness, left CVA tenderness or guarding. Skin: General: Skin is warm and dry. Findings: No rash. Neurological: General: No focal deficit present. Mental Status: She is alert. Assessment and Plan ASSESSMENT/PLAN: 1. Urinary frequency - ICD9: 788.41, ICD10: R35.0 acute - UA positive for pascual esterase, hematuria, and proteinuria - Send urine for culture - Begin treatment with Macrobid 100 mg BID for 5 days - UA DIP, URINE (POC) - URINE CULTURE [facility]11-28-2022 Miscellaneous Notes* Telephone Encounter - KIM Hanna - 07/24/2022 9:44 AM EST Results left on patient voicemail. Sabine Ball's Custom Cancer Panel through [facility] was negative for a pathogenic variant. 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 A VUS aliya genetic variant for which insufficient data exists in order to determine if it is associated withdisease (deleterious mutation) or is a normal genetic variant which can occur in the population without disease (benign polymorphism). Per recommendation from the 2019 International Cancer of the Pancreas Screening Consortium (Silvino, et al. Gut 2020;69:7-17), this patient may qualify for pancreatic cancer screening based on the following criteria: Carriers of a germline BRCA2, BRCA1, PALB2, LINDA, MLH1, MSH2, or MSH6 gene mutation with at least one first-degree blood relative may qualify for screening Individuals who have at least one first-degree relative with pancreatic cancer who in turn also hasa first-degree relative with pancreatic cancer may qualify for screening All patients with Peutz-Jeghers syndrome All carriers of a germline CDKN2A mutation The patient was advised to consider consultation with Dr. Kamron Smith or Dr. Justin Byrd (ph. ) for discussion of screening options, benefits, and limitations. TC=10.2% Please see [employer] message for further discussion. KIM Hanna Licensed, Certified Genetic Counselor [facility] CC: Dr. Cassi Smith CC by fax/mail: Dr. Dallas Ness [facility], [address] [facility] [address] [place] [address] F. [phone] documented in this encounterHarrison [facility]11-04-2022 History of Present illness Narrative* KIM Hanna - 06/30/2022 8:55 AM EDT [facility] Consultation Note Genetic Counselor: Cheryl Iglesias MS, [facility], PhD Patient: Sabine Ball Patient Name and confirmed at initiation of visit. The patient provided consent for a virtual visit by [facility]. HIGH LEVEL SUMMARY: The patient's family history is potentially suggestive of a hereditary pancreatic cancer syndrome. The patient provided informed consent for Custom Cancer Panel through [employer]. Results are expectedin 2-3 weeks pending lab receipt of sample. We will request that [employer] sends a saliva kit to the patient's home. The patient should follow upwith me if they do not receive this kit within one week of today's appointment. IDENTIFICATION AND CHIEF COMPLAINT: Dr. Dallas Tello requested a consultation for genetic counseling and risk assessment for Sabine Ball, a 52 year old female, for discussion of her family history of pancreatic cancer. Shepresents to clinic today to discuss the possibility of a genetic predisposition to cancer, and to further clarify her risks, as well as her family members' risks for cancer. HISTORY OF PRESENT ILLNESS: Sabine Ball is a 52 year old female with no personal history of cancer. PAST MEDICAL HISTORY Diagnosis Date Essential tremor Other acne PMH - PAST MEDICAL HISTORY OF Polycystic Ovarian Syndrome PAST SURGICAL HISTORY Procedure Laterality Date PAST SURGICAL HISTORY OF Breast reduction REMOVAL GALLBLADDER CANCER SURVEILLANCE HISTORY: Mammograms: Yes / annually Breast MRI's: No Breast Biopsies: No Colonoscopy: Yes / first at 50 y/o EGD: No GI Polyps: Yes / 1 polyp, benign per patient report Pelvic Exam: Yes / annually Pap Smear: Yes / as recommended CA-125: No Transvaginal Ultrasound: Yes / once two years ago due to pain Dermatology: Yes / skin nodules removed REPRODUCTIVE HISTORY AND PERSONAL RISK ASSESSMENT FACTORS: Weight: Last 1 Encounter Wt Readings: Date: Wt: 03/10/2021 83.8 kg (184 lb 11.2 oz) Height: Last 1 Encounter Ht Readings: Date: Ht: 03/10/2021 164.6 cm (5' 4.8) Menarche was at age 89 years old LMP 50 years old Uterus Intact: Yes Ovaries Intact: Yes A0 , first live at age 28 Breast fed: No She has not previously undergone treatment for infertility. She used oral contraception pills for approximately 14 years total Using topical estrogen cream the last few months due to lichen sclerosus SOCIAL HISTORY: Social History Tobacco Use Smoking status: Never Smokeless tobacco: Never Substance Use Topics Alcohol use: Yes Comment: rare Drug use: No FAMILY HISTORY: We obtained a detailed, 4-generation family history. Significant diagnoses are listed below: FAMILY HISTORY Problem Relation Age of Onset other (Other) Father blood clots Heart Maternal Grandfather massive heart attack Cancer Maternal Grandmother esophageal cancer Diabetes Maternal Grandmother Stroke Paternal Grandmother aneurysm The patient's maternal ancestors are of Gu[place]an, Trin[place]adian, and [place] Islander descent and paternal ancestors are of Occitan, Peruvian, and Iranian descent. There is no Ashkenazi Cheondoism ancestry. There is no known consanguinity. A copy of the patient's pedigree will be available under the scanned documents tab following today's visit. GENETIC COUNSELING RISK ASSESSMENT, DISCUSSION, AND SUGGESTED FOLLOW UP: We reviewed the natural history and genetic etiology of sporadic, familial and hereditary cancer syndromes. The patient's family history is potentially suggestive of: a hereditary pancreatic cancer syndrome We discussed that the best person to begin with genetic testing is a family member with a history of cancer. Ms. Ball's father who was diagnosed with pancreatic cancer would be the most appropriate relative for genetic testing. However, this relative is unavailable for testing. Therefore we discussed the limitations of interpreting tests results for an unaffected individual. The patient meets NCCN HBOC testing criteria since her father had a personal history of pancreatic cancer. We discussed that identification of a hereditary cancer syndrome may help her care providers tailorher medical management. If a mutation is detected, the National Comprehensive Cancer Network and/[facility] opinion recommendations could include increased cancer surveillance and prophylactic surgeryoptions. If a mutation is detected, the patient will be referred back to the referring provider andto any additional appropriate care providers to discuss the relevant options. Inheritance of hereditary cancer syndromes was discussed with the patient. If a mutation is not found in the patient, this will decrease the likelihood of a hereditary cancersyndrome for the patient, however it cannot rule it out as the explanation for the family history of pancreatic cancer. Cancer surveillance options would be discussed for the patient according to theappropriate standard National Comprehensive Cancer Network and [place] Cancer Society guidelines, w ith consideration of their personal and family history risk factors. In this case, the patient willbe referred back to their care providers for discussions of management. Based on this assessment of the patient's family and personal history, genetic testing is recommended. After considering the risks, benefits, and limitations, the patient chose to pursue and provided informed consent for the following testing: Custom Cancer Panel through [employer]. The Custom Cancer Panel includes APC, LINDA, AXIN2, BAP1, BARD1, BMPR1A, BRCA1, BRCA2, BRIP1, CDH1, CDK4, CDKN2A, CHEK2, CTNNA1, DDX41, DICER1, EPCAM, FH, FLCN, GREM1, HOXB13, MAX, MEN1, MET, MITF, MLH1, MSH2, MSH3, MSH6, MUTYH, NF1, NTHL1, PALB2, PMS2, POLD1, POLE, POT1, PTCH1, PTEN, RAD51C, RAD51D,RET, SDHA, SDHAF2, SDHB, SDHC, SDHD, SMAD4, SMARCA4, STK11, CYXM860, TP53, TSC1, TSC2, and VHL We discussed that an NGS panel can rarely result in an unexpected finding in a gene which may or may not be related to the presenting phenotype. Per the patient's request, we will contact her by telephone to discuss these results. A follow up genetic counseling visit will be scheduled if requested. The patient was seen for a total of 30 minutes, greater than 50% of which was spent fwrq-jr-soat counseling. This plan is being carried out under the oversight of Dr. Cassi Mariee. This note will also be sent to the referring provider via the electronic medical record. Cheryl Iglesias MS, [facility] [place] Licensed, Certified Genetic Counselor [facility] CC: Dr. Cassi Mariee CC by fax/mail: Dr. Dallas Tello [place] [facility], [address] Shanthi Henao, [address] [address] F. [phone] documented in this encounterPar[facility] noteNo assessment information availableWThe Christ Hospital Work Phone: Evaluation note* Diagnosis Family history of pancreatic cancer- Primary Family history of malignant neoplasm of gastrointestinal tract documented in this encounter [facility] note* Diagnosis Family history of pancreatic cancer- Primary Family history of malignant neoplasm of gastrointestinal tract documented in this encounter [facility]* Diagnosis Family history of pancreatic cancer- Primary Family history of malignant neoplasm of gastrointestinal tract documented in this encounter [facility] note* Diagnosis Bronchitis- Primary Bronchitis, not specified as acute or chronic documented in this encounter [facility] note* Diagnosis Interstitial lung disease (HCC)- Primary Postinflammatory pulmonary fibrosis Dyspnea on exertion Other dyspnea and respiratory abnormality BUSTER (obstructive sleep apnea) Obstructive sleep apnea (adult) (pediatric) Interstitial pulmonary disease (HCC) Postinflammatory pulmonary fibrosis Raynaud's disease without gangrene Gastroesophageal reflux disease without esophagitis Esophageal reflux Subacute cough Cough documented [facility] this encounter [facility]* Diagnosis BUSTER (obstructive sleep apnea)- Primary Obstructive sleep apnea (adult) (pediatric) documented in this encounter [facility] HospitalReason for referral (narrative)No reason for referral information availableWThe Christ Hospital Work Phone: Chief Complaint and Reason for Visit Chief Complaint SCREENING Chief Complaint SCREENING ABM MAMM LT BREAST Chief Complaint Admit Date AUB July 17, 2024 3:21pm EMB July 30, 2024 1 1:01am 4 WK WM July 31, 2024 2 :01pm NEW WEIGHT MANAGEMENT September 10, 2024 2:03pm 2 WK F/U FROM CB September 23, 2024 1 0:54am OBESITY September 25, 2024 7 :44am PRE MEDICATION September 25, 2024 7 :53am 1 month f/u October 30, 2024 2:02 pm EORDER- URINE November 05, 2024 7:4 5am Reason for Visit Admit Date Postmenopausal bleeding July 30 11:01am History of migraine headaches July 312023 2:01pm Obesity (BMI 30.0-34.9) July 31 2:01pm Postmenopausal bleeding July 31 2:01pm Vaginal dryness July 31, 2024 2 :01pm Climacteric September 10, 2024 2 :03pm History of migraine headaches September 102024 2:03pm Obesity (BMI 30.0-34.9) September 10 2:03pm Other obesity due to excess calories Aug 2024 2:03pm Vaginal dryness September 10, 2024 2 :03pm Climacteric September 23, 2024 1 0:54am History of migraine headaches September 232024 10:54am Hormone replacement therapy August 10:54am Obesity (BMI 30.0-34.9) September 23 10:54am Other obesity due to excess calories [facility] 2024 10:54am Vaginal dryness September 23, 2024 1 0:54am Climacteric October 30, 2024 2:02 pm History of migraine headaches October 30, 2024 2:02pm Hormone replacement therapy October 30, 2 025 2:02pm Obesity (BMI 30.0-34.9) October 30, 2024 2:02pm Other obesity due to excess calories Mar 2024 2:02pm Vaginal dryness October 30, 2024 2:02 pm Chief Complaint Admit Date 1 month f/u October 30, 2024 2:02 pm EORDER- URINE November 05, 2024 7:4 5am 1 M FU December 03, 2024 2:06 pm E-ORDER December 18, 2024 3:3 8pm 1 M MED CHECK January 01, 2025 3:33pm 5wk FU February 04, 2025 10:5 1am Reason for Visit Admit Date Climacteric October 30, 2024 2:02 pm History of migraine headaches October 30, 2024 2:02pm Hormone replacement therapy October 30, 2 025 2:02pm Obesity (BMI 30.0-34.9) October 30, 2024 2:02pm Other obesity due to excess calories Mar 2024 2:02pm Vaginal dryness October 30, 2024 2:02 pm Climacteric December 03, 2024 2:06 pm History of migraine headaches December 03, 2024 2:06pm Hormone replacement therapy December 03, 2 025 2:06pm Obesity (BMI 30.0-34.9) December 03, 2024 2:06pm Other obesity due to excess calories Nov 2:06pm Vaginal dryness December 03, 2024 2:06 pm Climacteric January 01, 2025 3:33pm History of migraine headaches January 01, 2 025 3:33pm Hormone replacement therapy January 01 3:33pm Obesity (BMI 30.0-34.9) January 01, 2025 3: 33pm Other obesity due to excess calories January 01, 2025 3:33pm Vaginal dryness January 01, 2025 3:33pm Climacteric February 04, 2025 10:5 1am History of migraine headaches February 04, 2025 10:51am Hormone replacement therapy February 04, 2 025 10:51am Obesity (BMI 30.0-34.9) February 04, 2025 10:51am Other obesity due to excess calories Willian e 2024 10:51am Vaginal dryness February 04, 2025 10:5 1am Advance Directives Advance Directive Response Recorded Date/ Time Living Will No June 13 6:33pm Power of Computer Programmer Chief No June 13, 2019 6:33pm Reason for Referral Specialty Diagnoses / Procedures Referred By Contac t Referred To Contact Gastroenterology Diagnoses Family history of pancreatic cancer Procedures CONSULT TO GASTROENTEROLOGY Cheryl Iglesias, [facility] [address] [place] [address] Kamron Smith MD [address] [place] [address] Referral ID Status Reason Start Date Expiration Date Visits Requested Visits Authorized [id number] Ref Not Required PCP Requested Referral 2 07/24/2023 1 1 Specialty Diagnoses / Procedures Referred By Contac t Referred To Contact MR IMAGING Diagnoses Family history of pancreatic cancer Procedures MRI 3D POST PROCESSING 3D RENDERING W/INTERP&POSTPROC DIFF WORK STATION Kamron Smith MD [address] [id number] [facility] [place] [address] Referral ID Status Reason Start Date Expiration Date Visits Requested Visits Authorized [id number] Pending Review Auto-Generat ed Referral 04/24/2023 05/23/2024 1 1 Specialty Diagnoses / Procedures Referred By Amyac t Referred To Contact MR IMAGING Diagnoses Family history of pancreatic cancer Procedures MRI PANC/GONZALEZ WO/W IVCON MRI ABDOMEN W/O & W/CONTRAST MATERIAL Kamron Smith MD [address] [id number] [facility] [place] [address] Referral ID Status Reason Start Date Expiration Date Visits Requested Visits Authorized [id number] Authorized Auto-Generat ed Referral 04/24/2023 05/23/2024 1 1 Summary Purpose Family History Relationship Condition Age at Onset Recorded Date/T kraig father Malignant neoplasm Unknown aunt Malignant neoplasm Unknown grandmother Malignant neoplasm Unknown Additional Source Comments Goals (unrecognized section and content) Goals may be documented in a n alternate sectionGoals may be documented in an alternate sectionGoals may be documented in an alternate sectionGoals may be documented in an alternate sectionGoals may be documented in an alternate sectionGoals may be documented in an alternate sectionGoals may be documented in an alternate section Source Comments (unrecognize d section and content) In the event this informatio n is protected by the Federal Confidentiality of Alcohol and Drug Abuse Patient Records regulations: The Federal rules restrict any use of the information to criminally investigate or prosecute any alcohol or drug abuse patient.[facility] the event this information is protected by the Federal Confidentiality of Alcohol and Drug Abuse Patient Records regulations: The Federal rules restrict any use of the information to criminally investigate or prosecute any alcohol or drug abuse patient.[facility] the event this information is protected by the Federal Confidentiality of Alcohol and Drug Abuse Patient Records regulations: The Federal rules restrict any use of the information to criminally investigate or prosecute any alcohol or drug abuse patient.[facility] the event this information is protected by the Federal Confidentiality of Alcohol and Drug Abuse Patient Records regulations: The Federal rules restrict any use of the information to criminally investigate or prosecute any alcohol or drug abuse patient.[facility] the event this information is protected by the Federal Confidentiality of Alcohol and Drug Abuse Patient Records regulations: The Federal rules restrict any use of the information to criminally investigate or prosecute any alcohol or drug abuse patient.[facility] the event this information is protected by the Federal Confidentiality of Alcohol and Drug Abuse Patient Records regulations: The Federal rules restrict any use of the information to criminally investigate or prosecute any alcohol or drug abuse patient.[facility] the event this information is protected by the Federal Confidentiality of Alcohol and Drug Abuse Patient Records regulations: The Federal rules restrict any use of the information to criminally investigate or prosecute any alcohol or drug abuse patient.[facility] the event this information is protected by the Federal Confidentiality of Alcohol and Drug Abuse Patient Records regulations: The Federal rules restrict any use of the information to criminally investigate or prosecute any alcohol or drug abuse patient.[facility] the event this information is protected by the Federal Confidentiality of Alcohol and Drug Abuse Patient Records regulations: The Federal rules restrict any use of the information to criminally investigate or prosecute any alcohol or drug abuse patient.[facility] Reason for Visit (unrecogniz ed section and content) Reason Comments Family History Of Cancer Reason Comments Results Reason Comments Results Reason Comments New Patient Reason Comments Cough X3 weeks pt states s he feels she has pneumonia as the cough is so deep and now has sob and fatigue x5days Reason Comments Sleep Apnea Reason Comments Apnea Specialty Diagnoses / Procedures Referred By Nataliia tavarez Referred To Contact SLEEP DISORDERS Diagnoses HSAT Procedures HOME SLEEP TESTING Kevin Hutchison MD [address] [facility] [address] [place] [address] Phone: tel: fax: [facility] [address] [place] [address] Phone: tel: fax: Referral ID Status Reason Start Date Expiration Date Visits Re quested Visits Authorized [id number] Closed 01/02/2025 03/03/2025 1 1 Care Teams (unrecognized sec tion and content) Dye Penetrant Testing Technician Relationship Specialty Start Date End Date Dallas Ness MD [address] [place] [address] [id number] PCP - General 11/02/08 Dye Penetrant Testing Technician Relationship Specialty Start Date End Date Dallas Ness MD [address] [place], [place] [id number] PCP - General 11/02/08 Dye Penetrant Testing Technician Relationship Specialty Start Date End Date Dallas Ness MD [address] [place], [place] [id number] PCP - General 11/02/08 Team Status: Active Member Role Status Dates Dr. Adilson Ness MD Family Provider Active Dr. Adilson Ness MD Primary Care Provider Activ e Team Status: Inactive Member Role Status Dates Dr. Adilson Ness MD Primary Care Provider, Atte nding Provider Active Dye Penetrant Testing Technician Relationship Specialty Start Date End Date Dallas Ness MD [address] [place], [place] [id number] PCP General 11/02/08 Team Status: Inactive Member Role Status Dates Dr. Adilson Ness MD Primary Care Provider Activ e Dr. Jamie Finch MD Attending Provider, Refer ring Provider Active Team Status: Active Member Role Status Dates Dr. Adilson Ness MD Primary Care Provider Activ e Dr. Jamie Finch MD Attending Provider, Refer ring Provider Active Team Status: Active Member Role Status Dates Dr. Dallas Ness MD Primary Care Provider Acti ve Team Status: Inactive Member Role Status Dates Dr. Dallas Ness MD Primary Care Provider Acti ve Start: July 17, 2024 End: July 17, 2024 Gini Gorman STRAIGHT TRUCK DRIVER, STRAIGHT TRUCK DRIVER-C Attending Provider Active Start: July 17, 2024 End: July 17, 2024 Gini Gorman STRAIGHT TRUCK DRIVER, STRAIGHT TRUCK DRIVER-C Referring Provider Active Start: July 17, 2024 End: July 17, 2024 Team Status: Inactive Member Role Status Dates Dr. Dallas Ness MD Primary Care Provider Acti ve Start: July 30, 2024 End: July 30, 2024 Dr. Dallas Ness MD Referring Provider Active Start: July 30, 2024 End: July 30, 2024 Gini Gorman STRAIGHT TRUCK DRIVER, STRAIGHT TRUCK DRIVER-C Attending Provider Active Start: July 30, 2024 End: July 30, 2024 Team Status: Inactive Member Role Status Dates Dr. Dallas Ness MD Primary Care Provider Acti ve Start: July 30, 2024 End: July 30, 2024 Gini Gorman STRAIGHT TRUCK DRIVER, STRAIGHT TRUCK DRIVER-C Attending Provider Active Start: July 30, 2024 End: July 30, 2024 Gini Gorman STRAIGHT TRUCK DRIVER, STRAIGHT TRUCK DRIVER-C Referring Provider Active Start: July 30, 2024 End: July 30, 2024 Team Status: Inactive Member Role Status Dates Dr. Dallas Ness MD Primary Care Provider Acti ve Start: July 31, 2024 End: July 31, 2024 Dr. Dallas Ness MD Referring Provider Active Start: July 31, 2024 End: July 31, 2024 ALLEGRA Hoff Attending Provider Active Start: July 31, 2024 End: July 31, 2024 Team Status: Inactive Member Role Status Dates Dr. Dallas Ness MD Primary Care Provider Acti ve Start: September 10, 2024 End: September 10, 2024 Dr. Dallas Ness MD Referring Provider Active Start: September 10, 2024 End: September 10, 2024 ALLEGRA Hoff Attending Provider Active Start: September 10, 2024 End: September 10, 2024 Team Status: Inactive Member Role Status Dates Dr. Dallas Ness MD Primary Care Provider Acti ve Start: September 19, 2024 End: September 19, 2024 Dr. Dallas Ness MD Attending Provider Active Start: September 19, 2024 End: September 19, 2024 Dr. Dallas Ness MD Referring Provider Active Start: September 19, 2024 End: September 19, 2024 Team Status: Inactive Member Role Status Dates Dr. Dallas Ness MD Primary Care Provider Acti ve Start: September 23, 2024 End: September 23, 2024 Dr. Dallas Ness MD Referring Provider Active Start: September 23, 2024 End: September 23, 2024 Dr. Nancy Booth MD Attending Provider Active Start: September 23, 2024 End: September 23, 2024 Team Status: Inactive Member Role Status Dates Dr. Dallas Ness MD Primary Care Provider Acti ve Start: September 25, 2024 End: September 25, 2024 ALLEGRA Hoff Attending Provider Active Start: September 25, 2024 End: September 25, 2024 ALLEGRA Hoff Referring Provider Active Start: September 25, 2024 End: September 25, 2024 Team Status: Active Member Role Status Dates Dr. Dallas Ness MD Primary Care Provider Acti ve Start: September 25, 2024 End: September 25, 2024 Dr. Naty Addison MD Attending Provider Activ e Start: September 25, 2024 End: September 25, 2024 ALLEGRA Hoff Referring Provider Active Start: September 25, 2024 End: September 25, 2024 Team Status: Inactive Member Role Status Dates Dr. Dallas Ness MD Primary Care Provider Acti ve Start: October 30, 2024 End: October 30, 2024 Dr. Dallas Ness MD Referring Provider Active Start: October 30, 2024 End: October 30, 2024 ALLEGRA Hoff Attending Provider Active Start: October 30, 2024 End: October 30, 2024 Team Status: Inactive Member Role Status Dates Dr. Dallas Ness MD Primary Care Provider Acti ve Start: November 05, 2024 End: November 05, 2024 Dr. Dallas Ness MD Attending Provider Active Start: November 05, 2024 End: November 05, 2024 Dr. Dallas Ness MD Referring Provider Active Start: November 05, 2024 End: November 05, 2024 Dye Penetrant Testing Technician Relationship Specialty Start Date End Date Dallas Ness MD [address] [facility] [place] [place] [address] PCP - General 11/02/08 Dye Penetrant Testing Technician Relationship Specialty Start Date End Date Dallas Ness MD [address] [facility] [place] [address] PCP - General 11/02/08 Dye Penetrant Testing Technician Relationship Specialty Start Date End Date Dallas Ness MD [address] [place] [address] PCP - General 11/02/08 Team Status: Inactive Member Role Status Dates Dr. Dallas Ness MD Primary Care Provider Acti ve Start: December 03, 2024 End: December 03, 2024 Dr. Dallas Ness MD Referring Provider Active Start: December 03, 2024 End: December 03, 2024 ALLEGRA Hoff Attending Provider Active Start: December 03, 2024 End: December 03, 2024 Team Status: Inactive Member Role Status Dates Dr. Dallas Ness MD Primary Care Provider Acti ve Start: December 18, 2024 End: December 18, 2024 Dr. Dallas Ness MD Attending Provider Active Start: December 18, 2024 End: December 18, 2024 Dr. Dallas Ness MD Referring Provider Active Start: December 18, 2024 End: December 18, 2024 Team Status: Inactive Member Role Status Dates Dr. Dallas Ness MD Primary Care Provider Acti ve Start: January 01, 2025 End: January 01, 2025 Dr. Dallas Ness MD Referring Provider Active Start: January 01, 2025 End: January 01, 2025 ALLEGRA Hoff Attending Provider Active Start: January 01, 2025 End: January 01, 2025 Team Status: Inactive Member Role Status Dates Dr. Dallas Ness MD Primary Care Provider Acti ve Start: February 04, 2025 End: February 04, 2025 Dr. Dallas Ness MD Referring Provider Active Start: February 04, 2025 End: February 04, 2025 ALLEGRA Hoff Attending Provider Active Start: February 04, 2025 End: February 04, 2025 INFORMATION SOURCE (unrecogn ized section and content) DATE CREATED AUTHOR 02/02/2024 [facility] DATE CREATED AUTHOR AUTHOR'S ORGANIZ ATION 01/23/2025 [facility] DATE CREATED AUTHOR AUTHOR'S ORGANIZ ATION 01/29/2025 [facility] FOR RECORDS PERTAINING TO PATIENTS WHO ARE OR HAVE BEEN ENROLLED IN A CHEMICAL DEPENDENCY/SUBSTANCEABUSE PROGRAM, SOME INFORMATION MAY BE OMITTED. This clinical summary was aggregated from multiple sources. Caution should be exercised in using it in the provision of clinical care. This summary normalizes information from multiple sources, and as a consequence, information in this document may materially change the coding, format and clinical context of patient data. In addition, data may be omitted in some cases. CLINICAL DECISIONS SHOULD BE BASED ON THE PRIMARY CLINICAL RECORDS. [employer] [facility]. provides no warranty or guarantee of the accuracy or completeness of information in this document.
== END | disposition home or self-care (01) ==
LOC: LAB 12:19
PROVIDERS: PCP Family Medicine; Referring Provider Nurse Practitioner Family; Visit Provider Nurse Practitioner Family
DX: R53.83 Other fatigue (principal)
CPT/HCPCS: 36415; 82670; 83001; 83002

== ENCOUNTER → 2025-07-03 | Outpatient (CLI) | payer OTHER, SELFPAY ==
--- NOTE | 2025-07-03 14:45 | BI_ITS ---
EXAM: SCRN MAMM (CAD)W/TIERA BILAT DATE: 07/03/2025 CLINICAL HISTORY: F, Age 55 y/o , BREAST CANCER SCREENING No family history. TECHNIQUE: Procedure Code: [id number] Modality: MG Procedure: SCRN MAMM (CAD)W/TIERA BILAT COMPARISON: Prior exam(s) dated June 10, 2024.. FINDINGS: TISSUE DENSITY: There are scattered areas of fibroglandular density. Bilateral Breast Mammographic Findings: No significant masses, calcifications or other abnormalities are identified. Stable bilateral fat containing axillary lymph nodes. No suspicious masses, areas of developing architectural distortion, or suspicious calcifications. There has been no significant interval change. BI/SCRN MAMM (CAD)W/TIERA BILAT IMPRESSION: Stable bilateral screening OVERALL FINAL ASSESSMENT BI-RADS 2: BENIGN RECOMMENDATION: Routine annual follow-up in 1 Year Additional Recommendation none A letter with findings and recommendations will be mailed to the patient. Reading Location: [facility]-
== END | disposition home or self-care (01) ==
LOC: OPBI 14:33
PROVIDERS: PCP Family Medicine; Referring Provider Nurse Practitioner Women's Health; Visit Provider Nurse Practitioner Women's Health
DX: Z12.31 Encounter for screening mammogram for malignant neoplasm of breast (principal)
CPT/HCPCS: 77063; 77067